=== PATIENT | male | born 1945 | race Caucasian/White ===

== ENCOUNTER 2018-11-16 18:49 | Observation (INO) | payer MEDICARE, OTHER ==
[2018-11-16] MEDS ORDERED: Sodium Chloride 0.9% 1000 ML 1,000 ML IV STA (19:52)
--- NOTE | 2018-11-16 19:55 | ERPHSYRPT ---
- History of Present Illness Time Seen by Provider: 11/16/18 19:30 Source: patient Exam Limitations: no limitations Patient Subjective Stated Complaint: pt states he was told at the end of dialysis that he had an irregular heart rhythm. denies any symptoms other tthan feeling very tired. denies hx of afib. Triage Nursing Assessment: pt alert and oriented, answers questions approp. pt ambulatory with steady gait noted. respirations nonlabored with lungs cta. heart rate irregular. peripheral pulses strong and irregular. Physician History: Patient was found to have an irregular rhythm at dialysis this evening. Patient has been feeling fatigued over the past two weeks. Timing/Duration: today Activities at Onset: rest Quality: other (no pain) Chest Pain Radiation: no radiation Severity of Pain-Max: none Severity of Pain-Current: none Modifying Factors: Improves With: nothing Nitro Today/Relief: no nitro taken today Aspirin Treatment Today: no aspirin today Associated Symptoms: other (fatigue), No nausea, No vomiting, No abdominal pain , No shortness of breath, No heartburn, No diaphoresis, No cough, No chills, No chest pain, No fever, No headaches, No loss of appetite, No malaise, No rash, No syncope, No seizure, No weakness Prior Chest Pain/Cardiac Workup: no prior chest pain Allergies/Adverse Reactions: Sulfa (Sulfonamide Antibiotics) [Sulfa(Sulfonamide Antibiotics)] Allergy ( Unknown, Verified 11/16/18 19:25) latex Adverse Reaction (Intermediate, Verified 11/16/18 19:25) Rash Home Medications: Tamsulosin HCl 0.4 mg [Flomax 0.4 MG] 0.4 mg PO DAILY 04/02/12 [History] Insulin Degludec [Tresiba Flextouch U-100] 30 unit SQ DAILY 11/16/18 [History] Paricalcitol 1 mcg PO UD 11/16/18 [History] Pravastatin Sodium 20 mg PO DAILY 11/16/18 [History] Hx Tetanus, Diphtheria Vaccination/Date Given: Yes Hx Influenza Vaccination/Date Given: Yes (2018) Hx Pneumococcal Vaccination/Date Given: Yes Immunizations Up to Date: Yes - Review of Systems Constitutional: Fatigue, No Fever, No Chills Eyes: No Discharge, No Vision Changes Ears, Nose, & Throat: No Nose Pain, No Nose Discharge, No Epistaxis, No Mouth Swelling, No Painful Swallowing Respiratory: No Cough, No Dyspnea Cardiac: No Chest Pain, No Edema, No Palpitations, No Syncope Abdominal/Gastrointestinal: No Abdominal Pain, No Nausea, No Vomiting, No Hematemesis, No Hematochezia Genitourinary Symptoms: No Dysuria, No Hematuria, No Flank Pain Musculoskeletal: No Back Pain, No Neck Pain Skin: No Rash Neurological: No Dizziness, No Focal Weakness Psychological: No Anxiety, No Emotional Lability Endocrine: No Polyuria, No Polydipsia Hematologic/Lymphatic: No Easy Bleeding, No Easy Bruising All Other Systems: Reviewed and Negative - Past Medical History Pertinent Past Medical History: Yes Neurological History: No Pertinent History ENT History: No Pertinent History Cardiac History: High Cholesterol, Hypertension Respiratory History: No Pertinent History Endocrine Medical History: Diabetes Type II Musculoskeletal History: No Pertinent History GI Medical History: No Pertinent History History: Renal Disease Psycho-Social History: No Pertinent History Male Reproductive Disorders: Prostate Cancer, Prostate Problems Other Medical History: started dialysis at begining on october- will be switching to perotoneal - Past Surgical History Past Surgical History: Yes Neuro Surgical History: No Pertinent History Cardiac: No Pertinent History Respiratory: No Pertinent History Gastrointestinal: No Pertinent History Genitourinary: No Pertinent History Musculoskeletal: Orthopedic Surgery Male Surgical History: Prostate Surgery Other Surgical History: lt ankle compuond fx,seed implants to prostate 2006, dialysis port to rt sc and peritoneal port to abd - Social History Smoking Status: Never smoker Exposure to second hand smoke: No Drug Use: none Patient Lives Alone: No - Nursing Vital Signs Nursing Vital Signs: Initial Vital Signs Temperature 98.1 F 11/16/18 19:12 Pulse Rate 98 H 11/16/18 19:12 Respiratory Rate 16 11/16/18 19:12 Blood Pressure 157/89 11/16/18 19:12 O2 Sat by Pulse Oximetry 99 11/16/18 19:12 Pain Scale Pain Intensity 0 - Physical Exam General Appearance: no apparent distress Eye Exam: PERRL/EOMI, eyes nml inspection, No scleral icterus Ears, Nose, Throat Exam: normal ENT inspection, pharynx normal, moist mucous membranes Neck Exam: normal inspection, non-tender, supple, full range of motion, No meningismus Respiratory Exam: normal breath sounds, lungs clear, airway intact, No respiratory distress Cardiovascular Exam: normal heart sounds, normal peripheral pulses, irregular, capillary refill <2 sec, No murmur, No edema Gastrointestinal/Abdomen Exam: soft, normal bowel sounds, No tenderness, No distention, No mass, No ecchymosis, No pulsatile mass Back Exam: normal inspection, normal range of motion, No CVA tenderness, No vertebral tenderness Extremity Exam: normal inspection, normal range of motion, pelvis stable, No kayla's sign, No inflammation, No pedal edema Neurologic Exam: alert, oriented x 3, cooperative, soft top installer II-XII nml as tested Skin Exam: normal color, warm, dry, No rash Lymphatic Exam: No adenopathy SpO2 Interpretation: normal SpO2: 98 O2 Delivery: Room Air - Course EKG Interpreted by Me: RATE (96), A-fib, NORMAL AXIS, prolonged QT interval, Right Bundle Branch Block, NORMAL ST-T, Other (repeat EKG @ 21:19 showed NSR at 68bpm with 1st Degree AV block and RBBB with no acute ST or T wave changes) Rhythm Strip: Normal Sinus Rhythm (@21:14) - Radiology Exams Chest X-ray Interpretation: Interpreted by me, Reviewed by me, No Pneumonia, No Pneumothorax, Nml Heart Size, No Infiltrates, Nml Mediastinum, Other (dialysis catheter in place on the right) Ordered Tests: Active Orders 24 hr Category Date Time Status Access Control Specialist STAT Care 11/16/18 19:53 Active EKG-ER Only STAT Care 11/16/18 19:52 Active IV Insertion STAT Care 11/16/18 19:52 Active CHEST 1 VIEW (PORTABLE) Stat Exams 11/16/18 19:53 Taken BLOOD CULTURE Stat Lab 11/16/18 20:20 Received CBC W DIFF Stat Lab 11/16/18 20:12 Completed CK-Creatinine Phosphokinase Stat Lab 11/16/18 20:12 Completed CMP Stat Lab 11/16/18 20:12 Completed LIPASE Stat Lab 11/16/18 20:12 Completed Lactic Acid Stat Lab 11/16/18 20:00 Completed MAGNESIUM Stat Lab 11/16/18 20:12 Completed Manual Differential NC Stat Lab 11/16/18 20:12 Completed PROTIME WITH INR Stat Lab 11/16/18 20:12 Completed PTT Stat Lab 11/16/18 20:12 Completed TROPONIN Q3H Lab 11/16/18 20:12 Completed TROPONIN Q3H Lab 11/16/18 23:00 Ordered TROPONIN Q3H Lab 11/17/18 02:00 Ordered TROPONIN Q3H Lab 11/17/18 05:00 Ordered TROPONIN Q3H Lab 11/17/18 08:00 Ordered TSH [TSH, 3RD Generation] Stat Lab 11/16/18 20:26 Ordered UA W/RFX UR CULTURE Stat Lab 11/16/18 19:52 Uncollected VENOUS BLOOD GAS Urgent Lab 11/16/18 20:00 Completed Medication Summary Generic Name Dose Route Start Last Admin Trade Name Freq PRN Reason Stop Dose Admin Sodium Chloride 1,000 mls @ 500 mls/hr 11/16/18 19:52 11/16/18 20:22 Sodium Chloride 0.9% 1000 Ml IV 11/16/18 21:51 500 mls/hr .Q2H STA Administration Discontinued Medications Generic Name Dose Route Start Last Admin Trade Name Freq PRN Reason Stop Dose Admin Sodium Chloride Confirm 11/16/18 20:20 Sodium Chloride 0.9% 1000 Ml Administered 11/16/18 20:21 Dose 1,000 mls @ ud .ROUTE .STK-MED ONE Metoprolol Tartrate 5 mg 11/16/18 20:23 11/16/18 20:39 Lopressor 5 Mg/5 Ml Injection IV 11/16/18 20:24 5 mg STAT ONE Administration Metoprolol Tartrate Confirm 11/16/18 20:30 Lopressor 5 Mg/5 Ml Injection Administered 11/16/18 20:31 Dose 5 mg IV .STK-MED ONE Potassium Chloride 40 meq 11/16/18 20:54 11/16/18 21:10 Klor Con 10 Meq PO 11/16/18 20:55 40 meq STAT ONE Administration Potassium Chloride Confirm 11/16/18 21:09 Klor Con 10 Meq Administered 11/16/18 21:10 Dose 40 meq PO .STK-MED ONE Lab/Rad Data: Laboratory Result Diagrams 11/16/18 20:12 11/16/18 20:12 Laboratory Results 11/16/18 11/16/18 11/16/18 Range/Units 20:26 20:12 20:12 WBC (4.0-10.5) K/mm3 RBC (4.1-5.6) M/mm3 Hgb (12.5-18.0) gm/dl Hct (42-50) % MCV (78-100) fl MCH (26-32) pg MCHC (32-36) g/dl RDW (11.5-14.0) % Plt Count (150-450) K/mm3 MPV (6-9.5) fl Absolute Neutrophils (1.4-6.9) Segmented Neutrophils (36.-66.) % Band Neutrophils (0.0-2.0) % Lymphocytes (Manual) (24-44) % Monocytes (Manual) (0.0-12.0) % Platelet Estimate (NORMAL) Anisocytosis PT 12.9 H (8.83-12.87) SECONDS INR 1.14 (0.8-3.0) APTT 31.9 (24.1-36.1) SECONDS pO2/FiO2 Ratio % VBG pH (7.32-7.42) VBG pCO2 at Pat Temp (42-55) mm/Hg VBG pO2 at Pat Temp (25-40) mm/Hg VBG HCO3 (22-28) meq/L VBG O2 Sat (Lani) (95-100) VBG Base Excess (-2.0-2.0) VBG Hemoglobin VBG Carboxyhemoglobin (0.0-6.9) % T HGB POC Potassium (3.5-5.1) Sodium (137-145) mmol/L Potassium (3.5-5.1) mmol/L Chloride (98-107) mmol/L Carbon Dioxide (22-30) mmol/L Anion Gap (5-15) MEQ/L BUN (9-20) mg/dL Creatinine (0.66-1.25) mg/dL Estimated GFR ML/MIN Glucose (74-106) mg/dL Lactic Acid (0.4-2.0) Calcium (8.4-10.2) mg/dL Magnesium (1.6-2.3) mg/dL Total Bilirubin (0.2-1.3) mg/dL AST (17-59) U/L ALT (0-50) U/L Alkaline Phosphatase (38-126) U/L Creatine Kinase (55-170) U/L Troponin I 0.013 (0.000-0.034) ng/mL Serum Total Protein (6.3-8.2) g/dL Albumin (3.5-5.0) g/dL Lipase (23-300) U/L TSH 3rd Generation 0.534 (0.47-4.68) mIU/L 11/16/18 11/16/18 11/16/18 Range/Units 20:12 20:12 20:00 WBC 7.9 (4.0-10.5) K/mm3 RBC 3.35 L (4.1-5.6) M/mm3 Hgb 10.3 L (12.5-18.0) gm/dl Hct 30.3 L (42-50) % MCV 90.4 (78-100) fl MCH 30.7 (26-32) pg MCHC 34.0 (32-36) g/dl RDW 13.5 (11.5-14.0) % Plt Count 226 (150-450) K/mm3 MPV 8.6 (6-9.5) fl Absolute Neutrophils 6.97 (1.4-6.9) Segmented Neutrophils 85 H (36.-66.) % Band Neutrophils 3 H (0.0-2.0) % Lymphocytes (Manual) 5 L (24-44) % Monocytes (Manual) 7 (0.0-12.0) % Platelet Estimate NORMAL (NORMAL) Anisocytosis 1+ PT (8.83-12.87) SECONDS INR (0.8-3.0) APTT (24.1-36.1) SECONDS pO2/FiO2 Ratio 21.0 % VBG pH 7.55 H* (7.32-7.42) VBG pCO2 at Pat Temp 32 L (42-55) mm/Hg VBG pO2 at Pat Temp 53 H (25-40) mm/Hg VBG HCO3 28.0 (22-28) meq/L VBG O2 Sat (Lani) 92.4 L (95-100) VBG Base Excess 5.6 H (-2.0-2.0) VBG Hemoglobin 10.3 VBG Carboxyhemoglobin 1.8 (0.0-6.9) % T HGB POC Potassium 3.2 L (3.5-5.1) Sodium 135 L (137-145) mmol/L Potassium 3.4 L (3.5-5.1) mmol/L Chloride 94 L (98-107) mmol/L Carbon Dioxide 26 (22-30) mmol/L Anion Gap 19.2 H (5-15) MEQ/L BUN 47 H (9-20) mg/dL Creatinine 3.36 H (0.66-1.25) mg/dL Estimated GFR 19.2 ML/MIN Glucose 162 H (74-106) mg/dL Lactic Acid (0.4-2.0) Calcium 9.6 (8.4-10.2) mg/dL Magnesium 1.8 (1.6-2.3) mg/dL Total Bilirubin 0.40 (0.2-1.3) mg/dL AST 21 (17-59) U/L ALT 18 (0-50) U/L Alkaline Phosphatase 86 (38-126) U/L Creatine Kinase 80 (55-170) U/L Troponin I (0.000-0.034) ng/mL Serum Total Protein 7.6 (6.3-8.2) g/dL Albumin 4.5 (3.5-5.0) g/dL Lipase 134 (23-300) U/L TSH 3rd Generation (0.47-4.68) mIU/L 11/16/18 Range/Units 20:00 WBC (4.0-10.5) K/mm3 RBC (4.1-5.6) M/mm3 Hgb (12.5-18.0) gm/dl Hct (42-50) % MCV (78-100) fl MCH (26-32) pg MCHC (32-36) g/dl RDW (11.5-14.0) % Plt Count (150-450) K/mm3 MPV (6-9.5) fl Absolute Neutrophils (1.4-6.9) Segmented Neutrophils (36.-66.) % Band Neutrophils (0.0-2.0) % Lymphocytes (Manual) (24-44) % Monocytes (Manual) (0.0-12.0) % Platelet Estimate (NORMAL) Anisocytosis PT (8.83-12.87) SECONDS INR (0.8-3.0) APTT (24.1-36.1) SECONDS pO2/FiO2 Ratio % VBG pH (7.32-7.42) VBG pCO2 at Pat Temp (42-55) mm/Hg VBG pO2 at Pat Temp (25-40) mm/Hg VBG HCO3 (22-28) meq/L VBG O2 Sat (Lani) (95-100) VBG Base Excess (-2.0-2.0) VBG Hemoglobin VBG Carboxyhemoglobin (0.0-6.9) % T HGB POC Potassium (3.5-5.1) Sodium (137-145) mmol/L Potassium (3.5-5.1) mmol/L Chloride (98-107) mmol/L Carbon Dioxide (22-30) mmol/L Anion Gap (5-15) MEQ/L BUN (9-20) mg/dL Creatinine (0.66-1.25) mg/dL Estimated GFR ML/MIN Glucose (74-106) mg/dL Lactic Acid 1.2 (0.4-2.0) Calcium (8.4-10.2) mg/dL Magnesium (1.6-2.3) mg/dL Total Bilirubin (0.2-1.3) mg/dL AST (17-59) U/L ALT (0-50) U/L Alkaline Phosphatase (38-126) U/L Creatine Kinase (55-170) U/L Troponin I (0.000-0.034) ng/mL Serum Total Protein (6.3-8.2) g/dL Albumin (3.5-5.0) g/dL Lipase (23-300) U/L TSH 3rd Generation (0.47-4.68) mIU/L - Progress Progress: re-examined, unchanged Air Movement: good Progress Note: 11/16/18 21:12 Patient converted back into sinus rhythm on the nuclear logging engineer at 70 beats per minute. 11/16/18 21:15 Discussed the patient with Dr Calabrese, Hospitalist at [facility]. Dr Calabrese accepted the patient for observation to [facility]. Blood Culture(s) Obtained: Yes Antibiotics given: No Discussed with : Cisco Counseled pt/family regarding: lab results, diagnosis, need for follow-up, rad results - Departure Departure Disposition: Observation (to [facility] telemetry) Clinical Impression: New onset atrial fibrillation, Hypokalemia Hypertension Qualifiers: Hypertension type: essential hypertension Qualified Code(s): I10 - Essential ( primary) hypertension Fatigue Qualifiers: Fatigue type: unspecified Qualified Code(s): R53.83 - Other fatigue Condition: Good Critical Care Time: No Referrals: YASMANY CALABRESE [Primary Care Provider] -
[2018-11-16 20:09] LABS: VBG BASE EXCESS 5.6 (-2.0-2.0); VBG CARBOXYHEMOGLOBIN 1.8 % T HGB (0.0-6.9); VBG HEMOGLOBIN 10.3; VBG O2 SATURATION 92.4 (95-100); VBG POTASSIUM 3.2 (3.5-5.1); VBG pH 7.55 (7.32-7.42)
[2018-11-16 20:14] LABS: Hematocrit 30.3 % (42-50); Hemoglobin 10.3 gm/dl (12.5-18.0); Mean Cell Volume 90.4 fl (78-100); Mean Corpuscular Hemoglobin 30.7 pg (26-32); Mean Platelet Volume 8.6 fl (6-9.5); Platelet Count 226 K/mm3 (150-450); Red Blood Count 3.35 M/mm3 (4.1-5.6); Red Cell Distribution Width 13.5 % (11.5-14.0); White Blood Count 7.9 K/mm3 (4.0-10.5)
[2018-11-16] MEDS ORDERED: Sodium Chloride 0.9% 1000 ML 1,000 ML ONE (20:20)
[2018-11-16 20:21] LABS: INR 1.14 (0.8-3.0); PROTIME 12.9 SECONDS (8.83-12.87)
[2018-11-16 20:23] LABS: PTT 31.9 SECONDS (24.1-36.1)
[2018-11-16] MEDS ORDERED: LOPRESSOR 5 MG/5 ML INJECTION IV ONE ×2 (20:23→20:30)
[2018-11-16 20:27] LABS: ALBUMIN 4.5 g/dL (3.5-5.0); ANION GAP 19.2 MEQ/L (5-15); BILIRUBIN,TOTAL 0.4 mg/dL (0.2-1.3); Calcium 9.6 mg/dL (8.4-10.2); Creatinine 1 3.36 mg/dL (0.66-1.25); MAGNESIUM 1.8 mg/dL (1.6-2.3); Potassium 3.4 mmol/L (3.5-5.1); Total Protein 7.6 g/dL (6.3-8.2)
[2018-11-16 20:39] LABS: ABSOLUTE NEUTROPHILS 6.97 (1.4-6.9); ANISOCYTOSIS 1+; BAND 3 % (0.0-2.0); Lymphocytes 5 % (24-44); Monocyte 7 % (0.0-12.0); Neutrophils 85 % (36.-66.); Platelet Estimate NORMAL (NORMAL); Total Cells Counted 100
[2018-11-16] MEDS ORDERED: Klor Con 10 MEQ PO ONE ×2 (20:54→21:09)
[2018-11-16 21:49] LABS: Appearance CLEAR (CLEAR); Bilirubin NEGATIVE (NEGATIVE); Blood NEGATIVE Ery/ul (0-5); Glucose NEGATIVE (NEGATIVE); Ketones NEGATIVE (NEGATIVE); Leukocyte Esterase NEGATIVE (NEGATIVE); Nitrite NEGATIVE (NEGATIVE); Protein,Urine Dip 30 (Negative); Specific Gravity 1.008 (1.005-1.025); Urobilinogen NEGATIVE mg/dL (0-1)
[2018-11-16] MEDS ORDERED: ENOXAPARIN SODIUM ONE (22:17)
[2018-11-16] MEDS ORDERED: TYLENOL 325 MG PO PRN (22:31)
[2018-11-16] MEDS ORDERED: ENOXAPARIN SODIUM SQ ONE (22:31)
[2018-11-16] MEDS: Pepcid 20 MG PO SCH (23:01)
--- NOTE | 2018-11-16 23:59 | XRAY ---
Indication: Fatigue. New-onset atrial fibrillation. Comparison: May 04, 2017. Portable chest remains clear again with incidental focal eventration of the right hemidiaphragm. Heart is not enlarged for AP portable technique. New right-sided double-lumen dialysis catheter without complications. Bony thorax intact again with minimal degenerative changes. Impression: Nonacute chest with chronic features.
[2018-11-17 05:47] LABS: INR 1.18 (0.8-3.0); PROTIME 13.4 SECONDS (8.83-12.87)
[2018-11-17 05:50] LABS: PTT 34.1 SECONDS (24.1-36.1)
[2018-11-17 05:52] LABS: ANION GAP 17.3 MEQ/L (5-15); Calcium 9.2 mg/dL (8.4-10.2); Creatinine 1 4.14 mg/dL (0.66-1.25)
[2018-11-17] MEDS ORDERED: Sodium Chloride 0.9% 10 ML FLUSH Syringe IV SCH (06:00)
[2018-11-17 06:27] LABS: Potassium 4.1 mmol/L (3.5-5.1)
[2018-11-17] MEDS ORDERED: ENOXAPARIN SODIUM SQ SCH ×2 (10:00→10:45)
[2018-11-17] MEDS: Pepcid 20 MG PO SCH (10:29)
--- NOTE | 2018-11-17 13:50 | PCM.SSS ---
History of Present Illness - Chief Complaint Chief Complaint: New onset Atrial Fibrillation, Hypokalemia History of Present Illness: is a 73 year old male pt of mine from [facility] with PMHx prostate Ca, DM ( A1c <6), HTN and renal failure (on dialysis) who was in ER yesterday with atrial fibrillation. He had been at dialysis and was noted to be irregular w HR of 132. At ER initial HR 112. He was given 1 dose IV beta alex and converted to NSR after that with nl HR. He has been feeling increased fatigue over the past 2 weeks but otherwise asx. He thinks fatigue may be related to the dialysis. Overnight his BP was in the 150s up to 160s. He had been taken off his beta alex in the past few weeks for hypotension. Currently he states he is feeling good. I did talk to Dr. Sylvie Pack, kinesiology internship emotionally impaired teacher and he agreed with getting an echo next week on this pt. Pt currently on lovenox 30mg/d - will change him to Eliquis 2.5mg po BID ([id number] score of 3). Will restart pt's bystolic. Pt to be discharged to home today, after insuring that his Eliquis can be picked up at [facility] today. Our office will call next week and get him an appointemnt with [facility] next week as directed by Dr. Pack. - Review of Systems Constitutional: Fatigue Respiratory: No Short Of Breath Cardiac: No Chest Pain Neurological: Headache (2d last week) All Other Systems: Reviewed and Negative Medications & Allergies Home Medications: Home Medication List Tamsulosin HCl 0.4 mg [Flomax 0.4 MG] 0.4 mg PO DAILY 04/02/12 [History Confirmed 11/16/18] Insulin Degludec [Tresiba Flextouch U-100] 30 unit SQ DAILY 11/16/18 [History Confirmed 11/16/18] Paricalcitol 1 mcg PO UD 11/16/18 [History Confirmed 11/16/18] Pravastatin Sodium 20 mg PO DAILY 11/16/18 [History Confirmed 11/16/18] Apixaban [Eliquis 2.5 mg Tablet] 2.5 mg PO BID #60 tablet 11/17/18 [Rx] Allergies/Adverse Reactions: Allergies Allergy/AdvReac Type Severity Reaction Status Date / Time Sulfa (Sulfonamide Allergy Unknown Verified 11/16/18 19:25 Antibiotics) [Sulfa(Sulfonamide Antibiotics)] latex AdvReac Intermediate Rash Verified 11/16/18 19:25 - Past Medical History Past Medical History: Yes Neurological History: No Pertinent History ENT History: No Pertinent History Cardiac History: High Cholesterol, Hypertension Respiratory History: No Pertinent History Endocrine Medical History: Diabetes Type II Musculoskelatal History: No Pertinent History GI Medical History: No Pertinent History History: Renal Disease Pyscho-Social History: No Pertinent History Male Reproductive Disorders: Prostate Cancer, Prostate Problems Comment: started dialysis at [facility] on october- will be switching to perotoneal - Past Surgical History Past Surgical History: Yes Neuro Surgical History: No Pertinent History Cardiac History: No Pertinent History Respiratory Surgery: No Pertinent History GI Surgical History: No Pertinent History Genitourinary Surgical Hx: No Pertinent History Musculskeletal Surgical Hx: Orthopedic Surgery Male Surgical History: Prostate Surgery Other Surgical History: lt ankle compuond fx,seed implants to prostate 2006, dialysis port to rt sc and peritoneal port to abd - Social History Smoking Status: Never smoker Exposure to second hand smoke: No Alcohol: None Drug Use: none - Physical Exam Vital Signs: Vital Signs - 24 hr Temp Pulse Pulse Resp BP Pulse Ox 11/17/18 12:32 98.3 F 84 20 169/89 94 L 11/17/18 07:37 97.8 F 72 20 162/84 96 11/17/18 04:15 98.3 F 76 17 136/73 97 11/16/18 23:05 98.3 F 73 18 170/81 96 11/16/18 21:54 71 16 138/80 99 11/16/18 21:30 98 11/16/18 21:28 71 18 138/86 98 11/16/18 20:45 88 16 139/91 98 11/16/18 20:38 101 H 16 116/96 98 11/16/18 19:34 95 H 16 145/89 98 11/16/18 19:12 98.1 F 112 H 98 H 16 157/89 99 General Appearance: no apparent distress, alert Neurologic Exam: oriented x 3, cooperative Eye Exam: eyes nml inspection Ears, Nose, Throat Exam: moist mucous membranes Neck Exam: normal inspection, non-tender, No lymphadenopathy Respiratory Exam: normal breath sounds, lungs clear, No crackles/rales, No rhonchi, No wheezing Cardiovascular Exam: regular rate/rhythm, normal heart sounds, No murmur Gastrointestinal/Abdomen Exam: soft, normal bowel sounds, other (port for peritoneal dialysis in place LLQ), No tenderness, No distention, No mass, No guarding, No rebound Back Exam: normal inspection, No rash Extremity Exam: normal inspection, No pedal edema, No swelling Skin Exam: normal color, warm, dry, No rash Results - Labs Lab/Micro Results: Accuchecks Accucheck Value: 105 Lab Results-Last 24 Hours 11/16/18 11/16/18 11/16/18 Range/Units 20:00 20:00 20:12 WBC 7.9 (4.0-10.5) K/mm3 RBC 3.35 L (4.1-5.6) M/mm3 Hgb 10.3 L (12.5-18.0) gm/dl Hct 30.3 L (42-50) % MCV 90.4 (78-100) fl MCH 30.7 (26-32) pg MCHC 34.0 (32-36) g/dl RDW 13.5 (11.5-14.0) % Plt Count 226 (150-450) K/mm3 MPV 8.6 (6-9.5) fl Absolute Neutrophils 6.97 (1.4-6.9) Segmented Neutrophils 85 H (36.-66.) % Band Neutrophils 3 H (0.0-2.0) % Lymphocytes (Manual) 5 L (24-44) % Monocytes (Manual) 7 (0.0-12.0) % Platelet Estimate NORMAL (NORMAL) Anisocytosis 1+ PT (8.83-12.87) SECONDS INR (0.8-3.0) APTT (24.1-36.1) SECONDS pO2/FiO2 Ratio 21.0 % VBG pH 7.55 H* (7.32-7.42) VBG pCO2 at Pat Temp 32 L (42-55) mm/Hg VBG pO2 at Pat Temp 53 H (25-40) mm/Hg VBG HCO3 28.0 (22-28) meq/L VBG O2 Sat (Lani) 92.4 L (95-100) VBG Base Excess 5.6 H (-2.0-2.0) VBG Hemoglobin 10.3 VBG Carboxyhemoglobin 1.8 (0.0-6.9) % T HGB POC Potassium 3.2 L (3.5-5.1) Sodium (137-145) mmol/L Potassium (3.5-5.1) mmol/L Chloride (98-107) mmol/L Carbon Dioxide (22-30) mmol/L Anion Gap (5-15) MEQ/L BUN (9-20) mg/dL Creatinine (0.66-1.25) mg/dL Estimated GFR ML/MIN Glucose (74-106) mg/dL Hemoglobin A1c (4.5-6.0) % Lactic Acid 1.2 (0.4-2.0) Calcium (8.4-10.2) mg/dL Magnesium (1.6-2.3) mg/dL Total Bilirubin (0.2-1.3) mg/dL AST (17-59) U/L ALT (0-50) U/L Alkaline Phosphatase (38-126) U/L Creatine Kinase (55-170) U/L Troponin I (0.000-0.034) ng/mL Serum Total Protein (6.3-8.2) g/dL Albumin (3.5-5.0) g/dL Lipase (23-300) U/L TSH 3rd Generation (0.47-4.68) mIU/L Urine Color (YELLOW) Urine Appearance (CLEAR) Urine pH (5-6) Ur Specific Clayton (1.005-1.025) Urine Protein (Negative) Urine Ketones (NEGATIVE) Urine Blood (0-5) Norman/ul Urine Nitrite (NEGATIVE) Urine Bilirubin (NEGATIVE) Urine Urobilinogen (0-1) mg/dL Ur Leukocyte Esterase (NEGATIVE) Urine WBC (Auto) (0-5) /HPF Urine RBC (Auto) (0-2) /HPF U Epithel Cells (Auto) (FEW) /HPF Urine Bacteria (Auto) (NEGATIVE) /HPF Urine Culture Reflexed (NO) Urine Glucose (NEGATIVE) mg/dL 11/16/18 11/16/18 11/16/18 Range/Units 20:12 20:12 20:12 WBC (4.0-10.5) K/mm3 RBC (4.1-5.6) M/mm3 Hgb (12.5-18.0) gm/dl Hct (42-50) % MCV (78-100) fl MCH (26-32) pg MCHC (32-36) g/dl RDW (11.5-14.0) % Plt Count (150-450) K/mm3 MPV (6-9.5) fl Absolute Neutrophils (1.4-6.9) Segmented Neutrophils (36.-66.) % Band Neutrophils (0.0-2.0) % Lymphocytes (Manual) (24-44) % Monocytes (Manual) (0.0-12.0) % Platelet Estimate (NORMAL) Anisocytosis PT 12.9 H (8.83-12.87) SECONDS INR 1.14 (0.8-3.0) APTT 31.9 (24.1-36.1) SECONDS pO2/FiO2 Ratio % VBG pH (7.32-7.42) VBG pCO2 at Pat Temp (42-55) mm/Hg VBG pO2 at Pat Temp (25-40) mm/Hg VBG HCO3 (22-28) meq/L VBG O2 Sat (Lani) (95-100) VBG Base Excess (-2.0-2.0) VBG Hemoglobin VBG Carboxyhemoglobin (0.0-6.9) % T HGB POC Potassium (3.5-5.1) Sodium 135 L (137-145) mmol/L Potassium 3.4 L (3.5-5.1) mmol/L Chloride 94 L (98-107) mmol/L Carbon Dioxide 26 (22-30) mmol/L Anion Gap 19.2 H (5-15) MEQ/L BUN 47 H (9-20) mg/dL Creatinine 3.36 H (0.66-1.25) mg/dL Estimated GFR 19.2 ML/MIN Glucose 162 H (74-106) mg/dL Hemoglobin A1c (4.5-6.0) % Lactic Acid (0.4-2.0) Calcium 9.6 (8.4-10.2) mg/dL Magnesium 1.8 (1.6-2.3) mg/dL Total Bilirubin 0.40 (0.2-1.3) mg/dL AST 21 (17-59) U/L ALT 18 (0-50) U/L Alkaline Phosphatase 86 (38-126) U/L Creatine Kinase 80 (55-170) U/L Troponin I 0.013 (0.000-0.034) ng/mL Serum Total Protein 7.6 (6.3-8.2) g/dL Albumin 4.5 (3.5-5.0) g/dL Lipase 134 (23-300) U/L TSH 3rd Generation (0.47-4.68) mIU/L Urine Color (YELLOW) Urine Appearance (CLEAR) Urine pH (5-6) Ur Specific Clayton (1.005-1.025) Urine Protein (Negative) Urine Ketones (NEGATIVE) Urine Blood (0-5) Norman/ul Urine Nitrite (NEGATIVE) Urine Bilirubin (NEGATIVE) Urine Urobilinogen (0-1) mg/dL Ur Leukocyte Esterase (NEGATIVE) Urine WBC (Auto) (0-5) /HPF Urine RBC (Auto) (0-2) /HPF U Epithel Cells (Auto) (FEW) /HPF Urine Bacteria (Auto) (NEGATIVE) /HPF Urine Culture Reflexed (NO) Urine Glucose (NEGATIVE) mg/dL 11/16/18 11/16/18 11/16/18 Range/Units 20:26 21:22 23:33 WBC (4.0-10.5) K/mm3 RBC (4.1-5.6) M/mm3 Hgb (12.5-18.0) gm/dl Hct (42-50) % MCV (78-100) fl MCH (26-32) pg MCHC (32-36) g/dl RDW (11.5-14.0) % Plt Count (150-450) K/mm3 MPV (6-9.5) fl Absolute Neutrophils (1.4-6.9) Segmented Neutrophils (36.-66.) % Band Neutrophils (0.0-2.0) % Lymphocytes (Manual) (24-44) % Monocytes (Manual) (0.0-12.0) % Platelet Estimate (NORMAL) Anisocytosis PT (8.83-12.87) SECONDS INR (0.8-3.0) APTT (24.1-36.1) SECONDS pO2/FiO2 Ratio % VBG pH (7.32-7.42) VBG pCO2 at Pat Temp (42-55) mm/Hg VBG pO2 at Pat Temp (25-40) mm/Hg VBG HCO3 (22-28) meq/L VBG O2 Sat (Lani) (95-100) VBG Base Excess (-2.0-2.0) VBG Hemoglobin VBG Carboxyhemoglobin (0.0-6.9) % T HGB POC Potassium (3.5-5.1) Sodium (137-145) mmol/L Potassium (3.5-5.1) mmol/L Chloride (98-107) mmol/L Carbon Dioxide (22-30) mmol/L Anion Gap (5-15) MEQ/L BUN (9-20) mg/dL Creatinine (0.66-1.25) mg/dL Estimated GFR ML/MIN Glucose (74-106) mg/dL Hemoglobin A1c (4.5-6.0) % Lactic Acid (0.4-2.0) Calcium (8.4-10.2) mg/dL Magnesium (1.6-2.3) mg/dL Total Bilirubin (0.2-1.3) mg/dL AST (17-59) U/L ALT (0-50) U/L Alkaline Phosphatase (38-126) U/L Creatine Kinase (55-170) U/L Troponin I 0.016 (0.000-0.034) ng/mL Serum Total Protein (6.3-8.2) g/dL Albumin (3.5-5.0) g/dL Lipase (23-300) U/L TSH 3rd Generation 0.534 (0.47-4.68) mIU/L Urine Color YELLOW (YELLOW) Urine Appearance CLEAR (CLEAR) Urine pH 8.0 (5-6) Ur Specific Clayton 1.008 (1.005-1.025) Urine Protein 30 (Negative) Urine Ketones NEGATIVE (NEGATIVE) Urine Blood NEGATIVE (0-5) Norman/ul Urine Nitrite NEGATIVE (NEGATIVE) Urine Bilirubin NEGATIVE (NEGATIVE) Urine Urobilinogen NEGATIVE (0-1) mg/dL Ur Leukocyte Esterase NEGATIVE (NEGATIVE) Urine WBC (Auto) NONE (0-5) /HPF Urine RBC (Auto) NONE (0-2) /HPF U Epithel Cells (Auto) NONE (FEW) /HPF Urine Bacteria (Auto) NONE (NEGATIVE) /HPF Urine Culture Reflexed NO (NO) Urine Glucose NEGATIVE (NEGATIVE) mg/dL 11/17/18 11/17/18 11/17/18 Range/Units 02:00 05:00 05:30 WBC (4.0-10.5) K/mm3 RBC (4.1-5.6) M/mm3 Hgb (12.5-18.0) gm/dl Hct (42-50) % MCV (78-100) fl MCH (26-32) pg MCHC (32-36) g/dl RDW (11.5-14.0) % Plt Count (150-450) K/mm3 MPV (6-9.5) fl Absolute Neutrophils (1.4-6.9) Segmented Neutrophils (36.-66.) % Band Neutrophils (0.0-2.0) % Lymphocytes (Manual) (24-44) % Monocytes (Manual) (0.0-12.0) % Platelet Estimate (NORMAL) Anisocytosis PT (8.83-12.87) SECONDS INR (0.8-3.0) APTT (24.1-36.1) SECONDS pO2/FiO2 Ratio % VBG pH (7.32-7.42) VBG pCO2 at Pat Temp (42-55) mm/Hg VBG pO2 at Pat Temp (25-40) mm/Hg VBG HCO3 (22-28) meq/L VBG O2 Sat (Lani) (95-100) VBG Base Excess (-2.0-2.0) VBG Hemoglobin VBG Carboxyhemoglobin (0.0-6.9) % T HGB POC Potassium (3.5-5.1) Sodium (137-145) mmol/L Potassium (3.5-5.1) mmol/L Chloride (98-107) mmol/L Carbon Dioxide (22-30) mmol/L Anion Gap (5-15) MEQ/L BUN (9-20) mg/dL Creatinine (0.66-1.25) mg/dL Estimated GFR ML/MIN Glucose (74-106) mg/dL Hemoglobin A1c 5.20 (4.5-6.0) % Lactic Acid (0.4-2.0) Calcium (8.4-10.2) mg/dL Magnesium (1.6-2.3) mg/dL Total Bilirubin (0.2-1.3) mg/dL AST (17-59) U/L ALT (0-50) U/L Alkaline Phosphatase (38-126) U/L Creatine Kinase (55-170) U/L Troponin I 0.021 0.024 (0.000-0.034) ng/mL Serum Total Protein (6.3-8.2) g/dL Albumin (3.5-5.0) g/dL Lipase (23-300) U/L TSH 3rd Generation (0.47-4.68) mIU/L Urine Color (YELLOW) Urine Appearance (CLEAR) Urine pH (5-6) Ur Specific Clayton (1.005-1.025) Urine Protein (Negative) Urine Ketones (NEGATIVE) Urine Blood (0-5) Norman/ul Urine Nitrite (NEGATIVE) Urine Bilirubin (NEGATIVE) Urine Urobilinogen (0-1) mg/dL Ur Leukocyte Esterase (NEGATIVE) Urine WBC (Auto) (0-5) /HPF Urine RBC (Auto) (0-2) /HPF U Epithel Cells (Auto) (FEW) /HPF Urine Bacteria (Auto) (NEGATIVE) /HPF Urine Culture Reflexed (NO) Urine Glucose (NEGATIVE) mg/dL 11/17/18 11/17/18 11/17/18 Range/Units 05:30 05:30 08:00 WBC (4.0-10.5) K/mm3 RBC (4.1-5.6) M/mm3 Hgb (12.5-18.0) gm/dl Hct (42-50) % MCV (78-100) fl MCH (26-32) pg MCHC (32-36) g/dl RDW (11.5-14.0) % Plt Count (150-450) K/mm3 MPV (6-9.5) fl Absolute Neutrophils (1.4-6.9) Segmented Neutrophils (36.-66.) % Band Neutrophils (0.0-2.0) % Lymphocytes (Manual) (24-44) % Monocytes (Manual) (0.0-12.0) % Platelet Estimate (NORMAL) Anisocytosis PT 13.4 H (8.83-12.87) SECONDS INR 1.18 (0.8-3.0) APTT 34.1 (24.1-36.1) SECONDS pO2/FiO2 Ratio % VBG pH (7.32-7.42) VBG pCO2 at Pat Temp (42-55) mm/Hg VBG pO2 at Pat Temp (25-40) mm/Hg VBG HCO3 (22-28) meq/L VBG O2 Sat (Lani) (95-100) VBG Base Excess (-2.0-2.0) VBG Hemoglobin VBG Carboxyhemoglobin (0.0-6.9) % T HGB POC Potassium (3.5-5.1) Sodium 138 (137-145) mmol/L Potassium 4.1 D (3.5-5.1) mmol/L Chloride 98 (98-107) mmol/L Carbon Dioxide 26 (22-30) mmol/L Anion Gap 17.3 H (5-15) MEQ/L BUN 59 H (9-20) mg/dL Creatinine 4.14 H (0.66-1.25) mg/dL Estimated GFR 15.1 ML/MIN Glucose 105 (74-106) mg/dL Hemoglobin A1c (4.5-6.0) % Lactic Acid (0.4-2.0) Calcium 9.2 (8.4-10.2) mg/dL Magnesium (1.6-2.3) mg/dL Total Bilirubin (0.2-1.3) mg/dL AST (17-59) U/L ALT (0-50) U/L Alkaline Phosphatase (38-126) U/L Creatine Kinase (55-170) U/L Troponin I 0.026 (0.000-0.034) ng/mL Serum Total Protein (6.3-8.2) g/dL Albumin (3.5-5.0) g/dL Lipase (23-300) U/L TSH 3rd Generation (0.47-4.68) mIU/L Urine Color (YELLOW) Urine Appearance (CLEAR) Urine pH (5-6) Ur Specific Clayton (1.005-1.025) Urine Protein (Negative) Urine Ketones (NEGATIVE) Urine Blood (0-5) Norman/ul Urine Nitrite (NEGATIVE) Urine Bilirubin (NEGATIVE) Urine Urobilinogen (0-1) mg/dL Ur Leukocyte Esterase (NEGATIVE) Urine WBC (Auto) (0-5) /HPF Urine RBC (Auto) (0-2) /HPF U Epithel Cells (Auto) (FEW) /HPF Urine Bacteria (Auto) (NEGATIVE) /HPF Urine Culture Reflexed (NO) Urine Glucose (NEGATIVE) mg/dL Accuchecks Accucheck Value: 105 - Radiology Impressions Radiology Exams & Impressions: Radiology Procedures Category Date Time Status CHEST 1 VIEW (PORTABLE) Stat Exams 11/16/18 19:53 Completed Assessment/Plan (1) New onset atrial fibrillation Current Visit: Yes Status: Acute Assessment & Plan: Paroxysmal. Echo next week. Cardiology appt to be set up by my office next week. Pt to be discharged home on Eliquis 2.5mg 1 po BID starting at 10 p.m. today. Code(s): I48.91 - UNSPECIFIED ATRIAL FIBRILLATION (2) Fatigue Current Visit: Yes Status: Chronic Qualifiers: Fatigue type: unspecified Qualified Code(s): R53.83 - Other fatigue Assessment & Plan: worse in past 2 wks, could be related to afib Code(s): R53.83 - OTHER FATIGUE (3) Hypertension Current Visit: Yes Status: Acute Qualifiers: Hypertension type: essential hypertension Qualified Code(s): I10 - Essential (primary) hypertension Assessment & Plan: restart bystolic at low dose Code(s): I10 - ESSENTIAL (PRIMARY) HYPERTENSION Hospital Summary - Hospital Course Hospital Course: is a 73 year old male pt of mine from [facility] with PMHx prostate Ca, DM ( A1c <6), HTN and renal failure (on dialysis) who was in ER yesterday with atrial fibrillation. He had been at dialysis and was noted to be irregular w HR of 132. At ER initial HR 112. He was given 1 dose IV beta alex and converted to NSR after that with nl HR. He has been feeling increased fatigue over the past 2 weeks but otherwise asx. He thinks fatigue may be related to the dialysis. Overnight his BP was in the 150s up to 160s. He had been taken off his beta alex in the past few weeks for hypotension. Currently he states he is feeling good. I did talk to Dr. Sylvei Pack, kinesiology internship emotionally impaired teacher and he agreed with getting an echo next week on this pt. Pt currently on lovenox 30mg/d - will change him to Eliquis 2.5mg po BID ([id number] score of 3). Will restart pt's bystolic. Pt to be discharged to home today, after insuring that his Eliquis can be picked up at [facility] today. Our office will call next week and get him an appointemnt with [facility] next week as directed by Dr. Pack. - Vitals & Intake/Output Vital Signs: Vital Signs Temperature 98.3 F 11/17/18 12:32 Pulse Rate 84 11/17/18 12:32 Respiratory Rate 20 11/17/18 12:32 Blood Pressure 169/89 11/17/18 12:32 O2 Sat by Pulse Oximetry 94 L 11/17/18 12:32 Intake & Output: Intake & Output 11/15/18 11/16/18 11/17/18 11/18/18 11:59 11:59 11:59 11:59 Intake Total 560 360 Output Total 575 Balance -15 360 Weight 86.1 kg - Lab Result Diagrams: 11/16/18 20:12 11/17/18 05:30 Lab Results-Last 24 Hrs: Accuchecks Accucheck Value: 105 Lab Results-Last 24 Hours 11/16/18 11/16/18 11/16/18 Range/Units 20:00 20:00 20:12 WBC 7.9 (4.0-10.5) K/mm3 RBC 3.35 L (4.1-5.6) M/mm3 Hgb 10.3 L (12.5-18.0) gm/dl Hct 30.3 L (42-50) % MCV 90.4 (78-100) fl MCH 30.7 (26-32) pg MCHC 34.0 (32-36) g/dl RDW 13.5 (11.5-14.0) % Plt Count 226 (150-450) K/mm3 MPV 8.6 (6-9.5) fl Absolute Neutrophils 6.97 (1.4-6.9) Segmented Neutrophils 85 H (36.-66.) % Band Neutrophils 3 H (0.0-2.0) % Lymphocytes (Manual) 5 L (24-44) % Monocytes (Manual) 7 (0.0-12.0) % Platelet Estimate NORMAL (NORMAL) Anisocytosis 1+ PT (8.83-12.87) SECONDS INR (0.8-3.0) APTT (24.1-36.1) SECONDS pO2/FiO2 Ratio 21.0 % VBG pH 7.55 H* (7.32-7.42) VBG pCO2 at Pat Temp 32 L (42-55) mm/Hg VBG pO2 at Pat Temp 53 H (25-40) mm/Hg VBG HCO3 28.0 (22-28) meq/L VBG O2 Sat (Lani) 92.4 L (95-100) VBG Base Excess 5.6 H (-2.0-2.0) VBG Hemoglobin 10.3 VBG Carboxyhemoglobin 1.8 (0.0-6.9) % T HGB POC Potassium 3.2 L (3.5-5.1) Sodium (137-145) mmol/L Potassium (3.5-5.1) mmol/L Chloride (98-107) mmol/L Carbon Dioxide (22-30) mmol/L Anion Gap (5-15) MEQ/L BUN (9-20) mg/dL Creatinine (0.66-1.25) mg/dL Estimated GFR ML/MIN Glucose (74-106) mg/dL Hemoglobin A1c (4.5-6.0) % Lactic Acid 1.2 (0.4-2.0) Calcium (8.4-10.2) mg/dL Magnesium (1.6-2.3) mg/dL Total Bilirubin (0.2-1.3) mg/dL AST (17-59) U/L ALT (0-50) U/L Alkaline Phosphatase (38-126) U/L Creatine Kinase (55-170) U/L Troponin I (0.000-0.034) ng/mL Serum Total Protein (6.3-8.2) g/dL Albumin (3.5-5.0) g/dL Lipase (23-300) U/L TSH 3rd Generation (0.47-4.68) mIU/L Urine Color (YELLOW) Urine Appearance (CLEAR) Urine pH (5-6) Ur Specific Clayton (1.005-1.025) Urine Protein (Negative) Urine Ketones (NEGATIVE) Urine Blood (0-5) Norman/ul Urine Nitrite (NEGATIVE) Urine Bilirubin (NEGATIVE) Urine Urobilinogen (0-1) mg/dL Ur Leukocyte Esterase (NEGATIVE) Urine WBC (Auto) (0-5) /HPF Urine RBC (Auto) (0-2) /HPF U Epithel Cells (Auto) (FEW) /HPF Urine Bacteria (Auto) (NEGATIVE) /HPF Urine Culture Reflexed (NO) Urine Glucose (NEGATIVE) mg/dL 11/16/18 11/16/18 11/16/18 Range/Units 20:12 20:12 20:12 WBC (4.0-10.5) K/mm3 RBC (4.1-5.6) M/mm3 Hgb (12.5-18.0) gm/dl Hct (42-50) % MCV (78-100) fl MCH (26-32) pg MCHC (32-36) g/dl RDW (11.5-14.0) % Plt Count (150-450) K/mm3 MPV (6-9.5) fl Absolute Neutrophils (1.4-6.9) Segmented Neutrophils (36.-66.) % Band Neutrophils (0.0-2.0) % Lymphocytes (Manual) (24-44) % Monocytes (Manual) (0.0-12.0) % Platelet Estimate (NORMAL) Anisocytosis PT 12.9 H (8.83-12.87) SECONDS INR 1.14 (0.8-3.0) APTT 31.9 (24.1-36.1) SECONDS pO2/FiO2 Ratio % VBG pH (7.32-7.42) VBG pCO2 at Pat Temp (42-55) mm/Hg VBG pO2 at Pat Temp (25-40) mm/Hg VBG HCO3 (22-28) meq/L VBG O2 Sat (Lani) (95-100) VBG Base Excess (-2.0-2.0) VBG Hemoglobin VBG Carboxyhemoglobin (0.0-6.9) % T HGB POC Potassium (3.5-5.1) Sodium 135 L (137-145) mmol/L Potassium 3.4 L (3.5-5.1) mmol/L Chloride 94 L (98-107) mmol/L Carbon Dioxide 26 (22-30) mmol/L Anion Gap 19.2 H (5-15) MEQ/L BUN 47 H (9-20) mg/dL Creatinine 3.36 H (0.66-1.25) mg/dL Estimated GFR 19.2 ML/MIN Glucose 162 H (74-106) mg/dL Hemoglobin A1c (4.5-6.0) % Lactic Acid (0.4-2.0) Calcium 9.6 (8.4-10.2) mg/dL Magnesium 1.8 (1.6-2.3) mg/dL Total Bilirubin 0.40 (0.2-1.3) mg/dL AST 21 (17-59) U/L ALT 18 (0-50) U/L Alkaline Phosphatase 86 (38-126) U/L Creatine Kinase 80 (55-170) U/L Troponin I 0.013 (0.000-0.034) ng/mL Serum Total Protein 7.6 (6.3-8.2) g/dL Albumin 4.5 (3.5-5.0) g/dL Lipase 134 (23-300) U/L TSH 3rd Generation (0.47-4.68) mIU/L Urine Color (YELLOW) Urine Appearance (CLEAR) Urine pH (5-6) Ur Specific Clayton (1.005-1.025) Urine Protein (Negative) Urine Ketones (NEGATIVE) Urine Blood (0-5) Norman/ul Urine Nitrite (NEGATIVE) Urine Bilirubin (NEGATIVE) Urine Urobilinogen (0-1) mg/dL Ur Leukocyte Esterase (NEGATIVE) Urine WBC (Auto) (0-5) /HPF Urine RBC (Auto) (0-2) /HPF U Epithel Cells (Auto) (FEW) /HPF Urine Bacteria (Auto) (NEGATIVE) /HPF Urine Culture Reflexed (NO) Urine Glucose (NEGATIVE) mg/dL 11/16/18 11/16/18 11/16/18 Range/Units 20:26 21:22 23:33 WBC (4.0-10.5) K/mm3 RBC (4.1-5.6) M/mm3 Hgb (12.5-18.0) gm/dl Hct (42-50) % MCV (78-100) fl MCH (26-32) pg MCHC (32-36) g/dl RDW (11.5-14.0) % Plt Count (150-450) K/mm3 MPV (6-9.5) fl Absolute Neutrophils (1.4-6.9) Segmented Neutrophils (36.-66.) % Band Neutrophils (0.0-2.0) % Lymphocytes (Manual) (24-44) % Monocytes (Manual) (0.0-12.0) % Platelet Estimate (NORMAL) Anisocytosis PT (8.83-12.87) SECONDS INR (0.8-3.0) APTT (24.1-36.1) SECONDS pO2/FiO2 Ratio % VBG pH (7.32-7.42) VBG pCO2 at Pat Temp (42-55) mm/Hg VBG pO2 at Pat Temp (25-40) mm/Hg VBG HCO3 (22-28) meq/L VBG O2 Sat (Lani) (95-100) VBG Base Excess (-2.0-2.0) VBG Hemoglobin VBG Carboxyhemoglobin (0.0-6.9) % T HGB POC Potassium (3.5-5.1) Sodium (137-145) mmol/L Potassium (3.5-5.1) mmol/L Chloride (98-107) mmol/L Carbon Dioxide (22-30) mmol/L Anion Gap (5-15) MEQ/L BUN (9-20) mg/dL Creatinine (0.66-1.25) mg/dL Estimated GFR ML/MIN Glucose (74-106) mg/dL Hemoglobin A1c (4.5-6.0) % Lactic Acid (0.4-2.0) Calcium (8.4-10.2) mg/dL Magnesium (1.6-2.3) mg/dL Total Bilirubin (0.2-1.3) mg/dL AST (17-59) U/L ALT (0-50) U/L Alkaline Phosphatase (38-126) U/L Creatine Kinase (55-170) U/L Troponin I 0.016 (0.000-0.034) ng/mL Serum Total Protein (6.3-8.2) g/dL Albumin (3.5-5.0) g/dL Lipase (23-300) U/L TSH 3rd Generation 0.534 (0.47-4.68) mIU/L Urine Color YELLOW (YELLOW) Urine Appearance CLEAR (CLEAR) Urine pH 8.0 (5-6) Ur Specific Clayton 1.008 (1.005-1.025) Urine Protein 30 (Negative) Urine Ketones NEGATIVE (NEGATIVE) Urine Blood NEGATIVE (0-5) Norman/ul Urine Nitrite NEGATIVE (NEGATIVE) Urine Bilirubin NEGATIVE (NEGATIVE) Urine Urobilinogen NEGATIVE (0-1) mg/dL Ur Leukocyte Esterase NEGATIVE (NEGATIVE) Urine WBC (Auto) NONE (0-5) /HPF Urine RBC (Auto) NONE (0-2) /HPF U Epithel Cells (Auto) NONE (FEW) /HPF Urine Bacteria (Auto) NONE (NEGATIVE) /HPF Urine Culture Reflexed NO (NO) Urine Glucose NEGATIVE (NEGATIVE) mg/dL 11/17/18 11/17/18 11/17/18 Range/Units 02:00 05:00 05:30 WBC (4.0-10.5) K/mm3 RBC (4.1-5.6) M/mm3 Hgb (12.5-18.0) gm/dl Hct (42-50) % MCV (78-100) fl MCH (26-32) pg MCHC (32-36) g/dl RDW (11.5-14.0) % Plt Count (150-450) K/mm3 MPV (6-9.5) fl Absolute Neutrophils (1.4-6.9) Segmented Neutrophils (36.-66.) % Band Neutrophils (0.0-2.0) % Lymphocytes (Manual) (24-44) % Monocytes (Manual) (0.0-12.0) % Platelet Estimate (NORMAL) Anisocytosis PT (8.83-12.87) SECONDS INR (0.8-3.0) APTT (24.1-36.1) SECONDS pO2/FiO2 Ratio % VBG pH (7.32-7.42) VBG pCO2 at Pat Temp (42-55) mm/Hg VBG pO2 at Pat Temp (25-40) mm/Hg VBG HCO3 (22-28) meq/L VBG O2 Sat (Lani) (95-100) VBG Base Excess (-2.0-2.0) VBG Hemoglobin VBG Carboxyhemoglobin (0.0-6.9) % T HGB POC Potassium (3.5-5.1) Sodium (137-145) mmol/L Potassium (3.5-5.1) mmol/L Chloride (98-107) mmol/L Carbon Dioxide (22-30) mmol/L Anion Gap (5-15) MEQ/L BUN (9-20) mg/dL Creatinine (0.66-1.25) mg/dL Estimated GFR ML/MIN Glucose (74-106) mg/dL Hemoglobin A1c 5.20 (4.5-6.0) % Lactic Acid (0.4-2.0) Calcium (8.4-10.2) mg/dL Magnesium (1.6-2.3) mg/dL Total Bilirubin (0.2-1.3) mg/dL AST (17-59) U/L ALT (0-50) U/L Alkaline Phosphatase (38-126) U/L Creatine Kinase (55-170) U/L Troponin I 0.021 0.024 (0.000-0.034) ng/mL Serum Total Protein (6.3-8.2) g/dL Albumin (3.5-5.0) g/dL Lipase (23-300) U/L TSH 3rd Generation (0.47-4.68) mIU/L Urine Color (YELLOW) Urine Appearance (CLEAR) Urine pH (5-6) Ur Specific Clayton (1.005-1.025) Urine Protein (Negative) Urine Ketones (NEGATIVE) Urine Blood (0-5) Norman/ul Urine Nitrite (NEGATIVE) Urine Bilirubin (NEGATIVE) Urine Urobilinogen (0-1) mg/dL Ur Leukocyte Esterase (NEGATIVE) Urine WBC (Auto) (0-5) /HPF Urine RBC (Auto) (0-2) /HPF U Epithel Cells (Auto) (FEW) /HPF Urine Bacteria (Auto) (NEGATIVE) /HPF Urine Culture Reflexed (NO) Urine Glucose (NEGATIVE) mg/dL 11/17/18 11/17/18 11/17/18 Range/Units 05:30 05:30 08:00 WBC (4.0-10.5) K/mm3 RBC (4.1-5.6) M/mm3 Hgb (12.5-18.0) gm/dl Hct (42-50) % MCV (78-100) fl MCH (26-32) pg MCHC (32-36) g/dl RDW (11.5-14.0) % Plt Count (150-450) K/mm3 MPV (6-9.5) fl Absolute Neutrophils (1.4-6.9) Segmented Neutrophils (36.-66.) % Band Neutrophils (0.0-2.0) % Lymphocytes (Manual) (24-44) % Monocytes (Manual) (0.0-12.0) % Platelet Estimate (NORMAL) Anisocytosis PT 13.4 H (8.83-12.87) SECONDS INR 1.18 (0.8-3.0) APTT 34.1 (24.1-36.1) SECONDS pO2/FiO2 Ratio % VBG pH (7.32-7.42) VBG pCO2 at Pat Temp (42-55) mm/Hg VBG pO2 at Pat Temp (25-40) mm/Hg VBG HCO3 (22-28) meq/L VBG O2 Sat (Lani) (95-100) VBG Base Excess (-2.0-2.0) VBG Hemoglobin VBG Carboxyhemoglobin (0.0-6.9) % T HGB POC Potassium (3.5-5.1) Sodium 138 (137-145) mmol/L Potassium 4.1 D (3.5-5.1) mmol/L Chloride 98 (98-107) mmol/L Carbon Dioxide 26 (22-30) mmol/L Anion Gap 17.3 H (5-15) MEQ/L BUN 59 H (9-20) mg/dL Creatinine 4.14 H (0.66-1.25) mg/dL Estimated GFR 15.1 ML/MIN Glucose 105 (74-106) mg/dL Hemoglobin A1c (4.5-6.0) % Lactic Acid (0.4-2.0) Calcium 9.2 (8.4-10.2) mg/dL Magnesium (1.6-2.3) mg/dL Total Bilirubin (0.2-1.3) mg/dL AST (17-59) U/L ALT (0-50) U/L Alkaline Phosphatase (38-126) U/L Creatine Kinase (55-170) U/L Troponin I 0.026 (0.000-0.034) ng/mL Serum Total Protein (6.3-8.2) g/dL Albumin (3.5-5.0) g/dL Lipase (23-300) U/L TSH 3rd Generation (0.47-4.68) mIU/L Urine Color (YELLOW) Urine Appearance (CLEAR) Urine pH (5-6) Ur Specific Clayton (1.005-1.025) Urine Protein (Negative) Urine Ketones (NEGATIVE) Urine Blood (0-5) Norman/ul Urine Nitrite (NEGATIVE) Urine Bilirubin (NEGATIVE) Urine Urobilinogen (0-1) mg/dL Ur Leukocyte Esterase (NEGATIVE) Urine WBC (Auto) (0-5) /HPF Urine RBC (Auto) (0-2) /HPF U Epithel Cells (Auto) (FEW) /HPF Urine Bacteria (Auto) (NEGATIVE) /HPF Urine Culture Reflexed (NO) Urine Glucose (NEGATIVE) mg/dL Micro Results-Entire Visit: Accuchecks Accucheck Value: 105 - Radiology Exams Ordered Rad Exams-Entire Visit: Radiology Procedures Category Date Time Status CHEST 1 VIEW (PORTABLE) Stat Exams 11/16/18 19:53 Completed - Procedures and Test Procedures and Tests throughout Hospitalization: Therapy Orders & Screens 11/16/18 22:31 EKG REPEAT IN AM Comment: - Discharge Disposition: Home, Self-Care Condition: Good Prescriptions: New Apixaban [Eliquis 2.5 mg Tablet] 2.5 mg PO BID #60 tablet Continue Tamsulosin HCl 0.4 mg [Flomax 0.4 MG] 0.4 mg PO DAILY Pravastatin Sodium 20 mg PO DAILY Insulin Degludec [Tresiba Flextouch U-100] 30 unit SQ DAILY Paricalcitol 1 mcg PO UD Follow up with: YASMANY CERVANTES [Primary Care Provider] - 1 Week
[2018-11-17] MEDS ORDERED: PARICALCITOL 1 MCG PO SCH (14:30)
[2018-11-17] MEDS ORDERED: Flomax 0.4 MG PO SCH (14:45)
[2018-11-17] MEDS ORDERED: MEDICATION INTERVENTION MC SCH ×2 (15:00)
[2018-11-17 16:17] VITALS: BP 158/67; PULSE 78; O2SAT 96
[2018-11-17] MEDS ORDERED: ZOCOR 20MG PO SCH (22:00)
[2018-11-18] MEDS ORDERED: NON-FORMULARY ITEM (Pravastatin Sodium [Pravastatin Sodium] 20 MG) PO SCH (10:00)
[2018-11-18] MEDS ORDERED: INSULIN DEGLUDEC 30 UNIT SQ SCH (10:00)
== END 2018-11-17 16:50 | disposition home or self-care (01) ==
LOC: ED 18:49 → MED SURG 22:25
PROVIDERS: ADMIT Family Medicine; ATTEND Family Medicine
DX: I48.91 Unspecified atrial fibrillation (principal); E87.6 Hypokalemia; R53.83 Other fatigue; E11.9 Type 2 diabetes mellitus without complications; N19 Unspecified kidney failure; I10 Essential (primary) hypertension; Z99.2 Dependence on renal dialysis; E78.00 Pure hypercholesterolemia, unspecified; Z85.46 Personal history of malignant neoplasm of prostate; Z79.01 Long term (current) use of anticoagulants; Z79.899 Other long term (current) drug therapy
CPT/HCPCS: 36000; 36415; 71045; 80048; 80053; 81001; 82550; 82805; 82962; 83036; 83605; 83690; 83735; 84443; 84484; 85025; 85610; 85730; 87040; 93005; 93041; 93268; 96360; 96372; 96374; 99285; G0378; J1650; A9270-GY

== ENCOUNTER 2019-07-19 19:51 | Emergency (ER) | payer MEDICARE, OTHER ==
[2019-07-19] MEDS ORDERED: Zofran 4 MG/2 ML VIAL IV ONE (20:08)
[2019-07-19] MEDS ORDERED: Hydromorphone 1 mg/ml Ampule IV ONE (20:08)
[2019-07-19] MEDS ORDERED: Ativan 2 MG/1 ML VIAL IV ONE (20:09)
--- NOTE | 2019-07-19 20:13 | ERPHSYRPT ---
- History of Present Illness Time Seen by Provider: 07/19/19 19:53 Source: patient Exam Limitations: no limitations Physician History: Location: right shoulder pain Quality:sharp Radiation: into arm Severity: moderate Duration: just ROAD [employer]PERVIS[employer] Timing: after fall Modifying factors/associated signs and symptoms:none tried Patient had a mechanical fall just prior to arrival. No chest pain, shortness of breath, nausea, vomiting. Patient fell on an outstretched hand. Now has right shoulder pain. No other injuries. No scaphoid tenderness, wrist pain, elbow pain. He is on warfarin. However, he did not hit his head, no loss of consciousness, no syncope Timing/Duration: today Allergies/Adverse Reactions: Sulfa (Sulfonamide Antibiotics) [Sulfa(Sulfonamide Antibiotics)] Allergy ( Unknown, Verified 07/19/19 20:16) latex Adverse Reaction (Intermediate, Verified 07/19/19 20:16) Rash Home Medications: Tamsulosin HCl 0.4 mg [Flomax 0.4 MG] 0.4 mg PO DAILY 04/02/12 [History] Insulin Degludec [Tresiba Flextouch U-100] 30 unit SQ DAILY 11/16/18 [History] Pravastatin Sodium 20 mg PO DAILY 11/16/18 [History] paricalcitoL [Paricalcitol] 1 mcg PO UD 11/16/18 [History] Hx Tetanus, Diphtheria Vaccination/Date Given: Yes Hx Influenza Vaccination/Date Given: Yes (2018) Hx Pneumococcal Vaccination/Date Given: Yes - Review of Systems Constitutional: No Fever, No Chills Eyes: No Symptoms Ears, Nose, & Throat: No Symptoms Respiratory: No Cough, No Dyspnea Cardiac: No Chest Pain, No Edema, No Syncope Abdominal/Gastrointestinal: No Abdominal Pain, No Nausea, No Vomiting, No Diarrhea Genitourinary Symptoms: No Dysuria Musculoskeletal: Other (right shoulder pain), No Back Pain, No Neck Pain Skin: No Rash Neurological: No Dizziness, No Focal Weakness, No Sensory Changes Psychological: No Symptoms Endocrine: No Symptoms All Other Systems: Reviewed and Negative - Past Medical History Pertinent Past Medical History: Yes Neurological History: No Pertinent History ENT History: No Pertinent History Cardiac History: High Cholesterol, Hypertension Respiratory History: No Pertinent History Endocrine Medical History: Diabetes Type II Musculoskeletal History: No Pertinent History GI Medical History: No Pertinent History History: Renal Disease Psycho-Social History: No Pertinent History Male Reproductive Disorders: Prostate Cancer, Prostate Problems Other Medical History: started dialysis at begining on october- will be switching to perotoneal - Past Surgical History Past Surgical History: Yes Neuro Surgical History: No Pertinent History Cardiac: No Pertinent History Respiratory: No Pertinent History Gastrointestinal: No Pertinent History Genitourinary: No Pertinent History Musculoskeletal: Orthopedic Surgery Male Surgical History: Prostate Surgery Other Surgical History: lt ankle compuond fx,seed implants to prostate 2006, dialysis port to rt sc and peritoneal port to abd - Social History Smoking Status: Never smoker Exposure to second hand smoke: No Drug Use: none Patient Lives Alone: No - Nursing Vital Signs Nursing Vital Signs: Initial Vital Signs Temperature 98.7 F 07/19/19 20:09 Pulse Rate 66 07/19/19 20:09 Respiratory Rate 18 07/19/19 20:09 Blood Pressure 174/88 07/19/19 20:09 O2 Sat by Pulse Oximetry 98 07/19/19 20:09 Pain Scale Pain Intensity 4 - Physical Exam General Appearance: no apparent distress, alert Eye Exam: PERRL/EOMI, eyes nml inspection Ears, Nose, Throat Exam: normal ENT inspection, TMs normal, pharynx normal, moist mucous membranes Neck Exam: normal inspection, non-tender, supple, full range of motion Respiratory Exam: normal breath sounds, lungs clear, No respiratory distress Cardiovascular Exam: regular rate/rhythm, normal heart sounds, normal peripheral pulses Gastrointestinal/Abdomen Exam: soft, normal bowel sounds, No tenderness, No mass Back Exam: normal inspection, normal range of motion, No CVA tenderness, No vertebral tenderness Extremity Exam: normal inspection, normal range of motion, pelvis stable, other (right shoulder pain, and tenderness) Neurologic Exam: alert, oriented x 3, cooperative, normal mood/affect, nml cerebellar function, nml station & gait, sensation nml, No motor deficits Skin Exam: normal color, warm, dry, No rash Lymphatic Exam: No adenopathy SpO2 Interpretation: normal Comments: 07/19/19 20:12 Obvious deformity of anterior humer, sensation intact, 2+ capillary refill, 2 point tactile discrimination intact. Decrease strength and range of motion with pain. Compartments are soft, nontender. Overlying skin shows no tenting, some bruising, and ecchymosis. 07/19/19 21:49 Procedures - Splinting Location of Splint: Right, Upper Arm Type of Splint: Orthoglass Long Arm Splint Splint Applied By: ED Physician Pre-Proc Neuro Vasc Exam: normal Post-Proc Neuro Vasc Exam: neurovascular intact Progress: Placed in splint and sling to go home per Thomas Keenan DO, Orthopaedic Surgery Ordered Tests: Active Orders 24 hr Category Date Time Status IV Insertion STAT Care 07/19/19 20:08 Active SHOULDER Stat Exams 07/19/19 20:56 Taken Medication Summary Discontinued Medications Generic Name Dose Route Start Last Admin Trade Name Freq PRN Reason Stop Dose Admin Hydromorphone HCl 1 mg 07/19/19 20:08 07/19/19 20:23 Hydromorphone 1 Mg/Ml Ampule IV 07/19/19 20:09 1 mg STAT ONE Administration Hydromorphone HCl Confirm 07/19/19 20:20 Hydromorphone 1 Mg/Ml Ampule Administered 07/19/19 20:21 Dose 1 mg .ROUTE .STK-MED ONE Lorazepam 1 mg 07/19/19 20:09 07/19/19 20:22 Ativan 2 Mg/1 Ml Vial IV 07/19/19 20:10 1 mg STAT ONE Administration Lorazepam Confirm 07/19/19 20:20 Ativan 2 Mg/1 Ml Vial Administered 07/19/19 20:21 Dose 2 mg .ROUTE .STK-MED ONE Ondansetron HCl 4 mg 07/19/19 20:08 07/19/19 20:22 Zofran 4 Mg/2 Ml Vial IV 07/19/19 20:09 4 mg STAT ONE Administration Ondansetron HCl Confirm 07/19/19 20:19 Zofran 4 Mg/2 Ml Vial Administered 07/19/19 20:20 Dose 4 mg .ROUTE .STK-MED ONE - Progress Progress: improved Progress Note: 07/19/19 20:12 Will obtain an x-ray of the right shoulder. Insert IV, IV pain medication.. 07/19/19 21:48 Patient has a displaced humerus fracture, greater tuberosity fracture. Discussed over the phone with on-call orthopedic surgery, Thomas Keenan DO, Orthopaedic Surgery. He said we should placed the patient in a splint. Patient was placed in a splint. See procedure note for full details. Patient will go home. Close follow-up with orthopedic surgery on Monday. He will return here for any new or changing symptoms. No signs of compartment syndrome at this point in time. - Departure Departure Disposition: Home Clinical Impression: Humerus surgical neck fracture, Greater tuberosity of humerus fracture Condition: Stable Critical Care Time: No Referrals: YASMANY CERVANTES [Primary Care Provider] - Instructions: Shoulder Fracture (DC) Additional Instructions: Call Dr. Thomas Keenan DO, Orthopaedic Surgery Monday for follow up Address: [address] [place] [address] [address], [place] [address]
[2019-07-19] MEDS ORDERED: Zofran 4 MG/2 ML VIAL ONE (20:19)
[2019-07-19] MEDS ORDERED: Ativan 2 MG/1 ML VIAL ONE (20:20)
[2019-07-19] MEDS ORDERED: Hydromorphone 1 mg/ml Ampule ONE (20:20)
[2019-07-19 21:30] VITALS: PULSE 61
[2019-07-19 22:03] VITALS: BP 139/79; O2SAT 95
--- NOTE | 2019-07-20 06:22 | XRAY ---
Indication: Pain following fall. Comparison: None 2 view right shoulder demonstrates non-angulated impacted humeral neck fracture and mildly displaced greater tuberosity fracture. No other bony, articular, or soft tissue abnormalities. Comment: Preliminary interpretation was made by [facility]. No critical discrepancy.
== END 2019-07-19 22:15 | disposition home or self-care (01) ==
LOC: ED 19:51
DX: S42.211A Unspecified displaced fracture of surgical neck of right humerus, initial encounter for closed fracture (principal); S42.251A Displaced fracture of greater tuberosity of right humerus, initial encounter for closed fracture; M25.511 Pain in right shoulder; W18.39XA Other fall on same level, initial encounter; Y93.9 Activity, unspecified; Y92.9 Unspecified place or not applicable; I10 Essential (primary) hypertension; E11.9 Type 2 diabetes mellitus without complications; E78.00 Pure hypercholesterolemia, unspecified; N28.9 Disorder of kidney and ureter, unspecified; Z85.46 Personal history of malignant neoplasm of prostate; Z99.2 Dependence on renal dialysis; Z91.15 Patient's noncompliance with renal dialysis; Z79.01 Long term (current) use of anticoagulants
CPT/HCPCS: 29105; 36000; 36415; 73030; 85610; 96374; 96375; 99284; J1170; J2060; J2405

== ENCOUNTER 2021-08-14 08:39 | Emergency (ER) | payer MEDICARE, OTHER ==
[2021-08-14] MEDS ORDERED: Lactated Ringers 1,000 ML IV ONE ×2 (09:16→09:17)
[2021-08-14 09:23] LABS: Absolute Neutrophil Ct (ANC) 5.66 x10^3/uL (1.4-6.9); Basophil (Absolute #) 0.02 x10^3/uL (0-0.4); Eosinophil % 0.3 % (0.00-5.0); Eosinophil (Absolute #) 0.02 x10^3/uL (0-0.5); Hematocrit 41.6 % (42-50); Hemoglobin 13.4 g/dL (12.5-18.0); Lymphocyte (Absolute #) 0.91 x10^3/uL (1.0-4.6); Lymphocytes % 11.7 % (24.0-44.0); Mean Cell Volume 88.7 fL (78-100); Mean Corpuscular Hemoglobin 28.6 pg (26-32); Mean Corpuscular Hgb Concent. 32.2 g/dL (32-36); Mean Platelet Volume 10.5 fL (7.5-11.0); Monocyte (Absolute #) 1.04 x10^3/uL (0.0-1.3); Monocytes % 13.4 % (0.0-12.0); Neutrophil % 72.9 % (36.0-66.0); Platelet Count 308 x10^3/uL (150-450); Red Blood Count 4.69 x10^6/uL (4.1-5.6); Red Cell Distribution Width 13.4 % (11.5-14.0); White Blood Count 7.8 x10^3/uL (4.0-10.5)
--- NOTE | 2021-08-14 09:25 | ERPHSYRPT ---
- History of Present Illness Time Seen by Provider: 08/14/21 09:23 Source: patient, family Exam Limitations: no limitations Patient Subjective Stated Complaint: Pt states "I had a kidney transplant in [facility] on september. I have had diarrhea for the past 6 days and I called [facility] and they told me to come here." Triage Nursing Assessment: Pt presented alert and oriented X 3, skin pwd Pt ambulates with an upright steady gait, able to speak in clear full sentences pt in no apaprent respiratory distress. Pt resting comfortably on the bed. Physician History: Pt states "I had a kidney transplant in [facility] on september the 2020. I have had diarrhea for the past 6 days and I called [facility] and they told me to come here." Patient is 75-year-old male with history of kidney transplant last year started having a 1 week history of diarrhea. 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 Timing/Duration: day(s) (six days) Severity: moderate Associated Symptoms: loss of appetite, other (diarrhea) Allergies/Adverse Reactions: Sulfa (Sulfonamide Antibiotics) [Sulfa(Sulfonamide Antibiotics)] Allergy (Unknown, Verified 07/19/19 20:16) ibuprofen Adverse Reaction (Severe, Verified 08/14/21 08:49) kidney transplant latex Adverse Reaction (Intermediate, Verified 07/19/19 20:16) Rash Home Medications: Amlodipine Besylate [Norvasc] 10 mg PO DAILY 08/14/21 [History] HydrALAzine HCL 25 MG TAB [Apresoline 25 MG TABLET] 25 mg PO TID 08/14/21 [History] Insulin Degludec [Tresiba] 10 unit SQ DAILY 08/14/21 [History] Mag Oxide/D3/Turmeric Rt Xt [Magnesium-Vit D3-Turmeric Tab] 1 each PO DAILY 08/14/21 [History] Nebivolol HCl 5 MG [Bystolic 5 MG] 5 mg PO DAILY 08/14/21 [History] PANTOPRAZOLE 40 mg Tablet [Protonix 40MG Tablet] 40 mg PO QAM 08/14/21 [History] Pravastatin Sodium 40 mg PO DAILY 08/14/21 [History] Prednisolone [Millipred] 5 mg PO DAILY 08/14/21 [History] Semaglutide [Ozempic] 1 mg SQ WEEKLY 08/14/21 [History] Sulfamethoxazole/Trimethoprim [Sulfamethoxazole-Tmp Ds Tablet] 1 each PO DAILY 08/14/21 [History] Tacrolimus 0.5 mg PO BREAKFAST 08/14/21 [History] Tacrolimus [Prograf] 1 mg PO HS 08/14/21 [History] Tamsulosin HCl 0.4 mg [Flomax 0.4 MG] 0.4 mg PO DAILY 08/14/21 [History] Tolterodine Tartrate [Tolterodine Tartrate ER] 2 mg PO DAILY 08/14/21 [History] Warfarin Sodium [Jantoven] 2 mg PO DAILY 08/14/21 [History] calcitrioL [Calcitriol] 0.5 mcg PO DAILY 08/14/21 [History] mycophenolate mofetiL [Mycophenolate Mofetil] 250 mg PO BID 08/14/21 [History] Hx Tetanus, Diphtheria Vaccination/Date Given: Yes Hx Influenza Vaccination/Date Given: Yes (2018) Hx Pneumococcal Vaccination/Date Given: Yes Immunizations Up to Date: Yes Travel Risk - International Travel Have you traveled outside of the country in past 3 weeks: No - Coronavirus Screening Are you exhibiting any of the following symptoms?: Yes Symptoms: Vomiting/Diarrhea Close contact with a COVID-19 positive Pt in past 14-21 Days: No - Vaccine Status Have you recieved a Covid-19 vaccination: Yes 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: [employer] - Vaccination Dates Date of 2cond Vaccination (if applicable): 2020 - Review of Systems Constitutional: No Fever, No Chills Eyes: No Symptoms Ears, Nose, & Throat: No Symptoms Respiratory: No Cough, No Dyspnea Cardiac: No Chest Pain, No Edema, No Syncope Abdominal/Gastrointestinal: Diarrhea, Appetite Changes, No Abdominal Pain, No Nausea, No Vomiting Genitourinary Symptoms: No Dysuria Musculoskeletal: No Back Pain, No Neck Pain Skin: No Rash Neurological: No Dizziness, No Focal Weakness, No Sensory Changes Psychological: No Symptoms Endocrine: No Symptoms All Other Systems: Reviewed and Negative - Past Medical History Pertinent Past Medical History: Yes Neurological History: No Pertinent History ENT History: No Pertinent History Cardiac History: Hypertension Respiratory History: No Pertinent History Endocrine Medical History: Adrenal Insufficiency, Diabetes Type II Musculoskeletal History: No Pertinent History GI Medical History: No Pertinent History History: Renal Disease Psycho-Social History: No Pertinent History Male Reproductive Disorders: Prostate Cancer, Prostate Problems Other Medical History: PT IS ON [facility]. - Past Surgical History Past Surgical History: Yes Neuro Surgical History: No Pertinent History Cardiac: No Pertinent History Respiratory: No Pertinent History Gastrointestinal: No Pertinent History Genitourinary: No Pertinent History Musculoskeletal: Orthopedic Surgery Male Surgical History: Prostate Surgery Other Surgical History: lt ankle compuond fx,seed implants to prostate 2006, dialysis port to rt sc and peritoneal port to abd. kidney transplant-right side - Social History Smoking Status: Never smoker Exposure to second hand smoke: No Drug Use: none Patient Lives Alone: No - Nursing Vital Signs Nursing Vital Signs: Initial Vital Signs Temperature 97.7 F 08/14/21 08:44 Pulse Rate 80 08/14/21 08:44 Respiratory Rate 22 08/14/21 08:44 Blood Pressure 145/85 08/14/21 08:44 O2 Sat by Pulse Oximetry 98 08/14/21 08:44 Pain Scale Pain Intensity 0 - Physical Exam General Appearance: no apparent distress, alert Eye Exam: PERRL/EOMI, eyes nml inspection Ears, Nose, Throat Exam: normal ENT inspection, TMs normal, pharynx normal, moist mucous membranes Neck Exam: normal inspection, non-tender, supple, full range of motion Respiratory Exam: normal breath sounds, lungs clear, No respiratory distress Cardiovascular Exam: regular rate/rhythm, normal heart sounds, normal peripheral pulses Gastrointestinal/Abdomen Exam: soft, normal bowel sounds, No tenderness, No mass Back Exam: normal inspection, normal range of motion, No CVA tenderness, No vertebral tenderness Extremity Exam: normal inspection, normal range of motion, pelvis stable Neurologic Exam: alert, oriented x 3, cooperative, normal mood/affect, nml cerebellar function, nml station & gait, sensation nml, No motor deficits Skin Exam: normal color, warm, dry, No rash Lymphatic Exam: No adenopathy SpO2: 98 - Course Nursing assessment & vital signs reviewed: Yes Ordered Tests: Active Orders 24 hr Category Date Time Status CBC W DIFF Stat Lab 08/14/21 09:20 Completed CMP Stat Lab 08/14/21 09:20 Completed MAG [MAGNESIUM] Stat Lab 08/14/21 09:20 Completed PT INR [PROTIME WITH INR] Stat Lab 08/14/21 09:16 Completed Medication Summary Generic Name Dose Route Start Last Admin Trade Name Freq PRN Reason Stop Dose Admin Lactated Ringer's 1,000 mls @ 999 mls/hr 08/14/21 09:16 08/14/21 09:17 Lactated Ringers IV 08/14/21 10:16 999 mls/hr .Q1H1M ONE Administration Sodium Chloride 1,000 mls @ 999 mls/hr 08/14/21 10:13 Sodium Chloride 0.9% 1000 Ml IV 08/14/21 11:13 .Q1H1M STA Discontinued Medications Generic Name Dose Route Start Last Admin Trade Name Freq PRN Reason Stop Dose Admin Lactated Ringer's Confirm 08/14/21 09:17 Lactated Ringers Administered 08/14/21 09:18 Dose 1,000 mls @ ud IV .STK-MED ONE Sodium Chloride Confirm 08/14/21 10:13 Sodium Chloride 0.9% 1000 Ml Administered 08/14/21 10:14 Dose 1,000 mls @ ud .ROUTE .STK-MED ONE Lab/Rad Data: Laboratory Result Diagrams 08/14/21 09:20 08/14/21 09:20 Laboratory Results 08/14/21 08/14/21 08/14/21 Range/Units 09:20 09:20 09:16 WBC 7.8 (4.0-10.5) x10^3/uL RBC 4.69 (4.1-5.6) x10^6/uL Hgb 13.4 (12.5-18.0) g/dL Hct 41.6 L (42-50) % MCV 88.7 (78-100) fL MCH 28.6 (26-32) pg MCHC 32.2 (32-36) g/dL RDW 13.4 (11.5-14.0) % Plt Count 308 (150-450) x10^3/uL MPV 10.5 (7.5-11.0) fL Gran % 72.9 H (36.0-66.0) % Immature Gran % (Auto) 1.4 H (0.00-0.4) % Nucleat RBC Rel Count 0.0 (0.00-0.1) % Eos # (Auto) 0.02 (0-0.5) x10^3/uL Immature Gran # (Auto) 0.11 H (0.00-0.03) x10^3u/L Absolute Lymphs (auto) 0.91 L (1.0-4.6) x10^3/uL Absolute Monos (auto) 1.04 (0.0-1.3) x10^3/uL Absolute Nucleated RBC 0.00 (0.00-0.01) x10^3u/L Lymphocytes % 11.7 L (24.0-44.0) % Monocytes % 13.4 H (0.0-12.0) % Eosinophils % 0.3 (0.00-5.0) % Basophils % 0.3 (0.0-0.4) % Absolute Granulocytes 5.66 (1.4-6.9) x10^3/uL Basophils # 0.02 (0-0.4) x10^3/uL PT 37.4 H (9.4-12.5) SECONDS INR 4.00 H (0.8-3.0) Sodium 136 L (137-145) mmol/L Potassium 3.7 (3.5-5.1) mmol/L Chloride 105 (98-107) mmol/L Carbon Dioxide 18 L (22-30) mmol/L Anion Gap 17.0 H (5-15) MEQ/L BUN 45 H (9-20) mg/dL Creatinine 1.13 (0.66-1.25) mg/dL Estimated GFR > 60.0 ML/MIN Glucose 195 H (74-106) mg/dL Calcium 9.6 (8.4-10.2) mg/dL Magnesium 1.6 (1.6-2.3) mg/dL Total Bilirubin 0.70 (0.2-1.3) mg/dL AST 18 (17-59) U/L ALT 20 (0-50) U/L Alkaline Phosphatase 70 (38-126) U/L Serum Total Protein 7.2 (6.3-8.2) g/dL Albumin 3.8 (3.5-5.0) g/dL - Progress Progress: improved Counseled pt/family regarding: lab results, diagnosis, need for follow-up - Departure Departure Disposition: Home Clinical Impression: Status post kidney transplant, Dehydration, moderate, Abnormal INR Acute renal failure Qualifiers: Acute renal failure type: unspecified Qualified Code(s): N17.9 - Acute kidney failure, unspecified Condition: Stable Critical Care Time: Yes Critical Care Time(excluding separately billable procedures): Critical 30-74 mins Referrals: MICHAEL RAZA DO [Primary Care Provider] - Follow Up with PCP/3 days Instructions: Dehydration, Adult (DC), What to Do When Your INR Is Too High Additional Instructions: Your INR is 4.0 so please hold your Coumadin for today and tomorrow and get your prothrombin time and INR on Monday morning. Call the managing physician for further dose management of Coumadin. Continue all your other home medication. Try to drink more p.o. fluids. Take Imodium 1 tablet every 6 hours for your diarrhea. If you get constipated then stop Imodium. Discharge/Care Plan CHRISTIAN FISHER was seen on 08/14/21 in the Emergency Room. The patient was counseled regarding Diagnosis,Lab results, Imaging studies, need for follow up and when to return to the Emergency Room. Prescriptions given: Discharge Note I have spoken with the patient and/or caregivers. I have explained the patient's condition, diagnosis and treatment plan based on the information available to me at this time. I have answered the patient's and/or caregiver's questions and addressed any concerns. The patient and/or caregivers have as good understanding of the patient's diagnosis, condition and treatment plan as can be expected at this point. The vital signs have been stable. The patient's condition is stable and appropriate for discharge from the emergency department. The patient will pursue further outpatient evaluation with the primary care physician or other designated or consulting physician as outlined in the discharge instructions. The patient and/or caregivers are agreeable to this plan of care and follow-up instructions have been explained in detail. The patient and/or caregivers have received these instruction. The patient/and or caregivers are aware that any significant change in condition or worsening of symptoms should prompt an immediate return to this or the closest emergency department or call 911.
[2021-08-14 09:37] LABS: ALBUMIN 3.8 g/dL (3.5-5.0); ALKALINE PHOSPHATASE 70 U/L (38-126); BLOOD UREA NITROGEN 45 mg/dL (9-20); CHLORIDE 105 mmol/L (98-107); Calcium 9.6 mg/dL (8.4-10.2); Carbon Dioxide 18 mmol/L (22-30); Creatinine 1 1.13 mg/dL (0.66-1.25); EST GLOMERULAR FILTRATION RATE > 60.0 ML/MIN; Glucose 195 mg/dL (74-106); MAGNESIUM 1.6 mg/dL (1.6-2.3); Potassium 3.7 mmol/L (3.5-5.1); SGOT/AST 18 U/L (17-59); SGPT/ALT 20 U/L (0-50); SODIUM 136 mmol/L (137-145); Total Protein 7.2 g/dL (6.3-8.2)
[2021-08-14 09:43] LABS: PROTIME 37.4 SECONDS (9.4-12.5)
[2021-08-14] MEDS ORDERED: Sodium Chloride 0.9% 1000 ML 1,000 ML ONE (10:13)
[2021-08-14] MEDS ORDERED: Sodium Chloride 0.9% 1000 ML 1,000 ML IV STA (10:13)
[2021-08-14 10:17] VITALS: PULSE 75
[2021-08-14 10:20] VITALS: O2SAT 98
[2021-08-14 11:03] VITALS: BP 143/76
== END 2021-08-14 11:21 | disposition home or self-care (01) ==
LOC: ED 08:39
DX: N17.9 Acute kidney failure, unspecified (principal); Z94.0 Kidney transplant status; E86.0 Dehydration; R79.1 Abnormal coagulation profile; R19.7 Diarrhea, unspecified; I10 Essential (primary) hypertension; E11.9 Type 2 diabetes mellitus without complications; Z79.4 Long term (current) use of insulin; Z79.01 Long term (current) use of anticoagulants; Z79.899 Other long term (current) drug therapy; Z99.2 Dependence on renal dialysis
CPT/HCPCS: 36000; 36415; 80053; 83735; 85025; 85610; 96360; 96361; 99284

== ENCOUNTER 2021-10-01 09:27 | Emergency (ER) | payer MEDICARE, OTHER ==
[2021-10-01] MEDS ORDERED: Sodium Chloride 0.9% 1000 ML 1,000 ML IV STA (10:01)
--- NOTE | 2021-10-01 10:15 | ERPHSYRPT ---
- History of Present Illness Time Seen by Provider: 10/01/21 09:45 Source: patient, family Exam Limitations: no limitations Patient Subjective Stated Complaint: Head injury/fall Triage Nursing Assessment: Patient brought into ED per EMS and transferred to bed with assist of 2. C collar in place. Patient A+O x3. Patient's skin flushed, warm and dry. Patient complains of fall while ambulating to bathroom hitting his head. Patient does not know why he fell. Patient's told EMS patient did have LOC, but patient isn't sure. Patient denies pain or discomfort. Patient is COVID + as of 09/28/2021. Physician History: This is a 75-year-old white male patient has a history of chronic atrial fibrillation on Coumadin as well as having undergone a kidney transplant a year ago and presents via EMS after falling for no apparent reason hitting his head. Patient was diagnosed with COVID-19 infection on 09/28/2021. He has felt weak. Patient, upon arrival to the emergency department, states he is feeling well. He does not have chest pain. He has no shortness of breath. He has no abdominal pain. Patient presents to the emergency department with a cervical collar in place. Recently, patient was seen in this emergency department because he became dehydrated. Patient has a history of hypertension, insulin-dependent diabetes, gastroesophageal reflux disease. Patient's spouse states that the patient's last creatinine level was 1.0 Occurred: just prior to arrival Severity: mild Head Injury Location: occipital Method of Injury: fell Loss of Consciousness: brief (seconds) (Per patient's spouse) Associated Symptoms: weakness, No nausea, No vomiting, No abdominal pain, No shortness of breath, No chest pain Allergies/Adverse Reactions: Sulfa (Sulfonamide Antibiotics) [Sulfa(Sulfonamide Antibiotics)] Allergy (Unknown, Verified 10/01/21 09:30) ibuprofen Adverse Reaction (Severe, Verified 10/01/21 09:30) kidney transplant latex Adverse Reaction (Intermediate, Verified 10/01/21 09:30) Rash Home Medications: Amlodipine Besylate [Norvasc] 10 mg PO DAILY 08/14/21 [History] HydrALAzine HCL 25 MG TAB [Apresoline 25 MG TABLET] 25 mg PO TID 08/14/21 [History] Insulin Degludec [Tresiba] 10 unit SQ DAILY 08/14/21 [History] Mag Oxide/D3/Turmeric Rt Xt [Magnesium-Vit D3-Turmeric Tab] 1 each PO DAILY 08/14/21 [History] Nebivolol HCl 5 MG [Bystolic 5 MG] 5 mg PO DAILY 08/14/21 [History] PANTOPRAZOLE 40 mg Tablet [Protonix 40MG Tablet] 40 mg PO QAM 08/14/21 [History] Pravastatin Sodium 40 mg PO DAILY 08/14/21 [History] Prednisolone [Millipred] 5 mg PO DAILY 08/14/21 [History] Semaglutide [Ozempic] 1 mg SQ WEEKLY 08/14/21 [History] Sulfamethoxazole/Trimethoprim [Sulfamethoxazole-Tmp Ds Tablet] 1 each PO DAILY 08/14/21 [History] Tacrolimus 0.5 mg PO BREAKFAST 08/14/21 [History] Tacrolimus [Prograf] 1 mg PO HS 08/14/21 [History] Tamsulosin HCl 0.4 mg [Flomax 0.4 MG] 0.4 mg PO DAILY 08/14/21 [History] Tolterodine Tartrate [Tolterodine Tartrate ER] 2 mg PO DAILY 08/14/21 [History] Warfarin Sodium [Jantoven] 2 mg PO DAILY 08/14/21 [History] calcitrioL [Calcitriol] 0.5 mcg PO DAILY 08/14/21 [History] mycophenolate mofetiL [Mycophenolate Mofetil] 250 mg PO BID 08/14/21 [History] Hx Tetanus, Diphtheria Vaccination/Date Given: Yes Hx Influenza Vaccination/Date Given: Yes (2021) Hx Pneumococcal Vaccination/Date Given: Yes Immunizations Up to Date: Yes Travel Risk - International Travel Have you traveled outside of the country in past 3 weeks: No - Coronavirus Screening Are you exhibiting any of the following symptoms?: Yes Symptoms: Fever Close contact with a COVID-19 positive Pt in past 14-21 Days: No - Vaccine Status Have you recieved a Covid-19 vaccination: Yes 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[employer] - Vaccination Dates Date of 2cond Vaccination (if applicable): 2020 - Review of Systems Constitutional: Weakness Eyes: No Symptoms Ears, Nose, & Throat: No Symptoms Respiratory: No Symptoms Cardiac: No Symptoms Abdominal/Gastrointestinal: No Symptoms Genitourinary Symptoms: No Symptoms Musculoskeletal: No Symptoms Skin: No Symptoms Neurological: No Symptoms Psychological: No Symptoms Endocrine: No Symptoms Hematologic/Lymphatic: No Symptoms Immunological/Allergic: No Symptoms All Other Systems: Reviewed and Negative - Past Medical History Pertinent Past Medical History: Yes Neurological History: No Pertinent History ENT History: No Pertinent History Cardiac History: Hypertension Respiratory History: No Pertinent History Endocrine Medical History: Adrenal Insufficiency, Diabetes Type II Musculoskeletal History: No Pertinent History GI Medical History: No Pertinent History History: Renal Disease, Other Psycho-Social History: No Pertinent History Male Reproductive Disorders: Prostate Cancer, Prostate Problems Other Medical History: PT IS ON [facility]YS[facility]. - Past Surgical History Past Surgical History: Yes Neuro Surgical History: No Pertinent History Cardiac: No Pertinent History Respiratory: No Pertinent History Gastrointestinal: No Pertinent History Genitourinary: No Pertinent History Musculoskeletal: Orthopedic Surgery Male Surgical History: Prostate Surgery Other Surgical History: lt ankle compuond fx,seed implants to prostate 2006, dialysis port to rt sc and peritoneal port to abd. kidney transplant-right side - Social History Smoking Status: Never smoker Exposure to second hand smoke: No Drug Use: none Patient Lives Alone: No - Nursing Vital Signs Nursing Vital Signs: Initial Vital Signs Temperature 100.5 F 10/01/21 09:30 Pulse Rate 85 10/01/21 09:30 Respiratory Rate 18 10/01/21 09:30 Blood Pressure 116/77 10/01/21 09:30 O2 Sat by Pulse Oximetry 99 10/01/21 09:30 Pain Scale Pain Intensity 4 - [place] Coma Score Best Eye Response ([place]ardo): (4) open spontaneously Best Verbal Response ([place]): (5) oriented Best Motor Response (Everardo): (6) obeys commands [place] Total: 15 - Physical Exam General Appearance: no apparent distress, alert, anxiety Head Injury: no evidence of injury Eye Exam: bilateral eye: normal inspection, PERRL, EOMI ENT Exam: airway nml, nml ext.inspection, No evidence of ENT injury Neck Exam: trachea midline, normal alignment, normal inspection, c-collar in place Cardiovascular/Respiratory Exam: chest non-tender, normal breath sounds, no respiratory distress, No rib tenderness, No subcutaneous emphysema Gastrointestinal/Abdominal Exam: soft, non tender, no distention, no mass, no guarding, no ecchymosis, no organomegaly, no pulsatile mass, normal bowel sounds Rectal Exam: not done Back Exam: normal inspection, normal range of motion, No CVA tenderness, No vertebral tenderness Extremity Exam: non-tender, normal range of motion, normal inspection Mental Status Exam: alert, oriented x 3, 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 Patient also has supraventricular bigeminy. There is no evidence of any acute ischemic changes on today's EKG.) Ordered Tests: Active Orders 24 hr Category Date Time Status Circus Rider STAT Care 10/01/21 10:02 Active EKG-ER Only STAT Care 10/01/21 10:01 Active IV Insertion STAT Care 10/01/21 10:01 Active Pulse Oximetry (ED) STAT Care 10/01/21 10:01 Active CERVICAL SPINE WO CONTRAST [CT] Stat Exams 10/01/21 11:58 Completed HEAD WITHOUT CONTRAST [CT] Stat Exams 10/01/21 10:01 Completed CBC W DIFF Stat Lab 10/01/21 10:15 Completed CMP Stat Lab 10/01/21 10:15 Completed PROTIME WITH INR Stat Lab 10/01/21 10:15 Completed TROPONIN Q4H Lab 10/01/21 10:15 Completed TROPONIN Q4H Lab 10/01/21 14:15 Ordered TROPONIN Q4H Lab 10/01/21 18:15 Ordered Medication Summary Discontinued Medications Generic Name Dose Route Start Last Admin Trade Name Freq PRN Reason Stop Dose Admin Acetaminophen 650 mg 10/01/21 10:27 10/01/21 10:36 Acetaminophen 325 Mg Tablet PO 10/01/21 10:28 650 mg STAT STA Administration Acetaminophen Confirm 10/01/21 10:35 Acetaminophen 325 Mg Tablet Administered 10/01/21 10:36 Dose 650 mg .ROUTE .STK-MED ONE Sodium Chloride 1,000 mls @ 999 mls/hr 10/01/21 10:01 10/01/21 11:27 Sodium Chloride 0.9% 1000 Ml IV 10/01/21 11:01 Infused .Q1H1M STA Infusion Sodium Chloride Confirm 10/01/21 10:21 Sodium Chloride 0.9% 1000 Ml Administered 10/01/21 10:22 Dose 1,000 mls @ ud .ROUTE .K-MED ONE Lab/Rad Data: Laboratory Result Diagrams 10/01/21 10:15 10/01/21 10:15 Laboratory Results 10/01/21 10/01/21 10/01/21 Range/Units 10:15 10:15 10:15 WBC (4.0-10.5) x10^3/uL RBC (4.1-5.6) x10^6/uL Hgb (12.5-18.0) g/dL Hct (42-50) % MCV (78-100) fL MCH (26-32) pg MCHC (32-36) g/dL RDW (11.5-14.0) % Plt Count (150-450) x10^3/uL MPV (7.5-11.0) fL Gran % (36.0-66.0) % Immature Gran % (Auto) (0.00-0.4) % Nucleat RBC Rel Count (0.00-0.1) % Eos # (Auto) (0-0.5) x10^3/uL Immature Gran # (Auto) (0.00-0.03) x10^3u/L Absolute Lymphs (auto) (1.0-4.6) x10^3/uL Absolute Monos (auto) (0.0-1.3) x10^3/uL Absolute Nucleated RBC (0.00-0.01) x10^3u/L Lymphocytes % (24.0-44.0) % Monocytes % (0.0-12.0) % Eosinophils % (0.00-5.0) % Basophils % (0.0-0.4) % Absolute Granulocytes (1.4-6.9) x10^3/uL Basophils # (0-0.4) x10^3/uL PT 21.5 H (9.4-12.5) SECONDS INR 2.18 (0.8-3.0) Sodium 135 L (137-145) mmol/L Potassium 3.7 (3.5-5.1) mmol/L Chloride 104 (98-107) mmol/L Carbon Dioxide 23 (22-30) mmol/L Anion Gap 12.0 (5-15) MEQ/L BUN 21 H (9-20) mg/dL Creatinine 0.86 (0.66-1.25) mg/dL Estimated GFR > 60.0 ML/MIN Glucose 182 H (74-106) mg/dL Calcium 8.6 (8.4-10.2) mg/dL Total Bilirubin 0.60 (0.2-1.3) mg/dL AST 23 (17-59) U/L ALT 37 (0-50) U/L Alkaline Phosphatase 70 (38-126) U/L Troponin I 0.012 (0.000-0.034) ng/mL Serum Total Protein 6.3 (6.3-8.2) g/dL Albumin 3.3 L (3.5-5.0) g/dL 10/01/21 Range/Units 10:15 WBC 8.7 (4.0-10.5) x10^3/uL RBC 3.62 L (4.1-5.6) x10^6/uL Hgb 9.6 L (12.5-18.0) g/dL Hct 30.6 L (42-50) % MCV 84.5 (78-100) fL MCH 26.5 (26-32) pg MCHC 31.4 L (32-36) g/dL RDW 15.4 H (11.5-14.0) % Plt Count 242 (150-450) x10^3/uL MPV 9.3 (7.5-11.0) fL Gran % 79.1 H (36.0-66.0) % Immature Gran % (Auto) 1.0 H (0.00-0.4) % Nucleat RBC Rel Count 0.0 (0.00-0.1) % Eos # (Auto) 0 (0-0.5) x10^3/uL Immature Gran # (Auto) 0.09 H (0.00-0.03) x10^3u/L Absolute Lymphs (auto) 0.77 L (1.0-4.6) x10^3/uL Absolute Monos (auto) 0.95 (0.0-1.3) x10^3/uL Absolute Nucleated RBC 0.00 (0.00-0.01) x10^3u/L Lymphocytes % 8.9 L (24.0-44.0) % Monocytes % 10.9 (0.0-12.0) % Eosinophils % 0.0 (0.00-5.0) % Basophils % 0.1 (0.0-0.4) % Absolute Granulocytes 6.86 (1.4-6.9) x10^3/uL Basophils # 0.01 (0-0.4) x10^3/uL PT (9.4-12.5) SECONDS INR (0.8-3.0) Sodium (137-145) mmol/L Potassium (3.5-5.1) mmol/L Chloride (98-107) mmol/L Carbon Dioxide (22-30) mmol/L Anion Gap (5-15) MEQ/L BUN (9-20) mg/dL Creatinine (0.66-1.25) mg/dL Estimated GFR ML/MIN Glucose (74-106) mg/dL Calcium (8.4-10.2) mg/dL Total Bilirubin (0.2-1.3) mg/dL AST (17-59) U/L ALT (0-50) U/L Alkaline Phosphatase (38-126) U/L Troponin I (0.000-0.034) ng/mL Serum Total Protein (6.3-8.2) g/dL Albumin (3.5-5.0) g/dL - Progress Progress: improved, re-examined Progress Note: 10/01/21 12:31 Cervical spine without contrast is negative for any acute fracture or subluxation. There is a stable, suspicious right apical pulmonary mass that was also seen on the CAT scan of the chest dated 09/24/2021. This was discussed with the patient and his . They are aware of this finding. CAT scan of the head without contrast shows a stable nonacute senile brain. 10/01/21 12:35 Patient and spouse both state there has been no recent history of blood loss. They have not noticed any hemoptysis, hematemesis, bright red blood per rectum or dark tarry stools. There is been no hematuria noticed. Counseled pt/family regarding: lab results, diagnosis, need for follow-up, rad results - Departure Departure Disposition: Home Clinical Impression: Fall, Head injury, Pulmonary mass, Anemia Condition: Stable Critical Care Time: No Referrals: MICHAEL RAZA, [Primary Care Provider] - Follow up/PCP as directed Additional Instructions: Drink plenty fluids. Take your medication as prescribed. Call your primary care doctor and barrel assembler today to make them aware of the anemia that is present. Ask your primary prescribing doctor and barrel assembler if they want you to hold your blood pressure medication. Your systolic blood pressure today is in the 110-120 range with a normal heart rate.
[2021-10-01] MEDS ORDERED: Sodium Chloride 0.9% 1000 ML 1,000 ML ONE (10:21)
[2021-10-01 10:22] LABS: Absolute Neutrophil Ct (ANC) 6.86 x10^3/uL (1.4-6.9); Basophil (Absolute #) 0.01 x10^3/uL (0-0.4); Eosinophil (Absolute #) 0 x10^3/uL (0-0.5); Hematocrit 30.6 % (42-50); Hemoglobin 9.6 g/dL (12.5-18.0); Lymphocyte (Absolute #) 0.77 x10^3/uL (1.0-4.6); Lymphocytes % 8.9 % (24.0-44.0); Mean Cell Volume 84.5 fL (78-100); Mean Corpuscular Hemoglobin 26.5 pg (26-32); Mean Corpuscular Hgb Concent. 31.4 g/dL (32-36); Mean Platelet Volume 9.3 fL (7.5-11.0); Monocyte (Absolute #) 0.95 x10^3/uL (0.0-1.3); Monocytes % 10.9 % (0.0-12.0); Neutrophil % 79.1 % (36.0-66.0); Platelet Count 242 x10^3/uL (150-450); Red Blood Count 3.62 x10^6/uL (4.1-5.6); Red Cell Distribution Width 15.4 % (11.5-14.0); White Blood Count 8.7 x10^3/uL (4.0-10.5)
[2021-10-01] MEDS ORDERED: TYLENOL 325 MG PO STA (10:27)
[2021-10-01 10:34] LABS: ALBUMIN 3.3 g/dL (3.5-5.0); ALKALINE PHOSPHATASE 70 U/L (38-126); BLOOD UREA NITROGEN 21 mg/dL (9-20); CHLORIDE 104 mmol/L (98-107); Calcium 8.6 mg/dL (8.4-10.2); Carbon Dioxide 23 mmol/L (22-30); Creatinine 1 0.86 mg/dL (0.66-1.25); EST GLOMERULAR FILTRATION RATE > 60.0 ML/MIN; Glucose 182 mg/dL (74-106); Potassium 3.7 mmol/L (3.5-5.1); SGOT/AST 23 U/L (17-59); SGPT/ALT 37 U/L (0-50); SODIUM 135 mmol/L (137-145); Total Protein 6.3 g/dL (6.3-8.2)
[2021-10-01 10:35] LABS: INR 2.18 (0.8-3.0); PROTIME 21.5 SECONDS (9.4-12.5)
[2021-10-01] MEDS ORDERED: TYLENOL 325 MG ONE (10:35)
[2021-10-01 11:11] VITALS: BP 135/67; PULSE 90
--- NOTE | 2021-10-01 12:13 | XRAY ---
Indication: Status post fall. Multiple contiguous axial images obtained through the head without contrast. Comparison: None Age-appropriate global atrophy and mild periventricular degenerative micro-ischemia bilaterally. No acute intracranial hemorrhage, abnormal extra-axial fluid collection, or mass effect. Fourth ventricle is midline without hydrocephalus. Bony calvarium intact. Paranasal sinuses and mastoid air cells are clear. Impression: Nonacute senile brain.
--- NOTE | 2021-10-01 12:19 | XRAY ---
Indication: Status post fall. Multiple contiguous axial images obtained through the cervical spine. Sagittal and coronal reformatted images obtained. Comparison: None Osseous structures demineralized consistent with patient's age. Axial images negative for acute fracture or suspicious bony lesions. Mild/moderate C4-C7 degenerative endplate spurring greatest at C5-C6 with subsequent spinal canal stenosis. Mean AP thecal sac diameter at this level is 6 mm. Mild/moderate multilevel bilateral degenerative facet hypertrophy, left greater than right. Also moderate atlantoaxial degenerative changes. Sagittal and coronal reformatted images demonstrates normal alignment with minimal C4-C7 disc space narrowing. Inferior C6 endplate demonstrate concave deformity either Schmorl node versus remote fracture. No acute compression fractures, subluxation, or jumped facet. Normal appearing craniocervical junction. Visualized noncontrasted soft tissues demonstrates extensive bilateral carotid calcifications. Lung apices demonstrates 1.8 x 1.5 cm right apical noncalcified mass with irregular spiculated margins. Impression: 1. Negative for acute fracture/subluxation. 2. Osteopenia and multilevel degenerative changes greatest at C5-C6. 3. Inferior C6 remote endplate fracture versus Schmorl node. 4. Stable suspicious right apical pulmonary mass seen on CT chest September 24, 2021.
[2021-10-01 12:37] VITALS: O2SAT 99
== END 2021-10-01 13:30 | disposition home or self-care (01) ==
LOC: ED 09:27
DX: S09.90XA Unspecified injury of head, initial encounter (principal); W18.30XA Fall on same level, unspecified, initial encounter; Y93.01 Activity, walking, marching and hiking; D64.9 Anemia, unspecified; R91.8 Other nonspecific abnormal finding of lung field; U07.1 COVID-19; I10 Essential (primary) hypertension; E11.9 Type 2 diabetes mellitus without complications; Z99.2 Dependence on renal dialysis; Z94.0 Kidney transplant status; Z79.01 Long term (current) use of anticoagulants; Z79.899 Other long term (current) drug therapy
CPT/HCPCS: 36415; 70450; 72125; 80053; 84484; 85025; 85610; 93005; 93041; 94760; 96360; 96374; 99284; A9270-GY

== ENCOUNTER 2021-10-06 20:35 | Emergency (ER) | payer MEDICARE, OTHER ==
--- NOTE | 2021-10-06 20:40 | ERPHSYRPT ---
- History of Present Illness Time Seen by Provider: 10/06/21 20:39 Historian: patient Exam Limitations: no limitations Physician History: This is a 75-year-old white male patient of Dr. Yates who was seen here 10/01/2021 for head injury after he fell and hit his head. He does have a history of atrial fibrillation on Coumadin. He is also had a right renal transplant 1 year ago. Patient states that for the last few days he has had some abdominal pain that has been diffuse in its location and described as an ache. There was no mention of abdominal pain or discomfort on 10/01/2021 visit. Patient was diagnosed with COVID-19 infection on 09/28/2021. Patient has a history of hypertension, insulin-dependent diabetes and gastroesophageal reflux disease. There is been no nausea vomiting or diarrhea symptoms per patient's report. He currently has no headache. He has no chest pain. He is not short of breath. Timing/Duration: day(s) (Few days ago) Activities at Onset: none Quality: aching Abdominal Pain Onset Location: generalized abdomen Pain Radiation: no radiation Severity of Pain-Max: mild (To moderate) Severity of Pain-Current: mild (To moderate) Modifying Factors: Improves With: nothing Associated Symptoms: denies symptoms Previous symptoms: no prior history, recently seen, recently treated Allergies/Adverse Reactions: Sulfa (Sulfonamide Antibiotics) [Sulfa(Sulfonamide Antibiotics)] Allergy (Unknown, Verified 10/06/21 21:00) ibuprofen Adverse Reaction (Severe, Verified 10/06/21 21:00) kidney transplant latex Adverse Reaction (Intermediate, Verified 10/06/21 21:00) Rash Home Medications: HydrALAzine HCL 25 MG TAB [Apresoline 25 MG TABLET] 12.5 mg PO TID 08/14/21 [History] Insulin Degludec [Tresiba] 10 unit SQ DAILY 08/14/21 [History] Mag Oxide/D3/Turmeric Rt Xt [Magnesium-Vit D3-Turmeric Tab] 1 each PO DAILY 08/14/21 [History] Nebivolol HCl 5 MG [Bystolic 5 MG] 2.5 mg PO DAILY 08/14/21 [History] PANTOPRAZOLE 40 mg Tablet [Protonix 40MG Tablet] 40 mg PO QAM 08/14/21 [History] Pravastatin Sodium 40 mg PO DAILY 08/14/21 [History] Prednisolone [Millipred] 10 mg PO DAILY 08/14/21 [History] Semaglutide [Ozempic] 1 mg SQ WEEKLY 08/14/21 [History] Tacrolimus [Prograf] 1 mg PO BID 08/14/21 [History] Tamsulosin HCl 0.4 mg [Flomax 0.4 MG] 0.4 mg PO DAILY 08/14/21 [History] Tolterodine Tartrate [Tolterodine Tartrate ER] 1 mg PO DAILY 08/14/21 [History] Warfarin Sodium [Jantoven] 2 mg PO DAILY 08/14/21 [History] calcitrioL [Calcitriol] 0.5 mcg PO DAILY 08/14/21 [History] mycophenolate mofetiL [Mycophenolate Mofetil] 180 mg PO BID 08/14/21 [History] Insulin Lispro [Humalog] 10 unit SQ TID 10/06/21 [History] Metformin HCl 500 mg [Glucophage 500 MG] 500 mg PO BID 10/06/21 [History] Pravastatin Sodium 40 mg PO HS 10/06/21 [History] Hx Tetanus, Diphtheria Vaccination/Date Given: Yes Hx Influenza Vaccination/Date Given: Yes (2021) Hx Pneumococcal Vaccination/Date Given: Yes Travel Risk - International Travel Have you traveled outside of the country in past 3 weeks: No - Coronavirus Screening Are you exhibiting any of the following symptoms?: No - Vaccine Status Have you recieved a Covid-19 vaccination: Yes 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: [employer] - Vaccination Dates Date of 2cond Vaccination (if applicable): 2020 - Review of Systems Constitutional: No Symptoms Eyes: No Symptoms Ears, Nose, & Throat: No Symptoms Respiratory: No Symptoms Cardiac: No Symptoms Abdominal/Gastrointestinal: Abdominal Pain, No Nausea, No Vomiting, No Diarrhea, No Constipation Genitourinary Symptoms: No Symptoms Musculoskeletal: No Symptoms Skin: No Symptoms Neurological: No Symptoms Psychological: No Symptoms Endocrine: No Symptoms Hematologic/Lymphatic: No Symptoms Immunological/Allergic: No Symptoms All Other Systems: Reviewed and Negative - Past Medical History Pertinent Past Medical History: Yes Neurological History: No Pertinent History ENT History: No Pertinent History Cardiac History: Hypertension Respiratory History: No Pertinent History Endocrine Medical History: Adrenal Insufficiency, Diabetes Type II Musculoskeletal History: No Pertinent History GI Medical History: No Pertinent History History: Renal Disease, Other Psycho-Social History: No Pertinent History Male Reproductive Disorders: Prostate Cancer, Prostate Problems Other Medical History: PT IS ON NIGHTLY DIALYSIS. - Past Surgical History Past Surgical History: Yes Neuro Surgical History: No Pertinent History Cardiac: No Pertinent History Respiratory: No Pertinent History Gastrointestinal: No Pertinent History Genitourinary: No Pertinent History Musculoskeletal: Orthopedic Surgery Male Surgical History: Prostate Surgery Other Surgical History: lt ankle compuond fx,seed implants to prostate 2006, dialysis port to rt sc and peritoneal port to abd. kidney transplant-right side - Social History Smoking Status: Never smoker Exposure to second hand smoke: No Drug Use: none Patient Lives Alone: No - Nursing Vital Signs Nursing Vital Signs: Initial Vital Signs Temperature 96.9 F 10/06/21 20:44 Pulse Rate 87 10/06/21 20:44 Respiratory Rate 20 10/06/21 20:44 Blood Pressure 109/72 10/06/21 20:44 O2 Sat by Pulse Oximetry 99 10/06/21 20:44 Pain Scale Pain Intensity 8 - Physical Exam General Appearance: no apparent distress, alert Eye Exam: PERRL/EOMI, eyes nml inspection Ears, Nose, Throat Exam: normal ENT inspection, moist mucous membranes Neck Exam: normal inspection, non-tender, supple, full range of motion Respiratory Exam: normal breath sounds, lungs clear, airway intact, No chest tenderness, No respiratory distress Cardiovascular Exam: regular rate/rhythm, normal heart sounds, normal peripheral pulses Gastrointestinal/Abdomen Exam: soft, normal bowel sounds, tenderness (Diffuse mild tenderness to palpation), guarding (+/- Palpation diffuse), No pulsatile mass, No rebound Rectal Exam: not done Back Exam: normal inspection, normal range of motion, No CVA tenderness, No vertebral tenderness Extremity Exam: normal inspection, normal range of motion, pelvis stable Neurologic Exam: alert, oriented x 3, cooperative, fisher dip net II-XII nml as tested, normal mood/affect, nml cerebellar function, nml station & gait, sensation nml Skin Exam: normal color, warm, dry Lymphatic Exam: No adenopathy SpO2 Interpretation: normal O2 Delivery: Room Air - Course Nursing assessment & vital signs reviewed: Yes EKG Interpreted by Me: RATE (88), Sinus Rhythm, NORMAL AXIS, NORMAL INTERVALS, Right Bundle Branch Block, Other (LPFB; no acute ischemic changes.) Ordered Tests: Active Orders 24 hr Category Date Time Status IV Insertion STAT Care 10/06/21 20:52 Active ABDOMEN AND PELVIS W/0 CONTRAS [CT] Stat Exams 10/06/21 20:52 Taken AMYLASE Stat Lab 10/06/21 21:05 Completed CBC W DIFF Stat Lab 10/06/21 21:05 Completed CMP Stat Lab 10/06/21 21:05 Completed CULTURE,URINE Stat Lab 10/06/21 22:05 Received LIPASE Stat Lab 10/06/21 21:05 Completed Lactic Acid Stat Lab 10/06/21 20:52 Completed PROTIME WITH INR Stat Lab 10/06/21 21:05 Completed UA W/RFX CULTURE Stat Lab 10/06/21 22:05 Completed Medication Summary Generic Name Dose Route Start Last Admin Trade Name Freq PRN Reason Stop Dose Admin Ceftriaxone Sodium/Dextrose 1 g in 50 mls @ 100 mls/hr 10/06/21 22:34 Rocephin 1 Gm-D5w 50 Ml Bag IV 10/06/21 23:03 STAT STA Lab/Rad Data: Laboratory Result Diagrams 10/06/21 21:05 10/06/21 21:05 Laboratory Results 10/06/21 10/06/21 10/06/21 Range/Units 22:05 21:05 21:05 WBC (4.0-10.5) x10^3/uL RBC (4.1-5.6) x10^6/uL Hgb (12.5-18.0) g/dL Hct (42-50) % MCV (78-100) fL MCH (26-32) pg MCHC (32-36) g/dL RDW (11.5-14.0) % Plt Count (150-450) x10^3/uL MPV (7.5-11.0) fL Gran % (36.0-66.0) % Immature Gran % (Auto) (0.00-0.4) % Nucleat RBC Rel Count (0.00-0.1) % Eos # (Auto) (0-0.5) x10^3/uL Immature Gran # (Auto) (0.00-0.03) x10^3u/L Absolute Lymphs (auto) (1.0-4.6) x10^3/uL Absolute Monos (auto) (0.0-1.3) x10^3/uL Absolute Nucleated RBC (0.00-0.01) x10^3u/L Lymphocytes % (24.0-44.0) % Monocytes % (0.0-12.0) % Eosinophils % (0.00-5.0) % Basophils % (0.0-0.4) % Absolute Granulocytes (1.4-6.9) x10^3/uL Basophils # (0-0.4) x10^3/uL PT 32.3 H (9.4-12.5) SECONDS INR 3.41 H (0.8-3.0) Sodium 135 L (137-145) mmol/L Potassium 4.9 (3.5-5.1) mmol/L Chloride 103 (98-107) mmol/L Carbon Dioxide 21 L (22-30) mmol/L Anion Gap 16.1 H (5-15) MEQ/L BUN 31 H (9-20) mg/dL Creatinine 1.16 (0.66-1.25) mg/dL Estimated GFR > 60.0 ML/MIN Glucose 167 H (74-106) mg/dL Lactic Acid (0.4-2.0) Calcium 9.6 (8.4-10.2) mg/dL Total Bilirubin 0.60 (0.2-1.3) mg/dL AST 20 (17-59) U/L ALT 26 (0-50) U/L Alkaline Phosphatase 71 (38-126) U/L Serum Total Protein 6.0 L (6.3-8.2) g/dL Albumin 3.5 (3.5-5.0) g/dL Amylase 111 H (30-110) U/L Lipase 261 (23-300) U/L Urinalys Dipstick Clnc MAIN LAB Urine Color YELLOW (YELLOW) Urine Appearance SLIGHTLY HAZY (CLEAR) Urine pH 5.5 (5-6) Ur Specific [place] 1.025 (1.005-1.025) POC Urine Protein Conf 30 (Negative) Urine Ketones NEGATIVE (NEGATIVE) Urine Nitrite POSITIVE (NEGATIVE) Urine Bilirubin NEGATIVE (NEGATIVE) Urine Urobilinogen 0.2 (0-1) mg/dL Urine Leukocytes NEGATIVE (NEGATIVE) Urine WBC (Auto) 26-50 (0-5) /HPF Urine RBC (Auto) 26-50 (0-2) /HPF U Epithel Cells (Auto) NONE (FEW) /HPF Urine Bacteria (Auto) FEW (NEGATIVE) /HPF Urine RBC NEGATIVE (0-5) Norman/ul Calcium Oxalate Crystal 0-2 (NEGATIVE) /HPF Urine Mucus (Auto) SLIGHT (NEGATIVE) /HPF Ur Culture Indicated? YES Urine Glucose NEGATIVE (NEGATIVE) mg/dL 10/06/21 10/06/21 Range/Units 21:05 20:52 WBC 7.4 (4.0-10.5) x10^3/uL RBC 4.32 (4.1-5.6) x10^6/uL Hgb 11.2 L (12.5-18.0) g/dL Hct 35.9 L (42-50) % MCV 83.1 (78-100) fL MCH 25.9 L (26-32) pg MCHC 31.2 L (32-36) g/dL RDW 15.4 H (11.5-14.0) % Plt Count 398 (150-450) x10^3/uL MPV 9.2 (7.5-11.0) fL Gran % 71.8 H (36.0-66.0) % Immature Gran % (Auto) 3.9 H (0.00-0.4) % Nucleat RBC Rel Count 0.0 (0.00-0.1) % Eos # (Auto) 0.02 (0-0.5) x10^3/uL Immature Gran # (Auto) 0.29 H (0.00-0.03) x10^3u/L Absolute Lymphs (auto) 1.11 (1.0-4.6) x10^3/uL Absolute Monos (auto) 0.64 (0.0-1.3) x10^3/uL Absolute Nucleated RBC 0.00 (0.00-0.01) x10^3u/L Lymphocytes % 15.0 L (24.0-44.0) % Monocytes % 8.7 (0.0-12.0) % Eosinophils % 0.3 (0.00-5.0) % Basophils % 0.3 (0.0-0.4) % Absolute Granulocytes 5.30 (1.4-6.9) x10^3/uL Basophils # 0.02 (0-0.4) x10^3/uL PT (9.4-12.5) SECONDS INR (0.8-3.0) Sodium (137-145) mmol/L Potassium (3.5-5.1) mmol/L Chloride (98-107) mmol/L Carbon Dioxide (22-30) mmol/L Anion Gap (5-15) MEQ/L BUN (9-20) mg/dL Creatinine (0.66-1.25) mg/dL Estimated GFR ML/MIN Glucose (74-106) mg/dL Lactic Acid 2.0 (0.4-2.0) Calcium (8.4-10.2) mg/dL Total Bilirubin (0.2-1.3) mg/dL AST (17-59) U/L ALT (0-50) U/L Alkaline Phosphatase (38-126) U/L Serum Total Protein (6.3-8.2) g/dL Albumin (3.5-5.0) g/dL Amylase (30-110) U/L Lipase (23-300) U/L Urinalys Dipstick Clnc Urine Color (YELLOW) Urine Appearance (CLEAR) Urine pH (5-6) Ur Specific [place] (1.005-1.025) POC Urine Protein Conf (Negative) Urine Ketones (NEGATIVE) Urine Nitrite (NEGATIVE) Urine Bilirubin (NEGATIVE) Urine Urobilinogen (0-1) mg/dL Urine Leukocytes (NEGATIVE) Urine WBC (Auto) (0-5) /HPF Urine RBC (Auto) (0-2) /HPF U Epithel Cells (Auto) (FEW) /HPF Urine Bacteria (Auto) (NEGATIVE) /HPF Urine RBC (0-5) Norman/ul Calcium Oxalate Crystal (NEGATIVE) /HPF Urine Mucus (Auto) (NEGATIVE) /HPF Ur Culture Indicated? Urine Glucose (NEGATIVE) mg/dL - Progress Progress: improved, pain not gone completely, re-examined Progress Note: 10/06/21 22:19 CAT scan of the abdomen pelvis shows no acute intra-abdominal or intrapelvic findings. There is unchanged hepatosplenomegaly present. 10/06/21 22:37 Counseled pt/family regarding: lab results, diagnosis, need for follow-up, rad results - Departure Departure Disposition: Home Clinical Impression: Abdominal pain, UTI (urinary tract infection) Condition: Stable Critical Care Time: No Referrals: MICHAEL YATES, [Primary Care Provider] - Follow up/PCP as directed Additional Instructions: Hold your Coumadin for today. Call your prescribing doctor tomorrow and let them know that you are INR is 3.41. Obtain instructions from them regarding your medication and your abdominal pain. Take your antibiotics as prescribed. Prescriptions: Cephalexin Mh 500 mg [Keflex 500 mg] 500 mg PO TID #21 cap
[2021-10-06 21:17] LABS: Basophil (Absolute #) 0.02 x10^3/uL (0-0.4); Eosinophil % 0.3 % (0.00-5.0); Eosinophil (Absolute #) 0.02 x10^3/uL (0-0.5); Hematocrit 35.9 % (42-50); Hemoglobin 11.2 g/dL (12.5-18.0); Lymphocyte (Absolute #) 1.11 x10^3/uL (1.0-4.6); Mean Cell Volume 83.1 fL (78-100); Mean Corpuscular Hemoglobin 25.9 pg (26-32); Mean Corpuscular Hgb Concent. 31.2 g/dL (32-36); Mean Platelet Volume 9.2 fL (7.5-11.0); Monocyte (Absolute #) 0.64 x10^3/uL (0.0-1.3); Monocytes % 8.7 % (0.0-12.0); Neutrophil % 71.8 % (36.0-66.0); Platelet Count 398 x10^3/uL (150-450); Red Blood Count 4.32 x10^6/uL (4.1-5.6); Red Cell Distribution Width 15.4 % (11.5-14.0); White Blood Count 7.4 x10^3/uL (4.0-10.5)
[2021-10-06 21:31] LABS: ALBUMIN 3.5 g/dL (3.5-5.0); ALKALINE PHOSPHATASE 71 U/L (38-126); AMYLASE 111 U/L (30-110); ANION GAP 16.1 MEQ/L (5-15); BLOOD UREA NITROGEN 31 mg/dL (9-20); CHLORIDE 103 mmol/L (98-107); Calcium 9.6 mg/dL (8.4-10.2); Carbon Dioxide 21 mmol/L (22-30); Creatinine 1 1.16 mg/dL (0.66-1.25); EST GLOMERULAR FILTRATION RATE > 60.0 ML/MIN; Glucose 167 mg/dL (74-106); LIPASE 261 U/L (23-300); Potassium 4.9 mmol/L (3.5-5.1); SGOT/AST 20 U/L (17-59); SGPT/ALT 26 U/L (0-50); SODIUM 135 mmol/L (137-145)
[2021-10-06 21:32] LABS: INR 3.41 (0.8-3.0); PROTIME 32.3 SECONDS (9.4-12.5)
[2021-10-06 22:30] LABS: Appearance SLIGHTLY HAZY (CLEAR); Bacteria FEW /HPF (NEGATIVE); Bilirubin NEGATIVE (NEGATIVE); Calcium Oxalate Crystals 0-2 /HPF (NEGATIVE); Glucose NEGATIVE (NEGATIVE); Ketones NEGATIVE (NEGATIVE); Mucus SLIGHT /HPF (NEGATIVE); RBC 26-50 /HPF (0-2); Specific Gravity 1.025 (1.005-1.025); WBC 26-50 /HPF (0-5)
[2021-10-06 22:31] LABS: Dipstick done @ ? MAIN LAB; Nitrite POSITIVE (NEGATIVE); Ph 5.5 (5-6); Protein,Urine Dip 30 (Negative); RBC NEGATIVE Ery/ul (0-5); Urine Cultured Indicated? YES; Urobilinogen 0.2 mg/dL (0-1)
[2021-10-06] MEDS ORDERED: ROCEPHIN 1 Gm-D5w 50 ml Bag** 1 G/50 ML IVPB IV ONE (22:37)
[2021-10-06] MEDS: ROCEPHIN 1 Gm-D5w 50 ml Bag** 1 G/50 ML IVPB IV STA (22:40)
[2021-10-06 23:04] VITALS: BP 122/79; PULSE 81; O2SAT 96
--- NOTE | 2021-10-07 08:49 | XRAY ---
Indication: Abdomen pain. Multiple contiguous axial images obtained through the abdomen and pelvis without contrast. Comparison: September 24, 2021 Lung bases again demonstrate peripheral fibrosis/scarring and indeterminant noncalcified micronodules. No infiltrate or effusion. Heart not enlarged. Stomach is moderately distended with food/fluid. Noncontrasted stomach and bowel loops appear nonobstructed with normal appendix. Again 21.3 cm hepatomegaly, 15.9 cm splenomegaly, bilateral havasupai renal atrophy with tiny right renal cyst, and prostate radiation seeds. Also stable right lower quadrant transplanted kidney without hydronephrosis. No free fluid/air. Remaining liver, gallbladder, pancreas, spleen, adrenal glands, kidneys, ureters, and bladder are unremarkable for noncontrast exam. Again moderate scattered vascular calcifications without AAA. Osseous structures intact again with degenerative changes throughout the spine and small indeterminant right femur head sclerotic lesion. Impression: 1. Stable indeterminant bibasilar pulmonary micronodules, hepatosplenomegaly, small/atrophic havasupai kidneys with tiny right renal cyst, arteriosclerotic disease, and chronic bony findings. 2. Remaining CT chest/abdomen without contrast exam is again negative.
== END 2021-10-06 23:17 | disposition home or self-care (01) ==
LOC: ED 20:35
DX: N39.0 Urinary tract infection, site not specified (principal); R10.84 Generalized abdominal pain; I12.9 Hypertensive chronic kidney disease with stage 1 through stage 4 chronic kidney disease, or unspecified chronic kidney disease; E11.22 Type 2 diabetes mellitus with diabetic chronic kidney disease; N18.9 Chronic kidney disease, unspecified; Z99.2 Dependence on renal dialysis; Z79.01 Long term (current) use of anticoagulants; Z79.4 Long term (current) use of insulin; Z79.84 Long term (current) use of oral hypoglycemic drugs; Z79.52 Long term (current) use of systemic steroids; Z79.899 Other long term (current) drug therapy
CPT/HCPCS: 36000; 36415; 74176; 80053; 81015; 82150; 83605; 83690; 85025; 85610; 87086; 96365; 99284; J0696

== ENCOUNTER 2021-10-12 15:52 | Inpatient (IN) | payer MEDICARE, OTHER ==
[2021-10-12 17:14] LABS: Influenza A NEGATIVE (NEGATIVE); Influenza B NEGATIVE (NEGATIVE); SARS COVID AG NEGATIVE (NEGATIVE)
--- NOTE | 2021-10-12 19:18 | PCM.HP ---
History of Present Illness - Chief Complaint Chief Complaint: DECONDITIOING RELATED TO UTI, COVID History of Present Illness: is a 76 year old male renal transplant patient of [facility] who had a decline in overall health since Covid illness -tested positive SEP 27 and treated with Paxlovid per Transplant teams recommendation. 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 He is transferred from [facility] for rehab. - Review of Systems Constitutional: Lethargy, Weakness Eyes: No Symptoms Ears, Nose, & Throat: Sinus Drainage Respiratory: No Symptoms Cardiac: No Symptoms Abdominal/Gastrointestinal: Appetite Changes (some decreased appetite but improving) Genitourinary Symptoms: Other (treated for UTI while hospitalized at [place] ,no symptoms) Musculoskeletal: Fall (repeated due to generalized weakness) Skin: No Symptoms Neurological: Other (no focal neuro defecits) Psychological: No Symptoms Endocrine: No Symptoms Medications & Allergies Home Medications: Home Medication List HydrALAzine HCL 25 MG TAB [Apresoline 25 MG TABLET] 12.5 mg PO TID 08/14/21 [History Confirmed 10/12/21] Insulin Degludec [Tresiba] 10 unit SQ QAM 08/14/21 [History Confirmed 10/12/21] Nebivolol HCl 5 MG [Bystolic 5 MG] 2.5 mg PO DAILY 08/14/21 [History Confirmed 10/12/21] PANTOPRAZOLE 40 mg Tablet [Protonix 40MG Tablet] 40 mg PO QAM 08/14/21 [History Confirmed 10/12/21] Prednisolone [Millipred] 5 mg PO DAILY 08/14/21 [History Confirmed 10/12/21] Semaglutide [Ozempic] 1 mg SQ WEEKLY 08/14/21 [History Confirmed 10/12/21] Tacrolimus [Prograf] 1 mg PO BID 08/14/21 [History Confirmed 10/12/21] Tamsulosin HCl 0.4 mg [Flomax 0.4 MG] 0.4 mg PO DAILY 08/14/21 [History Confirmed 10/12/21] Tolterodine Tartrate [Tolterodine Tartrate ER] 2 mg PO DAILY 08/14/21 [History Confirmed 10/12/21] calcitrioL [Calcitriol] 0.5 mcg PO DAILY 08/14/21 [History Confirmed 10/12/21] mycophenolate mofetiL [Mycophenolate Mofetil] 180 mg PO BID 08/14/21 [History Confirmed 10/12/21] Metformin HCl 500 mg [Glucophage 500 MG] 500 mg PO BID 10/06/21 [History Confirmed 10/12/21] Pravastatin Sodium 40 mg PO HS 10/06/21 [History Confirmed 10/12/21] Amiloride HCl 5 mg PO DAILY 10/12/21 [History Confirmed 10/12/21] Insulin Aspart [Insulin Aspart Flexpen] 8 units SQ AC 10/12/21 [History Confirmed 10/12/21] Sodium Bicarbonate 650 mg PO DAILY 10/12/21 [History Confirmed 10/12/21] Warfarin Sodium 5 mg [Jantoven] 5 mg PO DAILY 10/12/21 [History Confirmed 0 10/12/21] Magnesium Oxide 400 mg PO BID 10/13/21 [History Confirmed 10/13/21] Allergies/Adverse Reactions: Allergies Allergy/AdvReac Type Severity Reaction Status Date / Time Sulfa (Sulfonamide Allergy Unknown Verified 10/06/21 21:00 Antibiotics) [Sulfa(Sulfonamide Antibiotics)] ibuprofen AdvReac Severe kidney Verified 10/06/21 21:00 transplant latex AdvReac Intermediate Rash Verified 10/06/21 21:00 - Past Medical History Past Medical History: Yes Neurological History: No Pertinent History ENT History: No Pertinent History Cardiac History: Hypertension Respiratory History: No Pertinent History Endocrine Medical History: Adrenal Insufficiency, Diabetes Type II Musculoskelatal History: No Pertinent History GI Medical History: No Pertinent History History: Renal Disease, Other Pyscho-Social History: No Pertinent History Male Reproductive Disorders: Prostate Cancer, Prostate Problems Comment: PT IS ON NIGHTLY DIALYSIS. - Past Surgical History Past Surgical History: Yes Neuro Surgical History: No Pertinent History Cardiac History: No Pertinent History Respiratory Surgery: No Pertinent History GI Surgical History: No Pertinent History Genitourinary Surgical Hx: No Pertinent History Musculskeletal Surgical Hx: Orthopedic Surgery Male Surgical History: Prostate Surgery Other Surgical History: lt ankle compuond fx,seed implants to prostate 2006, dialysis port to rt sc and peritoneal port to abd. kidney transplant-right side - Social History Smoking Status: Never smoker Exposure to second hand smoke: No Alcohol: None Drug Use: none - Physical Exam Vital Signs: Vital Signs - 24 hr Temp Pulse Resp BP Pulse Ox 10/12/21 16:01 97.6 F 84 15 172/88 98 General Appearance: no apparent distress Neurologic Exam: alert, oriented x 3, cooperative Eye Exam: eyes nml inspection Ears, Nose, Throat Exam: normal ENT inspection Neck Exam: normal inspection Respiratory Exam: normal breath sounds Cardiovascular Exam: regular rate/rhythm Gastrointestinal/Abdomen Exam: soft, normal bowel sounds (nontender), other (RLQ with palpable transplanted kidney) Extremity Exam: normal inspection Skin Exam: other (suntanned but sallow color) Results - Labs Lab/Micro Results: Lab Results-Last 24 Hours 10/12/21 Range/Units 16:13 Influenza Type A Ag NEGATIVE (NEGATIVE) Influenza Type B Ag NEGATIVE (NEGATIVE) SARS-CoV-2 Antigen NEGATIVE (NEGATIVE) Assessment/Plan (1) Post-COVID syndrome Current Visit: Yes Status: Acute Code(s): U09.9 - POST COVID-19 CONDITION, UNSPECIFIED (2) Hx of falling Current Visit: Yes Status: Chronic Assessment & Plan: Rehab needed Code(s): Z91.81 - HISTORY OF FALLING (3) Status post kidney transplant Current Visit: No Status: Acute Code(s): Z94.0 - KIDNEY TRANSPLANT STATUS (4) HTN, goal below 130/80 Current Visit: Yes Status: Acute Assessment & Plan: monitor Code(s): I10 - ESSENTIAL (PRIMARY) HYPERTENSION (5) Diabetes Current Visit: Yes Status: Chronic Qualifiers: Diabetes mellitus retirement insulin use: with exterminator helper use Code(s): E11.9 - TYPE 2 DIABETES MELLITUS WITHOUT COMPLICATIONS (6) Afib Current Visit: Yes Status: Chronic Qualifiers: Atrial fibrillation type: paroxysmal Qualified Code(s): I48.0 - Paroxysmal atrial fibrillation Assessment & Plan: on Warfarin Code(s): I48.91 - UNSPECIFIED ATRIAL FIBRILLATION (7) Anticoagulant long-term use Current Visit: Yes Status: Chronic Assessment & Plan: PT/INR-follow Code(s): Z79.01 - CARE HOME (CURRENT) USE OF ANTICOAGULANTS
[2021-10-12 20:08] LABS: Absolute Neutrophil Ct (ANC) 3.65 x10^3/uL (1.4-6.9); Basophil (Absolute #) 0.01 x10^3/uL (0-0.4); Eosinophil % 1.5 % (0.00-5.0); Eosinophil (Absolute #) 0.08 x10^3/uL (0-0.5); Hematocrit 34.5 % (42-50); Hemoglobin 10.8 g/dL (12.5-18.0); Lymphocyte (Absolute #) 0.92 x10^3/uL (1.0-4.6); Mean Cell Volume 84.4 fL (78-100); Mean Corpuscular Hemoglobin 26.4 pg (26-32); Mean Corpuscular Hgb Concent. 31.3 g/dL (32-36); Mean Platelet Volume 9.7 fL (7.5-11.0); Monocyte (Absolute #) 0.62 x10^3/uL (0.0-1.3); Monocytes % 11.5 % (0.0-12.0); Neutrophil % 67.6 % (36.0-66.0); Platelet Count 282 x10^3/uL (150-450); Red Blood Count 4.09 x10^6/uL (4.1-5.6); Red Cell Distribution Width 15.8 % (11.5-14.0); White Blood Count 5.4 x10^3/uL (4.0-10.5)
[2021-10-12 20:30] LABS: ALBUMIN 3.3 g/dL (3.5-5.0); ALKALINE PHOSPHATASE 94 U/L (38-126); BLOOD UREA NITROGEN 23 mg/dL (9-20); CHLORIDE 104 mmol/L (98-107); Calcium 9.2 mg/dL (8.4-10.2); Carbon Dioxide 22 mmol/L (22-30); Creatinine 1 1.05 mg/dL (0.66-1.25); EST GLOMERULAR FILTRATION RATE > 60.0 ML/MIN; Glucose 235 mg/dL (74-106); Potassium 4.8 mmol/L (3.5-5.1); SGOT/AST 26 U/L (17-59); SGPT/ALT 34 U/L (0-50); SODIUM 136 mmol/L (137-145); Total Protein 5.8 g/dL (6.3-8.2)
[2021-10-12 21:04] LABS: INR 1.76 (0.8-3.0); PROTIME 17.7 SECONDS (9.4-12.5)
[2021-10-12] MEDS: Apresoline 25 MG TABLET PO SCH (21:36)
[2021-10-12] MEDS: ZOCOR 20MG PO SCH (21:36)
[2021-10-12] MEDS: HUMALOG SQ PRN (21:44)
[2021-10-12] MEDS ORDERED: NON-FORMULARY BULK ITEM PO ONE (22:00)
[2021-10-12] MEDS ORDERED: NON-FORMULARY ITEM PO ONE (22:00)
[2021-10-13] MEDS: xanAX 0.25 MG PO SCH ×2 (02:48→21:27)
[2021-10-13] MEDS ORDERED: MEDICATION INTERVENTION MC SCH (07:30)
[2021-10-13] MEDS ORDERED: INSULN SQ SCH (07:30)
[2021-10-13] MEDS ORDERED: INSULIN ASPART 100 UNIT/ML SQ SCH (07:30)
[2021-10-13] MEDS: HUMALOG SQ SCH ×3 (08:11→17:18)
[2021-10-13] MEDS: Lantus Insulin SQ SCH (08:12)
[2021-10-13] MEDS: Glucophage 500 MG PO SCH ×2 (08:19→17:18)
[2021-10-13] MEDS: Flomax 0.4 MG PO SCH (09:16)
[2021-10-13] MEDS: Bystolic 5 MG PO SCH (09:17)
[2021-10-13] MEDS: Protonix 40MG Tablet PO SCH (09:18)
[2021-10-13] MEDS: Apresoline 25 MG TABLET PO SCH ×3 (09:19→21:28)
[2021-10-13] MEDS: Ditropan 5 MG PO SCH ×2 (09:19→21:28)
[2021-10-13] MEDS: DELTASONE 5 MG PO SCH (09:19)
[2021-10-13] MEDS: PATIENT OWN MEDICATION PO SCH ×3 (09:20→21:30)
[2021-10-13] MEDS: NON-FORMULARY ITEM PO SCH (09:22)
[2021-10-13] MEDS: AMILORIDE HCL PO SCH (09:23)
[2021-10-13] MEDS: SODIUM BICARBONATE PO SCH (09:24)
[2021-10-13] MEDS ORDERED: MAG OXIDE PO SCH (10:00)
[2021-10-13] MEDS ORDERED: FLUZONE HIGH-DOSE QUAD 2022-23 IM ONE (10:00)
[2021-10-13] MEDS ORDERED: [UNRECOGNIZED DRUG - OTHER] PO SCH (10:00)
[2021-10-13] MEDS ORDERED: INSULIN DEGLUDEC 100 UNIT/ML SQ SCH (10:00)
[2021-10-13] MEDS ORDERED: NON-FORMULARY ITEM (Calcitriol [Calcitriol] 0.5 MCG Capsule) PO SCH (10:00)
[2021-10-13] MEDS ORDERED: NON-FORMULARY ITEM (Tolterodine Tartrate [Tolterodine Tartrate Er] 2 MG Cap.Er.24h) PO SCH (10:00)
[2021-10-13] MEDS ORDERED: PREDNISOLONE 5 MG PO SCH (10:00)
[2021-10-13] MEDS ORDERED: NON-FORMULARY ITEM (Sodium Bicarbonate 650 MG Tablet) PO SCH (10:00)
[2021-10-13] MEDS ORDERED: D3 PO SCH (10:00)
[2021-10-13] MEDS ORDERED: TURMERIC RT XT PO SCH (10:00)
[2021-10-13] MEDS ORDERED: Aplisol ID ONE (11:35)
[2021-10-13 15:06] LABS: INR 1.58 (0.8-3.0); PROTIME 16.1 SECONDS (9.4-12.5)
[2021-10-13] MEDS ORDERED: MAGNESIUM SULF 2 G/50 ML BAG 2 GM/50 ML PIGGYBACK IV ONE (15:32)
[2021-10-13] MEDS: TYLENOL 325 MG PO PRN (15:58)
[2021-10-13] MEDS: JANTOVEN PO SCH (17:18)
[2021-10-13] MEDS: HUMALOG SQ PRN (17:19)
[2021-10-13] MEDS: ZOCOR 20MG PO SCH (21:28)
[2021-10-13] MEDS ORDERED: MAG-OX 400 PO SCH (22:00)
[2021-10-13] MEDS ORDERED: NON-FORMULARY BULK ITEM PO SCH (22:00)
[2021-10-14] MEDS: TYLENOL 325 MG PO PRN (06:37)
[2021-10-14] MEDS: Protonix 40MG Tablet PO SCH (06:37)
[2021-10-14 07:11] LABS: Appearance SLIGHTLY CLOUDY (CLEAR); Bilirubin NEGATIVE (NEGATIVE); Dipstick done @ ? MAIN LAB; Glucose NEGATIVE (NEGATIVE); Ketones NEGATIVE (NEGATIVE); Nitrite NEGATIVE (NEGATIVE); Protein,Urine Dip NEGATIVE (Negative); RBC NEGATIVE Ery/ul (0-5); Specific Gravity 1.015 (1.005-1.025); Urobilinogen 0.2 mg/dL (0-1)
[2021-10-14 07:12] LABS: Urine Cultured Indicated? NO
[2021-10-14] MEDS: PATIENT OWN MEDICATION PO SCH ×5 (07:22→21:55)
[2021-10-14] MEDS: HUMALOG SQ SCH ×3 (08:12→18:10)
[2021-10-14] MEDS: Lantus Insulin SQ SCH (08:13)
[2021-10-14] MEDS: Glucophage 500 MG PO SCH ×2 (08:13→17:35)
[2021-10-14] MEDS: HUMALOG SQ PRN ×3 (08:13→21:56)
[2021-10-14] MEDS ORDERED: MAGNESIUM SULF 2 G/50 ML BAG 2 GM/50 ML PIGGYBACK IV ONE (09:05)
[2021-10-14] MEDS: MAG-OX 400 PO SCH ×3 (10:42→21:55)
[2021-10-14] MEDS: Bystolic 5 MG PO SCH (10:42)
[2021-10-14] MEDS: Flomax 0.4 MG PO SCH (10:43)
[2021-10-14] MEDS: Ditropan 5 MG PO SCH ×2 (10:43→21:55)
[2021-10-14] MEDS: DELTASONE 5 MG PO SCH (10:43)
[2021-10-14] MEDS: Apresoline 25 MG TABLET PO SCH ×3 (10:44→21:55)
[2021-10-14] MEDS: AMILORIDE HCL PO SCH (10:44)
[2021-10-14] MEDS: NON-FORMULARY ITEM PO SCH (10:45)
[2021-10-14] MEDS: SODIUM BICARBONATE PO SCH (10:45)
[2021-10-14] MEDS: JANTOVEN PO SCH (18:10)
[2021-10-14] MEDS: ZOCOR 20MG PO SCH (21:56)
[2021-10-14] MEDS: xanAX 0.25 MG PO SCH (21:56)
[2021-10-15 06:35] LABS: INR 1.58 (0.8-3.0); PROTIME 16.1 SECONDS (9.4-12.5)
[2021-10-15] MEDS: TYLENOL EXTRA STRENGTH 500 MG PO PRN ×2 (08:53→20:33)
[2021-10-15] MEDS: HUMALOG SQ SCH ×3 (08:54→17:17)
[2021-10-15] MEDS ORDERED: Cyclobenzaprine 10 MG PO PRN (09:01)
[2021-10-15] MEDS: AMILORIDE HCL PO SCH (09:25)
[2021-10-15] MEDS: Glucophage 500 MG PO SCH ×2 (09:25→17:19)
[2021-10-15] MEDS: Lantus Insulin SQ SCH (09:25)
[2021-10-15] MEDS: Apresoline 25 MG TABLET PO SCH ×3 (09:26→21:17)
[2021-10-15] MEDS: Bystolic 5 MG PO SCH ×2 (09:26→19:54)
[2021-10-15] MEDS: MAG-OX 400 PO SCH ×3 (09:27→21:18)
[2021-10-15] MEDS: Ditropan 5 MG PO SCH ×2 (09:27→21:17)
[2021-10-15] MEDS: DELTASONE 5 MG PO SCH (09:27)
[2021-10-15] MEDS: Flomax 0.4 MG PO SCH (09:27)
[2021-10-15] MEDS: PATIENT OWN MEDICATION PO SCH ×4 (09:28→21:16)
[2021-10-15] MEDS: NON-FORMULARY ITEM PO SCH (09:28)
[2021-10-15] MEDS: Protonix 40MG Tablet PO SCH (09:29)
[2021-10-15] MEDS: SODIUM BICARBONATE PO SCH (09:29)
--- NOTE | 2021-10-15 10:24 | XRAY ---
Indication: Low-grade fever. Comparison: November 16, 2018 PA/lateral chest demonstrates new tiny right middle lung calcified granuloma. Remaining heart and lungs unremarkable with interval right dialysis catheter removal. Bony thorax intact again with mild osteopenia and degenerative changes. Impression: Continued nonacute chest with chronic features.
[2021-10-15 14:38] LABS: Appearance CLEAR (CLEAR)
[2021-10-15 14:39] LABS: Bilirubin NEGATIVE (NEGATIVE); Dipstick done @ ? MAIN LAB; Glucose NEGATIVE (NEGATIVE); Ketones NEGATIVE (NEGATIVE); Nitrite NEGATIVE (NEGATIVE); Protein,Urine Dip NEGATIVE (Negative); RBC NEGATIVE Ery/ul (0-5); Specific Gravity 1.015 (1.005-1.025); Urobilinogen 0.2 mg/dL (0-1)
[2021-10-15 15:27] LABS: Urine Cultured Indicated? NO
[2021-10-15] MEDS: HUMALOG SQ PRN ×2 (17:19→21:13)
[2021-10-15] MEDS: JANTOVEN PO SCH (18:56)
[2021-10-15] MEDS: Coumadin 3 MG PO SCH (19:10)
--- NOTE | 2021-10-15 19:10 | PCM.NOTE ---
Date and Time: 10/15/211909 OBJECTIVE DATA Vital Signs: Vital Signs - 24 hr Temp Pulse Resp BP Pulse Ox 10/15/21 08:00 99.7 F 82 15 173/85 95 10/14/21 20:00 97.6 F 73 20 164/85 96 Pain Assessment - Last Documented Pain Intensity 5 Pain Scale Used 0-10 Pain Scale Intake and Output: Intake & Output 10/13/21 10/14/21 10/15/21 10/16/21 11:59 11:59 11:59 11:59 Intake Total 1060 580 440 Output Total 700 350 Balance 360 230 440 Weight 77.5 kg 74 kg 74 kg Lab Results: Lab Results-Last 24 Hours 10/14/21 10/15/21 10/15/21 Range/Units 21:39 04:45 04:45 PT 16.1 H (9.4-12.5) SECONDS INR 1.58 (0.8-3.0) POC Glucometer 215 H (74 to 106) mg/dL Magnesium 1.4 L (1.6-2.3) mg/dL Urinalys Dipstick Clnc Urine Color (YELLOW) Urine Appearance (CLEAR) Urine pH (5-6) Ur Specific [place] (1.005-1.025) POC Urine Protein Conf (Negative) Urine Ketones (NEGATIVE) Urine Nitrite (NEGATIVE) Urine Bilirubin (NEGATIVE) Urine Urobilinogen (0-1) mg/dL Urine Leukocytes (NEGATIVE) Urine WBC (Auto) (0-5) /HPF Urine RBC (Auto) (0-2) /HPF U Epithel Cells (Auto) (FEW) /HPF Urine Bacteria (Auto) (NEGATIVE) /HPF Urine RBC (0-5) Norman/ul Ur Culture Indicated? Urine Glucose (NEGATIVE) mg/dL 10/15/21 10/15/21 10/15/21 Range/Units 07:04 11:36 13:43 PT (9.4-12.5) SECONDS INR (0.8-3.0) POC Glucometer 192 H 179 H (74 to 106) mg/dL Magnesium (1.6-2.3) mg/dL Urinalys Dipstick Clnc MAIN LAB Urine Color YELLOW (YELLOW) Urine Appearance CLEAR (CLEAR) Urine pH 7.0 (5-6) Ur Specific [place] 1.015 (1.005-1.025) POC Urine Protein Conf NEGATIVE (Negative) Urine Ketones NEGATIVE (NEGATIVE) Urine Nitrite NEGATIVE (NEGATIVE) Urine Bilirubin NEGATIVE (NEGATIVE) Urine Urobilinogen 0.2 (0-1) mg/dL Urine Leukocytes NEGATIVE (NEGATIVE) Urine WBC (Auto) NONE (0-5) /HPF Urine RBC (Auto) NONE (0-2) /HPF U Epithel Cells (Auto) NONE (FEW) /HPF Urine Bacteria (Auto) NONE (NEGATIVE) /HPF Urine RBC NEGATIVE (0-5) Norman/ul Ur Culture Indicated? NO Urine Glucose NEGATIVE (NEGATIVE) mg/dL 10/15/21 Range/Units 16:44 PT (9.4-12.5) SECONDS INR (0.8-3.0) POC Glucometer 217 H (74 to 106) mg/dL Magnesium (1.6-2.3) mg/dL Urinalys Dipstick Clnc Urine Color (YELLOW) Urine Appearance (CLEAR) Urine pH (5-6) Ur Specific [place] (1.005-1.025) POC Urine Protein Conf (Negative) Urine Ketones (NEGATIVE) Urine Nitrite (NEGATIVE) Urine Bilirubin (NEGATIVE) Urine Urobilinogen (0-1) mg/dL Urine Leukocytes (NEGATIVE) Urine WBC (Auto) (0-5) /HPF Urine RBC (Auto) (0-2) /HPF U Epithel Cells (Auto) (FEW) /HPF Urine Bacteria (Auto) (NEGATIVE) /HPF Urine RBC (0-5) Norman/ul Ur Culture Indicated? Urine Glucose (NEGATIVE) mg/dL Radiology Exams: Radiology Procedures Category Date Time Status CHEST 2 VIEWS (PA AND LAT) Urgent Exams 10/15/21 09:00 Completed Multi-Disciplinary Progress Notes: Multi-Disciplinary Progress Notes 10/15/21 17:04 Occupational Therapy Note by Gerry(Antoine#[id number]),Addie Occupational Therapy Treatment Note OTR attempted to see patient this afternoon approximately 1530; however, patient had just laid down and requested OTR return later. OTR attempted treatment again this evening at 1645 and patient was agreeable at that time. He participated in bed mobility to sit at EOB to perform BUE ther ex's including bidirectional rows, forward arm raises, abduction, and chest presses 2x10 reps without added resistance. Patient required mod cueing to facilitate upright sitting vs backward lean. At end of treatment session, patient performed EOB > sidelying in bed with CGA and reported fatigue. Will continue seeing patient throughout duration of Swingbed stay to facilitate improved functional strength, functional endurance, independence and safety with I/ADLs, and energy conservation training as needed. Initialized on 10/15/21 17:04 - END OF NOTE 10/15/21 15:02 Physical Therapy Note by Palmer(L#[id number])Bhavya PT. SEEN BY P.T. THIS PM. NOT FEELING WELL THIS MORNING AND HAD RUN LOW GRADE FEVER. PT. IN BED THIS AFTERNOON UPON P.T. ARRIVAL TO ROOM. NO C/O PN. AGREEABLE TO P.T. O2 SATS 97% AT REST ON RA. PERFORMED SUPINE TO SIT W/ MIN ASSIST W/ HOB ELEVATED. SIT TO STAND CGA. AMBULATED 150' W/ ROLLATOR AND CGA- SBA. O2 SATS 92% AFTER WALK. WORKED ON DEEP BREATHING TO RECOVER. PT. RESTED ~ 3' AND THEN PERFORMED SEATED LE EX'S W/ 1# CUFF WEIGHT OF LISBETH, SHALONDA, SEATED HIP ABD, ANKLE PUMPS, QUAD SETS, GLUT SETS, HEEL SLIDES. PT. MORE ALERT THIS P.M. AND MORE TALKATIVE. HAS HAD SOMEWHAT FLAT AFFECT DURING SESSIONS BUT THIS WAS SLIGHTLY BETTER THIS AFTERNOON. PT. DOES HAVE SOME DELAYED RESPONSES AT TIMES AND NEEDS SOME ADDITIONAL CUEING FOR SAFETY AND SEQUENCING. WILL CONT. P.T. ON SWING BED. Initialized on 10/15/21 15:02 - END OF NOTE 10/15/21 11:22 Case Management Note by Marisabel Patel S/W PATIENT- HE PLANS TO MAXIMIZE SWINGBED AND CONTINUE TO WORK WITH PHYSICAL THERAPY NEXT WEEK TO HOPEFULLY BE ABLE TO RETURN HOME WITH HIS PLANNED Initialized on 10/15/21 11:22 - END OF NOTE
--- NOTE | 2021-10-15 19:21 | PCM.NOTE ---
Date and Time: 10/15/211909 Subjective Assessment: Patient had a low grade fever this morning but nurse stated the room was also very warm. No further fever ,temp now is 98 oral. C/O headache this morning took tylenol with relief. States appetite is good ate fish and corn and potatoes for supper this evening. Denies sore throat or cough or chest pain or dyspnea or abd pain. Has had a normal BM today. INR - patient states it is erratic and has Warfarin dose changes frequently. States still fatigued but sees improvement. Objective Exam General Appearance: no apparent distress Neurologic Exam: alert, oriented x 3, cooperative (fatigued,slow to move for exam in bed) Skin Exam: normal color Eye Exam: eyes nml inspection Ears, Nose, Throat Exam: normal ENT inspection Neck Exam: normal inspection Respiratory Exam: normal breath sounds Cardiovascular Exam: regular rate/rhythm Gastrointestinal/Abdomen Exam: soft, normal bowel sounds (nontender) Extremity Exam: normal inspection OBJECTIVE DATA Vital Signs: Vital Signs - 24 hr Temp Pulse Resp BP Pulse Ox 10/15/21 08:00 99.7 F 82 15 173/85 95 10/14/21 20:00 97.6 F 73 20 164/85 96 Pain Assessment - Last Documented Pain Intensity 5 Pain Scale Used 0-10 Pain Scale Intake and Output: Intake & Output 10/13/21 10/14/21 10/15/21 10/16/21 11:59 11:59 11:59 11:59 Intake Total 1060 580 440 Output Total 700 350 Balance 360 230 440 Weight 77.5 kg 74 kg 74 kg Lab Results: Lab Results-Last 24 Hours 10/14/21 10/15/21 10/15/21 Range/Units 21:39 04:45 04:45 PT 16.1 H (9.4-12.5) SECONDS INR 1.58 (0.8-3.0) POC Glucometer 215 H (74 to 106) mg/dL Magnesium 1.4 L (1.6-2.3) mg/dL Urinalys Dipstick Clnc Urine Color (YELLOW) Urine Appearance (CLEAR) Urine pH (5-6) Ur Specific [place] (1.005-1.025) POC Urine Protein Conf (Negative) Urine Ketones (NEGATIVE) Urine Nitrite (NEGATIVE) Urine Bilirubin (NEGATIVE) Urine Urobilinogen (0-1) mg/dL Urine Leukocytes (NEGATIVE) Urine WBC (Auto) (0-5) /HPF Urine RBC (Auto) (0-2) /HPF U Epithel Cells (Auto) (FEW) /HPF Urine Bacteria (Auto) (NEGATIVE) /HPF Urine RBC (0-5) Norman/ul Ur Culture Indicated? Urine Glucose (NEGATIVE) mg/dL 10/15/21 10/15/21 10/15/21 Range/Units 07:04 11:36 13:43 PT (9.4-12.5) SECONDS INR (0.8-3.0) POC Glucometer 192 H 179 H (74 to 106) mg/dL Magnesium (1.6-2.3) mg/dL Urinalys Dipstick Clnc MAIN LAB Urine Color YELLOW (YELLOW) Urine Appearance CLEAR (CLEAR) Urine pH 7.0 (5-6) Ur Specific [place] 1.015 (1.005-1.025) POC Urine Protein Conf NEGATIVE (Negative) Urine Ketones NEGATIVE (NEGATIVE) Urine Nitrite NEGATIVE (NEGATIVE) Urine Bilirubin NEGATIVE (NEGATIVE) Urine Urobilinogen 0.2 (0-1) mg/dL Urine Leukocytes NEGATIVE (NEGATIVE) Urine WBC (Auto) NONE (0-5) /HPF Urine RBC (Auto) NONE (0-2) /HPF U Epithel Cells (Auto) NONE (FEW) /HPF Urine Bacteria (Auto) NONE (NEGATIVE) /HPF Urine RBC NEGATIVE (0-5) Norman/ul Ur Culture Indicated? NO Urine Glucose NEGATIVE (NEGATIVE) mg/dL 10/15/21 Range/Units 16:44 PT (9.4-12.5) SECONDS INR (0.8-3.0) POC Glucometer 217 H (74 to 106) mg/dL Magnesium (1.6-2.3) mg/dL Urinalys Dipstick Clnc Urine Color (YELLOW) Urine Appearance (CLEAR) Urine pH (5-6) Ur Specific [place] (1.005-1.025) POC Urine Protein Conf (Negative) Urine Ketones (NEGATIVE) Urine Nitrite (NEGATIVE) Urine Bilirubin (NEGATIVE) Urine Urobilinogen (0-1) mg/dL Urine Leukocytes (NEGATIVE) Urine WBC (Auto) (0-5) /HPF Urine RBC (Auto) (0-2) /HPF U Epithel Cells (Auto) (FEW) /HPF Urine Bacteria (Auto) (NEGATIVE) /HPF Urine RBC (0-5) Norman/ul Ur Culture Indicated? Urine Glucose (NEGATIVE) mg/dL Radiology Exams: Radiology Procedures Category Date Time Status CHEST 2 VIEWS (PA AND LAT) Urgent Exams 10/15/21 09:00 Completed Multi-Disciplinary Progress Notes: Multi-Disciplinary Progress Notes 10/15/21 17:04 Occupational Therapy Note by Gerry(L#[id number])Addie Occupational Therapy Treatment Note OTR attempted to see patient this afternoon approximately 1530; however, patient had just laid down and requested OTR return later. OTR attempted treatment again this evening at 1645 and patient was agreeable at that time. He participated in bed mobility to sit at EOB to perform BUE ther ex's including bidirectional rows, forward arm raises, abduction, and chest presses 2x10 reps without added resistance. Patient required mod cueing to facilitate upright sitting vs backward lean. At end of treatment session, patient performed EOB > sidelying in bed with CGA and reported fatigue. Will continue seeing patient throughout duration of Swingbed stay to facilitate improved functional strength, functional endurance, independence and safety with I/ADLs, and energy conservation training as needed. Initialized on 10/15/21 17:04 - END OF NOTE 10/15/21 15:02 Physical Therapy Note by Palmer(L#[id number])Bhavya PT. SEEN BY P.T. THIS PM. NOT FEELING WELL THIS MORNING AND HAD RUN LOW GRADE FEVER. PT. IN BED THIS AFTERNOON UPON P.T. ARRIVAL TO ROOM. NO C/O PN. AGREEABLE TO P.T. O2 SATS 97% AT REST ON RA. PERFORMED SUPINE TO SIT W/ MIN ASSIST W/ HOB ELEVATED. SIT TO STAND CGA. AMBULATED 150' W/ ROLLATOR AND CGA- SBA. O2 SATS 92% AFTER WALK. WORKED ON DEEP BREATHING TO RECOVER. PT. RESTED ~ 3' AND THEN PERFORMED SEATED LE EX'S W/ 1# CUFF WEIGHT OF SAQS, MARCHES, SEATED HIP ABD, ANKLE PUMPS, QUAD SETS, GLUT SETS, HEEL SLIDES. PT. MORE ALERT THIS P.M. AND MORE TALKATIVE. HAS HAD SOMEWHAT FLAT AFFECT DURING SESSIONS BUT THIS WAS SLIGHTLY BETTER THIS AFTERNOON. PT. DOES HAVE SOME DELAYED RESPONSES AT TIMES AND NEEDS SOME ADDITIONAL CUEING FOR SAFETY AND SEQUENCING. WILL CONT. P.T. ON SWING BED. Initialized on 10/15/21 15:02 - END OF NOTE 10/15/21 11:22 Case Management Note by Marisabel Patel S/W PATIENT- HE PLANS TO MAXIMIZE SWINGBED AND CONTINUE TO WORK WITH PHYSICAL THERAPY NEXT WEEK TO HOPEFULLY BE ABLE TO RETURN HOME WITH HIS PLANNED Initialized on 10/15/21 11:22 - END OF NOTE Assessment/Plan (1) Fatigue Current Visit: No Status: Chronic Qualifiers: Fatigue type: postviral fatigue syndrome Qualified Code(s): G93.3 - Postviral fatigue syndrome Assessment & Plan: improving but far from baseline Code(s): R53.83 - OTHER FATIGUE (2) Fever Current Visit: Yes Status: Resolved Assessment & Plan: low grade fever neg exam and neg UA and neg CXR Code(s): R50.9 - FEVER, UNSPECIFIED (3) History of fall Current Visit: Yes Status: Acute Code(s): Z91.81 - HISTORY OF FALLING (4) Hx of falling Current Visit: Yes Status: Chronic Assessment & Plan: continue PT Code(s): Z91.81 - HISTORY OF FALLING (5) Anticoagulant long-term use Current Visit: Yes Status: Chronic Assessment & Plan: dose of Warfarin adjusted up to 6mg starting today 10/15/21Monday, was on 5mg da william. Retest INR in 2 days on Monday. Hx Afib. Code(s): Z79.01 - REHABILITATION PROGRAM COORDINATOR (CURRENT) USE OF ANTICOAGULANTS (6) DM2 (diabetes mellitus, type 2) Current Visit: Yes Status: Chronic Qualifiers: Diabetes mellitus half-way insulin use: with solutions developer use Assessment & Plan: due for weekly Ozempic - will bring in the morning. (7) HTN, goal below 130/80 Current Visit: Yes Status: Acute Code(s): I10 - ESSENTIAL (PRIMARY) HYPERTENSION (8) Hypertension Current Visit: No Status: Chronic Qualifiers: Hypertension type: essential hypertension Qualified Code(s): I10 - Essential (primary) hypertension Assessment & Plan: Dose of Bystolic increased from 2.5mg to 5mg daily. Code(s): I10 - ESSENTIAL (PRIMARY) HYPERTENSION
[2021-10-15] MEDS ORDERED: Bystolic 5 MG ONE (19:51)
[2021-10-15] MEDS: xanAX 0.25 MG PO SCH (21:16)
[2021-10-15] MEDS: ZOCOR 20MG PO SCH (21:18)
[2021-10-16] MEDS: TYLENOL EXTRA STRENGTH 500 MG PO PRN (02:24)
[2021-10-16 06:47] LABS: INR 1.75 (0.8-3.0); PROTIME 17.6 SECONDS (9.4-12.5)
[2021-10-16] MEDS: HUMALOG SQ SCH ×3 (08:50→17:48)
[2021-10-16] MEDS: Lantus Insulin SQ SCH (08:50)
[2021-10-16] MEDS: Glucophage 500 MG PO SCH ×2 (08:50→17:22)
[2021-10-16] MEDS ORDERED: PATIENT OWN MEDICATION SQ SCH (10:00)
[2021-10-16] MEDS: DELTASONE 5 MG PO SCH (10:46)
[2021-10-16] MEDS: MAG-OX 400 PO SCH ×2 (10:46→21:04)
[2021-10-16] MEDS: Protonix 40MG Tablet PO SCH (10:46)
[2021-10-16] MEDS: Bystolic 5 MG PO SCH (10:46)
[2021-10-16] MEDS: Apresoline 25 MG TABLET PO SCH ×3 (10:47→21:03)
[2021-10-16] MEDS: Flomax 0.4 MG PO SCH (10:47)
[2021-10-16] MEDS: Ditropan 5 MG PO SCH ×2 (10:47→21:04)
[2021-10-16] MEDS: NON-FORMULARY ITEM PO SCH (10:48)
[2021-10-16] MEDS: PATIENT OWN MEDICATION PO SCH ×4 (10:49→21:03)
[2021-10-16] MEDS: SODIUM BICARBONATE PO SCH (10:50)
[2021-10-16] MEDS: AMILORIDE HCL PO SCH (10:50)
[2021-10-16] MEDS ORDERED: MAG-OX 400 PO ONE (11:33)
[2021-10-16 12:16] LABS: Absolute Neutrophil Ct (ANC) 5.33 x10^3/uL (1.4-6.9); Basophil (Absolute #) 0.02 x10^3/uL (0-0.4); Eosinophil % 0.3 % (0.00-5.0); Eosinophil (Absolute #) 0.02 x10^3/uL (0-0.5); Hemoglobin 9.8 g/dL (12.5-18.0); Lymphocyte (Absolute #) 0.81 x10^3/uL (1.0-4.6); Lymphocytes % 11.1 % (24.0-44.0); Mean Cell Volume 84.9 fL (78-100); Mean Corpuscular Hgb Concent. 30.6 g/dL (32-36); Mean Platelet Volume 10.2 fL (7.5-11.0); Monocytes % 13.7 % (0.0-12.0); Platelet Count 228 x10^3/uL (150-450); Red Blood Count 3.77 x10^6/uL (4.1-5.6); Red Cell Distribution Width 16.3 % (11.5-14.0); White Blood Count 7.3 x10^3/uL (4.0-10.5)
[2021-10-16 12:29] LABS: ALBUMIN 3.3 g/dL (3.5-5.0); ALKALINE PHOSPHATASE 84 U/L (38-126); ANION GAP 15.1 MEQ/L (5-15); BLOOD UREA NITROGEN 23 mg/dL (9-20); CHLORIDE 102 mmol/L (98-107); Calcium 8.9 mg/dL (8.4-10.2); Carbon Dioxide 20 mmol/L (22-30); Creatinine 1 0.92 mg/dL (0.66-1.25); EST GLOMERULAR FILTRATION RATE > 60.0 ML/MIN; Glucose 192 mg/dL (74-106); Potassium 5.1 mmol/L (3.5-5.1); SGOT/AST 53 U/L (17-59); SGPT/ALT 81 U/L (0-50); SODIUM 132 mmol/L (137-145)
[2021-10-16] MEDS: HUMALOG SQ PRN ×2 (12:43→21:09)
[2021-10-16] MEDS: Coumadin 3 MG PO SCH (17:22)
[2021-10-16] MEDS: xanAX 0.25 MG PO SCH (21:03)
[2021-10-16] MEDS: ZOCOR 20MG PO SCH (21:04)
[2021-10-17] MEDS: TYLENOL EXTRA STRENGTH 500 MG PO PRN (03:06)
[2021-10-17 05:59] LABS: Absolute Neutrophil Ct (ANC) 1.17 x10^3/uL (1.4-6.9); Basophil (Absolute #) 0.02 x10^3/uL (0-0.4); Eosinophil % 55.2 % (0.00-5.0); Hematocrit 30.7 % (42-50); Hemoglobin 9.5 g/dL (12.5-18.0); Lymphocyte (Absolute #) 0.75 x10^3/uL (1.0-4.6); Lymphocytes % 10.6 % (24.0-44.0); Mean Cell Volume 82.3 fL (78-100); Mean Corpuscular Hemoglobin 25.5 pg (26-32); Mean Corpuscular Hgb Concent. 30.9 g/dL (32-36); Mean Platelet Volume 9.9 fL (7.5-11.0); Monocyte (Absolute #) 1.18 x10^3/uL (0.0-1.3); Monocytes % 16.7 % (0.0-12.0); Neutrophil % 16.6 % (36.0-66.0); Platelet Count 216 x10^3/uL (150-450); Red Blood Count 3.73 x10^6/uL (4.1-5.6); White Blood Count 7.1 x10^3/uL (4.0-10.5)
[2021-10-17 06:33] LABS: ALBUMIN 3.5 g/dL (3.5-5.0); ALKALINE PHOSPHATASE 83 U/L (38-126); ANION GAP 14.8 MEQ/L (5-15); BLOOD UREA NITROGEN 25 mg/dL (9-20); CHLORIDE 102 mmol/L (98-107); Calcium 8.8 mg/dL (8.4-10.2); Carbon Dioxide 21 mmol/L (22-30); Creatinine 1 0.88 mg/dL (0.66-1.25); EST GLOMERULAR FILTRATION RATE > 60.0 ML/MIN; Glucose 197 mg/dL (74-106); Potassium 4.6 mmol/L (3.5-5.1); SGOT/AST 53 U/L (17-59); SGPT/ALT 97 U/L (0-50); SODIUM 132 mmol/L (137-145); Total Protein 6.6 g/dL (6.3-8.2)
[2021-10-17 06:39] LABS: Slide Review 1 YES
[2021-10-17 07:10] LABS: INR 2.15 (0.8-3.0); PROTIME 21.3 SECONDS (9.4-12.5)
[2021-10-17] MEDS ORDERED: MAGNESIUM SULF 2 G/50 ML BAG 2 GM/50 ML PIGGYBACK IV ONE (08:00)
[2021-10-17] MEDS: Lantus Insulin SQ SCH (09:12)
[2021-10-17] MEDS: Glucophage 500 MG PO SCH ×2 (09:12→18:02)
[2021-10-17] MEDS: HUMALOG SQ SCH ×3 (09:12→18:04)
[2021-10-17 09:55] VITALS: O2SAT 92
--- NOTE | 2021-10-17 10:29 | PCM.DS ---
Discharge Summary Date of Admission: 10/12/21 15:52 Admitting Physician: MICHAEL YATES DO Primary Care Provider: MICHAEL YATES DO Allergies Allergies Sulfa (Sulfonamide Antibiotics) [Sulfa(Sulfonamide Antibiotics)] Allergy (Unknown, Verified 10/06/21 21:00) ibuprofen Adverse Reaction (Severe, Verified 10/06/21 21:00) kidney transplant latex Adverse Reaction (Intermediate, Verified 10/06/21 21:00) Rash Hospital Summary - Hospital Course Hospital Course: Pt is a 76 yo male pt of DR. Yates with hx renal transplant (1 yr ago, functioning well), afib (on coumadin), anemia, DM, hyperlipidemia, and HTN who was admitted to swing bed (rehab) at [facility] after an acute stay at [facility] for Covid. He has been stable here, although started running temp to 100.9 briefly each night 2 nights ago. CXR and UA were neg. This morning he has a drastic change in mental status. He is alert and oriented to self only - otherwise has word salad. Denies any pain. His cell cept was supposed to be held, but has been given x [address] doses [address] Yates is aware and ordered blood cultures. UA and CXR are being repeated. She is speaking with the hospitalist at [facility] for transfer; pt's kidney transplant physician, Dr. Stone, is also [employer] drm consultant this weekend. Pt will likely be transferred out. - Vitals & Intake/Output Vital Signs: Vital Signs Temperature 99.5 F 10/17/21 08:00 Pulse Rate 90 10/17/21 08:00 Respiratory Rate 19 10/17/21 08:00 Blood Pressure 112/64 10/17/21 08:00 O2 Sat by Pulse Oximetry 92 L 10/17/21 08:00 Intake & Output: Intake & Output 10/14/21 10/15/21 10/16/21 10/17/21 11:59 11:59 11:59 11:59 Intake Total 580 440 640 480 Output Total 355 411 8166 Balance 230 440 65 -820 Weight 74 kg 74.1 kg 75.1 kg - Lab Result Diagrams: 10/17/21 05:20 10/17/21 05:20 Lab Results-Last 24 Hrs: Lab Results-Last 24 Hours 10/16/21 10/16/21 10/17/21 Range/Units 04:50 04:50 05:20 WBC 7.3 (4.0-10.5) x10^3/uL RBC 3.77 L (4.1-5.6) x10^6/uL Hgb 9.8 L (12.5-18.0) g/dL Hct 32.0 L (42-50) % MCV 84.9 (78-100) fL MCH 26.0 (26-32) pg MCHC 30.6 L (32-36) g/dL RDW 16.3 H (11.5-14.0) % Plt Count 228 (150-450) x10^3/uL MPV 10.2 (7.5-11.0) fL Gran % 73.0 H (36.0-66.0) % Immature Gran % (Auto) 1.6 H (0.00-0.4) % Nucleat RBC Rel Count 0.0 (0.00-0.1) % Eos # (Auto) 0.02 (0-0.5) x10^3/uL Immature Gran # (Auto) 0.12 H (0.00-0.03) x10^3u/L Absolute Lymphs (auto) 0.81 L (1.0-4.6) x10^3/uL Absolute Monos (auto) 1.00 (0.0-1.3) x10^3/uL Absolute Nucleated RBC 0.00 (0.00-0.01) x10^3u/L Lymphocytes % 11.1 L (24.0-44.0) % Monocytes % 13.7 H (0.0-12.0) % Eosinophils % 0.3 (0.00-5.0) % Basophils % 0.3 (0.0-0.4) % Absolute Granulocytes 5.33 (1.4-6.9) x10^3/uL Basophils # 0.02 (0-0.4) x10^3/uL PT (9.4-12.5) SECONDS INR (0.8-3.0) Sodium 132 L (137-145) mmol/L Potassium 5.1 (3.5-5.1) mmol/L Chloride 102 (98-107) mmol/L Carbon Dioxide 20 L (22-30) mmol/L Anion Gap 15.1 H (5-15) MEQ/L BUN 23 H (9-20) mg/dL Creatinine 0.92 (0.66-1.25) mg/dL Estimated GFR > 60.0 ML/MIN Glucose 192 H (74-106) mg/dL Calcium 8.9 (8.4-10.2) mg/dL Magnesium 1.1 L (1.6-2.3) mg/dL Total Bilirubin 0.80 (0.2-1.3) mg/dL AST 53 (17-59) U/L ALT 81 H (0-50) U/L Alkaline Phosphatase 84 (38-126) U/L Serum Total Protein 6.0 L (6.3-8.2) g/dL Albumin 3.3 L (3.5-5.0) g/dL Slides for Path Review 10/17/21 10/17/21 10/17/21 Range/Units 05:20 05:20 05:20 WBC 7.1 (4.0-10.5) x10^3/uL RBC 3.73 L (4.1-5.6) x10^6/uL Hgb 9.5 L (12.5-18.0) g/dL Hct 30.7 L (42-50) % MCV 82.3 (78-100) fL MCH 25.5 L (26-32) pg MCHC 30.9 L (32-36) g/dL RDW 16.0 H (11.5-14.0) % Plt Count 216 (150-450) x10^3/uL MPV 9.9 (7.5-11.0) fL Gran % 16.6 L (36.0-66.0) % Immature Gran % (Auto) 0.6 H (0.00-0.4) % Nucleat RBC Rel Count 0.0 (0.00-0.1) % Eos # (Auto) 3.90 H (0-0.5) x10^3/uL Immature Gran # (Auto) 0.04 H (0.00-0.03) x10^3u/L Absolute Lymphs (auto) 0.75 L (1.0-4.6) x10^3/uL Absolute Monos (auto) 1.18 (0.0-1.3) x10^3/uL Absolute Nucleated RBC 0.00 (0.00-0.01) x10^3u/L Lymphocytes % 10.6 L (24.0-44.0) % Monocytes % 16.7 H (0.0-12.0) % Eosinophils % 55.2 H (0.00-5.0) % Basophils % 0.3 (0.0-0.4) % Absolute Granulocytes 1.17 L (1.4-6.9) x10^3/uL Basophils # 0.02 (0-0.4) x10^3/uL PT 21.3 H (9.4-12.5) SECONDS INR 2.15 (0.8-3.0) Sodium 132 L (137-145) mmol/L Potassium 4.6 (3.5-5.1) mmol/L Chloride 102 (98-107) mmol/L Carbon Dioxide 21 L (22-30) mmol/L Anion Gap 14.8 (5-15) MEQ/L BUN 25 H (9-20) mg/dL Creatinine 0.88 (0.66-1.25) mg/dL Estimated GFR > 60.0 ML/MIN Glucose 197 H (74-106) mg/dL Calcium 8.8 (8.4-10.2) mg/dL Magnesium (1.6-2.3) mg/dL Total Bilirubin 0.80 (0.2-1.3) mg/dL AST 53 (17-59) U/L ALT 97 H (0-50) U/L Alkaline Phosphatase 83 (38-126) U/L Serum Total Protein 6.6 (6.3-8.2) g/dL Albumin 3.5 (3.5-5.0) g/dL Slides for Path Review YES Micro Results-Entire Visit: Accuchecks Date 10/17/21 Date 10/16/21 Date 10/16/21 Time 08:39 Time 16:08 Time 12:50 - Radiology Exams Ordered Rad Exams-Entire Visit: Radiology Procedures Category Date Time Status CHEST 1 VIEW (PORTABLE) Stat Exams 10/17/21 10:20 Ordered - Procedures and Test Procedures and Tests throughout Hospitalization: Therapy Orders & Screens 10/13/21 08:00 OT Eval and Treat ( Order) ONCE Comment: Consulting Provider: MICHAEL YATES Physician Instructions: Reason For Exam: EVAL AND TREAT Evaluate: Yes Treat: Yes Reason for Evaluation: WEAKNESS, DECONDITIONING Diagnosis: DECONDITIOING RELATED TO UTI, COVID PT Eval & Treat (MD Order) ONCE Reason for Eval:: WEAKNESS, DECONDITIONING Diagnosis: DECONDITIOING RELATED TO UTI, COVID 10/13/21 12:57 PT Clarification Order ROUTINE Comment: Physician Instructions: Reason For Exam: PT Clarification: P.T. TO RX 5X/WK UNTIL D/C TO ADDRESS FUNCTIONAL MOBILITY AND GAIT TRAINING, THER EX, BALANCE AND ENDURANCE TRAINING WELL PT. ED. RE: HEP AND SAFETY AWARENESS TO MAXIMIZE FUNCTIONAL POTIENTIAL FOR SAFE RETURN HOME. 10/13/21 17:05 OT Clarification Order ROUTINE Comment: Physician Instructions: Reason For Exam: OT Clarification: 5X/WEEK FOR ADLS, STRENGHTENING, AND ENDURANCE Discharge Exam General Appearance: no apparent distress, alert Neurologic Exam: cooperative, disoriented, confusion Eye Exam: eyes nml inspection Ears, Nose, Throat Exam: moist mucous membranes Neck Exam: normal inspection, non-tender, No lymphadenopathy Respiratory Exam: normal breath sounds, lungs clear, No crackles/rales, No rhonchi, No wheezing Cardiovascular Exam: regular rate/rhythm, normal heart sounds, No murmur Gastrointestinal/Abdomen Exam: soft, normal bowel sounds, No tenderness, No distention, No mass, No guarding, No rebound Back Exam: normal inspection, No rash Extremity Exam: normal inspection, No pedal edema, No swelling Skin Exam: normal color, warm, dry, No rash Final Diagnosis/Problem List - Final Discharge Diagnosis/Problem (1) Altered mental status Current Visit: Yes Status: Acute Assessment & Plan: Would consider CT head/abd/pelvis but Dr. Yates will discuss with [facility] first. Code(s): R41.82 - ALTERED MENTAL STATUS, UNSPECIFIED (2) Fever Current Visit: Yes Status: Resolved Assessment & Plan: No nidus of infection is obvious. CXR and UA repeat this morning. Blood Cx pending. Dr. Yates will discuss possible abx coverage with zane Pastrana u. Code(s): R50.9 - FEVER, UNSPECIFIED (3) Status post kidney transplant Current Visit: No Status: Chronic Assessment & Plan: Cell-cept was to be held during this stay; however it has been given x 7 doses since his admission here. 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 Code(s): U09.9 - POST COVID-19 CONDITION, UNSPECIFIED (5) History of fall Current Visit: Yes Status: Acute Code(s): Z91.81 - HISTORY OF FALLING (6) HTN, goal below 130/80 Current Visit: Yes Status: Chronic Code(s): I10 - ESSENTIAL (PRIMARY) HYPERTENSION (7) Anticoagulant long-term use Current Visit: Yes Status: Chronic Assessment & Plan: INR 2.15 this morning. Code(s): Z79.01 - REFERENCE DATA EXPERT (CURRENT) USE OF ANTICOAGULANTS (8) DM2 (diabetes mellitus, type 2) Current Visit: Yes Status: Chronic - Discharge Disposition: Home, Self-Care Condition: Serious Prescriptions: No Action mycophenolate mofetiL [Mycophenolate Mofetil] 180 mg PO BID Tamsulosin HCl 0.4 mg [Flomax 0.4 MG] 0.4 mg PO DAILY Nebivolol HCl 5 MG [Bystolic 5 MG] 2.5 mg PO DAILY Prednisolone [Millipred] 5 mg PO DAILY Tolterodine Tartrate [Tolterodine Tartrate ER] 2 mg PO DAILY PANTOPRAZOLE 40 mg Tablet [Protonix 40MG Tablet] 40 mg PO QAM calcitrioL [Calcitriol] 0.5 mcg PO DAILY HydrALAzine HCL 25 MG TAB [Apresoline 25 MG TABLET] 12.5 mg PO TID Tacrolimus [Prograf] 1 mg PO BID Semaglutide [Ozempic] 1 mg SQ WEEKLY Insulin Degludec [Tresiba] 10 unit SQ QAM Metformin HCl 500 mg [Glucophage 500 MG] 500 mg PO BID Pravastatin Sodium 40 mg PO HS Insulin Aspart [Insulin Aspart Flexpen] 8 units SQ AC Sodium Bicarbonate 650 mg PO DAILY Amiloride HCl 5 mg PO DAILY Warfarin Sodium 5 mg [Jantoven] 5 mg PO DAILY Magnesium Oxide 400 mg PO BID Additional Instructions: YOU HAVE A PET SCAN AT [place] 11/01/21@1230 Follow up with: LEXIS RICKETTS [CONSULTING PHYSICIAN] - 11/09/21 9:15 am MICHAEL YATES DO [Primary Care Provider] -
[2021-10-17] MEDS ORDERED: PHARMACY DOSING REQUIRED: VANCOMYCIN IV STA (11:09)
[2021-10-17] MEDS: Flomax 0.4 MG PO SCH (11:13)
[2021-10-17] MEDS: Apresoline 25 MG TABLET PO SCH ×2 (11:14→16:32)
[2021-10-17] MEDS: DELTASONE 5 MG PO SCH (11:14)
[2021-10-17] MEDS: MAG-OX 400 PO SCH (11:15)
[2021-10-17] MEDS: Bystolic 5 MG PO SCH (11:15)
[2021-10-17] MEDS: Protonix 40MG Tablet PO SCH (11:15)
[2021-10-17] MEDS: Ditropan 5 MG PO SCH (11:15)
[2021-10-17] MEDS: PATIENT OWN MEDICATION PO SCH (11:16)
[2021-10-17] MEDS: NON-FORMULARY ITEM PO SCH (11:17)
[2021-10-17] MEDS: AMILORIDE HCL PO SCH (11:18)
[2021-10-17] MEDS: SODIUM BICARBONATE PO SCH (11:18)
[2021-10-17] MEDS ORDERED: VANCOMYCIN 1 GRAM/200 ML BAG 1 GM/200 ML PIGGYBACK IV SCH (12:00)
[2021-10-17 12:08] LABS: Urine Cultured Indicated? ORDERED SEPARATELY
[2021-10-17 12:09] LABS: Appearance CLEAR (CLEAR); Bilirubin NEGATIVE (NEGATIVE); Dipstick done @ ? MAIN LAB; Glucose NEGATIVE (NEGATIVE); Ketones NEGATIVE (NEGATIVE); Nitrite NEGATIVE (NEGATIVE); Ph 6.5 (5-6); Protein,Urine Dip NEGATIVE (Negative); RBC TRACE-INTACT Ery/ul (0-5); Urobilinogen 0.2 mg/dL (0-1)
[2021-10-17] MEDS: PIPERACILLIN/TAZOBACTAM 3.375 GM in Sodium Chloride 100ML MINI-BAG PLUS 100 ML IV SCH ×2 (12:50→18:06)
[2021-10-17 15:14] VITALS: BP 138/94; PULSE 80
--- NOTE | 2021-10-17 17:59 | XRAY ---
Indication: Short of breath. Acute mental status change. Comparison: October 15, 2021 Portable chest less inflated with new mild bibasilar infiltrate versus atelectasis left greater than right. Heart not enlarged. Comment: Preliminary interpretation made by [facility]. No critical discrepancy.
--- NOTE | 2021-10-17 18:03 | XRAY ---
Indication: Fever, cough, and acute mental status change. Multiple contiguous axial images obtained through the head without contrast. Comparison: October 01, 2021 Again age-appropriate global atrophy and periventricular degenerative micro-ischemia. No acute intracranial hemorrhage, abnormal extra-axial fluid collection, or mass effect. Fourth ventricle is midline without hydrocephalus. Bony calvarium intact. Paranasal sinuses and mastoid air cells are clear. Impression: Continued nonacute senile brain. MRI brain may yield further information if there remains clinical concern. Comment: Preliminary interpretation made by C. No critical discrepancy.
--- NOTE | 2021-10-17 18:07 | XRAY ---
Indication: Cough, fever, and acute mental status change. Multiple contiguous images obtained through the chest without contrast. Comparison: September 24, 2021 Study again degraded by respiration artifact. Grossly stable small right apical noncalcified masses again worrisome for malignancy. New scattered bilateral noncalcified nodularities, largest posterior medial right lower lobe measuring 2.6 x 1.8 cm worrisome for metastasis. No effusion or pneumothorax. Heart not enlarged. Aorta remains arteriosclerotic without aneurysm. No pathologic mediastinal lymphadenopathy. Bony thorax intact again with mild degenerative changes throughout the spine CT abdomen/pelvis reported separately. Impression: 1. Again respiration artifact. 2. Stable right apical noncalcified masses with new multiple bilateral nodularities worrisome for metastatic process. Comment: Preliminary interpretation made by [facility]. No critical discrepancy.
--- NOTE | 2021-10-17 18:14 | XRAY ---
Indication: Cough, fever, and acute mental status change. Multiple contiguous axial images obtained through the abdomen and pelvis without contrast. Comparison: October 06, 2021 CT chest reported separately. There is now beam artifact from patient's arms. Noncontrasted stomach and bowel loops are nonobstructed. There is now mild diffuse scattered colonic fecal debris. Again 22.4 cm hepatomegaly, 16 cm splenomegaly, prostate radiation seeds, and small left urinary bladder diverticulum. No free fluid/air. Both [place] kidneys are again atrophic. Stable right lower quadrant transplanted kidney without hydronephrosis. Remaining liver, gallbladder, pancreas, spleen, adrenal glands, kidneys, ureters, and bladder are unremarkable for noncontrast exam. Again moderate scattered aortoiliac calcifications. Osseous structures intact again with degenerative changes throughout the spine. Impression: 1. New mild diffuse fecal stasis. 2. Again chronic findings including hepatosplenomegaly, atrophy bilateral [place] kidneys, arteriosclerotic disease, and chronic bony findings. Comment: Preliminary interpretation made by C. No critical discrepancy.
[2021-10-18] MEDS ORDERED: TROUGH DRUG LEVELS IJ ONE (21:30)
== END 2021-10-17 19:37 | disposition home or self-care (01) | DRG 948 ==
LOC: MED SURG 15:52 → UNDODISIN 10-17 07:08
PROVIDERS: ADMIT Family Medicine; ATTEND Family Medicine
DX: R41.82 Altered mental status, unspecified (principal); Z94.0 Kidney transplant status; N39.0 Urinary tract infection, site not specified; R50.9 Fever, unspecified; E11.9 Type 2 diabetes mellitus without complications; I48.0 Paroxysmal atrial fibrillation; R53.1 Weakness; U09.9 Post COVID-19 condition, unspecified; Z91.81 History of falling; I10 Essential (primary) hypertension; Z79.01 Long term (current) use of anticoagulants; Z79.899 Other long term (current) drug therapy; R53.83 Other fatigue
CPT/HCPCS: 36415; 70450; 71045; 71046; 71250; 74176; 80053; 81015; 82607; 82947; 83735; 84145; 84443; 85025; 85610; 86682; 87040; 87086; 87428; 90662; G0008; J1817; 97110-GP; A9270-GY; J3370; J3475

== ENCOUNTER 2021-11-01 10:25 | Emergency (ER) | payer MEDICARE, OTHER ==
[2021-11-01] MEDS ORDERED: Sodium Chloride 0.9% 1000 ML 1,000 ML IV SCH (11:00)
--- NOTE | 2021-11-01 11:07 | ERPHSYRPT ---
- History of Present Illness Time Seen by Provider: 11/01/21 10:45 Source: patient, EMS Exam Limitations: no limitations Patient Subjective Stated Complaint: PER , UNABLE TO STAND UP, CONFUSION. SHE DID COMPLETE TOTAL CARE D/T PT BEING INCREASINGLY WEAK. Triage Nursing Assessment: ALERT, ORIENTED TO PERSON, PLACE. DISORIENTED TO SITUATION, HISTORICAL QUESTIONS. WEAKNESS IN BILATERAL HANDS AND FEET. Physician History: This is a 76-year-old white male patient of Dr. Ytaes who was brought into the emergency department by the ambulance service from home who has history of right renal transplant, atrial fibrillation on Coumadin, hypertension, insulin- dependent diabetes, gastroesophageal reflux disease and adrenal insufficiency and presents with significant weakness and increasing confusion. Patient denies headache. He denies chest pain. He denies abdominal pain. His main complaint is weakness and his family noticed weakness and confusion. Patient was discharged from [facility] approximately 10 days ago and was recently diagnosed with COVID-19 infection. His symptoms have progressively worsened and therefore he was brought to the emergency department for further evaluation and management. Timing/Duration: day(s) (Several) Severity: moderate Modifying Factors: Improves With: nothing Associated Symptoms: denies symptoms, weakness Allergies/Adverse Reactions: Sulfa (Sulfonamide Antibiotics) [Sulfa(Sulfonamide Antibiotics)] Allergy (Unknown, Verified 10/06/21 21:00) ibuprofen Adverse Reaction (Severe, Verified 10/06/21 21:00) kidney transplant latex Adverse Reaction (Intermediate, Verified 10/06/21 21:00) Rash Home Medications: HydrALAzine HCL 25 MG TAB [Apresoline 25 MG TABLET] 12.5 mg PO TID 08/14/21 [History] Insulin Degludec [Tresiba] 10 unit SQ QAM 08/14/21 [History] Nebivolol HCl 5 MG [Bystolic 5 MG] 2.5 mg PO DAILY 08/14/21 [History] PANTOPRAZOLE 40 mg Tablet [Protonix 40MG Tablet] 40 mg PO QAM 08/14/21 [History] Prednisolone [Millipred] 5 mg PO DAILY 08/14/21 [History] Semaglutide [Ozempic] 1 mg SQ WEEKLY 08/14/21 [History] Tacrolimus [Prograf] 1 mg PO BID 08/14/21 [History] Tamsulosin HCl 0.4 mg [Flomax 0.4 MG] 0.4 mg PO DAILY 08/14/21 [History] Tolterodine Tartrate [Tolterodine Tartrate ER] 2 mg PO DAILY 08/14/21 [History] calcitrioL [Calcitriol] 0.5 mcg PO DAILY 08/14/21 [History] mycophenolate mofetiL [Mycophenolate Mofetil] 180 mg PO BID 08/14/21 [History] Metformin HCl 500 mg [Glucophage 500 MG] 500 mg PO BID 10/06/21 [History] Pravastatin Sodium 40 mg PO HS 10/06/21 [History] Amiloride HCl 5 mg PO DAILY 10/12/21 [History] Insulin Aspart [Insulin Aspart Flexpen] 8 units SQ AC 10/12/21 [History] Sodium Bicarbonate 650 mg PO DAILY 10/12/21 [History] Warfarin Sodium 5 mg [Jantoven] 5 mg PO DAILY 10/12/21 [History] Magnesium Oxide 400 mg PO BID 10/13/21 [History] Hx Tetanus, Diphtheria Vaccination/Date Given: Yes Hx Influenza Vaccination/Date Given: Yes (2021) Hx Pneumococcal Vaccination/Date Given: Yes Travel Risk - International Travel Have you traveled outside of the country in past 3 weeks: No - Coronavirus Screening Are you exhibiting any of the following symptoms?: No Close contact with a COVID-19 positive Pt in past 14-21 Days: No - Vaccine Status Have you recieved a Covid-19 vaccination: Yes 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[place] - Vaccination Dates Date of 2cond Vaccination (if applicable): 2020 - Review of Systems Constitutional: Weakness Eyes: No Symptoms Ears, Nose, & Throat: No Symptoms Respiratory: No Symptoms Cardiac: No Symptoms Abdominal/Gastrointestinal: No Symptoms Genitourinary Symptoms: No Symptoms Musculoskeletal: No Symptoms Skin: No Symptoms Neurological: No Symptoms Psychological: No Symptoms Endocrine: No Symptoms Hematologic/Lymphatic: No Symptoms Immunological/Allergic: No Symptoms All Other Systems: Reviewed and Negative - Past Medical History Pertinent Past Medical History: Yes Neurological History: No Pertinent History ENT History: No Pertinent History Cardiac History: Hypertension Respiratory History: No Pertinent History Endocrine Medical History: Adrenal Insufficiency, Diabetes Type II Musculoskeletal History: No Pertinent History GI Medical History: No Pertinent History History: Renal Disease, Other Psycho-Social History: No Pertinent History Male Reproductive Disorders: Prostate Cancer, Prostate Problems Other Medical History: PT IS ON [facility] DIALYSIS. - Past Surgical History Past Surgical History: Yes Neuro Surgical History: No Pertinent History Cardiac: No Pertinent History Respiratory: No Pertinent History Gastrointestinal: No Pertinent History Genitourinary: No Pertinent History Musculoskeletal: Orthopedic Surgery Male Surgical History: Prostate Surgery Other Surgical History: lt ankle compuond fx,seed implants to prostate 2006, dialysis port to rt sc and peritoneal port to abd. kidney transplant-right side - Social History Smoking Status: Never smoker Exposure to second hand smoke: No Drug Use: none Patient Lives Alone: No - Nursing Vital Signs Nursing Vital Signs: Initial Vital Signs Temperature 97.9 F 11/01/21 10:40 Pulse Rate 103 H 11/01/21 10:40 Respiratory Rate 18 11/01/21 10:40 Blood Pressure 125/60 11/01/21 10:40 O2 Sat by Pulse Oximetry 95 11/01/21 10:40 Pain Scale Pain Intensity 0 - Physical Exam General Appearance: no apparent distress, alert Eye Exam: PERRL/EOMI, eyes nml inspection Ears, Nose, Throat Exam: normal ENT inspection, dry mucous membranes Neck Exam: normal inspection, non-tender, supple, full range of motion Respiratory Exam: normal breath sounds, lungs clear, airway intact, No chest tenderness, No respiratory distress Cardiovascular Exam: tachycardia Gastrointestinal/Abdomen Exam: soft, normal bowel sounds, No tenderness Rectal Exam: not done Back Exam: normal inspection, normal range of motion, No CVA tenderness, No vertebral tenderness Extremity Exam: normal inspection, normal range of motion, pelvis stable Neurologic Exam: alert, cooperative, dishwasher II-XII nml as tested, normal mood/affect, nml cerebellar function, nml station & gait, sensation nml, confusion (Mild) Skin Exam: normal color, warm, dry Lymphatic Exam: No adenopathy SpO2 Interpretation: normal SpO2: 95 O2 Delivery: Room Air - Course Nursing assessment & vital signs reviewed: Yes EKG Interpreted by Me: RATE (91), Sinus Rhythm, NORMAL AXIS, NORMAL INTERVALS, Right Bundle Branch Block, Other (Left posterior fascicular block. There is no evidence of any acute ischemic changes on today's EKG. This twelve-lead EKG is no different than the twelve-lead EKG that was performed on 10/06/2021.) Ordered Tests: Active Orders 24 hr Category Date Time Status Blueprint Tracer STAT Care 11/01/21 10:59 Active EKG-ER Only STAT Care 11/01/21 10:58 Active IV Insertion STAT Care 11/01/21 10:58 Active Pulse Oximetry (ED) STAT Care 11/01/21 10:58 Active HEAD WITHOUT CONTRAST [CT] Stat Exams 11/01/21 13:56 Completed BLOOD CULTURE Stat Lab 11/01/21 11:20 Received CBC W DIFF Stat Lab 11/01/21 11:00 Completed CMP Stat Lab 11/01/21 11:00 Completed Lactic Acid Stat Lab 11/01/21 11:20 Completed Lactic Acid Stat Lab 11/01/21 13:25 Completed MAG [MAGNESIUM] Stat Lab 11/01/21 11:00 Completed MAGNESIUM Stat Lab 11/01/21 11:00 Completed NT PRO BNP Stat Lab 11/01/21 11:00 Completed PROTIME WITH INR Stat Lab 11/01/21 11:00 Completed TROPONIN Q4H Lab 11/01/21 11:00 Completed TROPONIN Q4H Lab 11/01/21 14:01 Received TROPONIN Q4H Lab 11/01/21 19:00 Ordered UA W/RFX CULTURE Stat Lab 11/01/21 13:35 Completed Medication Summary Generic Name Dose Route Start Last Admin Trade Name Freq PRN Reason Stop Dose Admin Sodium Chloride 1,000 mls @ 100 mls/hr 11/01/21 11:00 11/01/21 11:18 Sodium Chloride 0.9% 1000 Ml IV 12/01/21 10:59 100 mls/hr .Q10H TRACE Administration Lab/Rad Data: Laboratory Result Diagrams 11/01/21 11:00 11/01/21 11:00 Laboratory Results 11/01/21 11/01/21 11/01/21 Range/Units 13:35 13:25 13:20 WBC (4.0-10.5) x10^3/uL RBC (4.1-5.6) x10^6/uL Hgb (12.5-18.0) g/dL Hct (42-50) % MCV (78-100) fL MCH (26-32) pg MCHC (32-36) g/dL RDW (11.5-14.0) % Plt Count (150-450) x10^3/uL MPV (7.5-11.0) fL Gran % (36.0-66.0) % Immature Gran % (Auto) (0.00-0.4) % Nucleat RBC Rel Count (0.00-0.1) % Eos # (Auto) (0-0.5) x10^3/uL Immature Gran # (Auto) (0.00-0.03) x10^3u/L Absolute Lymphs (auto) (1.0-4.6) x10^3/uL Absolute Monos (auto) (0.0-1.3) x10^3/uL Absolute Nucleated RBC (0.00-0.01) x10^3u/L Lymphocytes % (24.0-44.0) % Monocytes % (0.0-12.0) % Eosinophils % (0.00-5.0) % Basophils % (0.0-0.4) % Absolute Granulocytes (1.4-6.9) x10^3/uL Basophils # (0-0.4) x10^3/uL PT (9.4-12.5) SECONDS INR (0.8-3.0) Sodium (137-145) mmol/L Potassium (3.5-5.1) mmol/L Chloride (98-107) mmol/L Carbon Dioxide (22-30) mmol/L Anion Gap (5-15) MEQ/L BUN (9-20) mg/dL Creatinine (0.66-1.25) mg/dL Estimated GFR ML/MIN Glucose (74-106) mg/dL Lactic Acid 1.3 (0.4-2.0) Calcium (8.4-10.2) mg/dL Magnesium (1.6-2.3) mg/dL Total Bilirubin (0.2-1.3) mg/dL AST (17-59) U/L ALT (0-50) U/L Alkaline Phosphatase (38-126) U/L Troponin I (0.000-0.034) ng/mL NT-Pro-B Natriuret Pep (0-1800) pg/mL Serum Total Protein (6.3-8.2) g/dL Albumin (3.5-5.0) g/dL Urinalys Dipstick Clnc MAIN LAB Urine Color YELLOW (YELLOW) Urine Appearance CLEAR (CLEAR) Urine pH 7.0 (5-6) Ur Specific [place] 1.015 (1.005-1.025) POC Urine Protein Conf NEGATIVE (Negative) Urine Ketones NEGATIVE (NEGATIVE) Urine Nitrite NEGATIVE (NEGATIVE) Urine Bilirubin NEGATIVE (NEGATIVE) Urine Urobilinogen 0.2 (0-1) mg/dL Urine Leukocytes NEGATIVE (NEGATIVE) Urine WBC (Auto) 0-2 (0-5) /HPF Urine RBC (Auto) NONE (0-2) /HPF U Epithel Cells (Auto) NONE (FEW) /HPF Urine Bacteria (Auto) NONE (NEGATIVE) /HPF Urine RBC NEGATIVE (0-5) Norman/ul Urine Mucus (Auto) SLIGHT (NEGATIVE) /HPF Ur Culture Indicated? NO Urine Glucose 250 (NEGATIVE) mg/dL Influenza Type A Ag NEGATIVE (NEGATIVE) Influenza Type B Ag NEGATIVE (NEGATIVE) RSV (PCR) NEGATIVE (Negative) SARS-CoV-2 (PCR) POSITIVE A (NEGATIVE) 11/01/21 11/01/21 11/01/21 Range/Units 11:20 11:00 11:00 WBC (4.0-10.5) x10^3/uL RBC (4.1-5.6) x10^6/uL Hgb (12.5-18.0) g/dL Hct (42-50) % MCV (78-100) fL MCH (26-32) pg MCHC (32-36) g/dL RDW (11.5-14.0) % Plt Count (150-450) x10^3/uL MPV (7.5-11.0) fL Gran % (36.0-66.0) % Immature Gran % (Auto) (0.00-0.4) % Nucleat RBC Rel Count (0.00-0.1) % Eos # (Auto) (0-0.5) x10^3/uL Immature Gran # (Auto) (0.00-0.03) x10^3u/L Absolute Lymphs (auto) (1.0-4.6) x10^3/uL Absolute Monos (auto) (0.0-1.3) x10^3/uL Absolute Nucleated RBC (0.00-0.01) x10^3u/L Lymphocytes % (24.0-44.0) % Monocytes % (0.0-12.0) % Eosinophils % (0.00-5.0) % Basophils % (0.0-0.4) % Absolute Granulocytes (1.4-6.9) x10^3/uL Basophils # (0-0.4) x10^3/uL PT (9.4-12.5) SECONDS INR (0.8-3.0) Sodium 129 L (137-145) mmol/L Potassium 4.2 (3.5-5.1) mmol/L Chloride 98 (98-107) mmol/L Carbon Dioxide 25 (22-30) mmol/L Anion Gap 10.8 (5-15) MEQ/L BUN 19 (9-20) mg/dL Creatinine 1.08 (0.66-1.25) mg/dL Estimated GFR > 60.0 ML/MIN Glucose 293 H (74-106) mg/dL Lactic Acid 3.9 H (0.4-2.0) Calcium 8.5 (8.4-10.2) mg/dL Magnesium 1.4 L (1.6-2.3) mg/dL Total Bilirubin 0.70 (0.2-1.3) mg/dL AST 23 (17-59) U/L ALT 32 (0-50) U/L Alkaline Phosphatase 80 (38-126) U/L Troponin I (0.000-0.034) ng/mL NT-Pro-B Natriuret Pep (0-1800) pg/mL Serum Total Protein 5.9 L (6.3-8.2) g/dL Albumin 3.0 L (3.5-5.0) g/dL Urinalys Dipstick Clnc Urine Color (YELLOW) Urine Appearance (CLEAR) Urine pH (5-6) Ur Specific [place] (1.005-1.025) POC Urine Protein Conf (Negative) Urine Ketones (NEGATIVE) Urine Nitrite (NEGATIVE) Urine Bilirubin (NEGATIVE) Urine Urobilinogen (0-1) mg/dL Urine Leukocytes (NEGATIVE) Urine WBC (Auto) (0-5) /HPF Urine RBC (Auto) (0-2) /HPF U Epithel Cells (Auto) (FEW) /HPF Urine Bacteria (Auto) (NEGATIVE) /HPF Urine RBC (0-5) Norman/ul Urine Mucus (Auto) (NEGATIVE) /HPF Ur Culture Indicated? Urine Glucose (NEGATIVE) mg/dL Influenza Type A Ag (NEGATIVE) Influenza Type B Ag (NEGATIVE) RSV (PCR) (Negative) SARS-CoV-2 (PCR) (NEGATIVE) 11/01/21 11/01/21 11/01/21 Range/Units 11:00 11:00 11:00 WBC (4.0-10.5) x10^3/uL RBC (4.1-5.6) x10^6/uL Hgb (12.5-18.0) g/dL Hct (42-50) % MCV (78-100) fL MCH (26-32) pg MCHC (32-36) g/dL RDW (11.5-14.0) % Plt Count (150-450) x10^3/uL MPV (7.5-11.0) fL Gran % (36.0-66.0) % Immature Gran % (Auto) (0.00-0.4) % Nucleat RBC Rel Count (0.00-0.1) % Eos # (Auto) (0-0.5) x10^3/uL Immature Gran # (Auto) (0.00-0.03) x10^3u/L Absolute Lymphs (auto) (1.0-4.6) x10^3/uL Absolute Monos (auto) (0.0-1.3) x10^3/uL Absolute Nucleated RBC (0.00-0.01) x10^3u/L Lymphocytes % (24.0-44.0) % Monocytes % (0.0-12.0) % Eosinophils % (0.00-5.0) % Basophils % (0.0-0.4) % Absolute Granulocytes (1.4-6.9) x10^3/uL Basophils # (0-0.4) x10^3/uL PT 20.3 H (9.4-12.5) SECONDS INR 2.04 (0.8-3.0) Sodium (137-145) mmol/L Potassium (3.5-5.1) mmol/L Chloride (98-107) mmol/L Carbon Dioxide (22-30) mmol/L Anion Gap (5-15) MEQ/L BUN (9-20) mg/dL Creatinine (0.66-1.25) mg/dL Estimated GFR ML/MIN Glucose (74-106) mg/dL Lactic Acid (0.4-2.0) Calcium (8.4-10.2) mg/dL Magnesium 1.5 L (1.6-2.3) mg/dL Total Bilirubin (0.2-1.3) mg/dL AST (17-59) U/L ALT (0-50) U/L Alkaline Phosphatase (38-126) U/L Troponin I 0.014 (0.000-0.034) ng/mL NT-Pro-B Natriuret Pep 3250 H (0-1800) pg/mL Serum Total Protein (6.3-8.2) g/dL Albumin (3.5-5.0) g/dL Urinalys Dipstick Clnc Urine Color (YELLOW) Urine Appearance (CLEAR) Urine pH (5-6) Ur Specific [place] (1.005-1.025) POC Urine Protein Conf (Negative) Urine Ketones (NEGATIVE) Urine Nitrite (NEGATIVE) Urine Bilirubin (NEGATIVE) Urine Urobilinogen (0-1) mg/dL Urine Leukocytes (NEGATIVE) Urine WBC (Auto) (0-5) /HPF Urine RBC (Auto) (0-2) /HPF U Epithel Cells (Auto) (FEW) /HPF Urine Bacteria (Auto) (NEGATIVE) /HPF Urine RBC (0-5) Norman/ul Urine Mucus (Auto) (NEGATIVE) /HPF Ur Culture Indicated? Urine Glucose (NEGATIVE) mg/dL Influenza Type A Ag (NEGATIVE) Influenza Type B Ag (NEGATIVE) RSV (PCR) (Negative) SARS-CoV-2 (PCR) (NEGATIVE) 11/01/21 Range/Units 11:00 WBC 6.0 (4.0-10.5) x10^3/uL RBC 3.87 L (4.1-5.6) x10^6/uL Hgb 9.7 L (12.5-18.0) g/dL Hct 31.5 L (42-50) % MCV 81.4 (78-100) fL MCH 25.1 L (26-32) pg MCHC 30.8 L (32-36) g/dL RDW 17.9 H (11.5-14.0) % Plt Count 304 (150-450) x10^3/uL MPV 9.5 (7.5-11.0) fL Gran % 40.3 (36.0-66.0) % Immature Gran % (Auto) 2.3 H (0.00-0.4) % Nucleat RBC Rel Count 0.0 (0.00-0.1) % Eos # (Auto) 1.88 H (0-0.5) x10^3/uL Immature Gran # (Auto) 0.14 H (0.00-0.03) x10^3u/L Absolute Lymphs (auto) 1.02 (1.0-4.6) x10^3/uL Absolute Monos (auto) 0.54 (0.0-1.3) x10^3/uL Absolute Nucleated RBC 0.00 (0.00-0.01) x10^3u/L Lymphocytes % 16.9 L (24.0-44.0) % Monocytes % 9.0 (0.0-12.0) % Eosinophils % 31.2 H (0.00-5.0) % Basophils % 0.3 (0.0-0.4) % Absolute Granulocytes 2.43 (1.4-6.9) x10^3/uL Basophils # 0.02 (0-0.4) x10^3/uL PT (9.4-12.5) SECONDS INR (0.8-3.0) Sodium (137-145) mmol/L Potassium (3.5-5.1) mmol/L Chloride (98-107) mmol/L Carbon Dioxide (22-30) mmol/L Anion Gap (5-15) MEQ/L BUN (9-20) mg/dL Creatinine (0.66-1.25) mg/dL Estimated GFR ML/MIN Glucose (74-106) mg/dL Lactic Acid (0.4-2.0) Calcium (8.4-10.2) mg/dL Magnesium (1.6-2.3) mg/dL Total Bilirubin (0.2-1.3) mg/dL AST (17-59) U/L ALT (0-50) U/L Alkaline Phosphatase (38-126) U/L Troponin I (0.000-0.034) ng/mL NT-Pro-B Natriuret Pep (0-1800) pg/mL Serum Total Protein (6.3-8.2) g/dL Albumin (3.5-5.0) g/dL Urinalys Dipstick Clnc Urine Color (YELLOW) Urine Appearance (CLEAR) Urine pH (5-6) Ur Specific [place] (1.005-1.025) POC Urine Protein Conf (Negative) Urine Ketones (NEGATIVE) Urine Nitrite (NEGATIVE) Urine Bilirubin (NEGATIVE) Urine Urobilinogen (0-1) mg/dL Urine Leukocytes (NEGATIVE) Urine WBC (Auto) (0-5) /HPF Urine RBC (Auto) (0-2) /HPF U Epithel Cells (Auto) (FEW) /HPF Urine Bacteria (Auto) (NEGATIVE) /HPF Urine RBC (0-5) Norman/ul Urine Mucus (Auto) (NEGATIVE) /HPF Ur Culture Indicated? Urine Glucose (NEGATIVE) mg/dL Influenza Type A Ag (NEGATIVE) Influenza Type B Ag (NEGATIVE) RSV (PCR) (Negative) SARS-CoV-2 (PCR) (NEGATIVE) - Progress Progress: improved Progress Note: 11/01/21 15:02 Clinically, the patient now is less confused. He has no complaints of pain. His weakness has improved as well. CAT scan of the head without contrast shows continued nonacute senile brain. 11/01/21 15:44 Medical decision making: Although, I did not have a second discussion with Dr. 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 Handley cannot care for him along with nephrology and the hospitalist there. We have put a call into [facility] and waiting for their call back. 11/01/21 16:[address] Polanco from [facility]. She is a hospitalist on today. I reviewed the patient history, physical exam, and the results of her work-up. She accepts the patient for transfer. The transfer center stated that sometime this evening they anticipate an opening for transfer but they could not guarantee anything right at this time. Discussed with : Annabella Counseled pt/family regarding: lab results, diagnosis, need for follow-up, rad results - Departure Departure Disposition: Transfer Clinical Impression: Weakness, Confusion, CHF (congestive heart failure), COVID-19 virus infection, Hyponatremia Condition: Fair Critical Care Time: No Referrals: MICHAEL YATES DO [Primary Care Provider] - Follow up/PCP as directed Instructions: Heart Failure
[2021-11-01] MEDS ORDERED: Sodium Chloride 0.9% 1000 ML 1,000 ML ONE (11:11)
[2021-11-01 11:38] LABS: Absolute Neutrophil Ct (ANC) 2.43 x10^3/uL (1.4-6.9); Basophil (Absolute #) 0.02 x10^3/uL (0-0.4); Eosinophil % 31.2 % (0.00-5.0); Eosinophil (Absolute #) 1.88 x10^3/uL (0-0.5); Hematocrit 31.5 % (42-50); Hemoglobin 9.7 g/dL (12.5-18.0); Lymphocyte (Absolute #) 1.02 x10^3/uL (1.0-4.6); Lymphocytes % 16.9 % (24.0-44.0); Mean Cell Volume 81.4 fL (78-100); Mean Corpuscular Hemoglobin 25.1 pg (26-32); Mean Corpuscular Hgb Concent. 30.8 g/dL (32-36); Mean Platelet Volume 9.5 fL (7.5-11.0); Monocyte (Absolute #) 0.54 x10^3/uL (0.0-1.3); Neutrophil % 40.3 % (36.0-66.0); Platelet Count 304 x10^3/uL (150-450); Red Blood Count 3.87 x10^6/uL (4.1-5.6); Red Cell Distribution Width 17.9 % (11.5-14.0)
[2021-11-01 11:46] LABS: INR 2.04 (0.8-3.0); PROTIME 20.3 SECONDS (9.4-12.5)
[2021-11-01 11:53] LABS: MAGNESIUM 1.5 mg/dL (1.6-2.3)
[2021-11-01 13:24] LABS: ALKALINE PHOSPHATASE 80 U/L (38-126); ANION GAP 10.8 MEQ/L (5-15); BLOOD UREA NITROGEN 19 mg/dL (9-20); CHLORIDE 98 mmol/L (98-107); Calcium 8.5 mg/dL (8.4-10.2); Carbon Dioxide 25 mmol/L (22-30); Creatinine 1 1.08 mg/dL (0.66-1.25); EST GLOMERULAR FILTRATION RATE > 60.0 ML/MIN; Glucose 293 mg/dL (74-106); Potassium 4.2 mmol/L (3.5-5.1); SGOT/AST 23 U/L (17-59); SGPT/ALT 32 U/L (0-50); SODIUM 129 mmol/L (137-145); Total Protein 5.9 g/dL (6.3-8.2)
[2021-11-01 13:34] LABS: Mucus SLIGHT /HPF (NEGATIVE); WBC 0-2 /HPF (0-5)
[2021-11-01 13:35] LABS: Appearance CLEAR (CLEAR); Bilirubin NEGATIVE (NEGATIVE); Dipstick done @ ? MAIN LAB; Glucose 250 mg/dL (NEGATIVE); Ketones NEGATIVE (NEGATIVE); Nitrite NEGATIVE (NEGATIVE); Protein,Urine Dip NEGATIVE (Negative); RBC NEGATIVE Ery/ul (0-5); Specific Gravity 1.015 (1.005-1.025); Urobilinogen 0.2 mg/dL (0-1)
[2021-11-01 13:36] LABS: Urine Cultured Indicated? NO
[2021-11-01 14:06] LABS: INFLUENZA A NEGATIVE (NEGATIVE); INFLUENZA B NEGATIVE (NEGATIVE); RESPIRATORY SYNCTIAL VIRUS NEGATIVE (Negative)
[2021-11-01 14:15] LABS: SARS-CoV-2 Xpert Express POSITIVE (NEGATIVE)
--- NOTE | 2021-11-01 14:55 | XRAY ---
Indication: Confusion. Multiple contiguous axial images obtained through the head without contrast. Comparison: October 17, 2021 Again age-appropriate global atrophy and mild periventricular degenerative micro-ischemia bilaterally. No acute intracranial hemorrhage, abnormal extra-axial fluid collection, or mass effect. Fourth ventricle is midline without hydrocephalus. Bony calvarium intact. Visualized paranasal sinuses and mastoid air cells are clear. Impression: Continued nonacute senile brain.
[2021-11-01 18:36] VITALS: BP 121/65; PULSE 83; O2SAT 98
== END 2021-11-01 19:45 | disposition short-term general hospital (02) ==
LOC: ED 10:25
DX: U07.1 COVID-19 (principal); I13.2 Hypertensive heart and chronic kidney disease with heart failure and with stage 5 chronic kidney disease, or end stage renal disease; I50.9 Heart failure, unspecified; R53.1 Weakness; R41.0 Disorientation, unspecified; E87.1 Hypo-osmolality and hyponatremia; E11.9 Type 2 diabetes mellitus without complications; Z94.0 Kidney transplant status; N18.6 End stage renal disease; Z79.4 Long term (current) use of insulin; Z79.01 Long term (current) use of anticoagulants; Z79.84 Long term (current) use of oral hypoglycemic drugs; Z79.899 Other long term (current) drug therapy; Z99.2 Dependence on renal dialysis
CPT/HCPCS: 0241U; 36000; 36415; 70450; 80053; 81015; 83605; 83735; 83880; 84484; 85025; 85610; 87040; 93005; 93041; 94760; 96360; 96361; 99285

== ENCOUNTER 2022-02-14 16:17 | Emergency (ER) | payer MEDICARE, OTHER ==
[2022-02-14] MEDS ORDERED: TYLENOL 325 MG PO STA (16:47)
[2022-02-14] MEDS ORDERED: TYLENOL 325 MG ONE (16:52)
[2022-02-14] MEDS ORDERED: Sodium Chloride 0.9% 1000 ML 1,000 ML ONE (16:52)
[2022-02-14] MEDS ORDERED: Sodium Chloride 0.9% 1000 ML 1,000 ML IV SCH (17:00)
[2022-02-14 17:06] LABS: Absolute Neutrophil Ct (ANC) 7.37 x10^3/uL (1.4-6.9); Basophil (Absolute #) 0.01 x10^3/uL (0-0.4); Eosinophil % 0.1 % (0.00-5.0); Eosinophil (Absolute #) 0.01 x10^3/uL (0-0.5); Hematocrit 35.5 % (42-50); Hemoglobin 11.1 g/dL (12.5-18.0); Lymphocyte (Absolute #) 1.13 x10^3/uL (1.0-4.6); Lymphocytes % 12.1 % (24.0-44.0); Mean Cell Volume 84.9 fL (78-100); Mean Corpuscular Hemoglobin 26.6 pg (26-32); Mean Corpuscular Hgb Concent. 31.3 g/dL (32-36); Mean Platelet Volume 9.8 fL (7.5-11.0); Monocyte (Absolute #) 0.74 x10^3/uL (0.0-1.3); Monocytes % 7.9 % (0.0-12.0); Neutrophil % 78.8 % (36.0-66.0); Platelet Count 117 x10^3/uL (150-450); Red Blood Count 4.18 x10^6/uL (4.1-5.6); Red Cell Distribution Width 18.2 % (11.5-14.0); White Blood Count 9.4 x10^3/uL (4.0-10.5)
[2022-02-14 17:20] LABS: ALBUMIN 3.8 g/dL (3.5-5.0); ANION GAP 8.7 MEQ/L (5-15); BILIRUBIN,TOTAL 0.6 mg/dL (0.2-1.3); Calcium 9.3 mg/dL (8.4-10.2); Creatinine 1 1.3 mg/dL (0.66-1.25); Potassium 3.5 mmol/L (3.5-5.1); Total Protein 6.7 g/dL (6.3-8.2)
--- NOTE | 2022-02-14 17:34 | XRAY ---
Indication: Confusion. History histoplasmosis. Comparison: October 17, 2021 Portable chest again demonstrates grossly stable CT proven bilateral noncalcified nodules presumed related patient's history of histiocytosis. Heart not enlarged. Bony thorax intact again with osteopenia and degenerative changes. No new/acute findings.
[2022-02-14 17:46] LABS: INFLUENZA A NEGATIVE (NEGATIVE); INFLUENZA B NEGATIVE (NEGATIVE); RESPIRATORY SYNCTIAL VIRUS NEGATIVE (Negative); SARS-CoV-2 Xpert Express NEGATIVE (NEGATIVE)
--- NOTE | 2022-02-14 17:47 | ERPHSYRPT ---
- History of Present Illness Time Seen by Provider: 02/14/22 16:30 Source: patient Exam Limitations: no limitations Patient Subjective Stated Complaint: AMS onset 1200 today Triage Nursing Assessment: pt to ED by EMS c/o AMS onset 1200 today, pt states he had physical therapy today in the home and sx started a couple hours after. "He did 10 miles on the bike and I think it was too much for him." also expresses concern for possible UTI, reports frequent UTIs since October. [place] catheter in place at home at all times. 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 for IV abx in Dec 2021. pt is febrile on arrival. A&Ox2, not oriented to time. pt denies pain. denies neurological hx. Physician History: Patient is a 76-year-old male presents to emergency department via EMS for evaluation of altered mental status. Patient currently has a fever. states patient had home physical therapy today. Shortly thereafter observed symptoms/altered mental status. Patient also has history of recurrent UTIs. He currently has a [place] catheter. states that he may also have urinary tract infection as this has happened in the past. No active pain at this time. Symptoms are mild to moderate in intensity. No specific worsening improving factors. No chest pain or shortness of breath. Patient/ voiced no other complaints or concerns at this time. Portions of this note were created with voice recognition technology. There may be grammatical, spelling, punctuation or sound alike errors Timing/Duration: today Severity: moderate Modifying Factors: Improves With: nothing Associated Symptoms: fever Allergies/Adverse Reactions: Sulfa (Sulfonamide Antibiotics) [Sulfa(Sulfonamide Antibiotics)] Allergy (Unknown, Verified 12/15/21 11:38) ibuprofen Adverse Reaction (Severe, Verified 12/15/21 11:38) kidney transplant latex Adverse Reaction (Intermediate, Verified 12/15/21 11:38) Rash Home Medications: HydrALAzine HCL 25 MG TAB [Apresoline 25 MG TABLET] 25 mg PO TID 08/14/21 [History] Insulin Degludec [Tresiba] 10 unit SQ QAM 08/14/21 [History] Nebivolol HCl 5 MG [Bystolic 5 MG] 2.5 mg PO DAILY 08/14/21 [History] PANTOPRAZOLE 40 mg Tablet [Protonix 40MG Tablet] 40 mg PO QAM 08/14/21 [History] Semaglutide [Ozempic] 1 mg SQ WEEKLY 08/14/21 [History] Tacrolimus [Prograf] 1 mg PO BID 08/14/21 [History] Tamsulosin HCl 0.4 mg [Flomax 0.4 MG] 0.4 mg PO DAILY 08/14/21 [History] Tolterodine Tartrate [Tolterodine Tartrate ER] 2 mg PO DAILY 08/14/21 [History] calcitrioL [Calcitriol] 1 mg PO DAILY 08/14/21 [History] mycophenolate mofetiL [Mycophenolate Mofetil] 180 mg PO BID 08/14/21 [History] prednisoLONE [Millipred] 10 mg PO DAILY 08/14/21 [History] Metformin HCl 500 mg [Glucophage 500 MG] 500 mg PO BID 10/06/21 [History] Pravastatin Sodium 40 mg PO HS 10/06/21 [History] Insulin Aspart [Insulin Aspart Flexpen] 8 units SQ AC 10/12/21 [History] Warfarin Sodium 5 mg [Jantoven] 5 mg PO DAILY 10/12/21 [History] Magnesium Oxide 400 mg PO BID 10/13/21 [History] Carvedilol [Coreg] 6.25 mg PO BID 12/15/21 [History] Ferrous Sulfate [Iron] 325 mg PO BID 12/15/21 [History] Fluoxetine HCl 10 mg [Prozac 10 mg] 10 mg PO HS 12/15/21 [History] Folic Acid 1,000 mcg PO DAILY 12/15/21 [History] Itraconazole [Sporanox] 200 mg PO BID 12/15/21 [History] Hx Tetanus, Diphtheria Vaccination/Date Given: Yes Hx Influenza Vaccination/Date Given: Yes (2021) Hx Pneumococcal Vaccination/Date Given: Yes Immunizations Up to Date: Yes Travel Risk - International Travel Have you traveled outside of the country in past 3 weeks: No - Coronavirus Screening Are you exhibiting any of the following symptoms?: Yes Symptoms: Fever Close contact with a COVID-19 positive Pt in past 14-21 Days: No - Vaccine Status Have you recieved a Covid-19 vaccination: Yes Physician/Allergy/Immunology: Qvolve - Vaccination Dates Date of 2cond Vaccination (if applicable): 2020 - Review of Systems All Other Systems: Unable due to condition - Past Medical History Pertinent Past Medical History: Yes Neurological History: No Pertinent History ENT History: No Pertinent History Cardiac History: Hypertension Respiratory History: No Pertinent History Endocrine Medical History: Adrenal Insufficiency, Diabetes Type II Musculoskeletal History: No Pertinent History GI Medical History: No Pertinent History History: Renal Disease, Other Psycho-Social History: No Pertinent History Male Reproductive Disorders: Prostate Cancer, Prostate Problems Other Medical History: hystoplasmosis - Past Surgical History Past Surgical History: Yes Neuro Surgical History: No Pertinent History Cardiac: No Pertinent History Respiratory: No Pertinent History Gastrointestinal: No Pertinent History Genitourinary: Kidney Transplant Musculoskeletal: Orthopedic Surgery Male Surgical History: Prostate Surgery Other Surgical History: lt ankle compuond fx,seed implants to prostate 2006, dialysis port to rt sc and peritoneal port to abd. kidney transplant-right side - Social History Smoking Status: Never smoker Exposure to second hand smoke: No Drug Use: none Patient Lives Alone: No - Nursing Vital Signs Nursing Vital Signs: Initial Vital Signs Temperature 101.3 F 02/14/22 16:20 Pulse Rate 75 02/14/22 16:20 Respiratory Rate 20 02/14/22 16:20 Blood Pressure 174/75 02/14/22 16:20 O2 Sat by Pulse Oximetry 95 02/14/22 16:20 Pain Scale Pain Intensity 0 - Physical Exam General Appearance: no apparent distress, alert Eye Exam: PERRL/EOMI, eyes nml inspection Ears, Nose, Throat Exam: normal ENT inspection, TMs normal, pharynx normal, moist mucous membranes Neck Exam: normal inspection, non-tender, supple, full range of motion Respiratory Exam: normal breath sounds, lungs clear, airway intact, No respiratory distress Cardiovascular Exam: regular rate/rhythm, normal heart sounds, normal peripheral pulses Gastrointestinal/Abdomen Exam: soft, normal bowel sounds, No tenderness, No mass Back Exam: normal inspection, normal range of motion, No CVA tenderness, No vertebral tenderness Extremity Exam: normal inspection, normal range of motion, pelvis stable Neurologic Exam: alert, oriented x 3, cooperative, normal mood/affect, nml cerebellar function, nml station & gait, sensation nml, No motor deficits Skin Exam: normal color, warm, dry, No rash Lymphatic Exam: No adenopathy SpO2 Interpretation: normal SpO2: 96 O2 Delivery: Room Air - Course Nursing assessment & vital signs reviewed: Yes - Radiology Exams Chest X-ray Interpretation: Teleradiologist Report (Noncalcified lung nodules. Likely due to history of histoplasmosis. Osteopenia degenerative changes.) - CT Exams Head CT Interpretation: Tele-radiologist Report (Continued nonacute senile brain compared to 11/01/2021.) Ordered Tests: Active Orders 24 hr Category Date Time Status Leasing Professional STAT Care 02/14/22 16:47 Active IV Insertion STAT Care 02/14/22 16:47 Active Pulse Oximetry (ED) STAT Care 02/14/22 16:47 Active CHEST 1 VIEW (PORTABLE) Stat Exams 02/14/22 16:47 Completed HEAD WITHOUT CONTRAST [CT] Stat Exams 02/14/22 21:17 Taken BLOOD CULTURE Stat Lab 02/14/22 17:04 Received CBC W DIFF Stat Lab 02/14/22 16:54 Completed CMP Stat Lab 02/14/22 16:54 Completed CULTURE,URINE Stat Lab 02/14/22 16:58 Received Lactic Acid Stat Lab 02/14/22 17:10 Completed MAGNESIUM Stat Lab 02/14/22 21:18 Completed UA W/RFX UR CULTURE Stat Lab 02/14/22 16:58 Completed Medication Summary Generic Name Dose Route Start Last Admin Trade Name Freq PRN Reason Stop Dose Admin Sodium Chloride 1,000 mls @ 100 mls/hr 02/14/22 17:00 02/14/22 16:57 Sodium Chloride 0.9% 1000 Ml IV 03/16/22 16:59 100 mls/hr .Q10H TRACE Administration Magnesium Sulfate/Dextrose 100 mls @ 100 mls/hr 02/14/22 22:45 02/14/22 23:22 Magnesium 1 Gm / 100 Ml D5w IV 02/15/22 00:44 100 mls/hr Q1H TRACE Administration Discontinued Medications Generic Name Dose Route Start Last Admin Trade Name Freq PRN Reason Stop Dose Admin Acetaminophen 975 mg 02/14/22 16:47 02/14/22 16:54 Acetaminophen 325 Mg Tablet PO 02/14/22 16:48 975 mg STAT STA Administration Acetaminophen Confirm 02/14/22 16:52 Acetaminophen 325 Mg Tablet Administered 02/14/22 16:53 Dose 975 mg .ROUTE .STK-MED ONE Lab/Rad Data: Laboratory Result Diagrams 02/14/22 16:54 02/14/22 16:54 Laboratory Results 02/14/22 02/14/22 02/14/22 Range/Units 21:18 17:10 16:58 WBC (4.0-10.5) x10^3/uL RBC (4.1-5.6) x10^6/uL Hgb (12.5-18.0) g/dL Hct (42-50) % MCV (78-100) fL MCH (26-32) pg MCHC (32-36) g/dL RDW (11.5-14.0) % Plt Count (150-450) x10^3/uL MPV (7.5-11.0) fL Gran % (36.0-66.0) % Immature Gran % (Auto) (0.00-0.4) % Nucleat RBC Rel Count (0.00-0.1) % Eos # (Auto) (0-0.5) x10^3/uL Immature Gran # (Auto) (0.00-0.03) x10^3u/L Absolute Lymphs (auto) (1.0-4.6) x10^3/uL Absolute Monos (auto) (0.0-1.3) x10^3/uL Absolute Nucleated RBC (0.00-0.01) x10^3u/L Lymphocytes % (24.0-44.0) % Monocytes % (0.0-12.0) % Eosinophils % (0.00-5.0) % Basophils % (0.0-0.4) % Absolute Granulocytes (1.4-6.9) x10^3/uL Basophils # (0-0.4) x10^3/uL Sodium (137-145) mmol/L Potassium (3.5-5.1) mmol/L Chloride (98-107) mmol/L Carbon Dioxide (22-30) mmol/L Anion Gap (5-15) MEQ/L BUN (9-20) mg/dL Creatinine (0.66-1.25) mg/dL Estimated GFR ML/MIN Glucose (74-106) mg/dL Lactic Acid 1.8 (0.4-2.0) Calcium (8.4-10.2) mg/dL Magnesium 1.4 L (1.6-2.3) mg/dL Total Bilirubin (0.2-1.3) mg/dL AST (17-59) U/L ALT (0-50) U/L Alkaline Phosphatase (38-126) U/L Serum Total Protein (6.3-8.2) g/dL Albumin (3.5-5.0) g/dL Urine Color Yellow (Yellow) Urine Appearance Cloudy A (Clear) Urine pH 8.0 (4.6-8.0) Ur Specific [place] 1.010 (1.005-1.030) Urine Protein 30 (Negative) Urine Glucose (UA) 100 A (Negative) mg/dL Urine Ketones Negative (Negative) Urine Blood Negative (Negative) Urine Nitrite Negative (Negative) Urine Bilirubin Negative (Negative) Urine Urobilinogen 0.2 (0.2) mg/dL Ur Leukocyte Esterase Negative (Negative) U Hyaline Cast (Auto) 0-2 (0-2) /LPF Urine Microscopic RBC 3-5 (0-5) /HPF Urine Microscopic WBC 3-5 (0-5) /HPF Ur Epithelial Cells None Seen (None Seen) /HPF Urine Bacteria None Seen (None Seen) /HPF Urine Culture Reflexed NO (NO) Influenza Type A Ag (NEGATIVE) Influenza Type B Ag (NEGATIVE) RSV (PCR) (Negative) SARS-CoV-2 (PCR) (NEGATIVE) 02/14/22 02/14/22 02/14/22 Range/Units 16:54 16:54 16:54 WBC 9.4 (4.0-10.5) x10^3/uL RBC 4.18 (4.1-5.6) x10^6/uL Hgb 11.1 L (12.5-18.0) g/dL Hct 35.5 L (42-50) % MCV 84.9 (78-100) fL MCH 26.6 (26-32) pg MCHC 31.3 L (32-36) g/dL RDW 18.2 H (11.5-14.0) % Plt Count 117 L (150-450) x10^3/uL MPV 9.8 (7.5-11.0) fL Gran % 78.8 H (36.0-66.0) % Immature Gran % (Auto) 1.0 H (0.00-0.4) % Nucleat RBC Rel Count 0.0 (0.00-0.1) % Eos # (Auto) 0.01 (0-0.5) x10^3/uL Immature Gran # (Auto) 0.09 H (0.00-0.03) x10^3u/L Absolute Lymphs (auto) 1.13 (1.0-4.6) x10^3/uL Absolute Monos (auto) 0.74 (0.0-1.3) x10^3/uL Absolute Nucleated RBC 0.00 (0.00-0.01) x10^3u/L Lymphocytes % 12.1 L (24.0-44.0) % Monocytes % 7.9 (0.0-12.0) % Eosinophils % 0.1 (0.00-5.0) % Basophils % 0.1 (0.0-0.4) % Absolute Granulocytes 7.37 H (1.4-6.9) x10^3/uL Basophils # 0.01 (0-0.4) x10^3/uL Sodium 135 L (137-145) mmol/L Potassium 3.5 (3.5-5.1) mmol/L Chloride 100 (98-107) mmol/L Carbon Dioxide 30 (22-30) mmol/L Anion Gap 8.7 (5-15) MEQ/L BUN 34 H (9-20) mg/dL Creatinine 1.30 H (0.66-1.25) mg/dL Estimated GFR 57.0 ML/MIN Glucose 182 H (74-106) mg/dL Lactic Acid (0.4-2.0) Calcium 9.3 (8.4-10.2) mg/dL Magnesium (1.6-2.3) mg/dL Total Bilirubin 0.60 (0.2-1.3) mg/dL AST 51 (17-59) U/L ALT 67 H (0-50) U/L Alkaline Phosphatase 133 H (38-126) U/L Serum Total Protein 6.7 (6.3-8.2) g/dL Albumin 3.8 (3.5-5.0) g/dL Urine Color (Yellow) Urine Appearance (Clear) Urine pH (4.6-8.0) Ur Specific [place] (1.005-1.030) Urine Protein (Negative) Urine Glucose (UA) (Negative) mg/dL Urine Ketones (Negative) Urine Blood (Negative) Urine Nitrite (Negative) Urine Bilirubin (Negative) Urine Urobilinogen (0.2) mg/dL Ur Leukocyte Esterase (Negative) U Hyaline Cast (Auto) (0-2) /LPF Urine Microscopic RBC (0-5) /HPF Urine Microscopic WBC (0-5) /HPF Ur Epithelial Cells (None Seen) /HPF Urine Bacteria (None Seen) /HPF Urine Culture Reflexed (NO) Influenza Type A Ag NEGATIVE (NEGATIVE) Influenza Type B Ag NEGATIVE (NEGATIVE) RSV (PCR) NEGATIVE (Negative) SARS-CoV-2 (PCR) NEGATIVE (NEGATIVE) - Progress Progress: improved Progress Note: Altered mental status. is serving as the historian/information provider. Case discussed with Dr. Ureña who advises discharge. Dr. Ureña advises that patient may have a low magnesium as he is prone to low magnesium levels. Magnesium level was checked. Magnesium was 1.4. Magnesium was replaced. CT head negative. Per Dr. Ureña patient may be discharged once magnesium is r eplaced. Patient reassessed. He is well lucid conversant. Patient requesting discharge. Patient is 76-year-old male presents to our ED with altered mental status. Patient mental status normalized while in our ED. CT head negative. Patient presenting symptoms were acute in nature. Complexity of symptoms were moderate. Patient with multiple comorbidities may have attributed to symptoms. Test ordered reviewed. Results contributed to medical decision making. Patient received magnesium IV fluids and acetaminophen. Plan of care discussed with patient and family. They agree to follow-up with Dr. Ureña within 48 hours for evaluation. Level of EM service was moderate to high. Complexity of problem was moderate to high. Amount and complexity of data reviewed and analyzed was moderate. Risks of complication/morbidity mortality was moderate. No critical care time. Patient's served as an independent historian as patient was altered. Discussed with : Annabella Will see patient in: office Counseled pt/family regarding: lab results, diagnosis - Departure Departure Disposition: Home Clinical Impression: Altered mental status, Fever, Thrombocytopenia, Dehydration, Acute renal injury Condition: Stable Critical Care Time: No Referrals: MICHAEL RAZA, DO [Primary Care Provider] - Follow up/PCP as directed
[2022-02-14 22:27] LABS: Appearance Cloudy (Clear); Bacteria None Seen /HPF (None Seen); Bilirubin Negative (Negative); Blood Negative (Negative); Epithelial Cells None Seen /HPF (None Seen); Glucose, Urine 100 mg/dL (Negative); Hyaline Casts 0-2 /LPF (0-2); Ketones Negative (Negative); Leukocyte Esterase Negative (Negative); Nitrite Negative (Negative); Protein,Urine Dip 30 (Negative); Urobilinogen 0.2 mg/dL (0.2)
[2022-02-14 22:29] LABS: ADD URINE CULTURE? NO (NO)
[2022-02-14] MEDS: Magnesium 1 Gm / 100 Ml D5W*** 100 ML IV SCH ×2 (22:49→23:22)
[2022-02-15 01:02] VITALS: O2SAT 96
[2022-02-15 01:03] VITALS: BP 149/74; PULSE 59
--- NOTE | 2022-02-15 08:40 | XRAY ---
Indication: Altered mental status. Confusion, lethargy, and weakness. Multiple contiguous axial images obtained through the head without contrast. Comparison: November 01, 2021 Again age-appropriate global atrophy, mild periventricular degenerative micro-ischemia bilaterally, and remote lacunar infarct right caudate. No acute intracranial hemorrhage, abnormal extra-axial fluid collection, or mass effect. Fourth ventricle is midline without hydrocephalus. Bony calvarium intact. Visualized paranasal sinuses and mastoid air cells are clear. 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
== END 2022-02-15 01:12 | disposition home or self-care (01) ==
LOC: ED 16:17
DX: N17.9 Acute kidney failure, unspecified (principal); R41.82 Altered mental status, unspecified; R50.9 Fever, unspecified; D69.6 Thrombocytopenia, unspecified; E86.0 Dehydration; I10 Essential (primary) hypertension; E11.9 Type 2 diabetes mellitus without complications; Z79.4 Long term (current) use of insulin; Z79.85 Long-term (current) use of injectable non-insulin antidiabetic drugs; Z79.84 Long term (current) use of oral hypoglycemic drugs; Z79.01 Long term (current) use of anticoagulants; Z79.899 Other long term (current) drug therapy
CPT/HCPCS: 0241U; 36000; 36415; 70450; 71045; 80053; 81001; 83605; 83735; 85025; 87040; 87086; 93041; 94760; 96360; 96365; 96366; 99284; 96375; J3475; A9270-GY

== ENCOUNTER 2022-07-21 19:47 | Observation (INO) | payer MEDICARE, OTHER ==
[2022-07-21] MEDS ORDERED: Sodium Chloride 0.9% 500 ML 500 ML IV ONE ×2 (20:13→20:23)
[2022-07-21 20:40] LABS: Absolute Neutrophil Ct (ANC) 2.77 x10^3/uL (1.4-6.9); BASOPHIL % 0.2 % (0.0-0.4); Basophil (Absolute #) 0.01 x10^3/uL (0-0.4); Eosinophil % 0.6 % (0.00-5.0); Eosinophil (Absolute #) 0.03 x10^3/uL (0-0.5); Hematocrit 38.8 % (42-50); Hemoglobin 12.2 g/dL (12.5-18.0); IMMATURE GRAN # 0.05 x10^3u/L (0.00-0.03); IMMATURE GRAN % 1.1 % (0.00-0.4); Lymphocyte (Absolute #) 1.34 x10^3/uL (1.0-4.6); Lymphocytes % 28.6 % (24.0-44.0); Mean Cell Volume 93.3 fL (78-100); Mean Corpuscular Hemoglobin 29.3 pg (26-32); Mean Corpuscular Hgb Concent. 31.4 g/dL (32-36); Mean Platelet Volume 10.4 fL (7.5-11.0); Monocyte (Absolute #) 0.49 x10^3/uL (0.0-1.3); Monocytes % 10.4 % (0.0-12.0); Neutrophil % 59.1 % (36.0-66.0); Platelet Count 142 x10^3/uL (150-450); Red Blood Count 4.16 x10^6/uL (4.1-5.6); White Blood Count 4.7 x10^3/uL (4.0-10.5)
[2022-07-21 20:55] LABS: ALBUMIN 3.6 g/dL (3.5-5.0); ANION GAP 13.6 MEQ/L (5-15); BILIRUBIN,TOTAL 0.9 mg/dL (0.2-1.3); Calcium 10.1 mg/dL (8.4-10.2); Creatinine 1 1.61 mg/dL (0.66-1.25); EST GLOMERULAR FILTRATION RATE 44.6 ML/MIN; Potassium 3.8 mmol/L (3.5-5.1); Total Protein 6.6 g/dL (6.3-8.2)
--- NOTE | 2022-07-21 21:17 | ERPHSYRPT ---
- History of Present Illness Time Seen by Provider: 07/21/22 19:58 Historian: patient Exam Limitations: no limitations Patient Subjective Stated Complaint: pt states he has been having multiple episodes of diarrhea for the last week with much increased frequency in last 2- 3d and he has had increasing weakness and reports decrease in his equilibrium which required his to call for EMS assistance and transport to hospital. Triage Nursing Assessment: pt brought into room 8 via EMS stretcher and was a full transfer onto ER cot by staff. pt is alert and oriented times three, able to move all extremities although weakly, resp even and unlabored on RA, and speaks in complete sentences. he denies pain, cp, sob, n/v, dizziness, or lightheadedness. bilat radial and pedal pulses palpable, strong, and equal. no edema noted. heart sounds normal and regular. abd soft, nontender, and with positive bowel sounds in all 4 quadrants. lung sounds clear anterior bilat. no cough noted. skin warm, pink, dry, and inatact. Physician History: 76 years old male with multiple medical problems including hypertension, hyperlipidemia, diabetes mellitus, renal transplant almost a year ago at [facility], prostate cancer presented in the ER with chief complaint of generalized weakness fatigue and tiredness progressively worsening for 1 week with associated multiple episodes of loose stool. Patient reports having 4-5 episodes of loose stool without hematochezia. Denies abdominal pain nausea or vomiting. Feels dehydrated and getting difficult to ambulate in the house without assistance. No fever or chills reported. Denies any history of recent antibiotics intake or C. difficile in the past. Timing/Duration: week(s) (1), gradual onset, worse Activities at Onset: rest Modifying Factors: Improves With: nothing Associated Symptoms: diarrhea Previous symptoms: no prior history Allergies/Adverse Reactions: Sulfa (Sulfonamide Antibiotics) [Sulfa(Sulfonamide Antibiotics)] Allergy (Unknown, Verified 07/21/22 19:54) ibuprofen Adverse Reaction (Severe, Verified 07/21/22 19:54) kidney transplant latex Adverse Reaction (Intermediate, Verified 07/21/22 19:54) Rash Home Medications: HydrALAzine HCL 25 MG TAB [Apresoline 25 MG TABLET] 25 mg PO TID 08/14/21 [History] PANTOPRAZOLE 40 mg Tablet [Protonix 40MG Tablet] 40 mg PO QAM 08/14/21 [History] Semaglutide [Ozempic] 1 unit SQ WEEKLY 08/14/21 [History] Tamsulosin HCl 0.4 mg [Flomax 0.4 MG] 0.4 mg PO BID 08/14/21 [History] Tolterodine Tartrate [Tolterodine Tartrate ER] 2 mg PO DAILY 08/14/21 [History] calcitrioL [Calcitriol] 1 mg PO DAILY 08/14/21 [History] prednisoLONE [Millipred] 5 mg PO DAILY 08/14/21 [History] Metformin HCl 500 mg [Glucophage 500 MG] 500 mg PO DAILY 10/06/21 [History] Pravastatin Sodium 40 mg PO HS 10/06/21 [History] Insulin Aspart [Insulin Aspart Flexpen] 1 units SQ AC 10/12/21 [History] Magnesium Oxide 400 mg PO TID 10/13/21 [History] Carvedilol [Coreg] 12.5 mg PO BID 12/15/21 [History] Ferrous Sulfate [Iron] 325 mg PO BID 12/15/21 [History] Itraconazole [Sporanox] 100 mg PO BID 12/15/21 [History] Allopurinol 100 mg [Zyloprim 100 mg] 100 mg PO DAILY 07/21/22 [History] Apixaban [Eliquis] 5 mg PO BID 07/21/22 [History] Benzonatate 100 mg PO DAILY PRN 07/21/22 [History] Bromocriptine Mesylate [Cycloset] 0.8 mg PO HS 07/21/22 [History] Docusate Sodium 100 mg [Docusate Sodium 100 MG] 100 mg PO BID PRN 07/21/22 [History] Escitalopram Oxalate [Lexapro] 5 mg PO HS 07/21/22 [History] Flonase 50 50 mcg IN DAILY PRN 07/21/22 [History] Furosemide 20 mg [Lasix 20 mg] 20 mg PO DAILY PRN 07/21/22 [History] Insulin Detemir [Levemir] 100 unit SQ DAILY 07/21/22 [History] Losartan Potassium [Cozaar] 50 mg PO HS 07/21/22 [History] Potassium Chloride [Klor-Con M20] 20 meq PO DAILY 07/21/22 [History] Slow Mag 71.5 mg PO BID 07/21/22 [History] Tacrolimus [Envarsus Xr] 0.75 mg PO UD 07/21/22 [History] Hx Tetanus, Diphtheria Vaccination/Date Given: Yes Hx Influenza Vaccination/Date Given: Yes (2021) Hx Pneumococcal Vaccination/Date Given: Yes Immunizations Up to Date: Yes Travel Risk - International Travel Have you traveled outside of the country in past 3 weeks: No - Coronavirus Screening Are you exhibiting any of the following symptoms?: No Close contact with a COVID-19 positive Pt in past 14-21 Days: No - Vaccine Status Have you recieved a Covid-19 vaccination: Yes [employer]: [employer] - Vaccination Dates Date of 2cond Vaccination (if applicable): 2020 - Review of Systems Constitutional: Fatigue, Weakness Eyes: No Symptoms Ears, Nose, & Throat: No Symptoms Respiratory: No Symptoms Cardiac: No Symptoms Abdominal/Gastrointestinal: Diarrhea Genitourinary Symptoms: No Symptoms Musculoskeletal: No Symptoms Neurological: No Symptoms Psychological: No Symptoms Endocrine: No Symptoms Hematologic/Lymphatic: No Symptoms Immunological/Allergic: No Symptoms - Past Medical History Pertinent Past Medical History: Yes Neurological History: Other ENT History: No Pertinent History Cardiac History: Hypertension, Other Respiratory History: Other Endocrine Medical History: Diabetes Type II, Other Musculoskeletal History: No Pertinent History GI Medical History: No Pertinent History History: Renal Disease, Other Psycho-Social History: No Pertinent History Male Reproductive Disorders: Prostate Cancer, Prostate Problems Other Medical History: LUNG BIOPSY, KIDNEY TRANSPLANT. HISTORY OF DIALYSIS. - Past Surgical History Past Surgical History: Yes Neuro Surgical History: No Pertinent History Cardiac: No Pertinent History Respiratory: No Pertinent History Gastrointestinal: No Pertinent History Genitourinary: Kidney Transplant Musculoskeletal: Orthopedic Surgery Male Surgical History: Prostate Surgery Other Surgical History: lt ankle compuond fx,seed implants to prostate 2006, dialysis port to rt sc and peritoneal port to abd. kidney transplant-right side - Social History Smoking Status: Never smoker Exposure to second hand smoke: No Drug Use: none Patient Lives Alone: No - Nursing Vital Signs Nursing Vital Signs: Initial Vital Signs Temperature 98.0 F 07/21/22 19:55 Pulse Rate 74 07/21/22 19:55 Respiratory Rate 20 07/21/22 19:55 Blood Pressure 151/81 07/21/22 19:55 O2 Sat by Pulse Oximetry 97 07/21/22 19:55 Pain Scale Pain Intensity 0 - Physical Exam General Appearance: no apparent distress, alert Eye Exam: PERRL/EOMI Ears, Nose, Throat Exam: normal ENT inspection Neck Exam: normal inspection, full range of motion Respiratory Exam: normal breath sounds, lungs clear Cardiovascular Exam: regular rate/rhythm, normal heart sounds Gastrointestinal/Abdomen Exam: soft, normal bowel sounds, No tenderness, No d istention, No guarding Back Exam: normal inspection, normal range of motion Extremity Exam: normal inspection, normal range of motion Neurologic Exam: alert, oriented x 3, cooperative, it architecture consultant II-XII nml as tested, sensation nml, No motor deficits Skin Exam: normal color SpO2 Interpretation: normal SpO2: 97 O2 Delivery: Room Air Ordered Tests: Active Orders 24 hr Category Date Time Status IV Insertion STAT Care 07/21/22 20:11 Active NPO (ED) STAT Care 07/21/22 20:11 Active ABDOMEN AND PELVIS W/0 CONTRAS [CT] Stat Exams 07/21/22 20:45 Taken BLOOD CULTURE Stat Lab 07/21/22 20:35 Received CBC W DIFF Stat Lab 07/21/22 20:35 Completed CMP Stat Lab 07/21/22 20:35 Completed LIPASE Stat Lab 07/21/22 20:35 Completed Lactic Acid Stat Lab 07/21/22 20:40 Completed Lactic Acid Stat Lab 07/21/22 22:44 Received MAG [MAGNESIUM] Stat Lab 07/21/22 22:21 Completed UA W/RFX UR CULTURE Stat Lab 07/21/22 22:46 Completed Medication Summary Discontinued Medications Generic Name Dose Route Start Last Admin Trade Name Rashad PRN Reason Stop Dose Admin Sodium Chloride 500 mls @ 500 mls/hr 07/21/22 20:13 07/21/22 22:19 Sodium Chloride 0.9% 500 Ml IV 07/21/22 21:12 Infused .Q1H ONE Infusion Sodium Chloride Confirm 07/21/22 20:23 Sodium Chloride 0.9% 500 Ml Administered 07/21/22 20:24 Dose 500 mls @ ud IV .STK-MED ONE Lab/Rad Data: Laboratory Result Diagrams 07/21/22 20:35 07/21/22 20:35 Laboratory Results 07/21/22 07/21/22 07/21/22 Range/Units 22:46 22:21 20:40 WBC (4.0-10.5) x10^3/uL RBC (4.1-5.6) x10^6/uL Hgb (12.5-18.0) g/dL Hct (42-50) % MCV (78-100) fL MCH (26-32) pg MCHC (32-36) g/dL RDW (11.5-14.0) % Plt Count (150-450) x10^3/uL MPV (7.5-11.0) fL Gran % (36.0-66.0) % Immature Gran % (Auto) (0.00-0.4) % Nucleat RBC Rel Count (0.00-0.1) % Eos # (Auto) (0-0.5) x10^3/uL Immature Gran # (Auto) (0.00-0.03) x10^3u/L Absolute Lymphs (auto) (1.0-4.6) x10^3/uL Absolute Monos (auto) (0.0-1.3) x10^3/uL Absolute Nucleated RBC (0.00-0.01) x10^3u/L Lymphocytes % (24.0-44.0) % Monocytes % (0.0-12.0) % Eosinophils % (0.00-5.0) % Basophils % (0.0-0.4) % Absolute Granulocytes (1.4-6.9) x10^3/uL Basophils # (0-0.4) x10^3/uL Sodium (137-145) mmol/L Potassium (3.5-5.1) mmol/L Chloride (98-107) mmol/L Carbon Dioxide (22-30) mmol/L Anion Gap (5-15) MEQ/L BUN (9-20) mg/dL Creatinine (0.66-1.25) mg/dL Estimated GFR ML/MIN Glucose (74-106) mg/dL Lactic Acid 2.4 H (0.4-2.0) Calcium (8.4-10.2) mg/dL Magnesium 2.0 (1.6-2.3) mg/dL Total Bilirubin (0.2-1.3) mg/dL AST (17-59) U/L ALT (0-50) U/L Alkaline Phosphatase (38-126) U/L Serum Total Protein (6.3-8.2) g/dL Albumin (3.5-5.0) g/dL Lipase (23-300) U/L Urine Color Yellow (Yellow) Urine Appearance Clear (Clear) Urine pH 6.5 (4.6-8.0) Ur Specific [place] 1.010 (1.005-1.030) Urine Protein Negative (Negative) Urine Glucose (UA) Negative (Negative) mg/dL Urine Ketones Negative (Negative) Urine Blood Negative (Negative) Urine Nitrite Negative (Negative) Urine Bilirubin Negative (Negative) Urine Urobilinogen 0.2 (0.2) mg/dL Ur Leukocyte Esterase Negative (Negative) U Hyaline Cast (Auto) NONE SEEN (0-2) /LPF Urine Microscopic RBC 0-2 (0-5) /HPF Urine Microscopic WBC 0-2 (0-5) /HPF Ur Epithelial Cells None Seen (None Seen) /HPF Urine Bacteria None Seen (None Seen) /HPF Urine Culture Reflexed NO (NO) 07/21/22 07/21/22 Range/Units 20:35 20:35 WBC 4.7 (4.0-10.5) x10^3/uL RBC 4.16 (4.1-5.6) x10^6/uL Hgb 12.2 L (12.5-18.0) g/dL Hct 38.8 L (42-50) % MCV 93.3 (78-100) fL MCH 29.3 (26-32) pg MCHC 31.4 L (32-36) g/dL RDW 15.0 H (11.5-14.0) % Plt Count 142 L (150-450) x10^3/uL MPV 10.4 (7.5-11.0) fL Gran % 59.1 (36.0-66.0) % Immature Gran % (Auto) 1.1 H (0.00-0.4) % Nucleat RBC Rel Count 0.0 (0.00-0.1) % Eos # (Auto) 0.03 (0-0.5) x10^3/uL Immature Gran # (Auto) 0.05 H (0.00-0.03) x10^3u/L Absolute Lymphs (auto) 1.34 (1.0-4.6) x10^3/uL Absolute Monos (auto) 0.49 (0.0-1.3) x10^3/uL Absolute Nucleated RBC 0.00 (0.00-0.01) x10^3u/L Lymphocytes % 28.6 (24.0-44.0) % Monocytes % 10.4 (0.0-12.0) % Eosinophils % 0.6 (0.00-5.0) % Basophils % 0.2 (0.0-0.4) % Absolute Granulocytes 2.77 (1.4-6.9) x10^3/uL Basophils # 0.01 (0-0.4) x10^3/uL Sodium 139 (137-145) mmol/L Potassium 3.8 (3.5-5.1) mmol/L Chloride 107 (98-107) mmol/L Carbon Dioxide 23 (22-30) mmol/L Anion Gap 13.6 (5-15) MEQ/L BUN 23 H (9-20) mg/dL Creatinine 1.61 H (0.66-1.25) mg/dL Estimated GFR 44.6 ML/MIN Glucose 155 H (74-106) mg/dL Lactic Acid (0.4-2.0) Calcium 10.1 (8.4-10.2) mg/dL Magnesium (1.6-2.3) mg/dL Total Bilirubin 0.90 (0.2-1.3) mg/dL AST 21 (17-59) U/L ALT 34 (0-50) U/L Alkaline Phosphatase 64 (38-126) U/L Serum Total Protein 6.6 (6.3-8.2) g/dL Albumin 3.6 (3.5-5.0) g/dL Lipase 158 (23-300) U/L Urine Color (Yellow) Urine Appearance (Clear) Urine pH (4.6-8.0) Ur Specific [place] (1.005-1.030) Urine Protein (Negative) Urine Glucose (UA) (Negative) mg/dL Urine Ketones (Negative) Urine Blood (Negative) Urine Nitrite (Negative) Urine Bilirubin (Negative) Urine Urobilinogen (0.2) mg/dL Ur Leukocyte Esterase (Negative) U Hyaline Cast (Auto) (0-2) /LPF Urine Microscopic RBC (0-5) /HPF Urine Microscopic WBC (0-5) /HPF Ur Epithelial Cells (None Seen) /HPF Urine Bacteria (None Seen) /HPF Urine Culture Reflexed (NO) - Progress Progress: improved, re-examined Progress Note: 07/21/22 21:14 76 years old male with multiple medical problems including hypertension, hyperlipidemia, diabetes mellitus, renal transplant almost a year ago at [facility], prostate cancer presented in the ER with chief complaint of generalized weakness fatigue and tiredness progressively worsening for 1 week with associated multiple episodes of loose stool. Patient reports having 4-5 episodes of loose stool without hematochezia. Denies abdominal pain nausea or vomiting. Feels dehydrated and getting difficult to ambulate in the house without assistance. No fever or chills reported. Denies any history of recent antibiotics intake or C. difficile in the past. Patient has received 500 normal saline bolus in route to the ER. He is given gentle hydration. Work-up showed normal white count, chemistry profile showed creatinine of 1.6 with baseline around 1.4. 07/21/22 22:52 Work-up showed normal white count, lactate of 2.4 and creatinine of 1.6, was 1.[address] abdomen pelvis is negative for any acute/new findings. I have discussed with egg caser for [place] renal transplant team, she will talk to physician special education professional and will call us back. 07/21/22 23:35 transfer coordinator after discussion with transplant display associate Dr. Moriah Stone recommended observation admission, IV hydration and will evaluate patient in the morning with repeat labs. C. difficile is pending. Plan discussed with patient and family who understand and agree with it. Discussed with hospitalist and patient is being admitted. Counseled pt/family regarding: lab results, diagnosis, need for follow-up Medical Desision Making - Independent Historian Additional History obtained from: Spouse - Discussion of managment Care discussed with:: specialist Reviewed:: Test results Agreed on:: Treatment plan, place in obs - Departure Departure Disposition: Observation Clinical Impression: JOELLE (acute kidney injury), Diarrhea, General weakness Condition: Stable Critical Care Time: No Referrals: MICHAEL RAZA DO [Primary Care Provider] - Follow up/PCP as directed
[2022-07-21 23:09] LABS: Appearance Clear (Clear); Bacteria None Seen /HPF (None Seen); Bilirubin Negative (Negative); Blood Negative (Negative); Epithelial Cells None Seen /HPF (None Seen); Glucose, Urine Negative (Negative); Hyaline Casts NONE SEEN /LPF (0-2); Ketones Negative (Negative); Leukocyte Esterase Negative (Negative); Nitrite Negative (Negative); Ph 6.5 (4.6-8.0); Protein,Urine Dip Negative (Negative); RBC 0-2 /HPF (0-5); Urobilinogen 0.2 mg/dL (0.2); WBC 0-2 /HPF (0-5)
[2022-07-21 23:15] LABS: ADD URINE CULTURE? NO (NO)
[2022-07-21] MEDS: Sodium Chloride 0.9% 1000 ML 1,000 ML IV SCH (23:54)
[2022-07-22] MEDS ORDERED: Zofran 4 MG/2 ML VIAL IV PRN (00:38)
[2022-07-22] MEDS ORDERED: DUONEB 0.5-3 MG/3 ml Neb IH PRN (00:38)
[2022-07-22] MEDS ORDERED: TYLENOL 325 MG PO PRN (00:38)
[2022-07-22] MEDS ORDERED: HUMALOG SQ PRN (00:38)
--- NOTE | 2022-07-22 02:36 | PCM.HP ---
History of Present Illness - Chief Complaint Chief Complaint: gen weakness, JOELLE Date: 07/22/22 History of Present Illness: Mr. 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 Upon arrival, his laboratory data was revealing for an elevated Cr and lactate while imaging was unrevealing. On my examination, he is comfortable denying any current fevers, chills, nausea, vomiting, diarrhea, syncope, presyncope, visual changes, orthopnea, PND, odynophagia, dysphagia, chest pain, shortness of breath, belly pain, dysuria, hematuria, melena, hematochezia, or neurological changes. All other systems were reviewed and were negative. He denies any change in his diet, sick contacts, or recent travel. The ED physician did speak to his transplant physicians, and they recommended watching him overnight here at [facility]. They will check in, in the morning. - Review of Systems Constitutional: No Fever, No Chills Eyes: No Symptoms Ears, Nose, & Throat: No Symptoms Respiratory: No Cough, No Short Of Breath Cardiac: No Chest Pain, No Edema, No Syncope Abdominal/Gastrointestinal: Diarrhea, No Abdominal Pain, No Nausea, No Vomiting Genitourinary Symptoms: No Dysuria Musculoskeletal: No Back Pain, No Neck Pain Skin: No Rash Neurological: No Dizziness, No Focal Weakness, No Sensory Changes Psychological: No Symptoms Endocrine: No Symptoms Hematologic/Lymphatic: No Symptoms Immunological/Allergic: No Symptoms Medications & Allergies Home Medications: Home Medication List HydrALAzine HCL 25 MG TAB [Apresoline 25 MG TABLET] 25 mg PO TID 08/14/21 [History Confirmed 07/21/22] PANTOPRAZOLE 40 mg Tablet [Protonix 40MG Tablet] 40 mg PO QAM 08/14/21 [History Confirmed 07/21/22] Semaglutide [Ozempic] 1 unit SQ WEEKLY 08/14/21 [History Confirmed 07/21/22] Tamsulosin HCl 0.4 mg [Flomax 0.4 MG] 0.4 mg PO BID 08/14/21 [History Confirmed 07/21/22] Tolterodine Tartrate [Tolterodine Tartrate ER] 2 mg PO DAILY 08/14/21 [History Confirmed 07/21/22] calcitrioL [Calcitriol] 1 mg PO DAILY 08/14/21 [History Confirmed 07/21/22] prednisoLONE [Millipred] 5 mg PO DAILY 08/14/21 [History Confirmed 07/21/22] Metformin HCl 500 mg [Glucophage 500 MG] 500 mg PO DAILY 10/06/21 [History Confirmed 07/21/22] Pravastatin Sodium 40 mg PO HS 10/06/21 [History Confirmed 07/21/22] Insulin Aspart [Insulin Aspart Flexpen] 1 units SQ AC 10/12/21 [History Confirmed 07/21/22] Magnesium Oxide 400 mg PO TID 10/13/21 [History Confirmed 07/21/22] Carvedilol [Coreg] 12.5 mg PO BID 12/15/21 [History Confirmed 07/21/22] Ferrous Sulfate [Iron] 325 mg PO BID 12/15/21 [History Confirmed 07/21/22] Itraconazole [Sporanox] 100 mg PO BID 12/15/21 [History Confirmed 07/21/22] Allopurinol 100 mg [Zyloprim 100 mg] 100 mg PO DAILY 07/21/22 [History Confirmed 07/21/22] Apixaban [Eliquis] 5 mg PO BID 07/21/22 [History Confirmed 07/21/22] Benzonatate 100 mg PO DAILY PRN 07/21/22 [History Confirmed 07/21/22] Bromocriptine Mesylate [Cycloset] 0.8 mg PO HS 07/21/22 [History Confirmed 07/21/22] Docusate Sodium 100 mg [Docusate Sodium 100 MG] 100 mg PO BID PRN 07/21/22 [History Confirmed 07/21/22] Escitalopram Oxalate [Lexapro] 5 mg PO HS 07/21/22 [History Confirmed 07/21/22] Flonase 50 50 mcg IN DAILY PRN 07/21/22 [History Confirmed 07/21/22] Furosemide 20 mg [Lasix 20 mg] 20 mg PO DAILY PRN 07/21/22 [History Confirmed 07/21/22] Insulin Detemir [Levemir] 100 unit SQ DAILY 07/21/22 [History Confirmed 07/21/22] Losartan Potassium [Cozaar] 50 mg PO HS 07/21/22 [History Confirmed 07/21/22] Potassium Chloride [Klor-Con M20] 20 meq PO DAILY 07/21/22 [History Confirmed 07/21/22] Slow Mag 71.5 mg PO BID 07/21/22 [History Confirmed 07/21/22] Tacrolimus [Envarsus Xr] 0.75 mg PO UD 07/21/22 [History Confirmed 07/21/22] Allergies/Adverse Reactions: Allergies Allergy/AdvReac Type Severity Reaction Status Date / Time Sulfa (Sulfonamide Allergy Unknown Verified 07/21/22 19:54 Antibiotics) [Sulfa(Sulfonamide Antibiotics)] ibuprofen AdvReac Severe kidney Verified 07/21/22 19:54 transplant latex AdvReac Intermediate Rash Verified 07/21/22 19:54 - Past Medical History Past Medical History: Yes Neurological History: Other ENT History: No Pertinent History Cardiac History: Hypertension, Other Respiratory History: Other Endocrine Medical History: Diabetes Type II, Other Musculoskelatal History: No Pertinent History GI Medical History: No Pertinent History History: Renal Disease, Other Pyscho-Social History: No Pertinent History Male Reproductive Disorders: Prostate Cancer, Prostate Problems Comment: LUNG BIOPSY, KIDNEY TRANSPLANT. HISTORY OF DIALYSIS. - Past Surgical History Past Surgical History: Yes Neuro Surgical History: No Pertinent History Cardiac History: No Pertinent History Respiratory Surgery: No Pertinent History GI Surgical History: No Pertinent History Genitourinary Surgical Hx: Kidney Transplant Musculskeletal Surgical Hx: Orthopedic Surgery Male Surgical History: Prostate Surgery Other Surgical History: lt ankle compuond fx,seed implants to prostate 2006, dialysis port to rt wi and peritoneal port to abd. kidney transplant-right side - Social History Smoking Status: Never smoker Exposure to second hand smoke: No Alcohol: None Drug Use: none - Physical Exam Vital Signs: Vital Signs - 24 hr Temp Pulse Resp BP BP Pulse Ox 07/22/22 01:15 98.3 F 72 18 195/90 96 07/22/22 00:00 74 20 173/93 96 07/21/22 23:51 97 07/21/22 23:00 74 16 165/95 94 L 07/21/22 22:00 77 22 168/84 93 L 07/21/22 21:00 72 20 166/84 94 L 07/21/22 20:00 70 18 157/97 97 07/21/22 19:55 98.0 F 74 20 151/81 97 General Appearance: no apparent distress, alert Neurologic Exam: alert, oriented x 3, cooperative, normal mood/affect, nml cerebellar function, nml station & gait, sensation nml, No motor deficits Eye Exam: PERRL/EOMI, eyes nml inspection Ears, Nose, Throat Exam: normal ENT inspection, TMs normal, pharynx normal, moist mucous membranes Neck Exam: normal inspection, non-tender, supple, full range of motion Respiratory Exam: normal breath sounds, lungs clear, No respiratory distress Cardiovascular Exam: regular rate/rhythm, normal heart sounds, normal peripheral pulses Gastrointestinal/Abdomen Exam: soft, normal bowel sounds, No tenderness, No mass Back Exam: normal inspection, normal range of motion, No CVA tenderness, No vertebral tenderness Extremity Exam: normal inspection, normal range of motion, pelvis stable Skin Exam: normal color, warm, dry, No rash Wound Assessment: Skin/Wound Assessment Wound/Incision Assessment Start: 07/22/22 01:29 Text: Status: Active Freq: Q6H Protocol: Document 07/22/22 01:29 LB (Rec: 07/22/22 02:02 LB [id number]) Wound/Incision Assessment Left Upper Arm Wound Assessment Admission Wound Type Skin Tear Wound Stage Non Pressure Wound Drainage Amount Minimal Drainage Odor None/Absent General Appearance Open to air Lymphatic Exam: No adenopathy Results - Labs Lab/Micro Results: Lab Results-Last 24 Hours 07/21/22 07/21/22 07/21/22 Range/Units 20:35 20:35 20:40 WBC 4.7 (4.0-10.5) x10^3/uL RBC 4.16 (4.1-5.6) x10^6/uL Hgb 12.2 L (12.5-18.0) g/dL Hct 38.8 L (42-50) % MCV 93.3 (78-100) fL MCH 29.3 (26-32) pg MCHC 31.4 L (32-36) g/dL RDW 15.0 H (11.5-14.0) % Plt Count 142 L (150-450) x10^3/uL MPV 10.4 (7.5-11.0) fL Gran % 59.1 (36.0-66.0) % Immature Gran % (Auto) 1.1 H (0.00-0.4) % Nucleat RBC Rel Count 0.0 (0.00-0.1) % Eos # (Auto) 0.03 (0-0.5) x10^3/uL Immature Gran # (Auto) 0.05 H (0.00-0.03) x10^3u/L Absolute Lymphs (auto) 1.34 (1.0-4.6) x10^3/uL Absolute Monos (auto) 0.49 (0.0-1.3) x10^3/uL Absolute Nucleated RBC 0.00 (0.00-0.01) x10^3u/L Lymphocytes % 28.6 (24.0-44.0) % Monocytes % 10.4 (0.0-12.0) % Eosinophils % 0.6 (0.00-5.0) % Basophils % 0.2 (0.0-0.4) % Absolute Granulocytes 2.77 (1.4-6.9) x10^3/uL Basophils # 0.01 (0-0.4) x10^3/uL Sodium 139 (137-145) mmol/L Potassium 3.8 (3.5-5.1) mmol/L Chloride 107 (98-107) mmol/L Carbon Dioxide 23 (22-30) mmol/L Anion Gap 13.6 (5-15) MEQ/L BUN 23 H (9-20) mg/dL Creatinine 1.61 H (0.66-1.25) mg/dL Estimated GFR 44.6 ML/MIN Glucose 155 H (74-106) mg/dL POC Glucometer (74 to 106) mg/dL Lactic Acid 2.4 H (0.4-2.0) Calcium 10.1 (8.4-10.2) mg/dL Magnesium (1.6-2.3) mg/dL Total Bilirubin 0.90 (0.2-1.3) mg/dL AST 21 (17-59) U/L ALT 34 (0-50) U/L Alkaline Phosphatase 64 (38-126) U/L Serum Total Protein 6.6 (6.3-8.2) g/dL Albumin 3.6 (3.5-5.0) g/dL Lipase 158 (23-300) U/L Urine Color (Yellow) Urine Appearance (Clear) Urine pH (4.6-8.0) Ur Specific [place] (1.005-1.030) Urine Protein (Negative) Urine Glucose (UA) (Negative) mg/dL Urine Ketones (Negative) Urine Blood (Negative) Urine Nitrite (Negative) Urine Bilirubin (Negative) Urine Urobilinogen (0.2) mg/dL Ur Leukocyte Esterase (Negative) U Hyaline Cast (Auto) (0-2) /LPF Urine Microscopic RBC (0-5) /HPF Urine Microscopic WBC (0-5) /HPF Ur Epithelial Cells (None Seen) /HPF Urine Bacteria (None Seen) /HPF Urine Culture Reflexed (NO) 07/21/22 07/21/22 07/22/22 Range/Units 22:21 22:46 01:45 WBC (4.0-10.5) x10^3/uL RBC (4.1-5.6) x10^6/uL Hgb (12.5-18.0) g/dL Hct (42-50) % MCV (78-100) fL MCH (26-32) pg MCHC (32-36) g/dL RDW (11.5-14.0) % Plt Count (150-450) x10^3/uL MPV (7.5-11.0) fL Gran % (36.0-66.0) % Immature Gran % (Auto) (0.00-0.4) % Nucleat RBC Rel Count (0.00-0.1) % Eos # (Auto) (0-0.5) x10^3/uL Immature Gran # (Auto) (0.00-0.03) x10^3u/L Absolute Lymphs (auto) (1.0-4.6) x10^3/uL Absolute Monos (auto) (0.0-1.3) x10^3/uL Absolute Nucleated RBC (0.00-0.01) x10^3u/L Lymphocytes % (24.0-44.0) % Monocytes % (0.0-12.0) % Eosinophils % (0.00-5.0) % Basophils % (0.0-0.4) % Absolute Granulocytes (1.4-6.9) x10^3/uL Basophils # (0-0.4) x10^3/uL Sodium (137-145) mmol/L Potassium (3.5-5.1) mmol/L Chloride (98-107) mmol/L Carbon Dioxide (22-30) mmol/L Anion Gap (5-15) MEQ/L BUN (9-20) mg/dL Creatinine (0.66-1.25) mg/dL Estimated GFR ML/MIN Glucose (74-106) mg/dL POC Glucometer 131 H (74 to 106) mg/dL Lactic Acid (0.4-2.0) Calcium (8.4-10.2) mg/dL Magnesium 2.0 (1.6-2.3) mg/dL Total Bilirubin (0.2-1.3) mg/dL AST (17-59) U/L ALT (0-50) U/L Alkaline Phosphatase (38-126) U/L Serum Total Protein (6.3-8.2) g/dL Albumin (3.5-5.0) g/dL Lipase (23-300) U/L Urine Color Yellow (Yellow) Urine Appearance Clear (Clear) Urine pH 6.5 (4.6-8.0) Ur Specific [place] 1.010 (1.005-1.030) Urine Protein Negative (Negative) Urine Glucose (UA) Negative (Negative) mg/dL Urine Ketones Negative (Negative) Urine Blood Negative (Negative) Urine Nitrite Negative (Negative) Urine Bilirubin Negative (Negative) Urine Urobilinogen 0.2 (0.2) mg/dL Ur Leukocyte Esterase Negative (Negative) U Hyaline Cast (Auto) NONE SEEN (0-2) /LPF Urine Microscopic RBC 0-2 (0-5) /HPF Urine Microscopic WBC 0-2 (0-5) /HPF Ur Epithelial Cells None Seen (None Seen) /HPF Urine Bacteria None Seen (None Seen) /HPF Urine Culture Reflexed NO (NO) Microbiology 07/21/22 Unknown C. difficile Toxin B Result 1 - Final Stool Not Reportable C. difficile Toxin B Result 2 - Final Not Reportable C. difficile Toxin B Result 3 - Final Not Reportable C. difficile Toxin B Result 4 - Final Not Reportable Antimicrobic Susceptibility - Final Not Reportable - Radiology Impressions Radiology Exams & Impressions: Radiology Procedures Category Date Time Status ABDOMEN AND PELVIS W/0 CONTRAS [CT] Stat Exams 07/21/22 20:45 Taken Assessment/Plan (1) Diarrhea Current Visit: Yes Status: Acute Assessment & Plan: ASSESSMENT 1. Diarrhea 2. Acute on Chronic Kidney Disease 3. Elevated Lactate 4. Hypertension 5. Hyperlipidemia 6. Type II Diabetes Mellitus 7. Chronic Anemia 8. 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 Fluids 2. Stool studies 3. Continue immunosuppressive regimen 4. Hold stool regimen 5. Baseline Cr 1.4 6. Low threshold to transfer to transplant center if no improvement Eliquis/PPI The entirety of this encounter was done via telemedicine Zia Martin MD Pulmonary and Critical Care Medicine Code(s): R19.7 - DIARRHEA, UNSPECIFIED Telemedicine Encounter - Telemedicine Encounter Telemedicine Encounter: The entirety of this encounter was performed via Telemedicine"
[2022-07-22] MEDS: APRESOLINE 20 MG/ML INJ IV PRN ×2 (02:47→18:49)
[2022-07-22 04:54] LABS: Hematocrit 38.3 % (42-50); Hemoglobin 12.4 g/dL (12.5-18.0); Mean Cell Volume 89.3 fL (78-100); Mean Corpuscular Hemoglobin 28.9 pg (26-32); Mean Corpuscular Hgb Concent. 32.4 g/dL (32-36); Mean Platelet Volume 10.7 fL (7.5-11.0); Platelet Count 147 x10^3/uL (150-450); Red Blood Count 4.29 x10^6/uL (4.1-5.6); White Blood Count 4.8 x10^3/uL (4.0-10.5)
[2022-07-22 05:20] LABS: ANION GAP 12.6 MEQ/L (5-15); Calcium 9.6 mg/dL (8.4-10.2); Creatinine 1 1.4 mg/dL (0.66-1.25); EST GLOMERULAR FILTRATION RATE 52.4 ML/MIN; PREALBUMIN 26.14 mg/dL (17.6-36.0); Potassium 3.4 mmol/L (3.5-5.1)
[2022-07-22] MEDS ORDERED: FLONASE IN PRN (07:11)
[2022-07-22] MEDS ORDERED: Tessalon Perles 100 MG PO PRN (07:11)
[2022-07-22] MEDS ORDERED: NON-FORMULARY ITEM (Semaglutide [Ozempic] 1 MG/0.75 ML Pen.Injctr) SQ SCH (07:15)
[2022-07-22] MEDS ORDERED: TACROLIMUS 0.75 MG PO SCH (07:15)
[2022-07-22] MEDS ORDERED: Flonase NASAL NS PRN (07:28)
[2022-07-22] MEDS ORDERED: MEDICATION INTERVENTION MC SCH ×6 (07:45)
--- NOTE | 2022-07-22 08:45 | XRAY ---
Indication: Weakness and diarrhea. Multiple contiguous axial images obtained through the abdomen and pelvis without contrast. Comparison: October 17, 2021 Lung bases again demonstrate numerous small/tiny nodules worrisome for metastasis. No infiltrate or effusion. Heart is not enlarged. Stomach is now markedly distended with food. Noncontrasted stomach and bowel loops nonobstructed. Normal appendix. Again 20 cm hepatomegaly, 14.2 cm splenomegaly, small left urinary bladder diverticulum, and prostate radiation seeds. Both samish kidneys remain atrophic. Stable right lower quadrant transplanted kidney without hydronephrosis. No free fluid/air. Remaining liver, gallbladder, pancreas, spleen, adrenal glands, knees, ureters, and bladder are unremarkable for noncontrast exam. There remains moderate scattered aortoiliac calcifications without AAA. Osseous structures intact again with osteopenia and mild degenerative changes throughout the spine. Stable small fatty left inguinal hernia. Impression: 1. Again numerous pulmonary nodules concerning for metastasis. 2. Chronic findings including hepatosplenomegaly, prostate radiation seeds, atrophy bilateral samish kidneys, unremarkable transplanted kidney, urinary bladder diverticulum, arteriosclerotic disease, fatty left inguinal hernia, and chronic bony findings. 3. Remaining CT abdomen/pelvis without contrast exam is negative.
[2022-07-22] MEDS: Glucophage 500 MG PO SCH (08:50)
[2022-07-22 09:50] LABS: 027 TOX PROD PRESUMPTIVE NEGATIVE (NEGATIVE)
[2022-07-22 09:58] LABS: TOXIGENIC C. DIFF ORG POSITIVE (NEGATIVE)
[2022-07-22] MEDS ORDERED: ITRACONAZOLE 100 MG PO SCH (10:00)
[2022-07-22] MEDS ORDERED: PREDNISOLONE 5 MG PO SCH (10:00)
[2022-07-22] MEDS ORDERED: Coreg PO SCH (10:00)
[2022-07-22] MEDS ORDERED: NON-FORMULARY ITEM (Insulin Detemir [Levemir] 100 UNIT/ML Vial) SQ SCH (10:00)
[2022-07-22] MEDS ORDERED: NON-FORMULARY ITEM (Calcitriol [Calcitriol] 0.5 MCG Capsule) PO SCH (10:00)
[2022-07-22] MEDS ORDERED: NON-FORMULARY ITEM (Apixaban [Eliquis] 5 MG Tab.Ds.Pk) PO SCH (10:00)
[2022-07-22] MEDS ORDERED: NON-FORMULARY ITEM (Tolterodine Tartrate [Tolterodine Tartrate Er] 2 MG Cap.Er.24h) PO SCH (10:00)
[2022-07-22] MEDS: ELIQUIS 2.5 MG TABLET PO SCH ×2 (10:13→21:05)
[2022-07-22] MEDS: Flomax 0.4 MG PO SCH ×2 (10:13→21:05)
[2022-07-22] MEDS: COREG 12.5 MG PO SCH ×2 (10:13→21:05)
[2022-07-22] MEDS: Protonix 40MG Tablet PO SCH (10:14)
[2022-07-22] MEDS: Lantus Insulin SQ SCH (10:14)
--- NOTE | 2022-07-22 11:32 | TM.IN ---
Tele-Medicine Incident Note - Incident Note Tel-Medicine Incident Note: 07/22/22 1130 Patient seen during rounds. Creatinine improving with IV fluids. 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 Von Stone, to discuss his creatinine target. Stool positive for CDif, so will initiate po vancomycin + probiotics.
[2022-07-22] MEDS ORDERED: PHARMACY RENAL DOSING MC ONE (11:41)
[2022-07-22] MEDS ORDERED: PATEINT INSURANCE PROVIDED MED PO SCH (13:00)
[2022-07-22] MEDS ORDERED: PATIENT OWN MEDICATION PO SCH ×2 (13:00→22:00)
[2022-07-22] MEDS: Apresoline 25 MG TABLET PO SCH ×3 (13:18→21:05)
[2022-07-22] MEDS: PATIENT OWN MEDICATION PO SCH ×3 (13:19→21:11)
[2022-07-22] MEDS: VANCOMYCIN HCL CAPSULE PO SCH ×3 (13:23→21:05)
[2022-07-22] MEDS: Sodium Chloride 0.9% 1000 ML 1,000 ML IV SCH (16:33)
[2022-07-22] MEDS ORDERED: ZOCOR 20MG PO SCH (22:00)
[2022-07-22] MEDS ORDERED: NON-FORMULARY ITEM (Escitalopram Oxalate [Lexapro] 5 MG Tablet) PO SCH (22:00)
[2022-07-22] MEDS ORDERED: BROMOCRIPTINE MESYLATE 0.8 MG PO SCH (22:00)
[2022-07-22] MEDS ORDERED: NON-FORMULARY ITEM (Pravastatin Sodium [Pravastatin Sodium] 40 MG Tablet) PO SCH (22:00)
[2022-07-22] MEDS ORDERED: Cozaar 50 MG PO SCH (22:00)
[2022-07-22] MEDS ORDERED: Lexapro PO SCH (22:00)
[2022-07-23] MEDS: Sodium Chloride 0.9% 1000 ML 1,000 ML IV SCH (02:30)
[2022-07-23 05:58] LABS: ANION GAP 11.7 MEQ/L (5-15); BLOOD UREA NITROGEN 13 mg/dL (9-20); CHLORIDE 111 mmol/L (98-107); Calcium 9.4 mg/dL (8.4-10.2); Carbon Dioxide 24 mmol/L (22-30); Creatinine 1 1.22 mg/dL (0.66-1.25); EST GLOMERULAR FILTRATION RATE > 60.0 ML/MIN; Glucose 135 mg/dL (74-106); Potassium 3.3 mmol/L (3.5-5.1); SODIUM 143 mmol/L (137-145)
[2022-07-23] MEDS: Apresoline 25 MG TABLET PO SCH ×2 (08:20→14:20)
[2022-07-23] MEDS: COREG 12.5 MG PO SCH (08:20)
[2022-07-23] MEDS: VANCOMYCIN HCL CAPSULE PO SCH ×2 (08:20→12:20)
[2022-07-23] MEDS: Flomax 0.4 MG PO SCH (08:20)
[2022-07-23] MEDS: Protonix 40MG Tablet PO SCH (08:20)
[2022-07-23] MEDS: Glucophage 500 MG PO SCH (08:20)
[2022-07-23] MEDS: ELIQUIS 2.5 MG TABLET PO SCH (08:22)
[2022-07-23] MEDS: PATIENT OWN MEDICATION PO SCH ×2 (08:23→08:24)
[2022-07-23] MEDS: Lantus Insulin SQ SCH (08:24)
--- NOTE | 2022-07-23 09:46 | PCM.DS ---
Discharge Summary Date of Admission: 07/22/22 00:33 Date of Discharge: 07/23/22 Admitting Physician: JF TARIQ MD Primary Care Provider: MICHAEL RAZA DO Allergies Allergies Sulfa (Sulfonamide Antibiotics) [Sulfa(Sulfonamide Antibiotics)] Allergy (Unknown, Verified 07/21/22 19:54) ibuprofen Adverse Reaction (Severe, Verified 07/21/22 19:54) kidney transplant latex Adverse Reaction (Intermediate, Verified 07/21/22 19:54) Rash Hospital Summary - Hospital Course Hospital Course: Creatinine improved. No loose stool overnight or this AM after initiation of po vancomycin. Discussed patient's renal function yesterday with Dr. Stone via telephone and Dr. Stone indicated that the patient was clear for discharge from a nephrology perspective (and subsequently his creatinine has improved further). Also, per Dr. Stone, the patient has had clostridium dificile in the past, so will treat with 21 days of vancomycin. Will follow up with PCP or nephrology next week with BMP. Patient participates in outpatient PT. The patient was seen and examined via telemedicine. The entirety of this encounter was performed via telemedicine. The patient consented to this telemedicine encounter. - Vitals & Intake/Output Vital Signs: Vital Signs Temperature 97.2 F 07/23/22 07:42 Pulse Rate 74 07/23/22 07:42 Respiratory Rate 17 07/23/22 07:42 Blood Pressure 182/84 07/23/22 09:00 O2 Sat by Pulse Oximetry 93 L 07/23/22 07:42 Intake & Output: Intake & Output 07/20/22 07/21/22 07/22/22 07/23/22 11:59 11:59 11:59 11:59 Intake Total 2678 Output Total 1900 Balance 778 Weight 76.2 kg - Lab Result Diagrams: 07/22/22 04:13 07/23/22 05:27 Lab Results-Last 24 Hrs: Lab Results-Last 24 Hours 07/22/22 07/22/22 07/22/22 Range/Units 08:37 11:40 16:10 Sodium (137-145) mmol/L Potassium (3.5-5.1) mmol/L Chloride (98-107) mmol/L Carbon Dioxide (22-30) mmol/L Anion Gap (5-15) MEQ/L BUN (9-20) mg/dL Creatinine (0.66-1.25) mg/dL Estimated GFR ML/MIN Glucose (74-106) mg/dL POC Glucometer 145 H TNP (74 to 106) mg/dL Calcium (8.4-10.2) mg/dL C. difficile Screen POSITIVE (NEGATIVE) C.difficile 027-NAP1-B1 PRESUMPTIVE NEGATIVE (NEGATIVE) 07/22/22 07/23/22 Range/Units 20:56 05:27 Sodium 143 (137-145) mmol/L Potassium 3.3 L (3.5-5.1) mmol/L Chloride 111 H (98-107) mmol/L Carbon Dioxide 24 (22-30) mmol/L Anion Gap 11.7 (5-15) MEQ/L BUN 13 (9-20) mg/dL Creatinine 1.22 (0.66-1.25) mg/dL Estimated GFR > 60.0 ML/MIN Glucose 135 H (74-106) mg/dL POC Glucometer 124 H (74 to 106) mg/dL Calcium 9.4 (8.4-10.2) mg/dL C. difficile Screen (NEGATIVE) C.difficile 027-NAP1-B1 (NEGATIVE) Micro Results-Entire Visit: Microbiology 07/21/22 20:35 Blood Culture - Preliminary Blood 07/21/22 20:35 Blood Culture - Preliminary Blood Accuchecks Date 07/23/22 Date 07/22/22 Date 07/22/22 Time 07:37 Time 16:22 Time 11:51 - Radiology Exams Ordered Rad Exams-Entire Visit: Radiology Procedures Category Date Time Status ABDOMEN AND PELVIS W/0 CONTRAS [CT] Stat Exams 07/21/22 20:45 Completed - Procedures and Test Procedures and Tests throughout Hospitalization: Therapy Orders & Screens 07/22/22 10:52 PT Eval & Treat ( Order) ONCE Reason for Eval:: debility Diagnosis: gen weakness, JOELLE Discharge Exam General Appearance: no apparent distress Neurologic Exam: alert, oriented x 3, cooperative, 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 as tested, normal mood/affect, nml cerebellar function Eye Exam: PERRL, EOMI, eyes nml inspection Ears, Nose, Throat Exam: normal ENT inspection Neck Exam: normal inspection Respiratory Exam: normal breath sounds Cardiovascular Exam: regular rate/rhythm, normal heart sounds Gastrointestinal/Abdomen Exam: soft, normal bowel sounds Back Exam: normal range of motion Extremity Exam: normal inspection, normal range of motion Skin Exam: normal color Wound Assessment: Skin/Wound Assessment Wound/Incision Assessment Start: 07/22/22 01:29 Text: Status: Active Freq: Q6H Protocol: Document 07/23/22 02:00 WW (Rec: 07/23/22 02:28 WW [id number]) Wound/Incision Assessment Left Upper Arm Wound Assessment Shift Assessment Wound Type Abrasion Wound Stage Non Pressure Wound Dressing Status Dry & Intact Drainage Amount None General Appearance Clean/Dry Comment ALL AREAS OPEN TO AIR. Final Diagnosis/Problem List - Final Discharge Diagnosis/Problem (1) Acute renal failure Current Visit: No Status: Acute Assessment & Plan: Creatinine 1.22 - Discharge Disposition: Home, Self-Care Condition: Stable Prescriptions: No Action Tamsulosin HCl 0.4 mg [Flomax 0.4 MG] 0.4 mg PO BID prednisoLONE [Millipred] 5 mg PO DAILY Tolterodine Tartrate [Tolterodine Tartrate ER] 2 mg PO DAILY PANTOPRAZOLE 40 mg Tablet [Protonix 40MG Tablet] 40 mg PO QAM calcitrioL [Calcitriol] 1 mg PO DAILY HydrALAzine HCL 25 MG TAB [Apresoline 25 MG TABLET] 25 mg PO TID Semaglutide [Ozempic] 1 unit SQ WEEKLY Metformin HCl 500 mg [Glucophage 500 MG] 500 mg PO DAILY Pravastatin Sodium 40 mg PO HS Insulin Aspart [Insulin Aspart Flexpen] 1 units SQ AC Magnesium Oxide 400 mg PO TID Carvedilol [Coreg] 12.5 mg PO BID Itraconazole [Sporanox] 100 mg PO BID Ferrous Sulfate [Iron] 325 mg PO BID Benzonatate 100 mg PO DAILY PRN PRN Reason: Cough Furosemide 20 mg [Lasix 20 mg] 20 mg PO DAILY PRN PRN Reason: Cough Docusate Sodium 100 mg [Docusate Sodium 100 MG] 100 mg PO BID PRN PRN Reason: Constipation Losartan Potassium [Cozaar] 50 mg PO HS Escitalopram Oxalate [Lexapro] 5 mg PO HS Bromocriptine Mesylate [Cycloset] 0.8 mg PO HS Insulin Detemir [Levemir] 100 unit SQ DAILY Potassium Chloride [Klor-Con M20] 20 meq PO DAILY Tacrolimus [Envarsus Xr] 0.75 mg PO UD Slow Mag 71.5 mg PO BID Allopurinol 100 mg [Zyloprim 100 mg] 100 mg PO DAILY Apixaban [Eliquis] 5 mg PO BID Flonase 50 50 mcg IN DAILY PRN PRN Reason: Allergies Follow up with: MICHAEL RAZA DO [Primary Care Provider] -
[2022-07-23] MEDS ORDERED: Acidophilus TABLET PO SCH (10:00)
[2022-07-23] MEDS ORDERED: PATIENT OWN MEDICATION PO SCH (10:00)
[2022-07-23 13:26] VITALS: BP 178/88; PULSE 97; O2SAT 97
== END 2022-07-23 15:30 | disposition home or self-care (01) ==
LOC: ED 19:47 → MED SURG 07-22 00:33
PROVIDERS: ADMIT Internal Medicine Critical Care Medicine; ATTEND Family Medicine
DX: N17.9 Acute kidney failure, unspecified (principal); E11.9 Type 2 diabetes mellitus without complications; I10 Essential (primary) hypertension; E78.5 Hyperlipidemia, unspecified; I48.91 Unspecified atrial fibrillation; S41.112A Laceration without foreign body of left upper arm, initial encounter; R19.7 Diarrhea, unspecified; D64.9 Anemia, unspecified; Z79.01 Long term (current) use of anticoagulants; Z79.899 Other long term (current) drug therapy; Z20.828 Contact with and (suspected) exposure to other viral communicable diseases; Z85.46 Personal history of malignant neoplasm of prostate
CPT/HCPCS: 36000; 36415; 74176; 80048; 80053; 81001; 82947; 83605; 83690; 83735; 84134; 85025; 85027; 87040; 87493; 89055; 93268; 96360; 96361; 97161; 99285; G0378; Q3014; J0360; A9270-GY

== ENCOUNTER 2023-02-16 14:16 | Emergency (ER) | payer MEDICARE, OTHER ==
[2023-02-16 14:54] VITALS: TEMP 97.9
[2023-02-16] MEDS ORDERED: Sodium Chloride 0.9% 500 ML 500 ML IV ONE ×2 (15:18→15:27)
[2023-02-16 15:28] LABS: Absolute Neutrophil Ct (ANC) 7.53 x10^3/uL (1.4-6.9); BASOPHIL % 0.2 % (0.0-0.4); Basophil (Absolute #) 0.02 x10^3/uL (0-0.4); Eosinophil % 0.1 % (0.00-5.0); Eosinophil (Absolute #) 0.01 x10^3/uL (0-0.5); Hematocrit 43.3 % (42-50); Hemoglobin 14.2 g/dL (12.5-18.0); IMMATURE GRAN # 0.29 x10^3u/L (0.00-0.03); Lymphocyte (Absolute #) 0.68 x10^3/uL (1.0-4.6); Lymphocytes % 7.1 % (24.0-44.0); Mean Cell Volume 92.3 fL (78-100); Mean Corpuscular Hemoglobin 30.3 pg (26-32); Mean Corpuscular Hgb Concent. 32.8 g/dL (32-36); Mean Platelet Volume 11.4 fL (7.5-11.0); Monocyte (Absolute #) 1.01 x10^3/uL (0.0-1.3); Monocytes % 10.6 % (0.0-12.0); Platelet Count 116 x10^3/uL (150-450); Red Blood Count 4.69 x10^6/uL (4.1-5.6); Red Cell Distribution Width 13.9 % (11.5-14.0); White Blood Count 9.5 x10^3/uL (4.0-10.5)
[2023-02-16 15:33] LABS: ALBUMIN 3.9 g/dL (3.5-5.0); ANION GAP 12.2 MEQ/L (5-15); BILIRUBIN,TOTAL 1.4 mg/dL (0.2-1.3); Calcium 9.4 mg/dL (8.4-10.2); Creatinine 1 1.03 mg/dL (0.66-1.25); EST GLOMERULAR FILTRATION RATE 74.8 ML/MIN; MAGNESIUM 2.3 mg/dL (1.6-2.3); Potassium 4.7 mmol/L (3.5-5.1); Total Protein 6.8 g/dL (6.3-8.2)
--- NOTE | 2023-02-16 15:56 | XRAY ---
Indication: General weakness. History of histoplasmosis. Comparison: February 14, 2022 Portable chest demonstrates grossly stable CT proven bilateral noncalcified nodules presumed related to patient's history of histoplasmosis. Again mild right hemidiaphragm elevation. No focal infiltrate, consolidation, or large effusion. Heart not enlarged. Bony thorax intact again with osteopenia, mild degenerative changes, and levoscoliosis. Impression: Continued nonacute chest with chronic features.
[2023-02-16 17:21] LABS: Appearance Cloudy (Clear); Bacteria Many /HPF (None Seen); Bilirubin Negative (Negative); Blood Trace (Negative); Epithelial Cells None Seen /HPF (None Seen); Glucose, Urine 500 mg/dL (Negative); Hyaline Casts NONE SEEN /LPF (0-2); Ketones Negative (Negative); Leukocyte Esterase Small (Negative); Nitrite Negative (Negative); Ph 5.5 (4.6-8.0); Protein,Urine Dip 100 (Negative); WBC 51-100 /HPF (0-5)
[2023-02-16 17:22] LABS: ADD URINE CULTURE? YES (NO)
[2023-02-16 17:24] LABS: INFLUENZA A NEGATIVE (NEGATIVE); INFLUENZA B NEGATIVE (NEGATIVE); RESPIRATORY SYNCTIAL VIRUS NEGATIVE (NEGATIVE); SARS-CoV-2 Xpert Express NEGATIVE (NEGATIVE)
[2023-02-16] MEDS ORDERED: ROCEPHIN 2 Gm-D5w 50ML BAG** 2 G/50 ML IVPB IV STA (17:29)
[2023-02-16] MEDS ORDERED: ROCEPHIN 2 Gm-D5w 50ML BAG** 2 G/50 ML IVPB IV ONE (17:43)
[2023-02-16 18:21] VITALS: RESP 18; O2SAT 97
--- NOTE | 2023-02-16 18:40 | ERPHSYRPT ---
- History of Present Illness Time Seen by Provider: 02/16/23 15:03 Source: patient Exam Limitations: no limitations Patient Subjective Stated Complaint: pt here for high blood sugar for last 4-5 days now,and not generally feeling, no fever, no n/v. he aslo co pain to right hip and right knee that is normal for him for last several months . pt has hx of kidney transplant Triage Nursing Assessment: pt alert arrived per wc, weak, assist of one to undress and get into bed, resp easy, face mask in place, occ dry cough. Physician History: 77-year-old male with multiple limbs including diabetes mellitus, hypertension, hyperlipidemia, renal transplant 2-1/2-year out presented in the ER with 2 days history of generalized weakness fatigue tiredness and feeling as if he is worn out with lack of energy to do his routine activities. He denies any fever or chills but thinks he has decreased oral intake and possibly dehydrated. Denies any nausea vomiting or diarrhea. No chest pain palpitations or shortness of breath. Patient is not in any distress. Denies any focal numbness or weakness. Denies any difficulty speech. Allergies/Adverse Reactions: Sulfa (Sulfonamide Antibiotics) [Sulfa(Sulfonamide Antibiotics)] Allergy (Unknown, Verified 02/16/23 14:54) ibuprofen Adverse Reaction (Severe, Verified 02/16/23 14:54) kidney transplant latex Adverse Reaction (Intermediate, Verified 02/16/23 14:54) Rash Home Medications: HydrALAzine HCL 25 MG TAB [Apresoline 25 MG TABLET] 25 mg PO TID 08/14/21 [History] PANTOPRAZOLE 40 mg Tablet [Protonix 40MG Tablet] 40 mg PO QAM 08/14/21 [History] Semaglutide [Ozempic] 1 unit SQ WEEKLY 08/14/21 [History] Tamsulosin HCl 0.4 mg [Flomax 0.4 MG] 0.4 mg PO BID 08/14/21 [History] Tolterodine Tartrate [Tolterodine Tartrate ER] 2 mg PO DAILY 08/14/21 [History] calcitrioL [Calcitriol] 1 mg PO DAILY 08/14/21 [History] prednisoLONE [Millipred] 5 mg PO DAILY 08/14/21 [History] Metformin HCl 500 mg [Glucophage 500 MG] 500 mg PO DAILY 10/06/21 [History] Pravastatin Sodium 40 mg PO HS 10/06/21 [History] Insulin Aspart [Insulin Aspart Flexpen] 1 units SQ AC 10/12/21 [History] Magnesium Oxide 400 mg PO TID 10/13/21 [History] Ferrous Sulfate [Iron] 325 mg PO BID 12/15/21 [History] Itraconazole [Sporanox] 100 mg PO BID 12/15/21 [History] carvediloL [Coreg] 12.5 mg PO BID 12/15/21 [History] Allopurinol 100 mg [Zyloprim 100 mg] 100 mg PO DAILY 07/21/22 [History] Apixaban [Eliquis] 5 mg PO BID 07/21/22 [History] Benzonatate 100 mg PO DAILY PRN 07/21/22 [History] Bromocriptine Mesylate [Cycloset] 0.8 mg PO HS 07/21/22 [History] Docusate Sodium 100 mg [Docusate Sodium 100 MG] 100 mg PO BID PRN 07/21/22 [History] Escitalopram Oxalate [Lexapro] 5 mg PO HS 07/21/22 [History] Flonase 50 50 mcg IN DAILY PRN 07/21/22 [History] Furosemide 20 mg [Lasix 20 mg] 20 mg PO DAILY PRN 07/21/22 [History] Insulin Detemir [Levemir] 100 unit SQ DAILY 07/21/22 [History] Losartan Potassium [Cozaar] 50 mg PO HS 07/21/22 [History] Potassium Chloride [Klor-Con M20] 20 meq PO DAILY 07/21/22 [History] Slow Mag 71.5 mg PO BID 07/21/22 [History] Tacrolimus [Envarsus Xr] 0.75 mg PO UD 07/21/22 [History] Hx Tetanus, Diphtheria Vaccination/Date Given: Yes Hx Influenza Vaccination/Date Given: Yes Hx Pneumococcal Vaccination/Date Given: Yes Immunizations Up to Date: Yes Travel Risk - International Travel Have you traveled outside of the country in past 3 weeks: No - Coronavirus Screening Are you exhibiting any of the following symptoms?: No Close contact with a COVID-19 positive Pt in past 14-21 Days: No - Vaccine Status Have you recieved a Covid-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 - Vaccination Dates Date of 2cond Vaccination (if applicable): 2020 - Review of Systems Constitutional: Fatigue, Weakness Eyes: No Symptoms Ears, Nose, & Throat: Nose Pain Respiratory: No Symptoms Cardiac: No Symptoms Abdominal/Gastrointestinal: No Symptoms Genitourinary Symptoms: No Symptoms Musculoskeletal: Arthralgias Skin: No Symptoms Psychological: No Symptoms Hematologic/Lymphatic: No Symptoms Immunological/Allergic: No Symptoms - Past Medical History Pertinent Past Medical History: Yes Neurological History: Other ENT History: No Pertinent History Cardiac History: Arrhythmia Respiratory History: No Pertinent History Endocrine Medical History: Diabetes Type II Musculoskeletal History: Osteoarthritis GI Medical History: No Pertinent History History: Renal Disease, Other Psycho-Social History: No Pertinent History Male Reproductive Disorders: Prostate Cancer, Prostate Problems Other Medical History: HAS HAD SOME SPELLS, POSSIBLE TIA, KIDNEY TRANSPLANT. HE DEVELOPED AFIB FROM DIALYSIS. TORN MENISCUS IN THE R KNEE WITH SURGERY. L ANKLE SURGERY. - Past Surgical History Past Surgical History: Yes Neuro Surgical History: No Pertinent History Cardiac: No Pertinent History Respiratory: No Pertinent History Gastrointestinal: No Pertinent History Genitourinary: Kidney Transplant Musculoskeletal: Orthopedic Surgery Male Surgical History: Prostate Surgery Other Surgical History: lt ankle compuond fx,seed implants to prostate 2006, dialysis port to rt sc and peritoneal port to abd. kidney transplant-right side - Social History Smoking Status: Never smoker Exposure to second hand smoke: No Drug Use: none Patient Lives Alone: No - Nursing Vital Signs Nursing Vital Signs: Initial Vital Signs Temperature 97.9 F 02/16/23 14:53 Pulse Rate 79 02/16/23 14:53 Respiratory Rate 18 02/16/23 14:53 Blood Pressure 131/62 02/16/23 14:53 O2 Sat by Pulse Oximetry 99 02/16/23 14:53 Pain Scale Pain Intensity 0 - Physical Exam General Appearance: no apparent distress, alert Eye Exam: PERRL/EOMI Ears, Nose, Throat Exam: normal ENT inspection Neck Exam: normal inspection, non-tender, supple, full range of motion Respiratory Exam: normal breath sounds, rhonchi Cardiovascular Exam: regular rate/rhythm, normal heart sounds Gastrointestinal/Abdomen Exam: soft, normal bowel sounds, No tenderness Back Exam: normal inspection, normal range of motion Extremity Exam: normal inspection, normal range of motion Neurologic Exam: alert, oriented x 3, cooperative SpO2 Interpretation: normal SpO2: 97 O2 Delivery: Room Air - Course EKG Interpreted by Me: RATE (74), Sinus Rhythm, Right Bundle Branch Block, Q- wave, Non-specific ST Changes Ordered Tests: Medication Summary Discontinued Medications Generic Name Dose Route Start Last Admin Trade Name Justinq PRN Reason Stop Dose Admin Sodium Chloride 500 mls @ 500 mls/hr 02/16/23 15:18 02/16/23 16:45 Sodium Chloride 0.9% 500 Ml IV 02/16/23 16:17 Infused .Q1H ONE Infusion Sodium Chloride Confirm 02/16/23 15:27 Sodium Chloride 0.9% 500 Ml Administered 02/16/23 15:28 Dose 500 mls @ ud IV .STK-MED ONE Ceftriaxone Sodium/Dextrose 2 g in 50 mls @ 100 mls/hr 02/16/23 17:29 02/16/23 21:04 Rocephin 2 Gm-D5w 50ml Bag IV 02/16/23 17:58 Infused STAT STA Infusion Ceftriaxone Sodium/Dextrose Confirm 02/16/23 17:43 Rocephin 2 Gm-D5w 50ml Bag Administered 02/16/23 17:44 Dose 2 g in 50 mls @ ud IV .STK-MED ONE Lab/Rad Data: Laboratory Result Diagrams 02/16/23 13:00 02/16/23 13:00 Laboratory Results 02/16/23 02/16/23 02/16/23 Range/Units 19:50 17:06 16:45 WBC (4.0-10.5) x10^3/uL RBC (4.1-5.6) x10^6/uL Hgb (12.5-18.0) g/dL Hct (42-50) % MCV (78-100) fL MCH (26-32) pg MCHC (32-36) g/dL RDW (11.5-14.0) % Plt Count (150-450) x10^3/uL MPV (7.5-11.0) fL Gran % (36.0-66.0) % Immature Gran % (Auto) (0.00-0.4) % Nucleat RBC Rel Count (0.00-0.1) % Eos # (Auto) (0-0.5) x10^3/uL Immature Gran # (Auto) (0.00-0.03) x10^3u/L Absolute Lymphs (auto) (1.0-4.6) x10^3/uL Absolute Monos (auto) (0.0-1.3) x10^3/uL Absolute Nucleated RBC (0.00-0.01) x10^3u/L Lymphocytes % (24.0-44.0) % Monocytes % (0.0-12.0) % Eosinophils % (0.00-5.0) % Basophils % (0.0-0.4) % Absolute Granulocytes (1.4-6.9) x10^3/uL Basophils # (0-0.4) x10^3/uL Sodium (137-145) mmol/L Potassium (3.5-5.1) mmol/L Chloride (98-107) mmol/L Carbon Dioxide (22-30) mmol/L Anion Gap (5-15) MEQ/L BUN (9-20) mg/dL Creatinine (0.66-1.25) mg/dL Estimated GFR ML/MIN Glucose (74-106) mg/dL POC Glucometer (74 to 106) mg/dL Lactic Acid (0.4-2.0) Calcium (8.4-10.2) mg/dL Magnesium (1.6-2.3) mg/dL Total Bilirubin (0.2-1.3) mg/dL AST (17-59) U/L ALT (0-50) U/L Alkaline Phosphatase (38-126) U/L Troponin I 0.030 (0.000-0.034) ng/mL Serum Total Protein (6.3-8.2) g/dL Albumin (3.5-5.0) g/dL Procalcitonin (0.030-0.080) ng/mL Urine Color Yellow (Yellow) Urine Appearance Cloudy A (Clear) Urine pH 5.5 (4.6-8.0) Ur Specific [place] 1.020 (1.005-1.030) Urine Protein 100 A (Negative) Urine Glucose (UA) 500 A (Negative) mg/dL Urine Ketones Negative (Negative) Urine Blood Trace (Negative) Urine Nitrite Negative (Negative) Urine Bilirubin Negative (Negative) Urine Urobilinogen 1.0 A (0.2) mg/dL Ur Leukocyte Esterase Small A (Negative) U Hyaline Cast (Auto) NONE SEEN (0-2) /LPF Urine Microscopic RBC 3-5 (0-5) /HPF Urine Microscopic WBC 51-100 A (0-5) /HPF Ur Epithelial Cells None Seen (None Seen) /HPF Urine Bacteria Many A (None Seen) /HPF Urine Culture Reflexed YES (NO) Influenza Type A Ag NEGATIVE (NEGATIVE) Influenza Type B Ag NEGATIVE (NEGATIVE) RSV (PCR) NEGATIVE (NEGATIVE) SARS-CoV-2 (PCR) NEGATIVE (NEGATIVE) 02/16/23 02/16/23 02/16/23 Range/Units 15:35 15:32 14:48 WBC (4.0-10.5) x10^3/uL RBC (4.1-5.6) x10^6/uL Hgb (12.5-18.0) g/dL Hct (42-50) % MCV (78-100) fL MCH (26-32) pg MCHC (32-36) g/dL RDW (11.5-14.0) % Plt Count (150-450) x10^3/uL MPV (7.5-11.0) fL Gran % (36.0-66.0) % Immature Gran % (Auto) (0.00-0.4) % Nucleat RBC Rel Count (0.00-0.1) % Eos # (Auto) (0-0.5) x10^3/uL Immature Gran # (Auto) (0.00-0.03) x10^3u/L Absolute Lymphs (auto) (1.0-4.6) x10^3/uL Absolute Monos (auto) (0.0-1.3) x10^3/uL Absolute Nucleated RBC (0.00-0.01) x10^3u/L Lymphocytes % (24.0-44.0) % Monocytes % (0.0-12.0) % Eosinophils % (0.00-5.0) % Basophils % (0.0-0.4) % Absolute Granulocytes (1.4-6.9) x10^3/uL Basophils # (0-0.4) x10^3/uL Sodium (137-145) mmol/L Potassium (3.5-5.1) mmol/L Chloride (98-107) mmol/L Carbon Dioxide (22-30) mmol/L Anion Gap (5-15) MEQ/L BUN (9-20) mg/dL Creatinine (0.66-1.25) mg/dL Estimated GFR ML/MIN Glucose (74-106) mg/dL POC Glucometer 190 H (74 to 106) mg/dL Lactic Acid 2.0 (0.4-2.0) Calcium (8.4-10.2) mg/dL Magnesium (1.6-2.3) mg/dL Total Bilirubin (0.2-1.3) mg/dL AST (17-59) U/L ALT (0-50) U/L Alkaline Phosphatase (38-126) U/L Troponin I (0.000-0.034) ng/mL Serum Total Protein (6.3-8.2) g/dL Albumin (3.5-5.0) g/dL Procalcitonin 1.100 H (0.030-0.080) ng/mL Urine Color (Yellow) Urine Appearance (Clear) Urine pH (4.6-8.0) Ur Specific [place] (1.005-1.030) Urine Protein (Negative) Urine Glucose (UA) (Negative) mg/dL Urine Ketones (Negative) Urine Blood (Negative) Urine Nitrite (Negative) Urine Bilirubin (Negative) Urine Urobilinogen (0.2) mg/dL Ur Leukocyte Esterase (Negative) U Hyaline Cast (Auto) (0-2) /LPF Urine Microscopic RBC (0-5) /HPF Urine Microscopic WBC (0-5) /HPF Ur Epithelial Cells (None Seen) /HPF Urine Bacteria (None Seen) /HPF Urine Culture Reflexed (NO) Influenza Type A Ag (NEGATIVE) Influenza Type B Ag (NEGATIVE) RSV (PCR) (NEGATIVE) SARS-CoV-2 (PCR) (NEGATIVE) 02/16/23 02/16/23 02/16/23 Range/Units 13:00 13:00 13:00 WBC 9.5 (4.0-10.5) x10^3/uL RBC 4.69 (4.1-5.6) x10^6/uL Hgb 14.2 (12.5-18.0) g/dL Hct 43.3 (42-50) % MCV 92.3 (78-100) fL MCH 30.3 (26-32) pg MCHC 32.8 (32-36) g/dL RDW 13.9 (11.5-14.0) % Plt Count 116 L (150-450) x10^3/uL MPV 11.4 H (7.5-11.0) fL Gran % 79.0 H (36.0-66.0) % Immature Gran % (Auto) 3.0 H (0.00-0.4) % Nucleat RBC Rel Count 0.0 (0.00-0.1) % Eos # (Auto) 0.01 (0-0.5) x10^3/uL Immature Gran # (Auto) 0.29 H (0.00-0.03) x10^3u/L Absolute Lymphs (auto) 0.68 L (1.0-4.6) x10^3/uL Absolute Monos (auto) 1.01 (0.0-1.3) x10^3/uL Absolute Nucleated RBC 0.00 (0.00-0.01) x10^3u/L Lymphocytes % 7.1 L (24.0-44.0) % Monocytes % 10.6 (0.0-12.0) % Eosinophils % 0.1 (0.00-5.0) % Basophils % 0.2 (0.0-0.4) % Absolute Granulocytes 7.53 H (1.4-6.9) x10^3/uL Basophils # 0.02 (0-0.4) x10^3/uL Sodium 134 L (137-145) mmol/L Potassium 4.7 (3.5-5.1) mmol/L Chloride 105 (98-107) mmol/L Carbon Dioxide 21 L (22-30) mmol/L Anion Gap 12.2 (5-15) MEQ/L BUN 37 H (9-20) mg/dL Creatinine 1.03 (0.66-1.25) mg/dL Estimated GFR 74.8 ML/MIN Glucose 196 H (74-106) mg/dL POC Glucometer (74 to 106) mg/dL Lactic Acid (0.4-2.0) Calcium 9.4 (8.4-10.2) mg/dL Magnesium 2.3 (1.6-2.3) mg/dL Total Bilirubin 1.40 H (0.2-1.3) mg/dL AST 20 (17-59) U/L ALT 68 H (0-50) U/L Alkaline Phosphatase 59 (38-126) U/L Troponin I 0.038 H* (0.000-0.034) ng/mL Serum Total Protein 6.8 (6.3-8.2) g/dL Albumin 3.9 (3.5-5.0) g/dL Procalcitonin (0.030-0.080) ng/mL Urine Color (Yellow) Urine Appearance (Clear) Urine pH (4.6-8.0) Ur Specific [place] (1.005-1.030) Urine Protein (Negative) Urine Glucose (UA) (Negative) mg/dL Urine Ketones (Negative) Urine Blood (Negative) Urine Nitrite (Negative) Urine Bilirubin (Negative) Urine Urobilinogen (0.2) mg/dL Ur Leukocyte Esterase (Negative) U Hyaline Cast (Auto) (0-2) /LPF Urine Microscopic RBC (0-5) /HPF Urine Microscopic WBC (0-5) /HPF Ur Epithelial Cells (None Seen) /HPF Urine Bacteria (None Seen) /HPF Urine Culture Reflexed (NO) Influenza Type A Ag (NEGATIVE) Influenza Type B Ag (NEGATIVE) RSV (PCR) (NEGATIVE) SARS-CoV-2 (PCR) (NEGATIVE) - Progress Progress: improved, re-examined Progress Note: 02/16/23 20:02 77-year-old with history of renal transplant is evaluated for generalized weakness fatigue tiredness without any fever or chills or difficulty breathing. He is given gentle hydration. On reevaluation he is feeling much better. Workup showed normal white count, stable renal functions. Lactate is 2.7 and recheck is 1.4. Patient does have UTI and given a dose of Rocephin. I have obt ained chest x-ray which is negative. Abdominal exam is soft nontender with good bowel sounds. Patient initial troponins are mildly elevated 0.038 which is rechecked and it is improving. Patient does not have any chest pain or difficulty breathing. It could be related to his medications from transplant causing chronic elevation and troponins. I have shared the results of workup with [place] transplant team who has discussed with Dr. Stone, recommended discharge on antibiotics and outpatient follow-up will be arranged tomorrow. Patient will receive a call from transplant team. I have discussed the results of workup with patient and family, transplant team, recommendations and he agre ed with going home. Discussed with DrKatiana: Other ( transplant team at [facility]) Counseled pt/family regarding: lab results, diagnosis, need for follow-up, rad results Medical Desision Making - Independent Historian Additional History obtained from: Family, Relative/friend - Discussion of managment Care discussed with:: specialist (Renal transplant team Dr. Stone) Reviewed:: Test results Agreed on:: Treatment plan Will see patient: In office - Diagnostic Testing Diagnostic test were ordered, analyzed, and reviewed by me: Yes Radiological Interpretation: Reviewed by me - Risk of complications The pt has a mod risk of morbidity or mortality based on: Need for prescription drug management - Departure Departure Disposition: Home Clinical Impression: Acute UTI (urinary tract infection), Generalized weakness Condition: Stable Critical Care Time: No Referrals: TERRY NAVARRETE DO [Primary Care Provider] - Follow up with PCP 1 day Instructions: Urinary Tract Infection, Adult (DC), High Blood Sugar, Adult (DC) Additional Instructions: Drink plenty of fluids to keep yourself well-hydrated. Follow-up with your primary care and transplant team for reevaluation tomorrow. Return to ER if having any worsening of condition like generalized weakness or if develop fever chills, difficulty urination, vomiting, difficulty breathing etc. Prescriptions: Cefdinir 300 mg PO BID 7 Days #14 cap
[2023-02-16 21:25] VITALS: BP 130/85; PULSE 68
== END 2023-02-16 21:15 | disposition home or self-care (01) ==
LOC: ED 14:16
DX: N39.0 Urinary tract infection, site not specified (principal); R53.1 Weakness; R53.83 Other fatigue; E11.9 Type 2 diabetes mellitus without complications; I10 Essential (primary) hypertension; E78.5 Hyperlipidemia, unspecified; Z79.85 Long-term (current) use of injectable non-insulin antidiabetic drugs; Z79.84 Long term (current) use of oral hypoglycemic drugs; Z79.4 Long term (current) use of insulin; Z79.01 Long term (current) use of anticoagulants; Z79.899 Other long term (current) drug therapy
CPT/HCPCS: 0241U; 36000; 36415; 71045; 80053; 81001; 82947; 83605; 83735; 84145; 84484; 85025; 87040; 87077; 87086; 87186; 93005; 96365; 99284; J0696

== ENCOUNTER 2023-11-03 10:28 | Emergency (ER) | payer MEDICARE, OTHER ==
[2023-11-03 11:08] VITALS: TEMP 97.8
[2023-11-03] MEDS ORDERED: Sodium Chloride 0.9% 1000 ML 1,000 ML ONE (11:19)
[2023-11-03] MEDS: Sodium Chloride 0.9% 1000 ML 1,000 ML IV STA (11:19)
[2023-11-03 11:29] LABS: Absolute Neutrophil Ct (ANC) 3.71 x10^3/uL (1.78-5.38); BASOPHIL % 0.2 % (0.2-1.2); Basophil (Absolute #) 0.01 x10^3/uL (0.01-0.08); Eosinophil % 0.5 % (0.8-7.0); Eosinophil (Absolute #) 0.03 x10^3/uL (0.04-0.54); Hematocrit 39.3 % (40.1-51.0); Hemoglobin 12.2 g/dL (13.7-17.5); IMMATURE GRAN % 1.7 % (0.001-0.429); Lymphocyte (Absolute #) 1.66 x10^3/uL (1.32-3.57); Lymphocytes % 27.5 % (21.8-53.1); Mean Cell Volume 90.3 fL (79.0-92.2); Mean Platelet Volume 11.5 fL (9.4-12.4); Monocyte (Absolute #) 0.53 x10^3/uL (0.30-0.82); Monocytes % 8.8 % (5.3-12.2); Neutrophil % 61.3 % (34.0-67.9); Platelet Count 128 x10^3/uL (163-337); Red Blood Count 4.35 x10^6/uL (4.63-6.08); Red Cell Distribution Width 16.8 % (11.6-14.4)
--- NOTE | 2023-11-03 11:31 | XRAY ---
Indication: Syncope. Comparison: February 16, 2023 Portable apical lordotic again demonstrates a few bilateral tiny calcified granulomas and focal eventration right hemidiaphragm. No focal infiltrate, consolidation, or large effusion. Heart not enlarged again with tortuous descending aorta. Bony thorax intact again with osteopenia and mild degenerative changes. Impression: Continued nonacute chest with chronic features.
[2023-11-03 11:48] LABS: ALBUMIN 3.5 g/dL (3.5-5.0); ANION GAP 13.3 MEQ/L (5-15); BILIRUBIN,TOTAL 0.5 mg/dL (0.2-1.3); Calcium 9.4 mg/dL (8.4-10.2); Creatinine 1 0.98 mg/dL (0.66-1.25); EST GLOMERULAR FILTRATION RATE 78.9 ML/MIN; MAGNESIUM 1.7 mg/dL (1.6-2.3); Potassium 4.3 mmol/L (3.5-5.1)
[2023-11-03 12:40] LABS: INR 1.08 (0.8-3.0); PROTIME 11.7 SECONDS (9.4-12.5)
--- NOTE | 2023-11-03 12:52 | ERPHSYRPT ---
- History of Present Illness Time Seen by Provider: 11/03/23 10:30 Source: patient Exam Limitations: no limitations Patient Subjective Stated Complaint: Patient with intermittent episodes of dizziness that began on 10/30/23. Patient and indicate patient had one "episode" on Monday and then a second one this am while on the phone with Dr. Bravo's office. Triage Nursing Assessment: Patient ambulated back to ER with a cane; refused w/ c. No current dizziness. Patient is alert and oriented. No SOB. Skin tone normal. Bradycardia noted. Physician History: 78-year-old male presents to the ED accompanied by for concerns of 2 episodes of syncope that happened this week. stated that the first 1 happ ened on Monday and then another 1 happened yesterday. Patient denies any nausea vomiting or diarrhea. He denies any headache, shortness of breath or fever. His denies any previous history of this. Witnessed: by family Loss of Consciousness: brief (seconds), other (Reports her syncope episodes last 10 to 20 seconds patient has not had a fall.) Allergies/Adverse Reactions: Sulfa (Sulfonamide Antibiotics) [Sulfa(Sulfonamide Antibiotics)] Allergy (Unknown, Verified 11/03/23 10:49) ibuprofen Adverse Reaction (Severe, Verified 11/03/23 10:49) kidney transplant latex Adverse Reaction (Intermediate, Verified 11/03/23 10:49) Rash Home Medications: HydrALAzine HCL 25 MG TAB [Apresoline 25 MG TABLET] 25 mg PO TID 08/14/21 [History] PANTOPRAZOLE 40 mg Tablet [Protonix 40MG Tablet] 40 mg PO QAM 08/14/21 [History] Semaglutide [Ozempic] 1 unit SQ WEEKLY 08/14/21 [History] Tamsulosin HCl 0.4 mg [Flomax 0.4 MG] 0.4 mg PO BID 08/14/21 [History] Metformin HCl 500 mg [Glucophage 500 MG] 500 mg PO DAILY 10/06/21 [History] Pravastatin Sodium 40 mg PO HS 10/06/21 [History] Magnesium Oxide 400 mg PO BID 10/13/21 [History] Itraconazole [Sporanox] 100 mg PO DAILY 12/15/21 [History] carvediloL [Coreg] 12.5 mg PO BID 12/15/21 [History] Allopurinol 100 mg [Zyloprim 100 mg] 100 mg PO DAILY 07/21/22 [History] Apixaban [Eliquis] 5 mg PO BID 07/21/22 [History] Benzonatate 100 mg PO DAILY PRN 07/21/22 [History] Docusate Sodium 100 mg [Docusate Sodium 100 MG] 100 mg PO BID PRN 07/21/22 [History] Flonase 50 50 mcg IN DAILY PRN 07/21/22 [History] Insulin Detemir [Levemir] 20 unit SQ DAILY 07/21/22 [History] Losartan Potassium [Cozaar] 50 mg PO HS 07/21/22 [History] Potassium Chloride [Klor-Con M20] 20 meq PO DAILY 07/21/22 [History] Slow Mag 71.5 mg PO BID 07/21/22 [History] Tacrolimus [Envarsus Xr] 0.75 mg PO UD 07/21/22 [History] Ferrous Sulfate 325 mg [Feosol 325 mg] 325 mg PO DAILY 06/06/23 [History] Insulin Lispro [Humalog Kwikpen U-100] 6 - 10 unit SQ UD 06/06/23 [History] Multivit-Minerals/Folic Acid [Centrum Adult 50 Plus Gummy] 2 gel PO DAILY 06/06/23 [History] Prednisone 5 mg [Deltasone 5 mg] 5 mg PO DAILY 06/06/23 [History] Turmeric Root/Kiki Root Ext [Turmeric Curcumin-Kiki Gummy] 1 each PO DAILY 06/06/23 [History] Vitamin D3/Vitamin K2 (Mk4) [K2 Plus D3 Tablet] 45 mcg PO DAILY 06/06/23 [History] Bromocriptine Mesylate [Cycloset] 0.8 mg PO HS 11/03/23 [History] Tolterodine Tartrate 2 mg [Detrol 2 MG] 2 mg PO DAILY 11/03/23 [History] Hx Tetanus, Diphtheria Vaccination/Date Given: Yes Hx Influenza Vaccination/Date Given: Yes Hx Pneumococcal Vaccination/Date Given: Yes Immunizations Up to Date: Yes Travel Risk - International Travel Have you traveled outside of the country in past 3 weeks: No - Emerging Infectious Disease Are you exhibiting symptoms associated with any current EIDs: No - Past Medical History Pertinent Past Medical History: Yes Neurological History: No Pertinent History ENT History: Cataracts Cardiac History: Arrhythmia, Hypertension, Other Respiratory History: Pneumonia, Other Endocrine Medical History: Diabetes Type II, Other Musculoskeletal History: Fractures, Osteoarthritis GI Medical History: GERD, Hepatitis History: Renal Disease, Other Psycho-Social History: No Pertinent History Male Reproductive Disorders: Prostate Cancer, Prostate Problems Other Medical History: [place], [employer]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, HEP C OBTAINED FROM KIDNEY BUT TREATED, FRACTURE RIGHT 1st METATARSAL, gout, hystoplasmosis - Past Surgical History Past Surgical History: Yes Neuro Surgical History: No Pertinent History Cardiac: No Pertinent History Respiratory: No Pertinent History Gastrointestinal: No Pertinent History Genitourinary: Kidney Transplant Musculoskeletal: Orthopedic Surgery Male Surgical History: Prostate Surgery Other Surgical History: lt ankle compound fx,seed implants to prostate 2006, dialysis port to rt sc and peritoneal port to abd and removed, kidney transplant-right side - Social History Smoking Status: Never smoker Exposure to second hand smoke: No Drug Use: none Patient Lives Alone: No - Social Determinants of Health Will the patient participate in the screening: Declined to provide - Review of Systems Constitutional: No Symptoms, Weakness Eyes: No Symptoms Ears, Nose, & Throat: No Symptoms Respiratory: No Symptoms Cardiac: No Symptoms Abdominal/Gastrointestinal: No Symptoms Genitourinary Symptoms: No Symptoms Musculoskeletal: No Symptoms Skin: No Symptoms Neurological: No Symptoms, Other (Syncope) Psychological: No Symptoms Endocrine: No Symptoms Physical Exam - Nursing Vital Signs Nursing Vital Signs: Initial Vital Signs Temperature 97.8 F 11/03/23 10:45 Pulse Rate 64 11/03/23 10:45 Respiratory Rate 15 11/03/23 10:45 Blood Pressure 165/65 11/03/23 10:45 O2 Sat by Pulse Oximetry 99 11/03/23 10:45 Pain Scale Pain Intensity 0 - Charlotte Coma Scale Best Eye Response (Everardo): (4) open spontaneously Best Verbal Response (Everardo): (5) oriented Best Motor Response (Everardo): (6) obeys commands Charlotte Total: 15 - Physical Exam General Appearance: no apparent distress, alert Eye Exam: bilateral eye: PERRL, EOMI Ears, Nose, Throat Exam: normal ENT inspection Neck Exam: normal inspection Respiratory: normal breath sounds, lungs clear Cardiovascular: regular rate/rhythm Gastrointestinal: soft, normal bowel sounds Back Exam: normal inspection Extremity Exam: normal inspection, normal range of motion Peripheral Pulses: dorsalis-pedis (R): 2+, dorsalis-pedis (L): 2+ Mental Status: alert, 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 Exam: normal hearing, normal speech, PERRL Coordination/Gait: normal finger to nose, normal gait Motor/Sensory: no motor deficit, no sensory deficit DTR: knee (L): 2+, ankle (R): 2+ Skin Exam: normal color, warm, dry SpO2 Interpretation: normal SpO2: 98 O2 Delivery: Room Air - Course Nursing assessment & vital signs reviewed: Yes EKG Interpreted by Me: RATE, Sinus Marshal, Other (12 lead EKG showed sinus bradycardia at a rate of 36 bpm, right bundle branch block, prolonged LA i ntervals 260, QTc 499) Ordered Tests: Active Orders 24 hr Category Date Time Status Heel Shaver STAT Care 11/03/23 10:59 Active EKG-ER Only STAT Care 11/03/23 10:57 Active EKG-ER Only STAT Care 11/03/23 15:50 Ordered IV Insertion STAT Care 11/03/23 10:57 Active Orthostatic Vital Signs STAT Care 11/03/23 10:57 Active CHEST 1 VIEW (PORTABLE) Stat Exams 11/03/23 10:58 Completed HEAD WITHOUT CONTRAST [CT] Stat Exams 11/03/23 11:22 Completed CBC W DIFF Stat Lab 11/03/23 11:25 Completed CMP Stat Lab 11/03/23 11:20 Completed MAGNESIUM Stat Lab 11/03/23 11:20 Completed PROTIME WITH INR Stat Lab 11/03/23 12:16 Completed TROPONIN Q4H Lab 11/03/23 11:20 Completed TROPONIN Q4H Lab 11/03/23 14:49 Received TROPONIN Q4H Lab 11/03/23 19:15 Ordered TROPONIN Q4H Lab 11/03/23 23:15 Ordered UA W/RFX UR CULTURE Stat Lab 11/03/23 13:11 Completed Medication Summary Discontinued Medications Generic Name Dose Route Start Last Admin Trade Name Freq PRN Reason Stop Dose Admin Sodium Chloride 1,000 mls @ 999 mls/hr 11/03/23 10:57 11/03/23 12:20 Sodium Chloride 0.9% 1000 Ml IV 11/03/23 11:57 Infused .Q1H1M STA Infusion Sodium Chloride Confirm 11/03/23 11:19 Sodium Chloride 0.9% 1000 Ml Administered 11/03/23 11:20 Dose 1,000 mls @ .ROUTE .[facility] Lab/Rad Data: Laboratory Result Diagrams 11/03/23 11:25 11/03/23 11:20 Laboratory Results 11/03/23 11/03/23 11/03/23 Range/Units 14:49 13:11 12:16 WBC (4.23-9.07) x10^3/uL RBC (4.63-6.08) x10^6/uL Hgb (13.7-17.5) g/dL Hct (40.1-51.0) % MCV (79.0-92.2) fL MCH (25.7-32.2) pg MCHC (32.3-36.5) g/dL RDW (11.6-14.4) % Plt Count (163-337) x10^3/uL MPV (9.4-12.4) fL Gran % (34.0-67.9) % Immature Gran % (Auto) (0.001-0.429) % Nucleat RBC Rel Count (0.00-0.2) % Eos # (Auto) (0.04-0.54) x10^3/uL Immature Gran # (Auto) (0.001-0.031) x10^3u/L Absolute Lymphs (auto) (1.32-3.57) x10^3/uL Absolute Monos (auto) (0.30-0.82) x10^3/uL Absolute Nucleated RBC (0.00-0.012) x10^3u/L Lymphocytes % (21.8-53.1) % Monocytes % (5.3-12.2) % Eosinophils % (0.8-7.0) % Basophils % (0.2-1.2) % Absolute Granulocytes (1.78-5.38) x10^3/uL Basophils # (0.01-0.08) x10^3/uL PT 11.7 (9.4-12.5) SECONDS INR 1.08 (0.8-3.0) Sodium (135-145) mmol/L Potassium (3.5-5.1) mmol/L Chloride (98-107) mmol/L Carbon Dioxide (22-30) mmol/L Anion Gap (5-15) MEQ/L BUN (9-20) mg/dL Creatinine (0.66-1.25) mg/dL Estimated GFR ML/MIN Glucose (74-106) mg/dL Calcium (8.4-10.2) mg/dL Magnesium (1.6-2.3) mg/dL Total Bilirubin (0.2-1.3) mg/dL AST (17-59) U/L ALT (0-50) U/L Alkaline Phosphatase (38-126) U/L Troponin I 0.072 H* (0.000-0.033) ng/mL Serum Total Protein (6.3-8.2) g/dL Albumin (3.5-5.0) g/dL Urine Color Yellow (Yellow) Urine Appearance Clear (Clear) Urine pH 5.5 (4.6-8.0) Ur Specific Terrell 1.025 (1.005-1.030) Urine Protein 30 (Negative) Urine Glucose (UA) Negative (Negative) mg/dL Urine Ketones Trace A (Negative) Urine Blood Negative (Negative) Urine Nitrite Negative (Negative) Urine Bilirubin Negative (Negative) Urine Urobilinogen 1.0 A (0.2) mg/dL Ur Leukocyte Esterase Negative (Negative) U Hyaline Cast (Auto) NONE SEEN (0-2) /LPF Urine Microscopic RBC 0-2 (0-5) /HPF Urine Microscopic WBC 3-5 (0-5) /HPF Ur Epithelial Cells None Seen (None Seen) /HPF Urine Bacteria None Seen (None Seen) /HPF Urine Culture Reflexed NO (NO) 11/03/23 11/03/23 11/03/23 Range/Units 11:25 11:20 11:20 WBC 6.0 (4.23-9.07) x10^3/uL RBC 4.35 L (4.63-6.08) x10^6/uL Hgb 12.2 L (13.7-17.5) g/dL Hct 39.3 L (40.1-51.0) % MCV 90.3 (79.0-92.2) fL MCH 28.0 (25.7-32.2) pg MCHC 31.0 L (32.3-36.5) g/dL RDW 16.8 H (11.6-14.4) % Plt Count 128 L (163-337) x10^3/uL MPV 11.5 (9.4-12.4) fL Gran % 61.3 (34.0-67.9) % Immature Gran % (Auto) 1.7 H (0.001-0.429) % Nucleat RBC Rel Count 0.0 (0.00-0.2) % Eos # (Auto) 0.03 L (0.04-0.54) x10^3/uL Immature Gran # (Auto) 0.10 H (0.001-0.031) x10^3u/L Absolute Lymphs (auto) 1.66 (1.32-3.57) x10^3/uL Absolute Monos (auto) 0.53 (0.30-0.82) x10^3/uL Absolute Nucleated RBC 0.00 (0.00-0.012) x10^3u/L Lymphocytes % 27.5 (21.8-53.1) % Monocytes % 8.8 (5.3-12.2) % Eosinophils % 0.5 L (0.8-7.0) % Basophils % 0.2 (0.2-1.2) % Absolute Granulocytes 3.71 (1.78-5.38) x10^3/uL Basophils # 0.01 (0.01-0.08) x10^3/uL PT (9.4-12.5) SECONDS INR (0.8-3.0) Sodium 141 (135-145) mmol/L Potassium 4.3 (3.5-5.1) mmol/L Chloride 112 H (98-107) mmol/L Carbon Dioxide 20 L (22-30) mmol/L Anion Gap 13.3 (5-15) MEQ/L BUN 33 H (9-20) mg/dL Creatinine 0.98 (0.66-1.25) mg/dL Estimated GFR 78.9 ML/MIN Glucose 204 H (74-106) mg/dL Calcium 9.4 (8.4-10.2) mg/dL Magnesium 1.7 (1.6-2.3) mg/dL Total Bilirubin 0.50 (0.2-1.3) mg/dL AST 52 (17-59) U/L ALT 85 H (0-50) U/L Alkaline Phosphatase 68 (38-126) U/L Troponin I 0.026 (0.000-0.033) ng/mL Serum Total Protein 6.0 L (6.3-8.2) g/dL Albumin 3.5 (3.5-5.0) g/dL Urine Color (Yellow) Urine Appearance (Clear) Urine pH (4.6-8.0) Ur Specific Terrell (1.005-1.030) Urine Protein (Negative) Urine Glucose (UA) (Negative) mg/dL Urine Ketones (Negative) Urine Blood (Negative) Urine Nitrite (Negative) Urine Bilirubin (Negative) Urine Urobilinogen (0.2) mg/dL Ur Leukocyte Esterase (Negative) U Hyaline Cast (Auto) (0-2) /LPF Urine Microscopic RBC (0-5) /HPF Urine Microscopic WBC (0-5) /HPF Ur Epithelial Cells (None Seen) /HPF Urine Bacteria (None Seen) /HPF Urine Culture Reflexed (NO) - Progress Progress: improved Progress Note: 11/03/23 15:44 Patient seen and evaluated on presentation. Nurses note reviewed. Past medical record reviewed. Differential diagnosis includes but not limited to syncope due to arrhythmias VS syncope due to electrolyte abnormality VS syncope due to brain tumor VS oral neurologic function. CBC, CMP, troponin obtained. UA obtained. Twelve-lead EKG obtained. Chest x-ray obtained. Patient was found to be in bradycardia in the 30s and 40s with prolonged LA interval in the ED. Due to the symptomatic bradycardia patient will be transferred to a facility with conventional cardiology for further management. Discussed with hospitalist Dr. Pang at [facility] and he accepted patient for transfer. Patient repeat troponin was found to be elevated. Repeat EKG obtained. Discussed lab and imaging findings with patient. Discussed plan with patient. Patient agrees with plan. Patient transferred in stable condition to [facility]. 11/03/23 15:[address] Other (Dr Pang) Will see patient in: other Counseled pt/family regarding: lab results, diagnosis, need for follow-up Medical Desision Making - Independent Historian Additional History obtained from: Spouse - External Record(s) Reviewed Records reviewed as a part of evaluation & management: Inpatient - Discussion of managment Care discussed with:: hospitalist (Dr Pang at [facility] for transfer) Reviewed:: Test results Agreed on:: Treatment plan, need for follow-up, decision to admit Will see patient: in ED - Diagnostic Testing Diagnostic test were ordered, analyzed, and reviewed by me: Yes Radiological Interpretation: Interpreted by me, Reviewed by me, Teleradiologist Report - Risk of complications The pt has a mod risk of morbidity or mortality based on: Need for minor surgical intervention in patient with know risk factors The pt has a high risk of morbidity or mortality based on: Drug therapy requiring intensive monitoring for toxicity, Decision regarding hospitilization or escalation of hosp level of care - Departure Departure Disposition: Transfer Clinical Impression: Syncope, Bradycardia, Hyperglycemia, Anemia, Elevated troponin Condition: Stable Critical Care Time: Yes Critical Care Time(excluding separately billable procedures): Critical 30-74 mins Referrals: TERRY NAVARRETE DO [Primary Care Provider] - Follow up/PCP as directed
--- NOTE | 2023-11-03 12:57 | XRAY ---
Indication: Dizziness and syncope. Multiple contiguous axial images obtained through the head without contrast. Comparison: February 14, 2022 Again age-appropriate global atrophy, mild periventricular degenerative micro-ischemia bilaterally, and remote lacunar infarct right caudate. No acute intracranial hemorrhage, abnormal extra-axial fluid collection, or mass effect. Fourth ventricle is midline without hydrocephalus. Bony calvarium intact. Visualized paranasal sinuses and mastoid air cells are clear. 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
[2023-11-03 13:26] LABS: Appearance Clear (Clear); Bacteria None Seen /HPF (None Seen); Bilirubin Negative (Negative); Blood Negative (Negative); Epithelial Cells None Seen /HPF (None Seen); Glucose, Urine Negative (Negative); Hyaline Casts NONE SEEN /LPF (0-2); Ketones Trace (Negative); Leukocyte Esterase Negative (Negative); Nitrite Negative (Negative); Ph 5.5 (4.6-8.0); Protein,Urine Dip 30 (Negative); RBC 0-2 /HPF (0-5); Specific Gravity 1.025 (1.005-1.030)
[2023-11-03] MEDS ORDERED: APRESOLINE 20 MG/ML INJ ONE (18:04)
[2023-11-03] MEDS: APRESOLINE 20 MG/ML INJ IV ONE (18:05)
[2023-11-03 20:21] VITALS: BP 157/62; PULSE 37; RESP 16; O2SAT 95
== END 2023-11-03 21:43 | disposition short-term general hospital (02) ==
LOC: ED 10:28
DX: R55 Syncope and collapse (principal); R00.1 Bradycardia, unspecified; E11.65 Type 2 diabetes mellitus with hyperglycemia; D64.9 Anemia, unspecified; R77.8 Other specified abnormalities of plasma proteins; I10 Essential (primary) hypertension; Z79.85 Long-term (current) use of injectable non-insulin antidiabetic drugs; Z79.84 Long term (current) use of oral hypoglycemic drugs; Z79.01 Long term (current) use of anticoagulants; Z79.4 Long term (current) use of insulin; Z79.52 Long term (current) use of systemic steroids; Z79.899 Other long term (current) drug therapy
CPT/HCPCS: 36000; 36415; 70450; 71045; 80053; 81001; 83735; 84484; 85025; 85610; 93005; 93041; 96360; 96374; 99285; 99291; J0360

== ENCOUNTER 2024-02-16 03:07 | Inpatient (IN) | payer MEDICARE, OTHER ==
[2024-02-16] MEDS ORDERED: Magnesium 1 Gm / 100 Ml D5W*** 100 ML IV ONE (03:59)
[2024-02-16] MEDS ORDERED: Zofran 4 MG/2 ML VIAL ONE (04:05)
[2024-02-16] MEDS ORDERED: Sodium Chloride 0.9% 500 ML 500 ML IV ONE (04:05)
[2024-02-16] MEDS: Zofran 4 MG/2 ML VIAL IV ONE (04:06)
[2024-02-16] MEDS: Magnesium 1 Gm / 100 Ml D5W*** 100 ML IV ONE (04:19)
[2024-02-16] MEDS: Sodium Chloride 0.9% 500 ML 500 ML IV ONE (04:20)
--- NOTE | 2024-02-16 04:31 | ERPHSYRPT ---
- History of Present Illness Time Seen by Provider: 02/16/24 04:05 Historian: patient Exam Limitations: no limitations Patient Subjective Stated Complaint: pt states he has beenhaving vomiting and diarrhea for last 2 days. ems states that said he was having some confusion at home. Triage Nursing Assessment: pt awake and alert, answers most questions approp. pt arrive per ambulance an transfers to [facility] with assist of 3. skin hot and dr y. heart rate 92 sins rhythm with occasional paced beat. abd soft and nontender with bowel souds present. Physician History: 78 years old male with history of atrial fibrillation with a pacemaker placement, hypertension, renal transplant, prostate cancer presented to the ER with sudden onset nausea vomiting with some abdominal discomfort around midnight. Patient has multiple episodes of nonprojectile, nonbilious vomiting without hematemesis. Feels weak fatigued tired and dehydrated. Patient had similar symptoms yesterday. Patient also saw Dr. Albert yesterday afternoon, was diagnosed with UTI and had some instrumentation done for his prostatic beads. No fever or chills reported. Allergies/Adverse Reactions: Sulfa (Sulfonamide Antibiotics) [Sulfa(Sulfonamide Antibiotics)] Allergy (Unknown, Verified 02/16/24 03:41) ibuprofen Adverse Reaction (Severe, Verified 02/16/24 03:41) kidney transplant latex Adverse Reaction (Intermediate, Verified 02/16/24 03:41) Rash Home Medications: HydrALAzine HCL 25 MG TAB [Apresoline 25 MG TABLET] 25 mg PO TID 08/14/21 [History] PANTOPRAZOLE 40 mg Tablet [Protonix 40MG Tablet] 40 mg PO QAM 08/14/21 [History] Semaglutide [Ozempic] 1 unit SQ WEEKLY 08/14/21 [History] Tamsulosin HCl 0.4 mg [Flomax 0.4 MG] 0.4 mg PO BID 08/14/21 [History] Metformin HCl 500 mg [Glucophage 500 MG] 500 mg PO BID 10/06/21 [History] Pravastatin Sodium 40 mg PO HS 10/06/21 [History] Magnesium Oxide 400 mg PO BID 10/13/21 [History] Itraconazole [Sporanox] 100 mg PO DAILY 12/15/21 [History] carvediloL [Coreg] 6.25 mg PO BID 12/15/21 [History] Allopurinol 100 mg [Zyloprim 100 mg] 100 mg PO DAILY 07/21/22 [History] Apixaban [Eliquis] 5 mg PO BID 07/21/22 [History] Benzonatate 100 mg PO DAILY PRN 07/21/22 [History] Docusate Sodium 100 mg [Docusate Sodium 100 MG] 100 mg PO BID PRN 07/21/22 [History] Flonase 50 50 mcg IN DAILY PRN 07/21/22 [History] Insulin Detemir [Levemir] 20 unit SQ DAILY 07/21/22 [History] Losartan Potassium [Cozaar] 50 mg PO HS 07/21/22 [History] Potassium Chloride [Klor-Con M20] 20 meq PO DAILY 07/21/22 [History] Tacrolimus [Envarsus Xr] 0.75 mg PO DAILY 07/21/22 [History] Ferrous Sulfate 325 mg [Feosol 325 mg] 325 mg PO DAILY 06/06/23 [History] Insulin Lispro [Humalog Kwikpen U-100] 6 - 10 unit SQ UD 06/06/23 [History] Multivit-Minerals/Folic Acid [Centrum Adult 50 Plus Gummy] 2 gel PO DAILY 06/06/23 [History] Prednisone 5 mg [Deltasone 5 mg] 5 mg PO DAILY 06/06/23 [History] Turmeric Root/Kiki Root Ext [Turmeric Curcumin-Kiki Gummy] 1 each PO DAILY 06/06/23 [History] Vitamin D3/Vitamin K2 (Mk4) [K2 Plus D3 Tablet] 45 mcg PO DAILY 06/06/23 [History] Bromocriptine Mesylate [Cycloset] 0.8 mg PO HS 11/03/23 [History] Tolterodine Tartrate 2 mg [Detrol 2 MG] 2 mg PO DAILY 11/03/23 [History] Magnesium Chloride [Slow-Mag] 71.5 mg PO DAILY 02/16/24 [History] Hx Tetanus, Diphtheria Vaccination/Date Given: Yes Hx Influenza Vaccination/Date Given: Yes Hx Pneumococcal Vaccination/Date Given: Yes Immunizations Up to Date: Yes Travel Risk - International Travel Have you traveled outside of the country in past 3 weeks: No - Emerging Infectious Disease Are you exhibiting symptoms associated with any current EIDs: Yes Symptoms: Diarrhea, Fever, Vomitting - Review of Systems Constitutional: Fatigue, Weakness Eyes: No Symptoms Ears, Nose, & Throat: No Symptoms Respiratory: No Symptoms Cardiac: No Symptoms Abdominal/Gastrointestinal: Abdominal Pain, Nausea, Vomiting Genitourinary Symptoms: Dysuria Musculoskeletal: Arthralgias Skin: No Symptoms Neurological: No Symptoms Hematologic/Lymphatic: No Symptoms Immunological/Allergic: Other - Past Medical History Pertinent Past Medical History: Yes Neurological History: No Pertinent History ENT History: Cataracts Cardiac History: Arrhythmia, Hypertension, Other Respiratory History: Pneumonia, Other Endocrine Medical History: Diabetes Type II, Other Musculoskeletal History: Fractures, Osteoarthritis GI Medical History: GERD, Hepatitis History: Renal Disease, Other Psycho-Social History: No Pertinent History Male Reproductive Disorders: Prostate Cancer, Prostate Problems Other Medical History: GUILLE A-Fib, 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, HEP C OBTAINED FROM KIDNEY BUT TREATED, FRACTURE RIGHT 1st METATARSAL, gout, hystoplasmosis - Past Surgical History Past Surgical History: Yes Neuro Surgical History: No Pertinent History Cardiac: No Pertinent History Respiratory: No Pertinent History Gastrointestinal: No Pertinent History Genitourinary: Kidney Transplant Musculoskeletal: Orthopedic Surgery Male Surgical History: Prostate Surgery Other Surgical History: lt ankle compound fx,seed implants to prostate 2006, dialysis port to rt sc and peritoneal port to abd and removed, kidney transplant-right side - Social History Smoking Status: Never smoker Exposure to second hand smoke: No Drug Use: none Patient Lives Alone: No - Social Determinants of Health Will the patient participate in the screening: Declined to provide - Nursing Vital Signs Nursing Vital Signs: Initial Vital Signs Temperature 99.8 F 02/16/24 03:23 Pulse Rate 90 02/16/24 03:23 Respiratory Rate 20 02/16/24 03:23 Blood Pressure 167/81 02/16/24 03:23 O2 Sat by Pulse Oximetry 94 L 02/16/24 03:23 Pain Scale Pain Intensity 5 - Physical Exam General Appearance: no apparent distress, alert Ears, Nose, Throat Exam: normal ENT inspection Neck Exam: normal inspection, full range of motion Respiratory Exam: normal breath sounds, lungs clear Cardiovascular Exam: regular rate/rhythm, normal heart sounds Gastrointestinal/Abdomen Exam: soft, normal bowel sounds, tenderness (Mild generalized to deep palpation) Back Exam: normal inspection, normal range of motion Extremity Exam: normal inspection, normal range of motion Neurologic Exam: alert, oriented x 3, cooperative, pipe racker II-XII nml as tested Skin Exam: normal color SpO2 Interpretation: normal SpO2: 94 O2 Delivery: Room Air - Course EKG Interpreted by Me: RATE (89 atrial sensed ventricular paced rhythm prolonged MN interval, right bundle branch block inferior/anteroseptal Q waves), Other (Second EKG 318 tachycardia 146, right axis deviation, right bundle branch block, no ST elevations, nonspecific ST and T wave changes) Ordered Tests: Active Orders 24 hr Category Date Time Status EKG-ER Only STAT Care 02/16/24 03:44 Active IV Insertion STAT Care 02/16/24 03:44 Active ABDOMEN AND PELVIS W/0 CONTRAS [CT] Stat Exams 02/16/24 04:28 Completed CBC W DIFF Stat Lab 02/16/24 04:57 Completed CMP Stat Lab 02/16/24 04:57 Completed LIPASE Stat Lab 02/16/24 04:57 Completed Lactic Acid Stat Lab 02/16/24 04:55 Completed MAG [MAGNESIUM] Stat Lab 02/16/24 04:57 Completed TROPONIN Q3H Lab 02/16/24 04:57 Completed TROPONIN Q3H Lab 02/16/24 07:45 Ordered TROPONIN Q3H Lab 02/16/24 10:45 Ordered UA W/RFX UR CULTURE Stat Lab 02/16/24 03:44 Ordered Medication Summary Generic Name Dose Route Start Last Admin Trade Name Freq PRN Reason Stop Dose Admin Ceftriaxone Sodium 1 gm in 100 mls @ 200 mls/hr 02/16/24 06:36 Rocephin 1 Gm / 100 Ml Nacl IV 02/16/24 07:05 STAT ONE Discontinued Medications Generic Name Dose Route Start Last Admin Trade Name Freq PRN Reason Stop Dose Admin Acetaminophen 975 mg 02/16/24 04:28 Acetaminophen 325 Mg Tablet PO 02/16/24 04:29 STAT STA Sodium Chloride 500 mls @ 500 mls/hr 02/16/24 03:54 02/16/24 04:20 Sodium Chloride 0.9% 500 Ml IV 02/16/24 04:53 500 mls/hr .Q1H ONE Administration Magnesium Sulfate/Dextrose 100 mls @ 200 mls/hr 02/16/24 04:02 02/16/24 04:19 Magnesium 1 Gm / 100 Ml D5w IV 02/16/24 04:31 200 mls/hr STAT ONE Administration Magnesium Sulfate/Dextrose Confirm 02/16/24 03:59 Magnesium 1 Gm / 100 Ml D5w Administered 02/16/24 04:00 Dose 100 mls @ ud IV .STK-MED ONE Sodium Chloride Confirm 02/16/24 04:05 Sodium Chloride 0.9% 500 Ml Administered 02/16/24 04:06 Dose 500 mls @ ud IV .STK-MED ONE Metoclopramide HCl 10 mg 02/16/24 05:05 02/16/24 05:14 Metoclopramide Hcl 10 Mg/2 Ml Vial IV 02/16/24 05:06 10 mg STAT ONE Administration Metoclopramide HCl Confirm 02/16/24 05:13 Metoclopramide Hcl 10 Mg/2 Ml Vial Administered 02/16/24 05:14 Dose 10 mg .ROUTE .STK-MED ONE Ondansetron HCl 4 mg 02/16/24 04:04 02/16/24 04:06 Ondansetron Hcl 4 Mg/2 Ml Vial IV 02/16/24 04:05 4 mg STAT ONE Administration Ondansetron HCl Confirm 02/16/24 04:05 Ondansetron Hcl 4 Mg/2 Ml Vial Administered 02/16/24 04:06 Dose 4 mg .ROUTE .STK-MED ONE Lab/Rad Data: Laboratory Result Diagrams 02/16/24 04:57 02/16/24 04:57 Laboratory Results 02/16/24 02/16/24 02/16/24 Range/Units 04:57 04:57 04:57 WBC (4.23-9.07) x10^3/uL RBC (4.63-6.08) x10^6/uL Hgb (13.7-17.5) g/dL Hct (40.1-51.0) % MCV (79.0-92.2) fL MCH (25.7-32.2) pg MCHC (32.3-36.5) g/dL RDW (11.6-14.4) % Plt Count (163-337) x10^3/uL MPV (9.4-12.4) fL Gran % (34.0-67.9) % Immature Gran % (Auto) (0.001-0.429) % Nucleat RBC Rel Count (0.00-0.2) % Eos # (Auto) (0.04-0.54) x10^3/uL Immature Gran # (Auto) (0.001-0.031) x10^3u/L Absolute Lymphs (auto) (1.32-3.57) x10^3/uL Absolute Monos (auto) (0.30-0.82) x10^3/uL Absolute Nucleated RBC (0.00-0.012) x10^3u/L Lymphocytes % (21.8-53.1) % Monocytes % (5.3-12.2) % Eosinophils % (0.8-7.0) % Basophils % (0.2-1.2) % Absolute Granulocytes (1.78-5.38) x10^3/uL Basophils # (0.01-0.08) x10^3/uL Sodium 138 (135-145) mmol/L Potassium 4.2 (3.5-5.1) mmol/L Chloride 110 H (98-107) mmol/L Carbon Dioxide 19 L (22-30) mmol/L Anion Gap 12.1 (5-15) MEQ/L BUN 31 H (9-20) mg/dL Creatinine 1.24 (0.66-1.25) mg/dL Estimated GFR 59.5 ML/MIN Glucose 216 H (74-106) mg/dL Lactic Acid (0.4-2.0) Calcium 9.1 (8.4-10.2) mg/dL Magnesium 2.1 (1.6-2.3) mg/dL Total Bilirubin 1.00 (0.2-1.3) mg/dL AST 25 (17-59) U/L ALT 32 (0-50) U/L Alkaline Phosphatase 60 (38-126) U/L Troponin I 0.030 (0.000-0.033) ng/mL Serum Total Protein 6.8 (6.3-8.2) g/dL Albumin 4.1 (3.5-5.0) g/dL Lipase 66 (23-300) U/L 02/16/24 02/16/24 Range/Units 04:57 04:55 WBC 6.0 (4.23-9.07) x10^3/uL RBC 5.74 (4.63-6.08) x10^6/uL Hgb 15.9 (13.7-17.5) g/dL Hct 49.1 (40.1-51.0) % MCV 85.5 (79.0-92.2) fL MCH 27.7 (25.7-32.2) pg MCHC 32.4 (32.3-36.5) g/dL RDW 15.8 H (11.6-14.4) % Plt Count 135 L (163-337) x10^3/uL MPV 9.9 (9.4-12.4) fL Gran % 84.6 H (34.0-67.9) % Immature Gran % (Auto) 0.8 H (0.001-0.429) % Nucleat RBC Rel Count 0.0 (0.00-0.2) % Eos # (Auto) 0.02 L (0.04-0.54) x10^3/uL Immature Gran # (Auto) 0.05 H (0.001-0.031) x10^3u/L Absolute Lymphs (auto) 0.40 L (1.32-3.57) x10^3/uL Absolute Monos (auto) 0.44 (0.30-0.82) x10^3/uL Absolute Nucleated RBC 0.00 (0.00-0.012) x10^3u/L Lymphocytes % 6.7 L (21.8-53.1) % Monocytes % 7.4 (5.3-12.2) % Eosinophils % 0.3 L (0.8-7.0) % Basophils % 0.2 (0.2-1.2) % Absolute Granulocytes 5.06 (1.78-5.38) x10^3/uL Basophils # 0.01 (0.01-0.08) x10^3/uL Sodium (135-145) mmol/L Potassium (3.5-5.1) mmol/L Chloride (98-107) mmol/L Carbon Dioxide (22-30) mmol/L Anion Gap (5-15) MEQ/L BUN (9-20) mg/dL Creatinine (0.66-1.25) mg/dL Estimated GFR ML/MIN Glucose (74-106) mg/dL Lactic Acid 1.3 (0.4-2.0) Calcium (8.4-10.2) mg/dL Magnesium (1.6-2.3) mg/dL Total Bilirubin (0.2-1.3) mg/dL AST (17-59) U/L ALT (0-50) U/L Alkaline Phosphatase (38-126) U/L Troponin I (0.000-0.033) ng/mL Serum Total Protein (6.3-8.2) g/dL Albumin (3.5-5.0) g/dL Lipase (23-300) U/L - Progress Progress: improved Progress Note: 02/16/24 04:29 78 years old is evaluated in the ER for sudden onset nausea vomiting with some abdominal discomfort. He has Zofran and route to the ER. On presentation patient has a short run of V. tach and given IV magnesium. He denies any chest pain. 02/16/24 06:55 He is given fluids and symptomatic treatment, on reevaluation patient is feeling better but still have multiple episodes of vomiting while in the ER and I have given him Reglan. Workup showed normal white count, chemistries with some element of dehydration. CT abdomen pelvis showed findings consistent with cystitis, bladder diverticulum and inflammation/perinephric fat stranding around the transplant kidney, given a dose of Rocephin. Does have nodules in the lung which needs further evaluation outpatient. Troponins are negative. Magnesium is normal. I believe patient with 1 kidney and repeated episodes of vomiting, would benefit with observation admission, hydration to make sure patient does not have worsening of gastroenteritis and no worsening of kidney functions. Discussed with Dr. Strong, reviewed history, workup and agreed with admission. I have shared the results of workup with patient and family and plan of admission which they understand and agree. 02/16/24 06:58 Discussed with : Other (Dr. 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 - Discussion of managment Care discussed with:: hospitalist Reviewed:: Test results Agreed on:: Treatment plan Will see patient: in hospital - Diagnostic Testing Diagnostic test were ordered, analyzed, and reviewed by me: Yes Radiological Interpretation: Reviewed by me - Risk of complications The pt has a mod risk of morbidity or mortality based on: Need for minor surgical intervention in patient with know risk factors The pt has a high risk of morbidity or mortality based on: Decision regarding hospitilization or escalation of hosp level of care - Departure Departure Disposition: Observation Clinical Impression: Acute gastroenteritis, Acute UTI (urinary tract infection) Condition: Stable Critical Care Time: No Referrals: TERRY NAVARRETE DO [Primary Care Provider] - Follow up/PCP as directed
[2024-02-16 05:01] LABS: Absolute Neutrophil Ct (ANC) 5.06 x10^3/uL (1.78-5.38); BASOPHIL % 0.2 % (0.2-1.2); Basophil (Absolute #) 0.01 x10^3/uL (0.01-0.08); Eosinophil % 0.3 % (0.8-7.0); Eosinophil (Absolute #) 0.02 x10^3/uL (0.04-0.54); Hematocrit 49.1 % (40.1-51.0); Hemoglobin 15.9 g/dL (13.7-17.5); IMMATURE GRAN # 0.05 x10^3u/L (0.001-0.031); IMMATURE GRAN % 0.8 % (0.001-0.429); Lymphocytes % 6.7 % (21.8-53.1); Mean Cell Volume 85.5 fL (79.0-92.2); Mean Corpuscular Hemoglobin 27.7 pg (25.7-32.2); Mean Corpuscular Hgb Concent. 32.4 g/dL (32.3-36.5); Mean Platelet Volume 9.9 fL (9.4-12.4); Monocyte (Absolute #) 0.44 x10^3/uL (0.30-0.82); Monocytes % 7.4 % (5.3-12.2); Neutrophil % 84.6 % (34.0-67.9); Platelet Count 135 x10^3/uL (163-337); Red Blood Count 5.74 x10^6/uL (4.63-6.08); Red Cell Distribution Width 15.8 % (11.6-14.4)
[2024-02-16] MEDS ORDERED: Reglan 10 MG/2 ML ONE (05:13)
[2024-02-16] MEDS: Reglan 10 MG/2 ML IV ONE (05:14)
[2024-02-16 05:16] LABS: ALBUMIN 4.1 g/dL (3.5-5.0); ANION GAP 12.1 MEQ/L (5-15); Calcium 9.1 mg/dL (8.4-10.2); Creatinine 1 1.24 mg/dL (0.66-1.25); EST GLOMERULAR FILTRATION RATE 59.5 ML/MIN; Potassium 4.2 mmol/L (3.5-5.1); Total Protein 6.8 g/dL (6.3-8.2)
--- NOTE | 2024-02-16 05:43 | XRAY ---
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 Coronal and sagittal reconstructions were likewise performed and indicated to increase the sensitivity for detecting clinically relevant pathology. CT scan was performed according to ALARA (as low as reasonable achievable). FINDINGS: The visualized lung bases show multiple small lung nodules of size 6 to 8mm. Evaluation of the abdominal and pelvic visceral organs is limited without intravenous contrast. The unenhanced liver, spleen, pancreas, and adrenal glands are grossly unremarkable. The gallbladder is present. Bilateral shrunken kidneys. Vascular calcification noted on right side. 1.6 cm cyst in the right kidney. Post renal transplant status with transplant kidney in the right iliac fossa. Subtle perinephric fat stranding noted. No hydroureteronephrosis or perinephric fluid collection. There is no hydronephrosis or perinephric stranding. The ureters are normal in caliber. No adenopathy or fluid collections are seen. No evidence of focal or diffuse bowel wall thickening or evidence of bowel obstruction is seen. No appendicitis. Fecal loaded large bowel loop. The aorta is normal in caliber. The urinary bladder is normal in contour. Mild urinary bladder wall thickening with intraluminal air pockets. Small diverticulum along left superolateral wall of urinary bladder with few (3) calculi within, largest measuring 6.6mm. Post treatment changes seen in prostate. Rest of the pelvic viscera are grossly unremarkable. Prostatic radiotherapy leads noted in situ. Atherosclerotic calcification of aorto-iliac vessels. No aggressive appearing osseous lesions are identified. Bilateral small inguinal hernia with herniation of omentum. IMPRESSION: 1. Small urinary bladder diverticulum with few calculi within. Interval increase in size and number of calculi compared to prior study. 2. Chronic bilateral renal disease. 3. Post renal transplant status with the transplant kidney in the right iliac fossa. Subtle perinephric fat stranding. 4. Mild cystitis. 5. Bilateral stable small inguinal hernia with herniation of omentum. 6. The visualized lung bases show persistent multiple small lung nodules. In view of post treatment changes in prostate, these lung nodules raise concern for metastasis. Suggested clinical correlation and dedicated CT chest for further evaluation. Electronically Signed by: Brandin Bone MD. (02/16/2024 05:39:43 EST)
[2024-02-16] MEDS ORDERED: ROCEPHIN 1 GM / 100 ML NaCl 1 GM/100 ML IVPB IV ONE (07:09)
[2024-02-16] MEDS ORDERED: TYLENOL 325 MG ONE (07:09)
[2024-02-16] MEDS: TYLENOL 325 MG PO STA (07:11)
[2024-02-16] MEDS: ROCEPHIN 1 GM / 100 ML NaCl 1 GM/100 ML IVPB IV ONE (07:12)
[2024-02-16 07:25] LABS: INFLUENZA A NEGATIVE (NEGATIVE); INFLUENZA B NEGATIVE (NEGATIVE); RESPIRATORY SYNCTIAL VIRUS NEGATIVE (NEGATIVE); SARS-CoV-2 Xpert Express NEGATIVE (NEGATIVE)
[2024-02-16] MEDS ORDERED: Zofran 4 MG/2 ML VIAL IV PRN (09:56)
[2024-02-16 10:36] LABS: Appearance Clear (Clear); Bacteria None Seen /HPF (None Seen); Bilirubin Negative (Negative); Blood Small (Negative); Epithelial Cells None Seen /HPF (None Seen); Glucose, Urine >=1000 mg/dL (Negative); Hyaline Casts NONE SEEN /LPF (0-2); Ketones 15 (Negative); Leukocyte Esterase Small (Negative); Nitrite Negative (Negative); Protein,Urine Dip 100 (Negative); Urobilinogen 0.2 mg/dL (0.2); WBC >100 /HPF (0-5)
[2024-02-16] MEDS: Sodium Chloride 0.9% 1000 ML 1,000 ML IV SCH (10:42)
--- NOTE | 2024-02-16 13:57 | PCM.HP ---
History of Present Illness - Chief Complaint Chief Complaint: Acute gastroenteritis, UTI Date: 02/16/24 History of Present Illness: is a 78 year old male with a pmhx of prostate cancer (s/p seed radiation), AFIB (pacemaker), DM, HLD, HTN, Hep C, and Right kidney transplant who presented to ED 02/16/24 with complaints of nausea, vomiting, and diarrhea. Patient reports that he was diagnosed with UTI by Dr. Albert yesterday afternoon and had some instrumentation done for his prostatic beads. He was prescribed antibiotics at that time. He experienced multiple episodes of abdominal pain, vomiting and diarrhea around midnight. Spouse had similar symptoms. He reports he is unable to keep oral intake down and was unable to take antibiotics prescribed for UTI yesterday. He became very fatigued and felt dehydrate which prompted him to seek treatment today. Denies fever,sob, cp, HAUSER, or dizziness. At the time of my interview patient reports no nausea or abdominal pain. Upon arrival to ED patient was tachycardic and hypertensive. CT abdomen and pelvis showed cystitis, increased calculi in bladder and lung nodules. Patient states he is aware of the lung nodules and has been diagnosed with histoplasmosis and receives surveillance by his infectious disease physician. Lab findings remarkable for c02 at 19, elevated troponins, and ua suspicious for UTI. Respiratory panel negative. EKG reported as RATE (89 atrial sensed ventricular paced rhythm prolonged NE interval, right bundle branch block inferior/anteroseptal Q waves), Other (Second EKG 318 tachycardia 146, right axis deviation, right bundle branch block, no ST elevations, nonspecific ST and T wave changes). Patient was given ceftriaxone, fluid bolus, magnesium, zofran, and Reglan in ED with noted improvement of symptoms. Admit for viral gastroenteritis and UTI. Plan supportive care and abx for UTI. - Review of Systems Constitutional: Weakness Eyes: No Symptoms Ears, Nose, & Throat: No Symptoms Respiratory: No Symptoms Cardiac: No Symptoms Abdominal/Gastrointestinal: Abdominal Pain, Nausea, Vomiting, Diarrhea Genitourinary Symptoms: Dysuria Musculoskeletal: No Symptoms Skin: No Symptoms Neurological: No Symptoms Psychological: No Symptoms Endocrine: No Symptoms Hematologic/Lymphatic: No Symptoms Immunological/Allergic: No Symptoms Medications & Allergies Home Medications: Home Medication List HydrALAzine HCL 25 MG TAB [Apresoline 25 MG TABLET] 25 mg PO TID 08/14/21 [History Confirmed 02/16/24] PANTOPRAZOLE 40 mg Tablet [Protonix 40MG Tablet] 40 mg PO QAM 08/14/21 [History Confirmed 02/16/24] Semaglutide [Ozempic] 1 unit SQ WEEKLY 08/14/21 [History Confirmed 02/16/24] Tamsulosin HCl 0.4 mg [Flomax 0.4 MG] 0.4 mg PO BID 08/14/21 [History Confirmed 02/16/24] Metformin HCl 500 mg [Glucophage 500 MG] 500 mg PO BID 10/06/21 [History Confirmed 02/16/24] Pravastatin Sodium 40 mg PO HS 10/06/21 [History Confirmed 02/16/24] Magnesium Oxide 400 mg PO BID 10/13/21 [History Confirmed 02/16/24] Itraconazole [Sporanox] 100 mg PO DAILY 12/15/21 [History Confirmed 02/16/24] carvediloL [Coreg] 6.25 mg PO BID 12/15/21 [History Confirmed 02/16/24] Allopurinol 100 mg [Zyloprim 100 mg] 100 mg PO DAILY 07/21/22 [History Confirmed 02/16/24] Apixaban [Eliquis] 5 mg PO BID 07/21/22 [History Confirmed 02/16/24] Benzonatate 100 mg PO DAILY PRN 07/21/22 [History Confirmed 02/16/24] Docusate Sodium 100 mg [Docusate Sodium 100 MG] 100 mg PO BID PRN 07/21/22 [History Confirmed 02/16/24] Flonase 50 50 mcg IN DAILY PRN 07/21/22 [History Confirmed 02/16/24] Insulin Detemir [Levemir] 20 unit SQ DAILY 07/21/22 [History Confirmed 02/16/24] Losartan Potassium [Cozaar] 50 mg PO HS 07/21/22 [History Confirmed 02/16/24] Potassium Chloride [Klor-Con M20] 20 meq PO DAILY 07/21/22 [History Confirmed 02/16/24] Tacrolimus [Envarsus Xr] 0.75 mg PO DAILY 07/21/22 [History Confirmed 02/16/24] L. Acidophilus/L.bulgaricus [Lactobacillus Tablet] 1 tab PO DAILY 30 Days #30 tablet 07/23/22 [Rx Confirmed 02/16/24] Ferrous Sulfate 325 mg [Feosol 325 mg] 325 mg PO DAILY 06/06/23 [History Confirmed 02/16/24] Insulin Lispro [Humalog Kwikpen U-100] 6 - 10 unit SQ UD 06/06/23 [History Confirmed 02/16/24] Multivit-Minerals/Folic Acid [Centrum Adult 50 Plus Gummy] 2 gel PO DAILY 06/06/23 [History Confirmed 02/16/24] Prednisone 5 mg [Deltasone 5 mg] 5 mg PO DAILY 06/06/23 [History Confirmed 02/16/24] Turmeric Root/Kiki Root Ext [Turmeric Curcumin-Kiki Gummy] 1 each PO DAILY 06/06/23 [History Confirmed 02/16/24] Vitamin D3/Vitamin K2 (Mk4) [K2 Plus D3 Tablet] 45 mcg PO DAILY 06/06/23 [History Confirmed 02/16/24] Bromocriptine Mesylate [Cycloset] 0.8 mg PO HS 11/03/23 [History Confirmed 02/16/24] Tolterodine Tartrate 2 mg [Detrol 2 MG] 2 mg PO DAILY 11/03/23 [History Confirmed 02/16/24] Magnesium Chloride [Slow-Mag] 71.5 mg PO BID 02/16/24 [History Confirmed 02/16/24] Allergies/Adverse Reactions: Allergies Allergy/AdvReac Type Severity Reaction Status Date / Time Sulfa (Sulfonamide Allergy Unknown Verified 02/16/24 09:51 Antibiotics) [Sulfa(Sulfonamide Antibiotics)] ibuprofen AdvReac Severe kidney Verified 02/16/24 03:41 transplant latex AdvReac Intermediate Rash Verified 02/16/24 03:41 - Past Medical History Past Medical History: Yes Neurological History: No Pertinent History ENT History: Cataracts Cardiac History: Arrhythmia, Hypertension, Other Respiratory History: Pneumonia, Other Endocrine Medical History: Diabetes Type II, Other Musculoskelatal History: Fractures, Osteoarthritis GI Medical History: GERD, Hepatitis History: Renal Disease, Other Pyscho-Social History: No Pertinent History Male Reproductive Disorders: Prostate Cancer, Prostate Problems Comment: COVID, A-Fib, 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, HEP C OBTAINED FROM KIDNEY BUT TREATED, FRACTURE RIGHT 1st METATARSAL, gout, hystoplasmosis - Past Surgical History Past Surgical History: Yes Neuro Surgical History: No Pertinent History Cardiac History: No Pertinent History Respiratory Surgery: No Pertinent History GI Surgical History: No Pertinent History Genitourinary Surgical Hx: Kidney Transplant Musculskeletal Surgical Hx: Orthopedic Surgery Male Surgical History: Prostate Surgery Other Surgical History: lt ankle compound fx,seed implants to prostate 2006, dialysis port to rt sc and peritoneal port to abd and removed, kidney transplant-right side Significant Family History: cancer, diabetes, stroke - Social History Smoking Status: Never smoker Exposure to second hand smoke: No Alcohol: None Drug Use: none - Social Determinants of Health Will the patient participate in the screening: Yes Do you worry about a steady place to live?: No Do you have any problems with any of the following?: No known problems In the past 12 months,have you had to go without utilities?: No Have you or anyone in your house had to go without enough: No Transportation Issues: No Has anyone in your support network made you feel unsafe?: No Does the patient want assistance with any of the above?: No - Physical Exam Vital Signs: Vital Signs - 24 hr Temp Pulse Resp BP BP Pulse Ox 02/16/24 09:55 98.2 F 94 H 16 104/55 94 L 02/16/24 08:01 92 H 24 101/52 02/16/24 07:31 89 26 H 178/87 02/16/24 07:02 94 L 02/16/24 07:00 91 H 21 167/87 02/16/24 06:30 92 H 33 H 185/98 93 L 02/16/24 06:00 92 H 18 184/96 94 L 02/16/24 05:35 95 H 30 H 183/117 92 L 02/16/24 05:34 85 8 L 96 02/16/24 05:00 85 26 H 201/108 93 L 02/16/24 04:57 85 26 H 181/108 95 02/16/24 04:56 85 18 95 02/16/24 03:30 85 18 152/109 94 L 02/16/24 03:23 99.8 F 90 20 167/81 94 L General Appearance: no apparent distress Neurologic Exam: alert, oriented x 3, cooperative Eye Exam: PERRL/EOMI Ears, Nose, Throat Exam: normal ENT inspection Neck Exam: normal inspection Respiratory Exam: normal breath sounds, lungs clear Cardiovascular Exam: regular rate/rhythm, normal heart sounds Gastrointestinal/Abdomen Exam: soft, normal bowel sounds Rectal Exam: deferred Back Exam: normal inspection Extremity Exam: normal inspection Skin Exam: pale Results - Labs Lab/Micro Results: Lab Results-Last 24 Hours 02/16/24 02/16/24 02/16/24 Range/Units 03:44 04:55 04:57 WBC 6.0 (4.23-9.07) x10^3/uL RBC 5.74 (4.63-6.08) x10^6/uL Hgb 15.9 (13.7-17.5) g/dL Hct 49.1 (40.1-51.0) % MCV 85.5 (79.0-92.2) fL MCH 27.7 (25.7-32.2) pg MCHC 32.4 (32.3-36.5) g/dL RDW 15.8 H (11.6-14.4) % Plt Count 135 L (163-337) x10^3/uL MPV 9.9 (9.4-12.4) fL Gran % 84.6 H (34.0-67.9) % Immature Gran % (Auto) 0.8 H (0.001-0.429) % Nucleat RBC Rel Count 0.0 (0.00-0.2) % Eos # (Auto) 0.02 L (0.04-0.54) x10^3/uL Immature Gran # (Auto) 0.05 H (0.001-0.031) x10^3u/L Absolute Lymphs (auto) 0.40 L (1.32-3.57) x10^3/uL Absolute Monos (auto) 0.44 (0.30-0.82) x10^3/uL Absolute Nucleated RBC 0.00 (0.00-0.012) x10^3u/L Lymphocytes % 6.7 L (21.8-53.1) % Monocytes % 7.4 (5.3-12.2) % Eosinophils % 0.3 L (0.8-7.0) % Basophils % 0.2 (0.2-1.2) % Absolute Granulocytes 5.06 (1.78-5.38) x10^3/uL Basophils # 0.01 (0.01-0.08) x10^3/uL Sodium (135-145) mmol/L Potassium (3.5-5.1) mmol/L Chloride (98-107) mmol/L Carbon Dioxide (22-30) mmol/L Anion Gap (5-15) MEQ/L BUN (9-20) mg/dL Creatinine (0.66-1.25) mg/dL Estimated GFR ML/MIN Glucose (74-106) mg/dL Lactic Acid 1.3 (0.4-2.0) Calcium (8.4-10.2) mg/dL Magnesium (1.6-2.3) mg/dL Total Bilirubin (0.2-1.3) mg/dL AST (17-59) U/L ALT (0-50) U/L Alkaline Phosphatase (38-126) U/L Troponin I (0.000-0.033) ng/mL Serum Total Protein (6.3-8.2) g/dL Albumin (3.5-5.0) g/dL Lipase (23-300) U/L Urine Color Yellow (Yellow) Urine Appearance Clear (Clear) Urine pH 5.0 (4.6-8.0) Ur Specific [place] 1.020 (1.005-1.030) Urine Protein 100 A (Negative) Urine Glucose (UA) >=1000 A (Negative) mg/dL Urine Ketones 15 A (Negative) Urine Blood Small A (Negative) Urine Nitrite Negative (Negative) Urine Bilirubin Negative (Negative) Urine Urobilinogen 0.2 (0.2) mg/dL Ur Leukocyte Esterase Small A (Negative) U Hyaline Cast (Auto) NONE SEEN (0-2) /LPF Urine Microscopic RBC 6-10 A (0-5) /HPF Urine Microscopic WBC >100 A (0-5) /HPF Ur Epithelial Cells None Seen (None Seen) /HPF Urine Bacteria None Seen (None Seen) /HPF Urine Culture Reflexed YES (NO) Influenza Type A Ag (NEGATIVE) Influenza Type B Ag (NEGATIVE) RSV (PCR) (NEGATIVE) SARS-CoV-2 (PCR) (NEGATIVE) 02/16/24 02/16/24 02/16/24 Range/Units 04:57 04:57 04:57 WBC (4.23-9.07) x10^3/uL RBC (4.63-6.08) x10^6/uL Hgb (13.7-17.5) g/dL Hct (40.1-51.0) % MCV (79.0-92.2) fL MCH (25.7-32.2) pg MCHC (32.3-36.5) g/dL RDW (11.6-14.4) % Plt Count (163-337) x10^3/uL MPV (9.4-12.4) fL Gran % (34.0-67.9) % Immature Gran % (Auto) (0.001-0.429) % Nucleat RBC Rel Count (0.00-0.2) % Eos # (Auto) (0.04-0.54) x10^3/uL Immature Gran # (Auto) (0.001-0.031) x10^3u/L Absolute Lymphs (auto) (1.32-3.57) x10^3/uL Absolute Monos (auto) (0.30-0.82) x10^3/uL Absolute Nucleated RBC (0.00-0.012) x10^3u/L Lymphocytes % (21.8-53.1) % Monocytes % (5.3-12.2) % Eosinophils % (0.8-7.0) % Basophils % (0.2-1.2) % Absolute Granulocytes (1.78-5.38) x10^3/uL Basophils # (0.01-0.08) x10^3/uL Sodium 138 (135-145) mmol/L Potassium 4.2 (3.5-5.1) mmol/L Chloride 110 H (98-107) mmol/L Carbon Dioxide 19 L (22-30) mmol/L Anion Gap 12.1 (5-15) MEQ/L BUN 31 H (9-20) mg/dL Creatinine 1.24 (0.66-1.25) mg/dL Estimated GFR 59.5 ML/MIN Glucose 216 H (74-106) mg/dL Lactic Acid (0.4-2.0) Calcium 9.1 (8.4-10.2) mg/dL Magnesium 2.1 (1.6-2.3) mg/dL Total Bilirubin 1.00 (0.2-1.3) mg/dL AST 25 (17-59) U/L ALT 32 (0-50) U/L Alkaline Phosphatase 60 (38-126) U/L Troponin I 0.030 (0.000-0.033) ng/mL Serum Total Protein 6.8 (6.3-8.2) g/dL Albumin 4.1 (3.5-5.0) g/dL Lipase 66 (23-300) U/L Urine Color (Yellow) Urine Appearance (Clear) Urine pH (4.6-8.0) Ur Specific [place] (1.005-1.030) Urine Protein (Negative) Urine Glucose (UA) (Negative) mg/dL Urine Ketones (Negative) Urine Blood (Negative) Urine Nitrite (Negative) Urine Bilirubin (Negative) Urine Urobilinogen (0.2) mg/dL Ur Leukocyte Esterase (Negative) U Hyaline Cast (Auto) (0-2) /LPF Urine Microscopic RBC (0-5) /HPF Urine Microscopic WBC (0-5) /HPF Ur Epithelial Cells (None Seen) /HPF Urine Bacteria (None Seen) /HPF Urine Culture Reflexed (NO) Influenza Type A Ag (NEGATIVE) Influenza Type B Ag (NEGATIVE) RSV (PCR) (NEGATIVE) SARS-CoV-2 (PCR) (NEGATIVE) 02/16/24 02/16/24 02/16/24 Range/Units 06:47 07:52 11:20 WBC (4.23-9.07) x10^3/uL RBC (4.63-6.08) x10^6/uL Hgb (13.7-17.5) g/dL Hct (40.1-51.0) % MCV (79.0-92.2) fL MCH (25.7-32.2) pg MCHC (32.3-36.5) g/dL RDW (11.6-14.4) % Plt Count (163-337) x10^3/uL MPV (9.4-12.4) fL Gran % (34.0-67.9) % Immature Gran % (Auto) (0.001-0.429) % Nucleat RBC Rel Count (0.00-0.2) % Eos # (Auto) (0.04-0.54) x10^3/uL Immature Gran # (Auto) (0.001-0.031) x10^3u/L Absolute Lymphs (auto) (1.32-3.57) x10^3/uL Absolute Monos (auto) (0.30-0.82) x10^3/uL Absolute Nucleated RBC (0.00-0.012) x10^3u/L Lymphocytes % (21.8-53.1) % Monocytes % (5.3-12.2) % Eosinophils % (0.8-7.0) % Basophils % (0.2-1.2) % Absolute Granulocytes (1.78-5.38) x10^3/uL Basophils # (0.01-0.08) x10^3/uL Sodium (135-145) mmol/L Potassium (3.5-5.1) mmol/L Chloride (98-107) mmol/L Carbon Dioxide (22-30) mmol/L Anion Gap (5-15) MEQ/L BUN (9-20) mg/dL Creatinine (0.66-1.25) mg/dL Estimated GFR ML/MIN Glucose (74-106) mg/dL Lactic Acid (0.4-2.0) Calcium (8.4-10.2) mg/dL Magnesium (1.6-2.3) mg/dL Total Bilirubin (0.2-1.3) mg/dL AST (17-59) U/L ALT (0-50) U/L Alkaline Phosphatase (38-126) U/L Troponin I 0.043 H* 0.044 H* (0.000-0.033) ng/mL Serum Total Protein (6.3-8.2) g/dL Albumin (3.5-5.0) g/dL Lipase (23-300) U/L Urine Color (Yellow) Urine Appearance (Clear) Urine pH (4.6-8.0) Ur Specific [place] (1.005-1.030) Urine Protein (Negative) Urine Glucose (UA) (Negative) mg/dL Urine Ketones (Negative) Urine Blood (Negative) Urine Nitrite (Negative) Urine Bilirubin (Negative) Urine Urobilinogen (0.2) mg/dL Ur Leukocyte Esterase (Negative) U Hyaline Cast (Auto) (0-2) /LPF Urine Microscopic RBC (0-5) /HPF Urine Microscopic WBC (0-5) /HPF Ur Epithelial Cells (None Seen) /HPF Urine Bacteria (None Seen) /HPF Urine Culture Reflexed (NO) Influenza Type A Ag NEGATIVE (NEGATIVE) Influenza Type B Ag NEGATIVE (NEGATIVE) RSV (PCR) NEGATIVE (NEGATIVE) SARS-CoV-2 (PCR) NEGATIVE (NEGATIVE) - Radiology Impressions Radiology Exams & Impressions: Radiology Procedures Category Date Time Status ABDOMEN AND PELVIS W/0 CONTRAS [CT] Stat Exams 02/16/24 04:28 Completed Assessment/Plan (1) Acute gastroenteritis Current Visit: Yes Status: Acute Assessment & Plan: -CT abd/pelvis reviewed demonstrates small urinary bladder diverticulum with few calculi within. Interval increase in size and number of calculi compared to prior study.Chronic bilateral renal disease. Post renal transplant status with the transplant kidney in the right iliac fossa. Subtle perinephric fat stranding. Mild cystitis.Bilateral stable small inguinal hernia with herniation of omentum. The visualized lung bases show persistent multiple small lung nodules. -Supportive care with anti-emetics, anti-pyretics, IVF -WBC reviewed WNL at 6.0 -Bhavya/lipase WNL -stools for cdiff Code(s): K52.9 - NONINFECTIVE GASTROENTERITIS AND COLITIS, UNSPECIFIED (2) Acute UTI (urinary tract infection) Current Visit: Yes Status: Acute Assessment & Plan: -UA reviewed and suspicious for infection - ceftriaxone started in ED will continue - follow culture Code(s): N39.0 - URINARY TRACT INFECTION, SITE NOT SPECIFIED (3) Afib Current Visit: Yes Status: Acute Assessment & Plan: -continue home meds eliquis and coreg - pacemaker -tele Code(s): I48.91 - UNSPECIFIED ATRIAL FIBRILLATION (4) History of prostate cancer Current Visit: Yes Status: Acute Assessment & Plan: -s/p radiation/seeds Code(s): Z85.46 - PERSONAL HISTORY OF MALIGNANT NEOPLASM OF PROSTATE (5) HLD (hyperlipidemia) Current Visit: Yes Status: Acute Assessment & Plan: -continue home regimen Code(s): E78.5 - HYPERLIPIDEMIA, UNSPECIFIED (6) HTN (hypertension) Current Visit: Yes Status: Acute Assessment & Plan: -BP stable with some htn on arrival- continue home meds Code(s): I10 - ESSENTIAL (PRIMARY) HYPERTENSION (7) History of hepatitis C Current Visit: Yes Status: Acute Assessment & Plan: -OP treatment Code(s): Z86.19 - PERSONAL HISTORY OF OTHER INFECTIOUS AND PARASITIC DISEASES (8) History of kidney transplant Current Visit: Yes Status: Acute Assessment & Plan: -Continue anti-rejection home meds (9) DM2 (diabetes mellitus, type 2) Current Visit: No Status: Chronic 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
[2024-02-16 14:02] LABS: Slide Review 1 YES
[2024-02-16] MEDS ORDERED: FLONASE IN PRN (14:19)
[2024-02-16] MEDS ORDERED: Docusate Sodium 100 MG PO PRN (14:19)
[2024-02-16] MEDS ORDERED: Flonase NASAL NS PRN (15:07)
[2024-02-16] MEDS ORDERED: MEDICATION INTERVENTION MC SCH ×6 (15:45→16:15)
[2024-02-16] MEDS: Apresoline 25 MG TABLET PO SCH (16:06)
[2024-02-16] MEDS: MAG-OX 400 PO SCH (21:30)
[2024-02-16] MEDS: ZOCOR 20MG PO SCH (21:30)
[2024-02-16] MEDS: Cozaar 50 MG PO SCH (21:30)
[2024-02-16] MEDS: Ditropan 5 MG PO SCH (21:30)
[2024-02-16] MEDS: ELIQUIS 2.5 MG TABLET PO SCH (21:30)
[2024-02-16] MEDS: Flomax 0.4 MG PO SCH (21:30)
[2024-02-16] MEDS: Coreg PO SCH (21:31)
[2024-02-16] MEDS ORDERED: NON-FORMULARY ITEM (Pravastatin Sodium [Pravastatin Sodium] 40 MG Tablet) PO SCH (22:00)
[2024-02-16] MEDS ORDERED: BROMOCRIPTINE MESYLATE 0.8 MG PO SCH (22:00)
[2024-02-16] MEDS ORDERED: NON-FORMULARY ITEM (Magnesium Oxide [Magnesium Oxide] 400 MG Tablet) PO SCH (22:00)
[2024-02-16] MEDS ORDERED: MAGNESIUM CHLORIDE 71.5 MG PO SCH (22:00)
[2024-02-16] MEDS ORDERED: NON-FORMULARY ITEM (Apixaban [Eliquis] 5 MG Tab.Ds.Pk) PO SCH (22:00)
[2024-02-17 03:06] LABS: 027 TOX PROD PRESUMPTIVE NEGATIVE (NEGATIVE); TOXIGENIC C. DIFF ORG NEGATIVE (NEGATIVE)
[2024-02-17 05:22] LABS: Absolute Neutrophil Ct (ANC) 3.16 x10^3/uL (1.78-5.38); BASOPHIL % 0.2 % (0.2-1.2); Basophil (Absolute #) 0.01 x10^3/uL (0.01-0.08); Eosinophil % 0.4 % (0.8-7.0); Eosinophil (Absolute #) 0.02 x10^3/uL (0.04-0.54); Hematocrit 41.1 % (40.1-51.0); Hemoglobin 13.1 g/dL (13.7-17.5); IMMATURE GRAN # 0.05 x10^3u/L (0.001-0.031); Lymphocyte (Absolute #) 0.98 x10^3/uL (1.32-3.57); Mean Corpuscular Hemoglobin 27.4 pg (25.7-32.2); Mean Corpuscular Hgb Concent. 31.9 g/dL (32.3-36.5); Mean Platelet Volume 10.4 fL (9.4-12.4); Monocyte (Absolute #) 0.67 x10^3/uL (0.30-0.82); Monocytes % 13.7 % (5.3-12.2); Neutrophil % 64.7 % (34.0-67.9); Platelet Count 128 x10^3/uL (163-337); Red Blood Count 4.78 x10^6/uL (4.63-6.08); White Blood Count 4.9 x10^3/uL (4.23-9.07)
--- NOTE | 2024-02-17 05:27 | PCM.NOTE ---
Date and Time: 02/17/24 0526 Subjective Assessment: is a 78 year old male with a pmhx of prostate cancer (s/p seed radiation), AFIB (pacemaker), DM, HLD, HTN, Hep C, and Right kidney transplant who presented to ED 02/16/24 with complaints of nausea, vomiting, and diarrhea. Patient reports that he was diagnosed with UTI by Dr. Albert yesterday afternoon and had some instrumentation done for his prostatic beads. He was prescribed antibiotics at that time. He experienced multiple episodes of abdominal pain, vomiting and diarrhea around midnight. Spouse had similar symptoms. He reports he is unable to keep oral intake down and was unable to take antibiotics prescribed for UTI yesterday. He became very fatigued and felt dehydrate which prompted him to seek treatment today. Denies fever,sob, cp, HAUSER, or dizziness. At the time of my interview patient reports no nausea or abdominal pain. Upon arrival to ED patient was tachycardic and hypertensive. CT abdomen and pelvis showed cystitis, increased calculi in bladder and lung nodules. Patient states he is aware of the lung nodules and has been diagnosed with histoplasmosis and receives surveillance by his infectious disease physician. Lab findings remarkable for c02 at 19, elevated troponins, and ua suspicious for UTI. Respiratory panel negative. EKG reported as RATE (89 atrial sensed ventricular paced rhythm prolonged [place] interval, right bundle branch block inferior/anteroseptal Q waves), Other (Second EKG 318 tachycardia 146, right axis deviation, right bundle branch block, no ST elevations, nonspecific ST and T wave changes). Patient was given ceftriaxone, fluid bolus, magnesium, zofran, and Reglan in ED with noted improvement of symptoms. Admit for viral gastroenteritis and UTI. Plan supportive care and abx for UTI. 02/16: Patient feeling better today. N/V/D resolved. Endorses weakness. Tolerating CLD. Will advance as he tolerates it. Ucult pending. Denies fever,cough, sob, cp, abdominal pain, HAUSER, dizziness, N/V/D. - Review of Systems Constitutional: Weakness Eyes: No Symptoms Ears, Nose, & Throat: No Symptoms Respiratory: No Symptoms Cardiac: No Symptoms Abdominal/Gastrointestinal: No Symptoms Genitourinary Symptoms: No Symptoms Musculoskeletal: No Symptoms Skin: No Symptoms Neurological: No Symptoms Psychological: No Symptoms Endocrine: No Symptoms Hematologic/Lymphatic: No Symptoms Immunological/Allergic: No Symptoms Objective Exam General Appearance: no apparent distress Neurologic Exam: alert, oriented x 3, cooperative Skin Exam: normal color Eye Exam: PERRL Ears, Nose, Throat Exam: normal ENT inspection Neck Exam: normal inspection Respiratory Exam: normal breath sounds, lungs clear Cardiovascular Exam: regular rate/rhythm, normal heart sounds Gastrointestinal/Abdomen Exam: soft, normal bowel sounds Extremity Exam: normal inspection Back Exam: normal inspection Rectal Exam: deferred Objective Data Vital Signs: Vital Signs - 24 hr Temp Pulse Resp BP BP Pulse Ox 02/17/24 04:00 97.2 F 71 18 125/69 94 L 02/17/24 00:00 99.6 F 73 16 130/59 93 L 02/16/24 20:00 99.2 F 73 20 125/58 92 L 02/16/24 16:00 98.2 F 67 18 120/61 91 L 02/16/24 12:00 98.7 F 76 18 105/51 93 L 02/16/24 09:55 98.2 F 94 H 16 104/55 94 L 02/16/24 08:01 92 H 24 101/52 02/16/24 07:31 89 26 H 178/87 02/16/24 07:02 94 L 02/16/24 07:00 91 H 21 167/87 02/16/24 06:30 92 H 33 H 185/98 93 L 02/16/24 06:00 92 H 18 184/96 94 L 02/16/24 05:35 95 H 30 H 183/117 92 L 02/16/24 05:34 85 8 L 96 Pain Assessment - Last Documented Pain Intensity 0 Intake and Output: Intake & Output 02/14/24 02/15/24 02/16/24 02/17/24 11:59 11:59 11:59 11:59 Output Total 400 Balance -400 Weight 73.7 kg Lab Results: Lab Results-Last 24 Hours 02/16/24 02/16/24 02/16/24 Range/Units 02:21 03:44 04:57 WBC 6.0 (4.23-9.07) x10^3/uL RBC 5.74 (4.63-6.08) x10^6/uL Hgb 15.9 (13.7-17.5) g/dL Hct 49.1 (40.1-51.0) % MCV 85.5 (79.0-92.2) fL MCH 27.7 (25.7-32.2) pg MCHC 32.4 (32.3-36.5) g/dL RDW 15.8 H (11.6-14.4) % Plt Count 135 L (163-337) x10^3/uL MPV 9.9 (9.4-12.4) fL Gran % 84.6 H (34.0-67.9) % Immature Gran % (Auto) 0.8 H (0.001-0.429) % Nucleat RBC Rel Count 0.0 (0.00-0.2) % Eos # (Auto) 0.02 L (0.04-0.54) x10^3/uL Immature Gran # (Auto) 0.05 H (0.001-0.031) x10^3u/L Absolute Lymphs (auto) 0.40 L (1.32-3.57) x10^3/uL Absolute Monos (auto) 0.44 (0.30-0.82) x10^3/uL Absolute Nucleated RBC 0.00 (0.00-0.012) x10^3u/L Lymphocytes % 6.7 L (21.8-53.1) % Monocytes % 7.4 (5.3-12.2) % Eosinophils % 0.3 L (0.8-7.0) % Basophils % 0.2 (0.2-1.2) % Absolute Granulocytes 5.06 (1.78-5.38) x10^3/uL Basophils # 0.01 (0.01-0.08) x10^3/uL POC Glucometer (74 to 106) mg/dL Magnesium (1.6-2.3) mg/dL Troponin I (0.000-0.033) ng/mL Urine Color Yellow (Yellow) Urine Appearance Clear (Clear) Urine pH 5.0 (4.6-8.0) Ur Specific [place] 1.020 (1.005-1.030) Urine Protein 100 A (Negative) Urine Glucose (UA) >=1000 A (Negative) mg/dL Urine Ketones 15 A (Negative) Urine Blood Small A (Negative) Urine Nitrite Negative (Negative) Urine Bilirubin Negative (Negative) Urine Urobilinogen 0.2 (0.2) mg/dL Ur Leukocyte Esterase Small A (Negative) U Hyaline Cast (Auto) NONE SEEN (0-2) /LPF Urine Microscopic RBC 6-10 A (0-5) /HPF Urine Microscopic WBC >100 A (0-5) /HPF Ur Epithelial Cells None Seen (None Seen) /HPF Urine Bacteria None Seen (None Seen) /HPF Urine Culture Reflexed YES (NO) C. difficile Screen NEGATIVE (NEGATIVE) C.difficile 027-NAP1-B1 PRESUMPTIVE NEGATIVE (NEGATIVE) Influenza Type A Ag (NEGATIVE) Influenza Type B Ag (NEGATIVE) RSV (PCR) (NEGATIVE) SARS-CoV-2 (PCR) (NEGATIVE) Slides for Path Review YES 02/16/24 02/16/24 02/16/24 Range/Units 04:57 04:57 06:47 WBC (4.23-9.07) x10^3/uL RBC (4.63-6.08) x10^6/uL Hgb (13.7-17.5) g/dL Hct (40.1-51.0) % MCV (79.0-92.2) fL MCH (25.7-32.2) pg MCHC (32.3-36.5) g/dL RDW (11.6-14.4) % Plt Count (163-337) x10^3/uL MPV (9.4-12.4) fL Gran % (34.0-67.9) % Immature Gran % (Auto) (0.001-0.429) % Nucleat RBC Rel Count (0.00-0.2) % Eos # (Auto) (0.04-0.54) x10^3/uL Immature Gran # (Auto) (0.001-0.031) x10^3u/L Absolute Lymphs (auto) (1.32-3.57) x10^3/uL Absolute Monos (auto) (0.30-0.82) x10^3/uL Absolute Nucleated RBC (0.00-0.012) x10^3u/L Lymphocytes % (21.8-53.1) % Monocytes % (5.3-12.2) % Eosinophils % (0.8-7.0) % Basophils % (0.2-1.2) % Absolute Granulocytes (1.78-5.38) x10^3/uL Basophils # (0.01-0.08) x10^3/uL POC Glucometer (74 to 106) mg/dL Magnesium 2.1 (1.6-2.3) mg/dL Troponin I 0.030 (0.000-0.033) ng/mL Urine Color (Yellow) Urine Appearance (Clear) Urine pH (4.6-8.0) Ur Specific [place] (1.005-1.030) Urine Protein (Negative) Urine Glucose (UA) (Negative) mg/dL Urine Ketones (Negative) Urine Blood (Negative) Urine Nitrite (Negative) Urine Bilirubin (Negative) Urine Urobilinogen (0.2) mg/dL Ur Leukocyte Esterase (Negative) U Hyaline Cast (Auto) (0-2) /LPF Urine Microscopic RBC (0-5) /HPF Urine Microscopic WBC (0-5) /HPF Ur Epithelial Cells (None Seen) /HPF Urine Bacteria (None Seen) /HPF Urine Culture Reflexed (NO) C. difficile Screen (NEGATIVE) C.difficile 027-NAP1-B1 (NEGATIVE) Influenza Type A Ag NEGATIVE (NEGATIVE) Influenza Type B Ag NEGATIVE (NEGATIVE) RSV (PCR) NEGATIVE (NEGATIVE) SARS-CoV-2 (PCR) NEGATIVE (NEGATIVE) Slides for Path Review 02/16/24 02/16/24 02/16/24 Range/Units 07:52 11:20 20:47 WBC (4.23-9.07) x10^3/uL RBC (4.63-6.08) x10^6/uL Hgb (13.7-17.5) g/dL Hct (40.1-51.0) % MCV (79.0-92.2) fL MCH (25.7-32.2) pg MCHC (32.3-36.5) g/dL RDW (11.6-14.4) % Plt Count (163-337) x10^3/uL MPV (9.4-12.4) fL Gran % (34.0-67.9) % Immature Gran % (Auto) (0.001-0.429) % Nucleat RBC Rel Count (0.00-0.2) % Eos # (Auto) (0.04-0.54) x10^3/uL Immature Gran # (Auto) (0.001-0.031) x10^3u/L Absolute Lymphs (auto) (1.32-3.57) x10^3/uL Absolute Monos (auto) (0.30-0.82) x10^3/uL Absolute Nucleated RBC (0.00-0.012) x10^3u/L Lymphocytes % (21.8-53.1) % Monocytes % (5.3-12.2) % Eosinophils % (0.8-7.0) % Basophils % (0.2-1.2) % Absolute Granulocytes (1.78-5.38) x10^3/uL Basophils # (0.01-0.08) x10^3/uL POC Glucometer 191 H (74 to 106) mg/dL Magnesium (1.6-2.3) mg/dL Troponin I 0.043 H* 0.044 H* (0.000-0.033) ng/mL Urine Color (Yellow) Urine Appearance (Clear) Urine pH (4.6-8.0) Ur Specific [place] (1.005-1.030) Urine Protein (Negative) Urine Glucose (UA) (Negative) mg/dL Urine Ketones (Negative) Urine Blood (Negative) Urine Nitrite (Negative) Urine Bilirubin (Negative) Urine Urobilinogen (0.2) mg/dL Ur Leukocyte Esterase (Negative) U Hyaline Cast (Auto) (0-2) /LPF Urine Microscopic RBC (0-5) /HPF Urine Microscopic WBC (0-5) /HPF Ur Epithelial Cells (None Seen) /HPF Urine Bacteria (None Seen) /HPF Urine Culture Reflexed (NO) C. difficile Screen (NEGATIVE) C.difficile 027-NAP1-B1 (NEGATIVE) Influenza Type A Ag (NEGATIVE) Influenza Type B Ag (NEGATIVE) RSV (PCR) (NEGATIVE) SARS-CoV-2 (PCR) (NEGATIVE) Slides for Path Review Radiology Exams: Radiology Procedures Category Date Time Status ABDOMEN AND PELVIS W/0 CONTRAS [CT] Stat Exams 02/16/24 04:28 Completed Assessment/Plan (1) Acute gastroenteritis Current Visit: Yes Status: Acute Assessment & Plan: -CT abd/pelvis reviewed demonstrates small urinary bladder diverticulum with few calculi within. Interval increase in size and number of calculi compared to prior study.Chronic bilateral renal disease. Post renal transplant status with the transplant kidney in the right iliac fossa. Subtle perinephric fat stranding. Mild cystitis.Bilateral stable small inguinal hernia with herniation of omentum. The visualized lung bases show persistent multiple small lung nodules. -Supportive care with anti-emetics, anti-pyretics, IVF -WBC reviewed WNL at 6.0 -Bhavya/lipase WNL -stools for cdiff 02/16: -CDiff reviewed and negative -NVD have resolved -Tolerating CLD - will ADAT -Continues to be weak - will continue IVF for now Code(s): K52.9 - NONINFECTIVE GASTROENTERITIS AND COLITIS, UNSPECIFIED (2) Acute UTI (urinary tract infection) Current Visit: Yes Status: Acute Assessment & Plan: -UA reviewed and suspicious for infection - ceftriaxone started in ED will continue - follow culture Code(s): N39.0 - URINARY TRACT INFECTION, SITE NOT SPECIFIED (3) Afib Current Visit: Yes Status: Acute Assessment & Plan: -continue home meds eliquis and coreg - pacemaker -tele Code(s): I48.91 - UNSPECIFIED ATRIAL FIBRILLATION (4) History of prostate cancer Current Visit: Yes Status: Acute Assessment & Plan: -s/p radiation/seeds Code(s): Z85.46 - PERSONAL HISTORY OF MALIGNANT NEOPLASM OF PROSTATE (5) HLD (hyperlipidemia) Current Visit: Yes Status: Acute Assessment & Plan: -continue home regimen Code(s): E78.5 - HYPERLIPIDEMIA, UNSPECIFIED (6) HTN (hypertension) Current Visit: Yes Status: Acute Assessment & Plan: -BP stable with some htn on arrival- continue home meds Code(s): I10 - ESSENTIAL (PRIMARY) HYPERTENSION (7) History of hepatitis C Current Visit: Yes Status: Acute Assessment & Plan: -OP treatment Code(s): Z86.19 - PERSONAL HISTORY OF OTHER INFECTIOUS AND PARASITIC DISEASES (8) History of kidney transplant Current Visit: Yes Status: Acute Assessment & Plan: -Continue anti-rejection home meds (9) DM2 (diabetes mellitus, type 2) Current Visit: No Status: Chronic Qualifiers: Diabetes mellitus retirement insulin use: with terminal system operator use Assessment & Plan: -SSI -CLD- accucheck ACHS -hold ozempic/metformin VTE: eliquis PPI: protonix Dispo: 1-2 days Code(s): K52.9 - NONINFECTIVE GASTROENTERITIS AND COLITIS, UNSPECIFIED (2) Acute UTI (urinary tract infection) Current Visit: Yes Status: Acute Code(s): N39.0 - URINARY TRACT INFECTION, SITE NOT SPECIFIED (3) Afib Current Visit: Yes Status: Acute Code(s): I48.91 - UNSPECIFIED ATRIAL FIBRILLATION (4) History of prostate cancer Current Visit: Yes Status: Acute Code(s): Z85.46 - PERSONAL HISTORY OF MALIGNANT NEOPLASM OF PROSTATE (5) HLD (hyperlipidemia) Current Visit: Yes Status: Acute Code(s): E78.5 - HYPERLIPIDEMIA, UNSPECIFIED (6) HTN (hypertension) Current Visit: Yes Status: Acute Code(s): I10 - ESSENTIAL (PRIMARY) HYPERTENSION (7) History of hepatitis C Current Visit: Yes Status: Acute Code(s): Z86.19 - PERSONAL HISTORY OF OTHER INFECTIOUS AND PARASITIC DISEASES (8) History of kidney transplant Current Visit: Yes Status: Acute (9) DM2 (diabetes mellitus, type 2) Current Visit: No Status: Chronic Qualifiers: Diabetes mellitus 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
[2024-02-17 05:39] LABS: BILIRUBIN,TOTAL 0.5 mg/dL (0.2-1.3); Calcium 8.3 mg/dL (8.4-10.2); Creatinine 1 1.18 mg/dL (0.66-1.25); EST GLOMERULAR FILTRATION RATE 63.2 ML/MIN; Potassium 3.8 mmol/L (3.5-5.1); Total Protein 5.4 g/dL (6.3-8.2)
[2024-02-17] MEDS: Klor Con PO SCH (09:15)
[2024-02-17] MEDS: FEOSOL 325 MG PO SCH (09:17)
[2024-02-17] MEDS: Protonix 40MG Tablet PO SCH (09:17)
[2024-02-17] MEDS: DELTASONE 5 MG PO SCH (09:17)
[2024-02-17] MEDS: THERAGRAN MULTIVITAMIN PO SCH (09:17)
[2024-02-17] MEDS: ZYLOPRIM 100 MG PO SCH (09:17)
[2024-02-17] MEDS: Lantus Insulin SQ SCH (09:17)
[2024-02-17] MEDS: Acidophilus TABLET PO SCH (09:17)
[2024-02-17] MEDS: ROCEPHIN 1 GM / 100 ML NaCl 1 GM/100 ML IVPB IV SCH (09:18)
[2024-02-17] MEDS ORDERED: [UNRECOGNIZED DRUG - OTHER] PO SCH (10:00)
[2024-02-17] MEDS ORDERED: ITRACONAZOLE 100 MG PO SCH (10:00)
[2024-02-17] MEDS ORDERED: NON-FORMULARY ITEM (Potassium Chloride [Klor-Con M20] 20 MEQ Tab.Er.Prt) PO SCH (10:00)
[2024-02-17] MEDS ORDERED: ACIDOPHILUS PO SCH (10:00)
[2024-02-17] MEDS ORDERED: MULTIVIT MINERALS PO SCH (10:00)
[2024-02-17] MEDS ORDERED: NON-FORMULARY ITEM (Insulin Detemir [Levemir] 100 UNIT/ML Vial) SQ SCH (10:00)
[2024-02-17] MEDS ORDERED: TOLTERODINE TARTRATE 2 MG PO SCH (10:00)
[2024-02-17] MEDS ORDERED: VITAMIN D3 PO SCH (10:00)
[2024-02-17] MEDS ORDERED: FOLIC ACID PO SCH (10:00)
[2024-02-17] MEDS ORDERED: VITAMIN K2 PO SCH (10:00)
[2024-02-17] MEDS ORDERED: BULGARICUS PO SCH (10:00)
[2024-02-17] MEDS ORDERED: TACROLIMUS 0.75 MG PO SCH (10:00)
[2024-02-17] MEDS ORDERED: TURMERIC ROOT PO SCH (10:00)
[2024-02-17] MEDS ORDERED: [UNRECOGNIZED DRUG - OTHER] PO SCH (10:00)
[2024-02-17] MEDS: HUMALOG SQ PRN (13:18)
--- NOTE | 2024-02-18 05:33 | PCM.DS ---
Discharge Summary Date of Admission: 02/16/24 09:00 Date of Discharge: 02/18/24 Admitting Physician: AVELINA ESPAÑA MD Primary Care Provider: TERRY NAVARRETE DO Allergies Allergies Sulfa (Sulfonamide Antibiotics) [Sulfa(Sulfonamide Antibiotics)] Allergy (Unknown, Verified 02/16/24 09:51) ibuprofen Adverse Reaction (Severe, Verified 02/16/24 03:41) kidney transplant latex Adverse Reaction (Intermediate, Verified 02/16/24 03:41) Rash Hospital Summary - Hospital Course Hospital Course: is a 78 year old male with a pmhx of prostate cancer (s/p seed radiation), AFIB (pacemaker), DM, HLD, HTN, Hep C, and Right kidney transplant who presented to ED 02/16/24 with complaints of nausea, vomiting, and diarrhea. Patient reports that he was diagnosed with UTI by Dr. Albert yesterday afternoon and had some instrumentation done for his prostatic beads. He was prescribed antibiotics at that time. He experienced multiple episodes of abdominal pain, vomiting and diarrhea around midnight. Spouse had similar symptoms. He reports he is unable to keep oral intake down and was unable to take antibiotics prescribed for UTI yesterday. He became very fatigued and felt dehydrate which prompted him to seek treatment today. Denies fever,sob, cp, HAUSER, or dizziness. At the time of my interview patient reports no nausea or abdominal pain. Upon arrival to ED patient was tachycardic and hypertensive. CT abdomen and pelvis showed cystitis, increased calculi in bladder and lung nodules. Patient states he is aware of the lung nodules and has been diagnosed with histoplasmosis and receives surveillance by his infectious disease physician. Lab findings remarkable for c02 at 19, elevated troponins, and ua suspicious for UTI. Respiratory panel negative. EKG reported as RATE (89 atrial sensed ventricular paced rhythm prolonged [place] interval, right bundle branch block inferior/anteroseptal Q waves), Other (Second EKG 318 tachycardia 146, right axis deviation, right bundle branch block, no ST elevations, nonspecific ST and T wave changes). Patient was given ceftriaxone, fluid bolus, magnesium, zofran, and Reglan in ED with noted improvement of symptoms. Admit for viral gastroenteritis and UTI. Plan supportive care and abx for UTI. N/V/D have reso lved. Patient tolerating a full diet. Urine culture with gram negative organism. Discharge Note New Diagnosis: New Medications: Follow Up: Results pending: Outpatient testing to order: Latest Assessment & Plan (1) Acute gastroenteritis Current Visit: Yes Status: Acute Assessment & Plan: -CT abd/pelvis reviewed demonstrates small urinary bladder diverticulum with few calculi within. Interval increase in size and number of calculi compared to prior study.Chronic bilateral renal disease. Post renal transplant status with the transplant kidney in the right iliac fossa. Subtle perinephric fat stranding. Mild cystitis.Bilateral stable small inguinal hernia with herniation of omentum. The visualized lung bases show persistent multiple small lung nodules. -Supportive care with anti-emetics, anti-pyretics, IVF -WBC reviewed WNL at 6.0 -Bhavya/lipase WNL -stools for cdiff 02/16: -CDiff reviewed and negative -NVD have resolved -Tolerating CLD - will ADAT -Continues to be weak - will continue IVF for now Code(s): K52.9 - NONINFECTIVE GASTROENTERITIS AND COLITIS, UNSPECIFIED (2) Acute UTI (urinary tract infection) Current Visit: Yes Status: Acute Assessment & Plan: -UA reviewed and suspicious for infection - ceftriaxone started in ED will continue - follow culture Code(s): N39.0 - URINARY TRACT INFECTION, SITE NOT SPECIFIED (3) Afib Current Visit: Yes Status: Acute Assessment & Plan: -continue home meds eliquis and coreg - pacemaker -tele Code(s): I48.91 - UNSPECIFIED ATRIAL FIBRILLATION (4) History of prostate cancer Current Visit: Yes Status: Acute Assessment & Plan: -s/p radiation/seeds Code(s): Z85.46 - PERSONAL HISTORY OF MALIGNANT NEOPLASM OF PROSTATE (5) HLD (hyperlipidemia) Current Visit: Yes Status: Acute Assessment & Plan: -continue home regimen Code(s): E78.5 - HYPERLIPIDEMIA, UNSPECIFIED (6) HTN (hypertension) Current Visit: Yes Status: Acute Assessment & Plan: -BP stable with some htn on arrival- continue home meds Code(s): I10 - ESSENTIAL (PRIMARY) HYPERTENSION (7) History of hepatitis C Current Visit: Yes Status: Acute Assessment & Plan: -OP treatment Code(s): Z86.19 - PERSONAL HISTORY OF OTHER INFECTIOUS AND PARASITIC DISEASES (8) History of kidney transplant Current Visit: Yes Status: Acute Assessment & Plan: -Continue anti-rejection home meds (9) DM2 (diabetes mellitus, type 2) Current Visit: No Status: Chronic Qualifiers: Diabetes mellitus custodial insulin use: with custodial use Assessment & Plan: -SSI -CLD- accucheck ACHS -hold ozempic/metformin VTE: eliquis PPI: protonix Dispo: 1-2 days I spent 35 minutes [id number] with the patient on the day of discharge performing discharge exam, discussing hospital stay and discharge instructions with patient and caregivers, preparation of discharge records, prescriptions & referral forms and addressing any questions/concerns the patient had as documented above. - Vitals & Intake/Output Vital Signs: Vital Signs Temperature 99.8 F 02/18/24 05:00 Pulse Rate 72 02/18/24 05:00 Respiratory Rate 24 02/18/24 05:00 Blood Pressure 160/71 02/18/24 05:00 O2 Sat by Pulse Oximetry 95 02/18/24 05:00 Intake & Output: Intake & Output 02/15/24 02/16/24 02/17/24 02/18/24 11:59 11:59 11:59 11:59 Intake Total 360 3001 Output Total 400 1500 Balance -40 1501 Weight 73.7 kg 76.5 kg - Lab Result Diagrams: 02/17/24 05:00 02/17/24 05:00 Lab Results-Last 24 Hrs: Lab Results-Last 24 Hours 02/17/24 02/17/24 02/17/24 Range/Units 05:00 05:00 05:21 Sodium 139 (135-145) mmol/L Potassium 3.8 (3.5-5.1) mmol/L Chloride 110 H (98-107) mmol/L Carbon Dioxide 21 L (22-30) mmol/L Anion Gap 11.0 (5-15) MEQ/L BUN 28 H (9-20) mg/dL Creatinine 1.18 (0.66-1.25) mg/dL Estimated GFR 63.2 ML/MIN Glucose 150 H (74-106) mg/dL POC Glucometer (74 to 106) mg/dL Hemoglobin A1c 6.12 H (4.5-6.0) % Calcium 8.3 L (8.4-10.2) mg/dL Total Bilirubin 0.50 (0.2-1.3) mg/dL AST 18 (17-59) U/L ALT 21 (0-50) U/L Alkaline Phosphatase 42 (38-126) U/L Troponin I 0.042 H* (0.000-0.033) ng/mL Serum Total Protein 5.4 L (6.3-8.2) g/dL Albumin 3.0 L (3.5-5.0) g/dL 02/17/24 Range/Units 08:27 Sodium (135-145) mmol/L Potassium (3.5-5.1) mmol/L Chloride (98-107) mmol/L Carbon Dioxide (22-30) mmol/L Anion Gap (5-15) MEQ/L BUN (9-20) mg/dL Creatinine (0.66-1.25) mg/dL Estimated GFR ML/MIN Glucose (74-106) mg/dL POC Glucometer 180 H (74 to 106) mg/dL Hemoglobin A1c (4.5-6.0) % Calcium (8.4-10.2) mg/dL Total Bilirubin (0.2-1.3) mg/dL AST (17-59) U/L ALT (0-50) U/L Alkaline Phosphatase (38-126) U/L Troponin I (0.000-0.033) ng/mL Serum Total Protein (6.3-8.2) g/dL Albumin (3.5-5.0) g/dL Micro Results-Entire Visit: Microbiology 02/16/24 03:44 Urine Culture - Preliminary Clean Catch Midstream GRAM NEGATIVE ID AND SENSITIVITY PENDING Accuchecks Date 02/17/24 Date 02/17/24 Date 02/17/24 Date 02/17/24 Time 21:50 Time 17:04 Time 12:10 Time 09:02 - Procedures and Test Procedures and Tests throughout Hospitalization: Therapy Orders & Screens 02/16/24 11:20 EKG STAT Comment: Diagnosis: Acute gastroenteritis, UTI Final Diagnosis/Problem List - Final Discharge Diagnosis/Problem (1) Acute gastroenteritis Current Visit: Yes Status: Acute Code(s): K52.9 - NONINFECTIVE GASTROENTERITIS AND COLITIS, UNSPECIFIED (2) Acute UTI (urinary tract infection) Current Visit: Yes Status: Acute Code(s): N39.0 - URINARY TRACT INFECTION, SITE NOT SPECIFIED (3) Afib Current Visit: Yes Status: Acute Code(s): I48.91 - UNSPECIFIED ATRIAL FIBRILLATION (4) History of prostate cancer Current Visit: Yes Status: Acute Code(s): Z85.46 - PERSONAL HISTORY OF MALIGNANT NEOPLASM OF PROSTATE (5) HLD (hyperlipidemia) Current Visit: Yes Status: Acute Code(s): E78.5 - HYPERLIPIDEMIA, UNSPECIFIED (6) HTN (hypertension) Current Visit: Yes Status: Acute Code(s): I10 - ESSENTIAL (PRIMARY) HYPERTENSION (7) History of hepatitis C Current Visit: Yes Status: Acute Code(s): Z86.19 - PERSONAL HISTORY OF OTHER INFECTIOUS AND PARASITIC DISEASES (8) History of kidney transplant Current Visit: Yes Status: Acute (9) DM2 (diabetes mellitus, type 2) Current Visit: No Status: Chronic - Discharge Disposition: Home, Self-Care Condition: Stable Prescriptions: No Action Tamsulosin HCl 0.4 mg [Flomax 0.4 MG] 0.4 mg PO BID PANTOPRAZOLE 40 mg Tablet [Protonix 40MG Tablet] 40 mg PO QAM HydrALAzine HCL 25 MG TAB [Apresoline 25 MG TABLET] 25 mg PO TID Semaglutide [Ozempic] 1 unit SQ WEEKLY Metformin HCl 500 mg [Glucophage 500 MG] 500 mg PO BID Pravastatin Sodium 40 mg PO HS Magnesium Oxide 400 mg PO BID carvediloL [Coreg] 6.25 mg PO BID Itraconazole [Sporanox] 100 mg PO DAILY Benzonatate 100 mg PO DAILY PRN PRN Reason: Cough Docusate Sodium 100 mg [Docusate Sodium 100 MG] 100 mg PO BID PRN PRN Reason: Constipation Losartan Potassium [Cozaar] 50 mg PO HS Insulin Detemir [Levemir] 20 unit SQ DAILY Potassium Chloride [Klor-Con M20] 20 meq PO DAILY Tacrolimus [Envarsus Xr] 0.75 mg PO DAILY Allopurinol 100 mg [Zyloprim 100 mg] 100 mg PO DAILY Apixaban [Eliquis] 5 mg PO BID Flonase 50 50 mcg IN DAILY PRN PRN Reason: Allergies L. Acidophilus/L.bulgaricus [Lactobacillus Tablet] 1 tab PO DAILY 30 Days #30 tablet Prednisone 5 mg [Deltasone 5 mg] 5 mg PO DAILY Turmeric Root/Kiki Root Ext [Turmeric Curcumin-Kiki Gummy] 1 each PO DAILY Vitamin D3/Vitamin K2 (Mk4) [K2 Plus D3 Tablet] 45 mcg PO DAILY Multivit-Minerals/Folic Acid [Centrum Adult 50 Plus Gummy] 2 gel PO DAILY Ferrous Sulfate 325 mg [Feosol 325 mg] 325 mg PO DAILY Insulin Lispro [Humalog Kwikpen U-100] 6 - 10 unit SQ UD Tolterodine Tartrate 2 mg [Detrol 2 MG] 2 mg PO DAILY Bromocriptine Mesylate [Cycloset] 0.8 mg PO HS Magnesium Chloride [Slow-Mag] 71.5 mg PO BID Empagliflozin [Jardiance] 10 mg PO DAILY Follow up with: TERRY NAVARRETE DO [Primary Care Provider] -
[2024-02-18 05:36] LABS: Basophil (Absolute #) 0 x10^3/uL (0.01-0.08); Eosinophil % 0.5 % (0.8-7.0); Eosinophil (Absolute #) 0.03 x10^3/uL (0.04-0.54); Hematocrit 39.1 % (40.1-51.0); Hemoglobin 12.2 g/dL (13.7-17.5); IMMATURE GRAN # 0.03 x10^3u/L (0.001-0.031); IMMATURE GRAN % 0.5 % (0.001-0.429); Lymphocyte (Absolute #) 1.12 x10^3/uL (1.32-3.57); Lymphocytes % 18.1 % (21.8-53.1); Mean Cell Volume 85.7 fL (79.0-92.2); Mean Corpuscular Hemoglobin 26.8 pg (25.7-32.2); Mean Corpuscular Hgb Concent. 31.2 g/dL (32.3-36.5); Mean Platelet Volume 10.5 fL (9.4-12.4); Monocyte (Absolute #) 0.71 x10^3/uL (0.30-0.82); Monocytes % 11.5 % (5.3-12.2); Neutrophil % 69.4 % (34.0-67.9); Platelet Count 138 x10^3/uL (163-337); Red Blood Count 4.56 x10^6/uL (4.63-6.08); Red Cell Distribution Width 15.9 % (11.6-14.4); White Blood Count 6.2 x10^3/uL (4.23-9.07)
[2024-02-18 06:06] LABS: ALBUMIN 3.1 g/dL (3.5-5.0); ANION GAP 10.3 MEQ/L (5-15); BILIRUBIN,TOTAL 0.5 mg/dL (0.2-1.3); Calcium 8.5 mg/dL (8.4-10.2); Creatinine 1 1.03 mg/dL (0.66-1.25); EST GLOMERULAR FILTRATION RATE 74.4 ML/MIN; Potassium 3.9 mmol/L (3.5-5.1); Total Protein 5.9 g/dL (6.3-8.2)
--- NOTE | 2024-02-18 10:10 | PCM.NOTE ---
Date and Time: 02/18/24 1004 Subjective Assessment: is a 78 year old male with a pmhx of prostate cancer (s/p seed radiation), AFIB (pacemaker), DM, HLD, HTN, Hep C, and Right kidney transplant who presented to ED 02/16/24 with complaints of nausea, vomiting, and diarrhea. Patient reports that he was diagnosed with UTI by Dr. Albert yesterday afternoon and had some instrumentation done for his prostatic beads. He was prescribed antibiotics at that time. He experienced multiple episodes of abdominal pain, vomiting and diarrhea around midnight. Spouse had similar symptoms. He reports he is unable to keep oral intake down and was unable to take antibiotics prescribed for UTI yesterday. He became very fatigued and felt dehydrate which prompted him to seek treatment today. Denies fever,sob, cp, HAUSER, or dizziness. At the time of my interview patient reports no nausea or abdominal pain. Upon arrival to ED patient was tachycardic and hypertensive. CT abdomen and pelvis showed cystitis, increased calculi in bladder and lung nodules. Patient states he is aware of the lung nodules and has been diagnosed with histoplasmosis and receives surveillance by his infectious disease physician. Lab findings remarkable for c02 at 19, elevated troponins, and ua suspicious for UTI. Respiratory panel negative. EKG reported as RATE (89 atrial sensed ventricular paced rhythm prolonged ID interval, right bundle branch block inferior/anteroseptal Q waves), Other (Second EKG 318 tachycardia 146, right axis deviation, right bundle branch block, no ST elevations, nonspecific ST and T wave changes). Patient was given ceftriaxone, fluid bolus, magnesium, zofran, and Reglan in ED with noted improvement of symptoms. Admit for viral gastroenteritis and UTI. Plan supportive care and abx for UTI. N/V/D have resolved. Patient tolerating a full diet. Urine culture with Klebsiella ESBL- sensitive to Merem. 02/16: Patient feeling better today. N/V/D resolved. Endorses weakness. Tolerating CLD. Will advance as he tolerates it. Ucult pending. Denies fever,cough, sob, cp, abdominal pain, HAUSER, dizziness, N/V/D. 02/17: Tolerating diet. Still very weak. Ucult with Klebsiella ESBL sensitive to Merem. Patient states he is too weak to go home. Will continue abx - possibly switch to levaquin tomorrow and discharge home if weakness improves. - Review of Systems Constitutional: Lethargy, Weakness Eyes: No Symptoms Ears, Nose, & Throat: No Symptoms Respiratory: No Symptoms Cardiac: No Symptoms Abdominal/Gastrointestinal: No Symptoms Genitourinary Symptoms: Dysuria Musculoskeletal: No Symptoms Skin: No Symptoms Neurological: No Symptoms Psychological: No Symptoms Endocrine: No Symptoms Hematologic/Lymphatic: No Symptoms Immunological/Allergic: No Symptoms Objective Exam General Appearance: no apparent distress Neurologic Exam: alert, oriented x 3, cooperative Skin Exam: pale Eye Exam: PERRL Ears, Nose, Throat Exam: normal ENT inspection Neck Exam: normal inspection Respiratory Exam: normal breath sounds, lungs clear Cardiovascular Exam: regular rate/rhythm, normal heart sounds Gastrointestinal/Abdomen Exam: soft, normal bowel sounds Extremity Exam: normal inspection Back Exam: normal inspection Objective Data Vital Signs: Vital Signs - 24 hr Temp Pulse Resp BP Pulse Ox 02/18/24 07:42 99.5 F 73 20 164/70 94 L 02/18/24 05:00 99.8 F 72 24 160/71 95 02/18/24 00:15 98.4 F 76 20 146/68 96 02/17/24 20:00 97.6 F 71 19 142/68 96 02/17/24 16:00 97.8 F 70 17 159/76 95 02/17/24 12:00 98.3 F 71 17 103/56 95 Pain Assessment - Last Documented Pain Intensity 0 Intake and Output: Intake & Output 02/15/24 02/16/24 02/17/24 02/18/24 11:59 11:59 11:59 11:59 Intake Total 360 3121 Output Total 400 1900 Balance -40 1221 Weight 73.7 kg 76.5 kg Lab Results: Lab Results-Last 24 Hours 02/17/24 02/18/24 02/18/24 Range/Units 05:21 05:18 05:18 WBC 6.2 (4.23-9.07) x10^3/uL RBC 4.56 L (4.63-6.08) x10^6/uL Hgb 12.2 L (13.7-17.5) g/dL Hct 39.1 L (40.1-51.0) % MCV 85.7 (79.0-92.2) fL MCH 26.8 (25.7-32.2) pg MCHC 31.2 L (32.3-36.5) g/dL RDW 15.9 H (11.6-14.4) % Plt Count 138 L (163-337) x10^3/uL MPV 10.5 (9.4-12.4) fL Gran % 69.4 H (34.0-67.9) % Immature Gran % (Auto) 0.5 H (0.001-0.429) % Nucleat RBC Rel Count 0.0 (0.00-0.2) % Eos # (Auto) 0.03 L (0.04-0.54) x10^3/uL Immature Gran # (Auto) 0.03 (0.001-0.031) x10^3u/L Absolute Lymphs (auto) 1.12 L (1.32-3.57) x10^3/uL Absolute Monos (auto) 0.71 (0.30-0.82) x10^3/uL Absolute Nucleated RBC 0.00 (0.00-0.012) x10^3u/L Lymphocytes % 18.1 L (21.8-53.1) % Monocytes % 11.5 (5.3-12.2) % Eosinophils % 0.5 L (0.8-7.0) % Basophils % 0.0 L (0.2-1.2) % Absolute Granulocytes 4.30 (1.78-5.38) x10^3/uL Basophils # 0 L (0.01-0.08) x10^3/uL Sodium 138 (135-145) mmol/L Potassium 3.9 (3.5-5.1) mmol/L Chloride 111 H (98-107) mmol/L Carbon Dioxide 21 L (22-30) mmol/L Anion Gap 10.3 (5-15) MEQ/L BUN 19 (9-20) mg/dL Creatinine 1.03 (0.66-1.25) mg/dL Estimated GFR 74.4 ML/MIN Glucose 150 H (74-106) mg/dL Hemoglobin A1c 6.12 H (4.5-6.0) % Calcium 8.5 (8.4-10.2) mg/dL Total Bilirubin 0.50 (0.2-1.3) mg/dL AST 21 (17-59) U/L ALT 21 (0-50) U/L Alkaline Phosphatase 47 (38-126) U/L Serum Total Protein 5.9 L (6.3-8.2) g/dL Albumin 3.1 L (3.5-5.0) g/dL Assessment/Plan (1) Acute gastroenteritis Current Visit: Yes Status: Acute Assessment & Plan: -CT abd/pelvis reviewed demonstrates small urinary bladder diverticulum with few calculi within. Interval increase in size and number of calculi compared to prior study.Chronic bilateral renal disease. Post renal transplant status with the transplant kidney in the right iliac fossa. Subtle perinephric fat stranding. Mild cystitis.Bilateral stable small inguinal hernia with herniation of omentum. The visualized lung bases show persistent multiple small lung nodules. -Supportive care with anti-emetics, anti-pyretics, IVF -WBC reviewed WNL at 6.0 -Bhavya/lipase WNL -stools for cdiff 02/16: -CDiff reviewed and negative -NVD have resolved -Tolerating CLD - will ADAT -Continues to be weak - will continue IVF for now 02/17: -tolerating full diet -no NVD- stop fluids Code(s): K52.9 - NONINFECTIVE GASTROENTERITIS AND COLITIS, UNSPECIFIED (2) Acute UTI (urinary tract infection) Current Visit: Yes Status: Acute Assessment & Plan: -UA reviewed and suspicious for infection - ceftriaxone started in ED will continue - follow culture 02/17: -Ucult with ESBL klebsiella- sensitive to Merem - will start tonight - if symptoms improve could switch to levaquin tomorrow on discharge Code(s): N39.0 - URINARY TRACT INFECTION, SITE NOT SPECIFIED (3) Afib Current Visit: Yes Status: Acute Assessment & Plan: -continue home meds eliquis and coreg - pacemaker -tele Code(s): I48.91 - UNSPECIFIED ATRIAL FIBRILLATION (4) History of prostate cancer Current Visit: Yes Status: Acute Assessment & Plan: -s/p radiation/seeds Code(s): Z85.46 - PERSONAL HISTORY OF MALIGNANT NEOPLASM OF PROSTATE (5) HLD (hyperlipidemia) Current Visit: Yes Status: Acute Assessment & Plan: -continue home regimen Code(s): E78.5 - HYPERLIPIDEMIA, UNSPECIFIED (6) HTN (hypertension) Current Visit: Yes Status: Acute Assessment & Plan: -BP stable with some htn on arrival- continue home meds Code(s): I10 - ESSENTIAL (PRIMARY) HYPERTENSION (7) History of hepatitis C Current Visit: Yes Status: Acute Assessment & Plan: -OP treatment Code(s): Z86.19 - PERSONAL HISTORY OF OTHER INFECTIOUS AND PARASITIC DISEASES (8) History of kidney transplant Current Visit: Yes Status: Acute Assessment & Plan: -Continue anti-rejection home meds (9) DM2 (diabetes mellitus, type 2) Current Visit: No Status: Chronic Qualifiers: Diabetes mellitus salvage determiner insulin use: with retirement use Assessment & Plan: -SSI -CLD- accucheck ACHS -hold ozempic/metformin VTE: eliquis PPI: protonix Dispo: 1-2 days Code(s): K52.9 - NONINFECTIVE GASTROENTERITIS AND COLITIS, UNSPECIFIED (2) Acute UTI (urinary tract infection) Current Visit: Yes Status: Acute Code(s): N39.0 - URINARY TRACT INFECTION, SITE NOT SPECIFIED (3) Afib Current Visit: Yes Status: Acute Code(s): I48.91 - UNSPECIFIED ATRIAL FIBRILLATION (4) History of prostate cancer Current Visit: Yes Status: Acute Code(s): Z85.46 - PERSONAL HISTORY OF MALIGNANT NEOPLASM OF PROSTATE (5) HLD (hyperlipidemia) Current Visit: Yes Status: Acute Code(s): E78.5 - HYPERLIPIDEMIA, UNSPECIFIED (6) HTN (hypertension) Current Visit: Yes Status: Acute Code(s): I10 - ESSENTIAL (PRIMARY) HYPERTENSION (7) History of hepatitis C Current Visit: Yes Status: Acute Code(s): Z86.19 - PERSONAL HISTORY OF OTHER INFECTIOUS AND PARASITIC DISEASES (8) History of kidney transplant Current Visit: Yes Status: Acute (9) DM2 (diabetes mellitus, type 2) Current Visit: No Status: Chronic Qualifiers: Diabetes mellitus retirement insulin use: with salvage determiner use
[2024-02-18] MEDS: PHARMACY DOSING REQUEST MC ONE (11:34)
[2024-02-18] MEDS: Merrem 1 GM in Sodium Chloride 100ML MINI-BAG PLUS 100 ML IV SCH (11:52)
[2024-02-19 05:11] LABS: Absolute Neutrophil Ct (ANC) 4.27 x10^3/uL (1.78-5.38); BASOPHIL % 0.2 % (0.2-1.2); Basophil (Absolute #) 0.01 x10^3/uL (0.01-0.08); Eosinophil % 0.6 % (0.8-7.0); Eosinophil (Absolute #) 0.04 x10^3/uL (0.04-0.54); Hematocrit 38.9 % (40.1-51.0); Hemoglobin 12.5 g/dL (13.7-17.5); IMMATURE GRAN # 0.03 x10^3u/L (0.001-0.031); IMMATURE GRAN % 0.5 % (0.001-0.429); Lymphocytes % 22.6 % (21.8-53.1); Mean Corpuscular Hgb Concent. 32.1 g/dL (32.3-36.5); Neutrophil % 64.1 % (34.0-67.9); Platelet Count 139 x10^3/uL (163-337); Red Blood Count 4.63 x10^6/uL (4.63-6.08); Red Cell Distribution Width 15.8 % (11.6-14.4); White Blood Count 6.7 x10^3/uL (4.23-9.07)
[2024-02-19 05:45] LABS: ALBUMIN 3.3 g/dL (3.5-5.0); ANION GAP 10.6 MEQ/L (5-15); BILIRUBIN,TOTAL 0.8 mg/dL (0.2-1.3); Calcium 8.6 mg/dL (8.4-10.2); Creatinine 1 1.05 mg/dL (0.66-1.25); EST GLOMERULAR FILTRATION RATE 72.7 ML/MIN; Potassium 3.8 mmol/L (3.5-5.1); Total Protein 6.3 g/dL (6.3-8.2)
--- NOTE | 2024-02-19 12:33 | PCM.NOTE ---
Date and Time: 02/19/24 1226 Subjective Assessment: is a 78 year old male with a pmhx of prostate cancer (s/p seed radiation), AFIB (pacemaker), DM, HLD, HTN, Hep C, and Right kidney transplant who presented to ED 02/16/24 with complaints of nausea, vomiting, and diarrhea. Patient reports that he was diagnosed with UTI by Dr. Albert on afternoon of 02/15/24 and had some instrumentation done for his prostatic beads. He was prescribed antibiotics at that time. He experienced multiple episodes of abdominal pain, vomiting and diarrhea around midnight. Spouse had similar symptoms. He reported he was unable to keep oral intake down and was unable to take antibiotics prescribed for UTI yesterday. He became very fatigued and felt dehydrated which prompted him to seek treatment in the ER. Denies fever,sob, cp, HAUSER, or dizziness. Upon arrival to ED patient was tachycardic and hypertensive. CT abdomen and pelvis showed cystitis, increased calculi in bladder and lung nodules. Patient states he is aware of the lung nodules and has been diagnosed with histoplasmosis and receives surveillance by his infectious disease physician. Lab findings remarkable for C02 at 19, elevated troponins, and ua suspicious for UTI. Respiratory panel negative. EKG reported as RATE (89 atrial sensed ventricular paced rhythm prolonged SC interval, right bundle branch block inferior/anteroseptal Q waves), Other (Second EKG 318 tachycardia 146, right axis deviation, right bundle branch block, no ST elevations, nonspecific ST and T wave changes). Patient was given ceftriaxone, fluid bolus, magnesium, zofran, and Reglan in ED with noted improvement of symptoms. Admit for viral gastroenteritis and UTI. Continued supportive care and abx for UTI. N/V/D have resolved. Patient tolerating a full diet. Urine culture with Klebsiella ESBL- sensitive to Merrem. Per nursing pt has several episodes of ventricular tachycardia overnight with a 6-8 beat run then pacemaker would start. Pacemaker interrogation ordered. Will consult cardiology for further recommendations. Pt states weakness has improved today but he is having urinary incontinence. He denies any back pain. He denies CP, SOB, Abd. pain, N/V/D. - Review of Systems Constitutional: Weakness, No Fever, No Chills Eyes: No Symptoms Ears, Nose, & Throat: No Symptoms Respiratory: No Cough, No Short Of Breath Cardiac: No Chest Pain, No Edema, No Syncope Abdominal/Gastrointestinal: No Abdominal Pain, No Nausea, No Vomiting, No Diarrhea Genitourinary Symptoms: Incontinence, No Dysuria Musculoskeletal: No Back Pain, No Neck Pain Skin: No Rash Neurological: No Dizziness, No Focal Weakness, No Sensory Changes Psychological: No Symptoms Endocrine: No Symptoms Hematologic/Lymphatic: No Symptoms Immunological/Allergic: No Symptoms Objective Exam General Appearance: no apparent distress, alert Neurologic Exam: alert, oriented x 3, cooperative, normal mood/affect, nml cerebellar function, sensation nml, No motor deficits Skin Exam: normal color, warm, dry Eye Exam: PERRL, EOMI, eyes nml inspection Ears, Nose, Throat Exam: normal ENT inspection, pharynx normal, moist mucous membranes Neck Exam: normal inspection, non-tender, supple, full range of motion Respiratory Exam: normal breath sounds, lungs clear, No respiratory distress Cardiovascular Exam: normal heart sounds, irregular Gastrointestinal/Abdomen Exam: soft, No tenderness, No mass Extremity Exam: normal inspection, normal range of motion Back Exam: normal inspection, normal range of motion, No CVA tenderness, No vertebral tenderness Male Genitalia Exam: deferred Rectal Exam: deferred Objective Data Vital Signs: Vital Signs - 24 hr Temp Pulse Resp BP Pulse Ox 02/19/24 12:04 97.8 F 71 16 122/62 95 02/19/24 09:00 987.2 F 77 18 170/73 95 02/19/24 04:24 98.0 F 81 21 149/67 95 02/18/24 19:52 98.7 F 72 18 147/66 94 L 02/18/24 17:00 97.1 F 72 17 184/84 96 Pain Assessment - Last Documented Pain Intensity 0 Intake and Output: Intake & Output 02/17/24 02/18/24 02/19/24 02/20/24 11:59 11:59 11:59 11:59 Intake Total 360 3121 1400 Output Total 400 1900 200 Balance -40 1221 1200 Weight 76.5 kg Lab Results: Lab Results-Last 24 Hours 02/19/24 02/19/24 02/19/24 Range/Units 05:04 05:04 05:04 WBC 6.7 (4.23-9.07) x10^3/uL RBC 4.63 (4.63-6.08) x10^6/uL Hgb 12.5 L (13.7-17.5) g/dL Hct 38.9 L (40.1-51.0) % MCV 84.0 (79.0-92.2) fL MCH 27.0 (25.7-32.2) pg MCHC 32.1 L (32.3-36.5) g/dL RDW 15.8 H (11.6-14.4) % Plt Count 139 L (163-337) x10^3/uL MPV 10.0 (9.4-12.4) fL Gran % 64.1 (34.0-67.9) % Immature Gran % (Auto) 0.5 H (0.001-0.429) % Nucleat RBC Rel Count 0.0 (0.00-0.2) % Eos # (Auto) 0.04 (0.04-0.54) x10^3/uL Immature Gran # (Auto) 0.03 (0.001-0.031) x10^3u/L Absolute Lymphs (auto) 1.50 (1.32-3.57) x10^3/uL Absolute Monos (auto) 0.80 (0.30-0.82) x10^3/uL Absolute Nucleated RBC 0.00 (0.00-0.012) x10^3u/L Lymphocytes % 22.6 (21.8-53.1) % Monocytes % 12.0 (5.3-12.2) % Eosinophils % 0.6 L (0.8-7.0) % Basophils % 0.2 (0.2-1.2) % Absolute Granulocytes 4.27 (1.78-5.38) x10^3/uL Basophils # 0.01 (0.01-0.08) x10^3/uL Sodium 139 (135-145) mmol/L Potassium 3.8 (3.5-5.1) mmol/L Chloride 109 H (98-107) mmol/L Carbon Dioxide 23 (22-30) mmol/L Anion Gap 10.6 (5-15) MEQ/L BUN 22 H (9-20) mg/dL Creatinine 1.05 (0.66-1.25) mg/dL Estimated GFR 72.7 ML/MIN Glucose 159 H (74-106) mg/dL Calcium 8.6 (8.4-10.2) mg/dL Magnesium 1.7 (1.6-2.3) mg/dL Total Bilirubin 0.80 (0.2-1.3) mg/dL AST 23 (17-59) U/L ALT 24 (0-50) U/L Alkaline Phosphatase 52 (38-126) U/L Serum Total Protein 6.3 (6.3-8.2) g/dL Albumin 3.3 L (3.5-5.0) g/dL Assessment/Plan (1) Acute UTI (urinary tract infection) Current Visit: Yes Status: Acute Assessment & Plan: -Ucult with ESBL klebsiella - Merem IV - CBC , CMP reviewed Code(s): N39.0 - URINARY TRACT INFECTION, SITE NOT SPECIFIED (2) Ventricular tachycardia Current Visit: Yes Status: Acute Assessment & Plan: - Episodes overnight per nursing 6-8 beat runs- nonsustaining - pt has a pacemaker. - pacemaker interrogation ordered - cardiology consult - Follows Dr. Handley for cardiology in [place], [place]. - Mg+ 1.7 Code(s): I47.20 - VENTRICULAR TACHYCARDIA, UNSPECIFIED (3) Elevated troponin Current Visit: Yes Status: Acute Assessment & Plan: - trops 0.044, 0.043, 0.030- trended down - cardiology consult - denies CP Code(s): R79.89 - OTHER SPECIFIED ABNORMAL FINDINGS OF BLOOD CHEMISTRY (4) Acute gastroenteritis Current Visit: Yes Status: Resolved Assessment & Plan: -C-Diff reviewed and negative -NVD have resolved -CT abd/pelvis reviewed demonstrates small urinary bladder diverticulum with few calculi within. Interval increase in size and number of calculi compared to prior study.Chronic bilateral renal disease. Post renal transplant status with the transplant kidney in the right iliac fossa. Subtle perinephric fat stranding. Mild cystitis.Bilateral stable small inguinal hernia with herniation of omentum. The visualized lung bases show persistent multiple small lung nodules. -Supportive care with anti-emetics, anti-pyretics, IVF - resolved Code(s): K52.9 - NONINFECTIVE GASTROENTERITIS AND COLITIS, UNSPECIFIED (5) Afib Current Visit: Yes Status: Chronic Assessment & Plan: -continue home meds eliquis and coreg - pacemaker -tele Code(s): I48.91 - UNSPECIFIED ATRIAL FIBRILLATION (6) HLD (hyperlipidemia) Current Visit: Yes Status: Chronic Assessment & Plan: -continue home regimen Code(s): E78.5 - HYPERLIPIDEMIA, UNSPECIFIED (7) HTN (hypertension) Current Visit: Yes Status: Chronic Assessment & Plan: -BP stable with some htn on arrival- continue home meds Code(s): I10 - ESSENTIAL (PRIMARY) HYPERTENSION (8) History of hepatitis C Current Visit: Yes Status: Chronic Assessment & Plan: -OP treatment Code(s): Z86.19 - PERSONAL HISTORY OF OTHER INFECTIOUS AND PARASITIC DISEASES (9) History of kidney transplant Current Visit: Yes Status: Chronic Assessment & Plan: -Continue anti-rejection home meds (10) History of prostate cancer Current Visit: Yes Status: Chronic Assessment & Plan: -s/p radiation/seeds - follows Dr. Albert' Code(s): Z85.46 - PERSONAL HISTORY OF MALIGNANT NEOPLASM OF PROSTATE (11) DM2 (diabetes mellitus, type 2) Current Visit: No Status: Chronic Qualifiers: Diabetes mellitus chcf insulin use: with chcf use Assessment & Plan: -SSI -CLD- accucheck ACHS -hold ozempic/metformin - A1C 6.12- controlled VTE: Eliquis PPI: Protonix Next of Kin: Dispo: pending cardiology recs Code status: Full
[2024-02-19] MEDS: PATIENT OWN MEDICATION PO SCH ×3 (16:17→21:50)
--- NOTE | 2024-02-19 19:06 | PCM.CONS ---
History of Present Illness - Date of Consult Consulting Cat Hooker: PAWAN SANDS MD Requesting Provider: Attending Provider: AVELINA ESPAÑA MD Primary Care Provider: PCP: TERRY NAVARRETE, - Consult Narrative Reason for Consult: concern for runs of VT HPI: 78 yo M w/ PMHx of CKD s/p renal transplant, DM, afib, hep c, CAD s/p MA (no stents or bypass) who presented with significant dehydration and was admitted for IVFs. Please refer HPI for further details on his presentation. Overnight he was noted to have runs of a wide complex rhythm on tele and there was concern for VT and thus cardiology was consulted. He had a total of 5-6 runs of 5-6 beats each. The patient was completely asymptomatic with no palpitations, sob, chest pain, or lightheadedness. I've reviewed the available tele strips and at least one appears to be afib w/ aberrancy with an irregular rhythm. Most importantly, we interrogated his device and it shows no recent episodes of VT (he had one on Feb 07 that appears like it was 6 beats long). It also showed episodes of AT/AF. He has f/u with his regular lab aid in 10 days. cc:: The requesting physician will be sent a copy of the consult. Review of Systems - Review of Systems All systems: as per HPI - Past Medical History Past Medical History: Yes Neurological History: No Pertinent History ENT History: Cataracts Cardiac History: Arrhythmia, Hypertension, Other Respiratory History: Pneumonia, Other Endocrine Medical History: Diabetes Type II, Other Musculoskelatal History: Fractures, Osteoarthritis GI Medical History: GERD, Hepatitis History: Renal Disease, Other Pyscho-Social History: No Pertinent History Male Reproductive Disorders: Prostate Cancer, Prostate Problems Comment: Maximiliano HAN, Cat Hooker: Dr. Bravo, HEP C OBTAINED FROM KIDNEY BUT TREATED, FRACTURE RIGHT 1st METATARSAL, gout, hystoplasmosis - Past Surgical History Past Surgical History: Yes Neuro Surgical History: No Pertinent History Cardiac History: No Pertinent History Respiratory Surgery: No Pertinent History GI Surgical History: No Pertinent History Genitourinary Surgical Hx: Kidney Transplant Musculskeletal Surgical Hx: Orthopedic Surgery Male Surgical History: Prostate Surgery Other Surgical History: lt ankle compound fx,seed implants to prostate 2006, dialysis port to rt sc and peritoneal port to abd and removed, kidney transplant-right side Significant Family History: cancer, diabetes, stroke - Social History Smoking Status: Never smoker Exposure to second hand smoke: No Alcohol: None Drug Use: none - Social Determinants of Health Will the patient participate in the screening: Yes Do you worry about a steady place to live?: No Do you have any problems with any of the following?: No known problems In the past 12 months,have you had to go without utilities?: No Have you or anyone in your house had to go without enough: No Transportation Issues: No Has anyone in your support network made you feel unsafe?: No Does the patient want assistance with any of the above?: No Medications & Allergies Home Medications: Home Medication List HydrALAzine HCL 25 MG TAB [Apresoline 25 MG TABLET] 25 mg PO TID 08/14/21 [History Confirmed 02/16/24] PANTOPRAZOLE 40 mg Tablet [Protonix 40MG Tablet] 40 mg PO QAM 08/14/21 [History Confirmed 02/16/24] Semaglutide [Ozempic] 1 unit SQ WEEKLY 08/14/21 [History Confirmed 02/16/24] Tamsulosin HCl 0.4 mg [Flomax 0.4 MG] 0.4 mg PO BID 08/14/21 [History Confirmed 02/16/24] Metformin HCl 500 mg [Glucophage 500 MG] 500 mg PO BID 10/06/21 [History Confirmed 02/16/24] Pravastatin Sodium 40 mg PO HS 10/06/21 [History Confirmed 02/16/24] Magnesium Oxide 400 mg PO BID 10/13/21 [History Confirmed 02/16/24] Itraconazole [Sporanox] 100 mg PO DAILY 12/15/21 [History Confirmed 02/16/24] carvediloL [Coreg] 6.25 mg PO BID 12/15/21 [History Confirmed 02/16/24] Allopurinol 100 mg [Zyloprim 100 mg] 100 mg PO DAILY 07/21/22 [History Confirmed 02/16/24] Apixaban [Eliquis] 5 mg PO BID 07/21/22 [History Confirmed 02/16/24] Benzonatate 100 mg PO DAILY PRN 07/21/22 [History Confirmed 02/16/24] Docusate Sodium 100 mg [Docusate Sodium 100 MG] 100 mg PO BID PRN 07/21/22 [History Confirmed 02/16/24] Flonase 50 50 mcg IN DAILY PRN 07/21/22 [History Confirmed 02/16/24] Insulin Detemir [Levemir] 20 unit SQ DAILY 07/21/22 [History Confirmed 02/16/24] Losartan Potassium [Cozaar] 50 mg PO HS 07/21/22 [History Confirmed 02/16/24] Potassium Chloride [Klor-Con M20] 20 meq PO DAILY 07/21/22 [History Confirmed 02/16/24] Tacrolimus [Envarsus Xr] 0.75 mg PO DAILY 07/21/22 [History Confirmed 02/16/24] L. Acidophilus/L.bulgaricus [Lactobacillus Tablet] 1 tab PO DAILY 30 Days #30 tablet 07/23/22 [Rx Confirmed 02/16/24] Ferrous Sulfate 325 mg [Feosol 325 mg] 325 mg PO DAILY 06/06/23 [History Confirmed 02/16/24] Insulin Lispro [Humalog Kwikpen U-100] 6 - 10 unit SQ UD 06/06/23 [History Confirmed 02/16/24] Multivit-Minerals/Folic Acid [Centrum Adult 50 Plus Gummy] 2 gel PO DAILY 06/06/23 [History Confirmed 02/16/24] Prednisone 5 mg [Deltasone 5 mg] 5 mg PO DAILY 06/06/23 [History Confirmed 02/16/24] Turmeric Root/Kiki Root Ext [Turmeric Curcumin-Kiki Gummy] 1 each PO DAILY 06/06/23 [History Confirmed 02/16/24] Vitamin D3/Vitamin K2 (Mk4) [K2 Plus D3 Tablet] 45 mcg PO DAILY 06/06/23 [History Confirmed 02/16/24] Bromocriptine Mesylate [Cycloset] 0.8 mg PO HS 11/03/23 [History Confirmed 02/16/24] Tolterodine Tartrate 2 mg [Detrol 2 MG] 2 mg PO DAILY 11/03/23 [History Confirmed 02/16/24] Magnesium Chloride [Slow-Mag] 71.5 mg PO BID 02/16/24 [History Confirmed 02/16/24] Empagliflozin [Jardiance] 10 mg PO DAILY 02/17/24 [History Confirmed 02/17/24] Allergies/Adverse Reactions: Allergies Allergy/AdvReac Type Severity Reaction Status Date / Time Sulfa (Sulfonamide Allergy Unknown Verified 02/16/24 09:51 Antibiotics) [Sulfa(Sulfonamide Antibiotics)] ibuprofen AdvReac Severe kidney Verified 02/16/24 03:41 transplant latex AdvReac Intermediate Rash Verified 02/16/24 03:41 Exam - Vitals Vital Signs: Vital Signs - 24 hr Temp Pulse Resp BP Pulse Ox 02/19/24 14:55 109/59 02/19/24 12:04 97.8 F 71 16 122/62 95 02/19/24 09:00 987.2 F 77 18 170/73 95 02/19/24 04:24 98.0 F 81 21 149/67 95 02/18/24 19:52 98.7 F 72 18 147/66 94 L General:: alert and oriented x 4, no acute distress HEENT: PERRLA Cardiovascular Exam: regular rate/rhythm, capillary refill <2 sec, other (no edema) Respiratory Exam: normal breath sounds, lungs clear SpO2: 95 Gastrointestinal/Abdomen Exam: soft, normal bowel sounds Skin Exam: normal color Extremity Exam: normal inspection, normal range of motion Neurologic: hydraulic miner blasting II-XII grossly intact, 5/5 Motor and Sensory Upper and Lower Extremities Results Vital Signs: Vital Signs - 24 hr Temp Pulse Resp BP Pulse Ox 02/19/24 14:55 109/59 02/19/24 12:04 97.8 F 71 16 122/62 95 02/19/24 09:00 987.2 F 77 18 170/73 95 02/19/24 04:24 98.0 F 81 21 149/67 95 02/18/24 19:52 98.7 F 72 18 147/66 94 L Pain Assessment - Last Documented Pain Intensity 0 Intake and Output: Intake & Output 02/17/24 02/18/24 02/19/24 02/20/24 11:59 11:59 11:59 11:59 Intake Total 360 3121 1400 860 Output Total 400 1900 200 Balance -40 1221 1200 860 Weight 76.5 kg LAB: I have reviewed the Labs in [facility]. Multi-Disciplinary Progress Notes: Multi-Disciplinary Progress Notes 02/19/24 14:32 Case Management Note by Marisabel Patel S/W PATIENT AND - THEY CURRENTLY PLAN FOR PATIENT TO RETURN HOME TO HIS PLF. THEY REPORT THEY HAVE ALL THE MEDICAL EQUIPMENT NEEDED AT HOME. THEY DECLINE HHC AT THIS TIME. WE DISCUSSED A REHAB STAY- CURRENTLY PATIENT WANTING TO SAVE HIS SNF DAYS AT THIS TIME. THEY ARE AWARE HIS 3 NIGHT STAY HERE WILL QUALIFY HIM FOR SNF FOR 30 DAYS IF HE CHANGES HIS MIND ONCE AT HOME. Initialized on 02/19/24 14:32 - END OF NOTE Assessment & Plan (1) Ventricular tachycardia Current Visit: Yes Status: Acute Assessment & Plan: Appears to be afib w/ aberrancy. Device was interrogated which revealed no rec ent VT (most recent episode was Feb 07). Patient is completely asymptomatic. No further inpatient w/u needed at this time. I've asked him to keep his upcoming appointment with his regular lab aid on Feb 27. Code(s): I47.20 - VENTRICULAR TACHYCARDIA, UNSPECIFIED - Encounter Encounter: "The entirety of this encounter was performed via Telemedicine using audio and visual "
[2024-02-19 23:51] VITALS: O2SAT 96
[2024-02-20 05:36] LABS: Absolute Neutrophil Ct (ANC) 3.94 x10^3/uL (1.78-5.38); BASOPHIL % 0.3 % (0.2-1.2); Basophil (Absolute #) 0.02 x10^3/uL (0.01-0.08); Eosinophil % 0.8 % (0.8-7.0); Eosinophil (Absolute #) 0.05 x10^3/uL (0.04-0.54); Hematocrit 38.6 % (40.1-51.0); Hemoglobin 12.6 g/dL (13.7-17.5); IMMATURE GRAN # 0.05 x10^3u/L (0.001-0.031); IMMATURE GRAN % 0.8 % (0.001-0.429); Lymphocyte (Absolute #) 1.56 x10^3/uL (1.32-3.57); Lymphocytes % 24.6 % (21.8-53.1); Mean Cell Volume 84.5 fL (79.0-92.2); Mean Corpuscular Hemoglobin 27.6 pg (25.7-32.2); Mean Corpuscular Hgb Concent. 32.6 g/dL (32.3-36.5); Mean Platelet Volume 10.8 fL (9.4-12.4); Monocyte (Absolute #) 0.73 x10^3/uL (0.30-0.82); Monocytes % 11.5 % (5.3-12.2); Platelet Count 160 x10^3/uL (163-337); Red Blood Count 4.57 x10^6/uL (4.63-6.08); Red Cell Distribution Width 15.8 % (11.6-14.4); White Blood Count 6.4 x10^3/uL (4.23-9.07)
[2024-02-20 06:03] LABS: ALBUMIN 3.4 g/dL (3.5-5.0); ANION GAP 9.8 MEQ/L (5-15); BILIRUBIN,TOTAL 0.7 mg/dL (0.2-1.3); Creatinine 1 1.08 mg/dL (0.66-1.25); EST GLOMERULAR FILTRATION RATE 70.2 ML/MIN; Potassium 3.8 mmol/L (3.5-5.1); Total Protein 6.5 g/dL (6.3-8.2)
[2024-02-20 06:41] VITALS: RESP 16
[2024-02-20] MEDS: PATIENT OWN MEDICATION PO SCH (08:38)
[2024-02-20 10:36] VITALS: BP 139/67; PULSE 69; TEMP 97.9
--- NOTE | 2024-02-20 12:02 | PCM.DS ---
Discharge Summary Date of Admission: 02/17/24 05:26 Date of Discharge: 02/20/24 Admitting Physician: AVELINA ESPAÑA MD Consults: Consults on Case 02/19/24 12:35 Consult Cardiology ROUTINE Primary Care Provider: TERRY NAVARRETE DO Allergies Allergies Sulfa (Sulfonamide Antibiotics) [Sulfa(Sulfonamide Antibiotics)] Allergy (Unknown, Verified 02/16/24 09:51) ibuprofen Adverse Reaction (Severe, Verified 02/16/24 03:41) kidney transplant latex Adverse Reaction (Intermediate, Verified 02/16/24 03:41) Rash Hospital Summary - Hospital Course Hospital Course: 02/19/24 is a 78 year old male with a pmhx of prostate cancer (s/p seed radiation), AFIB (pacemaker), DM, HLD, HTN, Hep C, and Right kidney transplant who presented to ED 02/16/24 with complaints of nausea, vomiting, and diarrhea. Patient reports that he was diagnosed with UTI by Dr. Albert on afternoon of 02/15/24 and had some instrumentation done for his prostatic beads. He was prescribed antibiotics at that time. He experienced multiple episodes of abdominal pain, vomiting and diarrhea around midnight. Spouse had similar symptoms. He reported he was unable to keep oral intake down and was unable to take antibiotics prescribed for UTI yesterday. He became very fatigued and felt dehydrated which prompted him to seek treatment in the ER. Denies fever,sob, cp, HAUSER, or dizziness. Upon arrival to ED patient was tachycardic and hypertensive. CT abdomen and pelvis showed cystitis, increased calculi in bladder and lung nodules. Patient states he is aware of the lung nodules and has been diagnosed with histoplasmosis and receives surveillance by his infectious disease physician. Lab findings remarkable for C02 at 19, elevated troponins, and ua suspicious for UTI. Respiratory panel negative. EKG reported as RATE (89 atrial sensed ventricular paced rhythm prolonged MI interval, right bundle branch block inferior/anteroseptal Q waves), Other (Second EKG 318 tachycardia 146, right axis deviation, right bundle branch block, no ST elevations, nonspecific ST and T wave changes). Patient was given ceftriaxone, fluid bolus, magnesium, zofran, and Reglan in ED with noted improvement of symptoms. Admit for viral kina roenteritis and UTI. Continued supportive care and abx for UTI. N/V/D have resolved. Patient tolerating a full diet. Urine culture with Klebsiella ESBL- sensitive to Merrem. Per nursing pt has several episodes of ventricular tachycardia overnight with a 6-8 beat run then pacemaker would start. Pacemaker interrogation ordered. Will consult cardiology for further recommendations. Pt states weakness has improved today but he is having urinary incontinence. He denies any back pain. He denies CP, SOB, Abd. pain, N/V/D. 02/20/24 Pt resting in bed. Cardiology report reviewed and pt ok to d/c today and will need to f/u within 10 days with pt's shorthand teacher. He already has an appointment scheduled for 02/28/24. Will d/c with levaquin for UTI. F/U appointment made with Dr. Albert'. Pt denies CP, SOB, abd. pain, N/V/D. - Vitals & Intake/Output Vital Signs: Vital Signs Temperature 97.9 F 02/20/24 10:35 Pulse Rate 69 02/20/24 10:35 Respiratory Rate 16 02/20/24 10:35 Blood Pressure 139/67 02/20/24 10:35 O2 Sat by Pulse Oximetry 96 02/20/24 10:35 Intake & Output: Intake & Output 02/17/24 02/18/24 02/19/24 02/20/24 11:59 11:59 11:59 11:59 Intake Total 360 3121 1400 1580 Output Total 400 1900 200 150 Balance -40 1221 1200 1430 Weight 76.5 kg 77 kg - Lab Result Diagrams: 02/20/24 04:22 02/20/24 04:22 Lab Results-Last 24 Hrs: Lab Results-Last 24 Hours 02/19/24 02/20/24 02/20/24 Range/Units 05:04 04:22 04:22 WBC 6.4 (4.23-9.07) x10^3/uL RBC 4.57 L (4.63-6.08) x10^6/uL Hgb 12.6 L (13.7-17.5) g/dL Hct 38.6 L (40.1-51.0) % MCV 84.5 (79.0-92.2) fL MCH 27.6 (25.7-32.2) pg MCHC 32.6 (32.3-36.5) g/dL RDW 15.8 H (11.6-14.4) % Plt Count 160 L (163-337) x10^3/uL MPV 10.8 (9.4-12.4) fL Gran % 62.0 (34.0-67.9) % Immature Gran % (Auto) 0.8 H (0.001-0.429) % Nucleat RBC Rel Count 0.0 (0.00-0.2) % Eos # (Auto) 0.05 (0.04-0.54) x10^3/uL Immature Gran # (Auto) 0.05 H (0.001-0.031) x10^3u/L Absolute Lymphs (auto) 1.56 (1.32-3.57) x10^3/uL Absolute Monos (auto) 0.73 (0.30-0.82) x10^3/uL Absolute Nucleated RBC 0.00 (0.00-0.012) x10^3u/L Lymphocytes % 24.6 (21.8-53.1) % Monocytes % 11.5 (5.3-12.2) % Eosinophils % 0.8 (0.8-7.0) % Basophils % 0.3 (0.2-1.2) % Absolute Granulocytes 3.94 (1.78-5.38) x10^3/uL Basophils # 0.02 (0.01-0.08) x10^3/uL Sodium 137 (135-145) mmol/L Potassium 3.8 (3.5-5.1) mmol/L Chloride 107 (98-107) mmol/L Carbon Dioxide 24 (22-30) mmol/L Anion Gap 9.8 (5-15) MEQ/L BUN 24 H (9-20) mg/dL Creatinine 1.08 (0.66-1.25) mg/dL Estimated GFR 70.2 ML/MIN Glucose 147 H (74-106) mg/dL Calcium 9.0 (8.4-10.2) mg/dL Magnesium 1.7 (1.6-2.3) mg/dL Total Bilirubin 0.70 (0.2-1.3) mg/dL AST 26 (17-59) U/L ALT 31 (0-50) U/L Alkaline Phosphatase 57 (38-126) U/L Serum Total Protein 6.5 (6.3-8.2) g/dL Albumin 3.4 L (3.5-5.0) g/dL Micro Results-Entire Visit: Microbiology 02/16/24 03:44 Urine Culture - Final Clean Catch Midstream Klebsiella Pneumoniae Accuchecks Date 02/20/24 Date 02/20/24 Date 02/19/24 Date 02/19/24 Time 11:28 Time 07:27 Time 22:00 Time 16:46 - Procedures and Test Procedures and Tests throughout Hospitalization: Therapy Orders & Screens 02/16/24 11:20 EKG STAT Comment: Diagnosis: Acute gastroenteritis, UTI Discharge Exam General Appearance: no apparent distress, alert Neurologic Exam: alert, oriented x 3, cooperative, normal mood/affect, nml cerebellar function, sensation nml, No motor deficits Eye Exam: PERRL, EOMI, eyes nml inspection Ears, Nose, Throat Exam: normal ENT inspection, pharynx normal, moist mucous me mbranes Neck Exam: normal inspection, non-tender, supple, full range of motion Respiratory Exam: normal breath sounds, lungs clear, No respiratory distress Cardiovascular Exam: regular rate/rhythm, normal heart sounds Gastrointestinal/Abdomen Exam: soft, No tenderness, No mass Male Genitalia Exam: deferred Rectal Exam: deferred Back Exam: normal inspection, normal range of motion, No CVA tenderness, No vertebral tenderness Extremity Exam: normal inspection, normal range of motion Skin Exam: normal color, warm, dry Final Diagnosis/Problem List - Final Discharge Diagnosis/Problem (1) Acute UTI (urinary tract infection) Current Visit: Yes Status: Acute Code(s): N39.0 - URINARY TRACT INFECTION, SITE NOT SPECIFIED (2) Ventricular tachycardia Current Visit: Yes Status: Acute Code(s): I47.20 - VENTRICULAR TACHYCARDIA, UNSPECIFIED (3) Elevated troponin Current Visit: Yes Status: Acute Code(s): R79.89 - OTHER SPECIFIED ABNORMAL FINDINGS OF BLOOD CHEMISTRY (4) Acute gastroenteritis Current Visit: Yes Status: Resolved Code(s): K52.9 - NONINFECTIVE G ASTROENTERITIS AND COLITIS, UNSPECIFIED (5) Afib Current Visit: Yes Status: Chronic Code(s): I48.91 - UNSPECIFIED ATRIAL FIBRILLATION (6) HLD (hyperlipidemia) Current Visit: Yes Status: Chronic Code(s): E78.5 - HYPERLIPIDEMIA, UNSPECIFIED (7) HTN (hypertension) Current Visit: Yes Status: Chronic Code(s): I10 - ESSENTIAL (PRIMARY) HYPERTENSION (8) History of hepatitis C Current Visit: Yes Status: Chronic Code(s): Z86.19 - PERSONAL HISTORY OF OTHER INFECTIOUS AND PARASITIC DISEASES (9) History of kidney transplant Current Visit: Yes Status: Chronic (10) History of prostate cancer Current Visit: Yes Status: Chronic Code(s): Z85.46 - PERSONAL HISTORY OF MALIGNANT NEOPLASM OF PROSTATE (11) DM2 (diabetes mellitus, type 2) Current Visit: No Status: Chronic Assessment & Plan: (1) Acute UTI (urinary tract infection) Current Visit: Yes Status: Acute Assessment & Plan: -Ucult with ESBL klebsiella - Merem IV - CBC , CMP reviewed 02/19 - d/c with PO levaquin Code(s): N39.0 - URINARY TRACT INFECTION, SITE NOT SPECIFIED (2) Ventricular tachycardia Current Visit: Yes Status: Acute Assessment & Plan: - Episodes overnight per nursing 6-8 beat runs- nonsustaining - pt has a pacemaker. - pacemaker interrogation ordered - cardiology consult - Follows Dr. Handley for cardiology in [place], [place]. - Mg+ 1.7 02/19 - Cardiology consult note reviewed and agree with plan of care - F/U with Cardiology on 02/28/24 as scheduled Code(s): I47.20 - VENTRICULAR TACHYCARDIA, UNSPECIFIED (3) Elevated troponin Current Visit: Yes Status: Acute Assessment & Plan: - trops 0.044, 0.043, 0.030- trended down - cardiology consult - denies CP Code(s): R79.89 - OTHER SPECIFIED ABNORMAL FINDINGS OF BLOOD CHEMISTRY (4) Acute gastroenteritis Current Visit: Yes Status: Resolved Assessment & Plan: -C-Diff reviewed and negative -NVD have resolved -CT abd/pelvis reviewed demonstrates small urinary bladder diverticulum with few calculi within. Interval increase in size and number of calculi compared to prior study.Chronic bilateral renal disease. Post renal transplant status with the transplant kidney in the right iliac fossa. Subtle perinephric fat stranding. Mild cystitis.Bilateral stable small inguinal hernia with herniation of omentum. The visualized lung bases show persistent multiple small lung nodules. -Supportive care with anti-emetics, anti-pyretics, IVF - resolved Code(s): K52.9 - NONINFECTIVE GASTROENTERITIS AND COLITIS, UNSPECIFIED (5) Afib Current Visit: Yes Status: Chronic Assessment & Plan: -continue home meds eliquis and coreg - pacemaker -tele Code(s): I48.91 - UNSPECIFIED ATRIAL FIBRILLATION (6) HLD (hyperlipidemia) Current Visit: Yes Status: Chronic Assessment & Plan: -continue home regimen Code(s): E78.5 - HYPERLIPIDEMIA, UNSPECIFIED (7) HTN (hypertension) Current Visit: Yes Status: Chronic Assessment & Plan: -BP stable with some htn on arrival- continue home meds Code(s): I10 - ESSENTIAL (PRIMARY) HYPERTENSION (8) History of hepatitis C Current Visit: Yes Status: Chronic Assessment & Plan: -OP treatment Code(s): Z86.19 - PERSONAL HISTORY OF OTHER INFECTIOUS AND PARASITIC DISEASES (9) History of kidney transplant Current Visit: Yes Status: Chronic Assessment & Plan: -Continue anti-rejection home meds (10) History of prostate cancer Current Visit: Yes Status: Chronic Assessment & Plan: -s/p radiation/seeds - follows Dr. Albert' Code(s): Z85.46 - PERSONAL HISTORY OF MALIGNANT NEOPLASM OF PROSTATE (11) DM2 (diabetes mellitus, type 2) Current Visit: No Status: Chronic Qualifiers: Diabetes mellitus [facility] insulin use: with buttermaker helper use Assessment & Plan: -SSI -CLD- accucheck ACHS -hold ozempic/metformin - A1C 6.12- controlled - Discharge Discharge Date: 02/20/24 Disposition: Home, Self-Care Condition: Stable Prescriptions: Continue Tamsulosin HCl 0.4 mg [Flomax 0.4 MG] 0.4 mg PO BID PANTOPRAZOLE 40 mg Tablet [Protonix 40MG Tablet] 40 mg PO QAM HydrALAzine HCL 25 MG TAB [Apresoline 25 MG TABLET] 25 mg PO TID Semaglutide [Ozempic] 1 unit SQ WEEKLY Metformin HCl 500 mg [Glucophage 500 MG] 500 mg PO BID Pravastatin Sodium 40 mg PO HS Magnesium Oxide 400 mg PO BID carvediloL [Coreg] 6.25 mg PO BID Benzonatate 100 mg PO DAILY PRN PRN Reason: Cough Docusate Sodium 100 mg [Docusate Sodium 100 MG] 100 mg PO BID PRN PRN Reason: Constipation Losartan Potassium [Cozaar] 50 mg PO HS Insulin Detemir [Levemir] 20 unit SQ DAILY Potassium Chloride [Klor-Con M20] 20 meq PO DAILY Tacrolimus [Envarsus Xr] 0.75 mg PO DAILY Allopurinol 100 mg [Zyloprim 100 mg] 100 mg PO DAILY Apixaban [Eliquis] 5 mg PO BID Flonase 50 50 mcg IN DAILY PRN PRN Reason: Allergies L. Acidophilus/L.bulgaricus [Lactobacillus Tablet] 1 tab PO DAILY 30 Days #30 tablet Prednisone 5 mg [Deltasone 5 mg] 5 mg PO DAILY Turmeric Root/Kiki Root Ext [Turmeric Curcumin-Kiki Gummy] 1 each PO DAILY Vitamin D3/Vitamin K2 (Mk4) [K2 Plus D3 Tablet] 45 mcg PO DAILY Multivit-Minerals/Folic Acid [Centrum Adult 50 Plus Gummy] 2 gel PO DAILY Ferrous Sulfate 325 mg [Feosol 325 mg] 325 mg PO DAILY Insulin Lispro [Humalog Kwikpen U-100] 6 - 10 unit SQ UD Tolterodine Tartrate 2 mg [Detrol 2 MG] 2 mg PO DAILY Bromocriptine Mesylate [Cycloset] 0.8 mg PO HS Magnesium Chloride [Slow-Mag] 71.5 mg PO BID Empagliflozin [Jardiance] 10 mg PO DAILY Discontinued Itraconazole [Sporanox] 100 mg PO DAILY Follow up with: TERRY NAVARRETE DO [Primary Care Provider] - HEATH ALBERT [COURTESY STAFF] - Office will call patient MARIANNA CASTILLO PA [NON-STAFF PHY W/O PRIVILEGES] - 02/28/24 1:15 pm (APPT WITH '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 MARIANNA CASTILLO)
== END 2024-02-20 12:55 | disposition home or self-care (01) | DRG 690 ==
LOC: ED 03:07 → MED SURG 09:00 → OBSVTOIN 02-17 05:26
PROVIDERS: ADMIT Internal Medicine Nephrology; ATTEND Internal Medicine Nephrology
DX: N39.0 Urinary tract infection, site not specified (principal); I47.20 Ventricular tachycardia, unspecified; Z94.0 Kidney transplant status; R79.89 Other specified abnormal findings of blood chemistry; K52.9 Noninfective gastroenteritis and colitis, unspecified; I48.91 Unspecified atrial fibrillation; E78.5 Hyperlipidemia, unspecified; I10 Essential (primary) hypertension; E11.9 Type 2 diabetes mellitus without complications; Z86.19 Personal history of other infectious and parasitic diseases; Z85.46 Personal history of malignant neoplasm of prostate; Z79.01 Long term (current) use of anticoagulants; Z79.899 Other long term (current) drug therapy
CPT/HCPCS: 0241U; 36415; 74176; 80053; 81001; 82947; 83036; 83605; 83690; 83735; 84484; 85025; 87077; 87086; 87186; 87493; 93005; 93268; 96374; 96375; 99285; G0378; Q3014; J0696; J1817; J2405; J3475; A9270-GY

== ENCOUNTER 2024-06-13 04:17 | Emergency (ER) | payer MEDICARE, OTHER ==
[2024-06-13 04:38] VITALS: TEMP 99.1
--- NOTE | 2024-06-13 05:07 | ERPHSYRPT ---
- History of Present Illness Time Seen by Provider: 06/13/24 05:04 Source: patient Exam Limitations: no limitations Patient Subjective Stated Complaint: Pt presents to ER with family and states, "I'm in no pain but I'm frequently going to pee and not peeing a lot when I go. I think I may be getting a UTI". Triage Nursing Assessment: Pt presents to ER with complaints of urinary frequency/urgency w/ decreased urine output. Pt and family believe he may have a UTI. Hx of frequent UTIs and Kidney transplant recipient. Pt is alert and oriented x 3. Skin is pink, warm, and dry. Respirations are easy. Abdomen is soft and nontender. Denies nausea/vomiting/diarrhea. Denies pain. States symptoms started yesterday. Physician History: 78-year-old male history of renal transplantation x 3 years ago at [address] presents to our ED for evaluation of urinary symptomology. Patient also advises that he has been urinating less frequently. Patient denies back pain no fever no abdominal pain. Patient urinated approximately an hour prior to arrival but states the volume was very small. Symptoms are constant. Symptoms are mild to moderate in intensity. No specific worsening or improving factors. at bedside. They voiced no other complaints or concerns at this time. Portions of this note were created with voice recognition technology. There may be grammatical, spelling, punctuation or sound alike errors Timing/Duration: today Severity: moderate Modifying Factors: Improves With: nothing Associated Symptoms: denies symptoms Allergies/Adverse Reactions: Sulfa (Sulfonamide Antibiotics) [Sulfa(Sulfonamide Antibiotics)] Allergy (Unknown, Verified 06/13/24 04:39) ibuprofen Adverse Reaction (Severe, Verified 06/13/24 04:39) kidney transplant latex Adverse Reaction (Intermediate, Verified 06/13/24 04:39) Rash Home Medications: HydrALAzine HCL 25 MG TAB [Apresoline 25 MG TABLET] 25 mg PO TID 08/14/21 [History] PANTOPRAZOLE 40 mg Tablet [Protonix 40MG Tablet] 40 mg PO QAM 08/14/21 [History] Semaglutide [Ozempic] 1 unit SQ WEEKLY 08/14/21 [History] Tamsulosin HCl 0.4 mg [Flomax 0.4 MG] 0.4 mg PO BID 08/14/21 [History] Metformin HCl 500 mg [Glucophage 500 MG] 500 mg PO BID 10/06/21 [History] Pravastatin Sodium 40 mg PO HS 10/06/21 [History] Magnesium Oxide 400 mg PO BID 10/13/21 [History] carvediloL [Coreg] 6.25 mg PO BID 12/15/21 [History] Allopurinol 100 mg [Zyloprim 100 mg] 100 mg PO DAILY 07/21/22 [History] Apixaban [Eliquis] 5 mg PO BID 07/21/22 [History] Benzonatate 100 mg PO DAILY PRN 07/21/22 [History] Docusate Sodium 100 mg [Docusate Sodium 100 MG] 100 mg PO BID PRN 07/21/22 [History] Flonase 50 50 mcg IN DAILY PRN 07/21/22 [History] Insulin Detemir [Levemir] 20 unit SQ DAILY 07/21/22 [History] Losartan Potassium [Cozaar] 50 mg PO HS 07/21/22 [History] Potassium Chloride [Klor-Con M20] 20 meq PO DAILY 07/21/22 [History] Tacrolimus [Envarsus Xr] 0.75 mg PO DAILY 07/21/22 [History] Ferrous Sulfate 325 mg [Feosol 325 mg] 325 mg PO DAILY 06/06/23 [History] Insulin Lispro [Humalog Kwikpen U-100] 6 - 10 unit SQ UD 06/06/23 [History] Multivit-Minerals/Folic Acid [Centrum Adult 50 Plus Gummy] 2 gel PO DAILY 06/06/23 [History] Prednisone 5 mg [Deltasone 5 mg] 5 mg PO DAILY 06/06/23 [History] Turmeric Root/Kiki Root Ext [Turmeric Curcumin-Kiki Gummy] 1 each PO DAILY 06/06/23 [History] Vitamin D3/Vitamin K2 (Mk4) [K2 Plus D3 Tablet] 45 mcg PO DAILY 06/06/23 [History] Bromocriptine Mesylate [Cycloset] 0.8 mg PO HS 11/03/23 [History] Tolterodine Tartrate 2 mg [Detrol 2 MG] 2 mg PO DAILY 11/03/23 [History] Magnesium Chloride [Slow-Mag] 71.5 mg PO BID 02/16/24 [History] Empagliflozin [Jardiance] 10 mg PO DAILY 02/17/24 [History] Hx Tetanus, Diphtheria Vaccination/Date Given: Yes Hx Influenza Vaccination/Date Given: Yes Hx Pneumococcal Vaccination/Date Given: Yes Immunizations Up to Date: Yes Travel Risk - International Travel Have you traveled outside of the country in past 3 weeks: No - Emerging Infectious Disease Are you exhibiting symptoms associated with any current EIDs: No Symptoms: Diarrhea, Fever, Vomitting - Review of Systems Constitutional: No Symptoms, No Fever, No Chills Eyes: No Symptoms Ears, Nose, & Throat: No Symptoms Respiratory: No Symptoms, No Cough, No Dyspnea Cardiac: No Symptoms, No Chest Pain, No Edema, No Syncope Abdominal/Gastrointestinal: No Symptoms, No Abdominal Pain, No Nausea, No Vomiting, No Diarrhea Genitourinary Symptoms: No Symptoms, No Dysuria Musculoskeletal: No Symptoms, No Back Pain, No Neck Pain Skin: No Symptoms, No Rash Neurological: No Symptoms, No Dizziness, No Focal Weakness, No Sensory Changes Psychological: No Symptoms Endocrine: No Symptoms Hematologic/Lymphatic: No Symptoms Immunological/Allergic: No Symptoms All Other Systems: Reviewed and Negative - Past Medical History Pertinent Past Medical History: Yes Neurological History: No Pertinent History ENT History: Cataracts Cardiac History: Arrhythmia, High Cholesterol, Hypertension Respiratory History: No Pertinent History Endocrine Medical History: Diabetes Type II Musculoskeletal History: Fractures, Osteoarthritis GI Medical History: GERD, Hepatitis History: Renal Disease, Other Psycho-Social History: No Pertinent History Male Reproductive Disorders: Prostate Cancer, Prostate Problems Other Medical History: 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 17/18 YEARS AGO PROSTATE CANCER WITH SEED IMPLANT, ABOUT 2 YEARS HE WAS TOLD HE WAS CANCER FREE. KIDNEY TRANSPLANT WITH HX OF DIALYSIS. HX OF HEP C. HX OF COVID, HISTOPLASMOSIS. HX OF R ANKLE FX, HX OF L ANKLE FX REQUIRING MILAGRO/PLATE PLACEMENT, L KNEE MENISCUS REPAIR. PRECAUTIONS: PACEMAKER. - Past Surgical History Past Surgical History: Yes Neuro Surgical History: No Pertinent History Cardiac: No Pertinent History Respiratory: No Pertinent History Gastrointestinal: No Pertinent History Genitourinary: Kidney Transplant Musculoskeletal: Orthopedic Surgery Male Surgical History: Prostate Surgery Other Surgical History: lt ankle compound fx,seed implants to prostate 2006, dialysis port to rt sc and peritoneal port to abd and removed, kidney transplant-right side Significant Family History: cancer, diabetes, stroke - Social History Smoking Status: Never smoker Exposure to second hand smoke: No Drug Use: none - Social Determinants of Health Will the patient participate in the screening: Yes Do you worry about a steady place to live?: No Do you have any problems with any of the following?: No known problems In the past 12 months,have you had to go without utilities?: No Transportation Issues: No Has anyone in your support network made you feel unsafe?: No Have you or anyone in your house had to go w/o enough food: No - Nursing Vital Signs Nursing Vital Signs: Initial Vital Signs Pulse Rate 94 H 06/13/24 04:32 Respiratory Rate 16 06/13/24 04:32 Blood Pressure 185/83 06/13/24 04:32 O2 Sat by Pulse Oximetry 96 06/13/24 04:32 Pain Scale Pain Intensity 0 - Physical Exam General Appearance: no apparent distress, alert Eye Exam: PERRL/EOMI, eyes nml inspection Ears, Nose, Throat Exam: normal ENT inspection, pharynx normal, moist mucous membranes Neck Exam: normal inspection, full range of motion Respiratory Exam: normal breath sounds, lungs clear, No respiratory distress Cardiovascular Exam: regular rate/rhythm Gastrointestinal/Abdomen Exam: soft, normal bowel sounds, No tenderness, No mass Back Exam: normal inspection, normal range of motion, No CVA tenderness, No vertebral tenderness Extremity Exam: normal inspection Neurologic Exam: alert, oriented x 3, cooperative, normal mood/affect, sensation nml, No motor deficits Skin Exam: normal color, warm, dry, No rash Lymphatic Exam: No adenopathy SpO2 Interpretation: normal SpO2: 97 O2 Delivery: Room Air - Course Nursing assessment & vital signs reviewed: Yes EKG Interpreted by Me: RATE (86 ventricular paced rhythm), NORMAL AXIS, NORMAL INTERVALS, NORMAL QRS Ordered Tests: Active Orders 24 hr Category Date Time Status IV Insertion STAT Care 06/13/24 05:50 Active CBC W DIFF Stat Lab 06/13/24 05:25 Completed CMP Stat Lab 06/13/24 05:25 Completed CULTURE,URINE Stat Lab 06/13/24 05:03 Received TROPONIN Q4H Lab 06/13/24 05:25 Received TROPONIN Q4H Lab 06/13/24 10:45 Ordered TROPONIN Q4H Lab 06/13/24 14:45 Ordered UA W/RFX UR CULTURE Stat Lab 06/13/24 05:03 Completed Medication Summary Generic Name Dose Route Start Last Admin Trade Name Rashad PRN Reason Stop Dose Admin Levofloxacin/Dextrose 500 mg in 100 mls @ 100 mls/hr 06/13/24 06:53 Levofloxacin 500mg/100ml D5w IV 06/13/24 07:52 STAT STA Discontinued Medications Generic Name Dose Route Start Last Admin Trade Name Rashad PRN Reason Stop Dose Admin Sodium Chloride 1,000 mls @ 999 mls/hr 06/13/24 05:50 06/13/24 07:03 Sodium Chloride 0.9% 1000 Ml IV 06/13/24 06:50 Infused .Q1H1M STA Infusion Sodium Chloride Confirm 06/13/24 05:58 Sodium Chloride 0.9% 1000 Ml Administered 06/13/24 05:59 Dose 1,000 mls @ ud .ROUTE .K-MED ONE Lab/Rad Data: Laboratory Result Diagrams 06/13/24 05:25 06/13/24 05:25 Laboratory Results 06/13/24 06/13/24 06/13/24 Range/Units 05:25 05:25 05:03 WBC 11.7 H (4.23-9.07) x10^3/uL RBC 5.98 (4.63-6.08) x10^6/uL Hgb 16.8 (13.7-17.5) g/dL Hct 52.4 H (40.1-51.0) % MCV 87.6 (79.0-92.2) fL MCH 28.1 (25.7-32.2) pg MCHC 32.1 L (32.3-36.5) g/dL RDW 14.8 H (11.6-14.4) % Plt Count 140 L (163-337) x10^3/uL MPV 9.8 (9.4-12.4) fL Gran % 77.6 H (34.0-67.9) % Immature Gran % (Auto) 0.6 H (0.001-0.429) % Nucleat RBC Rel Count 0.0 (0.00-0.2) % Eos # (Auto) 0 L (0.04-0.54) x10^3/uL Immature Gran # (Auto) 0.07 H (0.001-0.031) x10^3u/L Absolute Lymphs (auto) 1.30 L (1.32-3.57) x10^3/uL Absolute Monos (auto) 1.22 H (0.30-0.82) x10^3/uL Absolute Nucleated RBC 0.00 (0.00-0.012) x10^3u/L Lymphocytes % 11.1 L (21.8-53.1) % Monocytes % 10.5 (5.3-12.2) % Eosinophils % 0.0 L (0.8-7.0) % Basophils % 0.2 (0.2-1.2) % Absolute Granulocytes 9.05 H (1.78-5.38) x10^3/uL Basophils # 0.02 (0.01-0.08) x10^3/uL Sodium 143 (135-145) mmol/L Potassium 4.1 (3.5-5.1) mmol/L Chloride 106 (98-107) mmol/L Carbon Dioxide 23 (22-30) mmol/L Anion Gap 18.6 H (5-15) MEQ/L BUN 28 H (9-20) mg/dL Creatinine 1.22 (0.66-1.25) mg/dL Estimated GFR 60.7 ML/MIN Glucose 249 H (74-106) mg/dL Calcium 9.8 (8.4-10.2) mg/dL Total Bilirubin 1.10 (0.2-1.3) mg/dL AST 26 (17-59) U/L ALT 37 (0-50) U/L Alkaline Phosphatase 85 (38-126) U/L Serum Total Protein 7.4 (6.3-8.2) g/dL Albumin 4.6 (3.5-5.0) g/dL Urine Color Yellow (Yellow) Urine Appearance Cloudy A (Clear) Urine pH 7.0 (4.6-8.0) Ur Specific [place] 1.020 (1.005-1.030) Urine Protein 300 A (Negative) Urine Glucose (UA) >=1000 A (Negative) mg/dL Urine Ketones Negative (Negative) Urine Blood Large A (Negative) Urine Nitrite Negative (Negative) Urine Bilirubin Negative (Negative) Urine Urobilinogen 0.2 (0.2) mg/dL Ur Leukocyte Esterase Moderate A (Negative) U Hyaline Cast (Auto) NONE SEEN (0-2) /LPF Urine Microscopic RBC >100 A (0-5) /HPF Urine Microscopic WBC >100 A (0-5) /HPF Ur Epithelial Cells None Seen (None Seen) /HPF Urine Bacteria None Seen (None Seen) /HPF Urine Culture Reflexed YES (NO) - Progress Progress: improved Progress Note: While in our ED patient had a run of V. tach that lasted for approximately 40 seconds. We contacted patient's dogger I talked to Dr. Ochoa at approximately 6:[address] Marroquin Who advised transferring patient over to [facility] for further evaluation and treatment. He advised to include the rhythm strip and associated EKG. 06/13/24 06:41 78-year-old male history of renal transplant approximately 3 years ago at [address] presents to our ED with his for evaluation of suspected urinary tract infection. Physical exam otherwise nonremarkable. We obtained a urinalysis. Urinary tract infection confirmed. Attempted to contact patient's transplant service to advise them of the urinary tract infection and to discuss the best antibiotic management. Patient last had a urinary tract infection in February 2024 approximately 4 months ago. Patient's urine grew Pseudomonas. Current urine reflexed to culture. Culture results pending. While we were in the process of contacting patient's transplant service patient was observed to have a unsustained run of V. tach that lasted approximately 40 seconds. We contacted patient's cardiology service. Patient will be transferred to [facility] for further evaluation and treatment. Plan of care discussed with patient and his who is at the bedside. They agreed to transfer to [facility] for further evaluation and treatment. Portions of this note were created with voice recognition technology. There may be grammatical, spelling, punctuation or sound alike errors Complexity of problem addressed is moderate acute complicated. No critical care time. Complexity of data reviewed and analyzed as extensive. Test ordered test reviewed results analyzed and correlated clinically with history and physical exam. Risk of complication and or risk of morbidity/mortality of patient management is high. Patient requires transfer to higher level of care. Vital stable. Time spent to transfer patient is approximately 20 minutes. Plan of care established for shared decision making. No social determinants of health present to impede follow-up. Portions of this note were created with voice recognition technology. There may be grammatical, spelling, punctuation or sound alike errors 06/13/24 06:[address] Reyna physician on the [employer] service at [facility] in [address] [place] [address]. He advised that patient can have essentially any antibiotic. He agreed that ciprofloxacin would be appropriate in light of the fact that patient had Pseudomonas in his urine 4 months ago in February 2024. 06/13/24 06:51 I spoke to ER physician at [facility] accepts transfer at 7:21 AM. Troponin and magnesium results are pending. Dr. Black will follow-up on these values and manage accordingly 06/13/24 07:21 Counseled pt/family regarding: diagnosis - Departure Departure Disposition: Transfer Clinical Impression: V tach, Urinary tract infection Condition: Stable Critical Care Time: No Referrals: TERRY NAVARRETE DO [Primary Care Provider, [facility]] - Follow up/PCP as directed
[2024-06-13 05:26] LABS: Absolute Neutrophil Ct (ANC) 9.05 x10^3/uL (1.78-5.38); BASOPHIL % 0.2 % (0.2-1.2); Basophil (Absolute #) 0.02 x10^3/uL (0.01-0.08); Eosinophil (Absolute #) 0 x10^3/uL (0.04-0.54); Hematocrit 52.4 % (40.1-51.0); Hemoglobin 16.8 g/dL (13.7-17.5); IMMATURE GRAN # 0.07 x10^3u/L (0.001-0.031); IMMATURE GRAN % 0.6 % (0.001-0.429); Lymphocytes % 11.1 % (21.8-53.1); Mean Cell Volume 87.6 fL (79.0-92.2); Mean Corpuscular Hemoglobin 28.1 pg (25.7-32.2); Mean Corpuscular Hgb Concent. 32.1 g/dL (32.3-36.5); Mean Platelet Volume 9.8 fL (9.4-12.4); Monocyte (Absolute #) 1.22 x10^3/uL (0.30-0.82); Monocytes % 10.5 % (5.3-12.2); Neutrophil % 77.6 % (34.0-67.9); Platelet Count 140 x10^3/uL (163-337); Red Blood Count 5.98 x10^6/uL (4.63-6.08); Red Cell Distribution Width 14.8 % (11.6-14.4); White Blood Count 11.7 x10^3/uL (4.23-9.07)
[2024-06-13 05:35] LABS: Appearance Cloudy (Clear); Bacteria None Seen /HPF (None Seen); Bilirubin Negative (Negative); Blood Large (Negative); Epithelial Cells None Seen /HPF (None Seen); Glucose, Urine >=1000 mg/dL (Negative); Hyaline Casts NONE SEEN /LPF (0-2); Ketones Negative (Negative); Leukocyte Esterase Moderate (Negative); Nitrite Negative (Negative); Protein,Urine Dip 300 (Negative); RBC >100 /HPF (0-5); Urobilinogen 0.2 mg/dL (0.2); WBC >100 /HPF (0-5)
[2024-06-13 05:39] LABS: ALBUMIN 4.6 g/dL (3.5-5.0); ANION GAP 18.6 MEQ/L (5-15); BILIRUBIN,TOTAL 1.1 mg/dL (0.2-1.3); Calcium 9.8 mg/dL (8.4-10.2); Creatinine 1 1.22 mg/dL (0.66-1.25); EST GLOMERULAR FILTRATION RATE 60.7 ML/MIN; Potassium 4.1 mmol/L (3.5-5.1); Total Protein 7.4 g/dL (6.3-8.2)
[2024-06-13] MEDS ORDERED: Sodium Chloride 0.9% 1000 ML 1,000 ML ONE (05:58)
[2024-06-13] MEDS: Sodium Chloride 0.9% 1000 ML 1,000 ML IV STA (05:59)
[2024-06-13] MEDS ORDERED: Levofloxacin 500MG/100ML D5W 500 MG/100 ML BAG IV ONE (07:22)
[2024-06-13] MEDS: Levofloxacin 500MG/100ML D5W 500 MG/100 ML BAG IV STA (07:24)
[2024-06-13] MEDS ORDERED: MAGNESIUM SULF 2 G/50 ML BAG 2 GM/50 ML PIGGYBACK IV ONE (08:54)
[2024-06-13] MEDS: MAGNESIUM SULF 2 G/50 ML BAG 2 GM/50 ML PIGGYBACK IV ONE (08:56)
[2024-06-13] MEDS ORDERED: Reglan 10 MG/2 ML ONE (09:17)
[2024-06-13] MEDS: Reglan 10 MG/2 ML IV ONE (09:20)
[2024-06-13] MEDS ORDERED: APRESOLINE 20 MG/ML INJ ONE (09:48)
[2024-06-13] MEDS: APRESOLINE 20 MG/ML INJ IV ONE (09:49)
[2024-06-13 10:05] VITALS: BP 172/80; PULSE 86; RESP 20; O2SAT 93
== END 2024-06-13 10:05 | disposition short-term general hospital (02) ==
LOC: ED 04:17
DX: I47.20 Ventricular tachycardia, unspecified (principal); N39.0 Urinary tract infection, site not specified; R77.8 Other specified abnormalities of plasma proteins; R35.0 Frequency of micturition; Z94.0 Kidney transplant status; Z79.85 Long-term (current) use of injectable non-insulin antidiabetic drugs; Z79.84 Long term (current) use of oral hypoglycemic drugs; Z79.01 Long term (current) use of anticoagulants; Z79.4 Long term (current) use of insulin; Z79.899 Other long term (current) drug therapy
CPT/HCPCS: 36415; 80053; 81001; 83735; 84484; 85025; 87077; 87086; 87186; 96361; 96365; 96367; 96375; 99285; J0360; J1956; J3475